=== PATIENT | female | born 1975 | race Caucasian/White ===

== ENCOUNTER 2018-10-16 12:53 | Outpatient (REF) | payer OTHER, SELFPAY ==
--- NOTE | 2018-10-16 10:30 | PAPFT_PTH ---
PATIENT: Vanesa Zavala LOC: [facility] U#:[id number] AGE/SX: 42/F ROOM: RE10/16/[address]: Nesha Hawkins MD : [id number] BED: DIS: 10/16/2018 SPEC #: [id number] RECD: 10/16/18 13:14 STATUS: DEEP REAudelia #: [id number] TALYA: 10/16/18 10:[address]: Nesha Hawkins DEPT: [facility] Cytology RECD BY: Dilia Alston ENTERED: 10/16/18 13:14 SP TYPE: PAPFT OTHR DR: Tien Garcia Tissues: 1 - CX/ENDOCX FOR PAP SMEARS Procedures: PAP THIN PREP/[facility] Screening HPV DNA PROBE Comments: [id number]
== END 2018-10-16 13:13 ==
LOC: LBN 12:53
PROVIDERS: PCP Family Medicine; Visit Provider Obstetrics & Gynecology
DX: Z12.4 Encounter for screening for malignant neoplasm of cervix (principal); Z11.59 Encounter for screening for other viral diseases
CPT/HCPCS: 88142; 87624

== ENCOUNTER 2018-11-11 01:47 | Outpatient (CLI) | payer OTHER, SELFPAY ==
--- NOTE | 2018-11-11 07:02 | DI.US_ITS ---
SYMPTOMS/DIAGNOSIS: ENLARGED UTERUS, N85.2 PELVIC ULTRASOUND: A transabdominal and transvaginal examination was carried out. The uterus measures 9.4 cm in length, 5.2 cm in height and 5.8 cm in width with an endometrial stripe thickness of 13.5 mm. A small nabothian cyst is demonstrated. The right ovary measures 3.2 x 1.7 x 2.0 cm and contains a 1.3 x 1.2 cm cyst. The left ovary measures 2.2 x 1.6 x 1.7 cm. There is no evidence of pelvic free fluid. The kidneys are unremarkable. The right kidney measures 11.5 cm, the left kidney 10.4 cm. SUMMARY: Aside from a tiny nabothian cyst and a 1.3 x 1.2 cm right ovarian cyst, the examination is unremarkable.
--- NOTE | 2018-11-11 11:00 | DI.MAMMO_ITS ---
SYMPTOMS/DIAGNOSIS: SCREENING, Z12.31 MAMMOGRAMS: Mammograms were interpreted according to the usual protocol including computer analysis with CAD system, tomosynthesis and C view imaging. The breast tissue is heterogeneously radiodense, which lowers the sensitivity of the study. When compared with the previous examinations, there is a question of interval development of a small area of nodularity in the central portion of the right breast. This finding suggested only on the craniocaudad projection. There are no suspicious calcifications in either breast. SUMMARY: Question interval development of a small right breast nodule. Further assessment with craniocaudad compression spot image and ultrasound is recommended. Category 0. Breast density category C. MQSA ASSESSMENT OF FINDINGS: Incomplete: Needs additional imaging evaluation. Category 0. Patient will receive a letter notifying them of these results. Bi-RADS category C. The breasts are heterogeneously dense, which may obscure small masses.
== END 2018-11-11 02:07 ==
PROVIDERS: PCP Family Medicine; Visit Provider Obstetrics & Gynecology
DX: Z12.31 Encounter for screening mammogram for malignant neoplasm of breast (principal); R92.8 Other abnormal and inconclusive findings on diagnostic imaging of breast; N85.2 Hypertrophy of uterus; N83.291 Other ovarian cyst, right side
CPT/HCPCS: 77063; 77067; 76830; 76856

== ENCOUNTER 2018-11-18 00:42 | Outpatient (CLI) | payer OTHER, SELFPAY ==
--- NOTE | 2018-11-18 02:20 | DI.COMBO_ITS ---
SYMPTOM/DIAGNOSIS: F/U MAMMO, ? INTERVAL DEVELOPMENT OF NODULARITY RT BREAST RIGHT BREAST ADDITIONAL VIEWS AND RIGHT BREAST ULTRASOUND: Additional images are interpreted according to the usual protocol including tomosynthesis and 2D imaging. Comparison is made with prior examinations. Breast density, Category C. Additional views of the right breast fail to show a persistent discrete mass. Ultrasound was performed. Several small simple cysts are seen in the right breast. No solid mass is identified. IMPRESSION: No evidence for malignancy. Yearly mammography is recommended. Category 2. The findings were discussed with the patient on the date of the examination. MQSA ASSESSMENT OF FINDINGS: Negative with benign findings. Category 2. Patient will receive a letter notifying them of these results. Bi-RADS category C. The breasts are heterogeneously dense, which may obscure small masses.
== END 2018-11-18 01:02 ==
PROVIDERS: PCP Family Medicine; Visit Provider Obstetrics & Gynecology
DX: Z12.31 Encounter for screening mammogram for malignant neoplasm of breast (principal); R92.8 Other abnormal and inconclusive findings on diagnostic imaging of breast; N60.11 Diffuse cystic mastopathy of right breast
CPT/HCPCS: 76642; 77063; 77067

== ENCOUNTER 2020-02-08 01:45 | Outpatient (CLI) | payer OTHER, SELFPAY ==
--- NOTE | 2020-02-08 11:15 | DI.MAMMO_ITS ---
EXAM: MG MAMMO SCREENING CLINICAL HISTORY: screening, Z12.39 TECHNIQUE: Bilateral full field digital CC and MLO mammographic images were obtained with 3D tomosyn thesis and utilizing computer aided detection (CAD). COMPARISON: Available for comparison. FINDINGS: Masses/Architectural Distortion: None seen. Microcalcifications: No suspicious pleomorphic-type are seen. Skin Thickening/Nipple Retraction: None. IMPRESSION: 1. No significant interval change with no specific features of malignancy noted. 2. Unless there is more urgent need, screening mammography is recommended, as per [employer] guidelines. BI-RADS Category 1 - Negative Breast Density - Category C - Heterogeneously dense The mammogram demonstrates the patient's breast tissue is dense. Dense breast tissue is very common a nd is not abnormal but dense breast tissue can make it harder to find cancer on a mammogram. Also, de nse breast tissue may increase their breast cancer risk. This information about the result of the [facility] mogram report was provided to the patient to raise their awareness. Use this report when you speak wi th the patient about their risks for breast cancer, which includes their family history. At that time , you may recommend for more screening tests (Ultrasound or MRI) as they might be useful based on the ir risk. A negative radiographic report should not delay biopsy if a dominant or clinically suspicious mass is present. Up to ten percent of cancers are not identified on mammography. A negative report may reinforce clinical impression. Adenosis and dense breasts may obscure an underlying neoplasm. False positive reports average 6 to 10%. Patient will receive a letter notifying them of these results.
== END 2020-02-08 02:05 ==
PROVIDERS: PCP Family Medicine; Visit Provider Nurse Practitioner Family
DX: Z12.31 Encounter for screening mammogram for malignant neoplasm of breast (principal)
CPT/HCPCS: 77063; 77067

== ENCOUNTER 2020-07-05 01:38 | Outpatient (CLI) | payer OTHER, SELFPAY ==
--- NOTE | 2020-07-05 | DI.CT_ITS ---
EXAM: CT ABDOMEN PELVIS W CLINICAL HISTORY: RUQ AND MID ABD PAIN,? HERNIA. TECHNIQUE: Imaging Protocol: Axial computed tomography images with coronal and sagittal reformatted images were created and reviewed CONTRAST MATERIAL: Intravenous: Omnipaque 350 Contrast volume:100 ml Oral: yes COMPARISON: No exams were available for comparison FINDINGS: ABDOMEN: Lung Bases: Normal where visualized. Liver: Normal density. No measurable mass. Gallbladder and biliary tract: No radiodense calculus or dilation. Pancreas: Normal density, no abnormal calcifications or inflammatory process. Spleen: Normal. Kidneys: Normal size, contour and axis. No radiodense stones or obstructive uropathy. No masses seen. Adrenal glands: No masses seen. Abdominal Aorta: Abdominal portion non-dilated. Mild calcification. Soft tissues: A BB marker was placed over the area of the patient's pain over the right upper quadran t abdominal wall. There is no evidence of an abdominal wall hernia in this location. There is no vi sible lipoma or other mass. A small amount of fat is seen at the umbilicus. PELVIS: Bladder: Symmetric distention, no gross wall thickening. Bowel: No obstruction or bowel wall thickening. Normal appendix. Moderate quantity of stool. Peritoneal cavity: No ascites, collection or mesenteric inflammatory response. Bones: Within normal limits. Reproductive organs: Within normal limits. Lymph nodes: Unremarkable. Impression: Small fatty containing umbilical hernia. No evidence of hernia in the right upper quadrant in the ar ea of the patient's pain. RADIATION DOSE DELIVERED: 740.77mGy.cm Total DLP DATA REPOSITORY: All CT scans at this facility are submitted to the National Radiology Data Registry (NRDR) Dose Index Registry (DIR) with the [employer] (ACR). RADIATION OPTIMIZATION: All CT scans at this facility use at least one of these dose optimization te chniques: automated exposure control; mA and/or kV adjustment per patient size (includes targeted exa ms where dose is matched to clinical indication); or iterative reconstruction.
[2020-07-05 09:53] LABS: Anion Gap 5.2 mmol/L (3-11); BUN 20 mg/dL (7-18); CO2 28.8 mmol/L (21.0-32.0); CREATININE 0.85 mg/dL (0.55-1.02); Calcium 8.8 mg/dL (8.5-10.1); Chloride 103 mmol/L (98-107); Glucose 95 mg/dL (74-106); Potassium 3.6 mmol/L (3.5-5.1); Sodium 137 mmol/L (136-145)
[2020-07-05] MEDS: Omnipaque 350 MG/ML 100 ML BTL IJ (11:01)
[2020-07-05] MEDS: Normal Saline - Diluent 50 ML VIAL IV (11:02)
== END 2020-07-05 01:58 ==
PROVIDERS: PCP Family Medicine; Visit Provider Family Medicine
DX: K42.9 Umbilical hernia without obstruction or gangrene (principal); R10.11 Right upper quadrant pain; M54.6 Pain in thoracic spine; G89.29 Other chronic pain
CPT/HCPCS: 80048; 74177; J3490

== ENCOUNTER 2021-08-18 00:48 | Outpatient (CLI) | payer OTHER, SELFPAY ==
--- NOTE | 2021-08-18 13:32 | DI.MRI_ITS ---
Exam(s) MR THORACIC SPINE WO EXAM: MR THORACIC SPINE WO CLINICAL HISTORY: THORACIC RADICULOPATHY, M54.14. TECHNIQUE: Multiplanar multisequence MRI of the Thoracic spine was performed. COMPARISON: CT CT ABDOMEN PELVIS W from 07/05/2020 FINDINGS: Bones: The vertebral body heights are well maintained. Alignment is satisfactory. The signal characte ristics are unremarkable. Cord: The thoracic cord is normal size and signal intensity. No intrinsic cord lesion is present. Discs: No disc herniation or bulge is present. Soft tissues: Normal. T1-2: No disc herniation or bulge is identified. No central spinal canal or neural foraminal stenosi s. T2-3: No disc herniation or bulge is identified. No central spinal canal or neural foraminal stenosi s. T4-5: No disc herniation or bulge is identified. No central spinal canal or neural foraminal stenosi s. T5-6: No disc herniation or bulge is identified. No central spinal canal or neural foraminal stenosis . T6-7: No disc herniation or bulge is identified. No central spinal canal or neural foraminal stenosis . T7-8: No disc herniation or bulge is identified. No central spinal canal or neural foraminal stenosis . T8-9: No disc herniation or bulge is identified. No central spinal canal or neural foraminal stenosis . T9-10: No disc herniation or bulge is identified. No central spinal canal or neural foraminal stenosi s. T10-11:No disc herniation or bulge is identified. No central spinal canal or neural foraminal stenosi s. T11-12: No disc herniation or bulge is identified. No central spinal canal or neural foraminal stenos is. T12-L1: No disc herniations or bulges are present. No central spinal canal or neural foraminal steno sis. IMPRESSION: Normal MRI examination of the thoracic spine. DATA REPOSITORY:
== END 2021-08-18 01:08 ==
PROVIDERS: PCP Family Medicine; Visit Provider Family Medicine
DX: M54.14 Radiculopathy, thoracic region (principal)
CPT/HCPCS: 72146

== ENCOUNTER → 2022-06-27 02:18 | Outpatient (CLI) | payer OTHER, SELFPAY ==
--- NOTE | 2022-06-27 | DI.MRI_ITS ---
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 TECHNIQUE: Multiplanar multisequence MRI of the Lumbar spine was performed. COMPARISON: No exams were available for comparison FINDINGS: Bones: The last intervertebral disc space is designated the L5/S1 level for the numbering purpose of this examination. The vertebral body heights are well maintained. Alignment is satisfactory. The ma rrow signal characteristics are unremarkable. Cord: The conus tip ends at the T12 level. It is of normal size and signal intensity. T12-L1: No disc herniations or bulges are present. No central spinal canal or neural foraminal stenos is. L1-2: No disc herniations or bulges are present. No central spinal canal or neural foraminal stenosis . L2-3: No disc herniations or bulges are present. No central spinal canal or neural foraminal stenosis . L3-4: No disc herniations or bulges are present. No central spinal canal or neural foraminal stenosis . L4-5: No disc herniations or bulges are present. No central spinal canal or neural foraminal stenosis . L5-S1: No disc herniations or bulges are present. No central spinal canal or neural foraminal stenosi s. The visualized SI joints and sacrum are well maintained. Soft tissues: The paraspinal soft tissues are unremarkable. IMPRESSION: No evidence of disc herniation, significant spinal stenosis or neuroforaminal narrowing. DATA REPOSITORY:
== END ==
PROVIDERS: PCP Family Medicine; Visit Provider Family Medicine
DX: M54.31 Sciatica, right side (principal)
CPT/HCPCS: 72148

== ENCOUNTER 2022-07-09 11:54 | Outpatient (REF) | payer OTHER, SELFPAY ==
--- NOTE | 2022-07-09 11:30 | PAPFT_PTH ---
PATIENT: Vanesa Zavala LOC: [facility] U#:[id number] AGE/SX: 46/F ROOM: RE07/09/[address]: Socorro Landa NP : 1975 BED: DIS: 07/09/2022 SPEC #: [id number] RECD: 07/09/22 12:49 STATUS: DEEP REQ #: [id number] TALYA: 07/09/22 11:[address]: Socorro Landa NP DEPT: [facility] Cytology RECD BY: Dilia Alston ENTERED: 07/09/22 12:49 SP TYPE: PAPFT OTHR DR: Tien Garcia Tissues: 1 - CX/ENDOCX FOR PAP SMEARS Procedures: PAP THIN PREP/[facility] Screening HPV DNA PROBE Comments: [id number] (CHLAMYDIA/GC)
[2022-07-10 13:59] LABS: Chlamydia Result Negative (Negative); GC Result Negative (Negative)
== END 2022-07-09 11:55 | disposition home or self-care (01) ==
LOC: LBN 11:54
PROVIDERS: PCP Family Medicine; Visit Provider Nurse Practitioner Women's Health
DX: Z12.4 Encounter for screening for malignant neoplasm of cervix (principal); Z11.3 Encounter for screening for infections with a predominantly sexual mode of transmission; Z11.51 Encounter for screening for human papillomavirus (HPV)
CPT/HCPCS: 87491; 87591; 88142; 87624

== ENCOUNTER → 2022-08-03 00:10 | Outpatient (CLI) | payer OTHER, SELFPAY ==
--- NOTE | 2022-08-03 07:00 | DI.MAMMO_ITS ---
Exam(s) MAMMO SCREENING EXAM: MAMMO SCREENING CLINICAL HISTORY: screening, Z12.39 TECHNIQUE: Bilateral full field digital CC and MLO mammographic images were obtained with 3D tomosyn thesis and utilizing computer aided detection (CAD). COMPARISON: Available for comparison. FINDINGS: Masses/Architectural Distortion: None seen. Microcalcifications: No suspicious pleomorphic-type are seen. Skin Thickening/Nipple Retraction: None. IMPRESSION: 1. No significant interval change with no specific features of malignancy noted. 2. Unless there is more urgent need, screening mammography is recommended, as per [employer] [employer] guidelines. BI-RADS Category 1 - Negative Breast Density - Category C - Heterogeneously dense Breast density category C or D implies that the patient has dense breast tissue. Dense breast tissue is very common and is not abnormal but dense breast tissue can make it harder to find cancer on a ma mmogram. Also, dense breast tissue may increase their breast cancer risk. This information about the result of the mammogram report was provided to the patient to raise their awareness. Use this report when you speak with the patient about their risks for breast cancer, which includes their family hist ory. At that time, you may recommend for more screening tests (Ultrasound or MRI) as they might be us eful based on their risk. A negative radiographic report should not delay biopsy if a dominant or clinically suspicious mass is present. Up to ten percent of cancers are not identified on mammography. A negative report may reinforce clinical impression. Adenosis and dense breasts may obscure an underlying neoplasm. False positive reports average 6 to 10%. Patient will receive a letter notifying them of these results.
== END ==
PROVIDERS: PCP Family Medicine; Visit Provider Nurse Practitioner Women's Health
DX: Z12.31 Encounter for screening mammogram for malignant neoplasm of breast (principal)
CPT/HCPCS: 77063; 77067

== ENCOUNTER 2023-08-19 10:47 | Outpatient (REF) | payer OTHER, SELFPAY ==
[2023-08-20 15:48] LABS: Chlamydia Result Negative (Negative); GC Result Negative (Negative)
== END 2023-08-19 10:48 | disposition home or self-care (01) ==
LOC: LBN 10:47
PROVIDERS: PCP Family Medicine; Visit Provider Obstetrics & Gynecology
DX: Z11.3 Encounter for screening for infections with a predominantly sexual mode of transmission (principal)
CPT/HCPCS: 87491; 87591

== ENCOUNTER → 2023-09-09 02:29 | Outpatient (CLI) | payer OTHER, SELFPAY ==
--- NOTE | 2023-09-09 12:45 | DI.MAMMO_ITS ---
Exam(s) MAMMO SCREENING EXAM: MAMMO SCREENING CLINICAL HISTORY: screening TECHNIQUE: Bilateral full field digital CC and MLO mammographic images were obtained with 3D tomosyn thesis and utilizing computer aided detection (CAD). COMPARISON: Available for comparison. FINDINGS: Masses/Architectural Distortion: None seen. Microcalcifications: No suspicious pleomorphic-type are seen. Skin Thickening/Nipple Retraction: None. IMPRESSION: 1. No significant interval change with no specific features of malignancy noted. 2. Unless there is more urgent need, screening mammography is recommended, as per [employer] [employer] guidelines. BI-RADS Category 1 - Negative Breast Density - Category C - Heterogeneously dense Breast density category C or D implies that the patient has dense breast tissue. Dense breast tissue is very common and is not abnormal but dense breast tissue can make it harder to find cancer on a ma mmogram. Also, dense breast tissue may increase their breast cancer risk. This information about the result of the mammogram report was provided to the patient to raise their awareness. Use this report when you speak with the patient about their risks for breast cancer, which includes their family hist ory. At that time, you may recommend for more screening tests (Ultrasound or MRI) as they might be us eful based on their risk. A negative radiographic report should not delay biopsy if a dominant or clinically suspicious mass is present. Up to ten percent of cancers are not identified on mammography. A negative report may reinforce clinical impression. Adenosis and dense breasts may obscure an underlying neoplasm. False positive reports average 6 to 10%. Patient will receive a letter notifying them of these results.
== END ==
PROVIDERS: PCP Family Medicine; Visit Provider Obstetrics & Gynecology
DX: Z12.31 Encounter for screening mammogram for malignant neoplasm of breast (principal)
CPT/HCPCS: 77063; 77067

== ENCOUNTER 2024-09-15 00:23 | Outpatient (CLI) | payer OTHER, SELFPAY ==
--- OUTSIDE RECORDS SUMMARY | 2024-09-15 00:25 | XMS_ITS | Clinical Summary ---
Author Organization [facility] Address [address] [place] [address] Care Team Providers Care Membership Coordinator Name Role Phone Andie Cool DNP AGPCNP Primary Care Provi zee Allergies Active Allergy Reactions Criticality Noted Date Comments Lisinopril Cough Low 07/27/2019 Losartan Cough Low 07/31/2019 Medications ibuprofen (MOTRIN) 200 mg tablet Take 1 Tablet by mouth if needed. 3 tabs at a time Active omeprazole (PRILOSEC) 20 mg capsuleIndication s:Epigastric pain Take 1 Capsule by mouth every morning. 90 Capsule 3 4 Active hydroCHLOROthiazi de (HYDRODIURIL) 25 mg tabletIndications :Essential hypertension Take 1 Tablet by mouth daily. 90 Tablet 3 4 Active amLODIPine (NORVASC) 5 mg tabletIndications :Essential hypertension Take 1 Tablet by mouth daily. 90 Tablet 3 4 Active Active Problems Patient Care Coordination No te Formatting of this note migh t be different from the original. Patient has given permission for [facility] to verbally discuss the following information with Nick Brower, Maria Brower, Michelle Waldron who has the following relationship to the patient: , Daughter, sister: Scheduling/Appt/Billing/Payment Information (does not include clinical information unless specifically indicated with separate option) Medical Information including symptoms, diagnosis, medications, test results and treatment plan (does not include Mental Health unless specifically indicated with separate option) Mental Health (Behavioral,Psychiatric,Chemical Dependency) health information, including my symptoms, diagnosis, medications and treatment plan Permission remains in effect until the patient elects to revoke it. Problem Noted Date Diagnosed Date Gastroesophageal reflux disease 10/09/2023 Myofascial pain syndrome 07/30/2022 Thoracic radiculopathy 06/07/2021 Mixed hyperlipidemia 05/24/2021 Anxiety disorder 07/10/2019 Essential hypertension 07/10/2019 Resolved Problems Problem Noted Date Diagnosed Date Resolved Date Pure hypercholesterolemia 08/28/2019 Encounters Date Type Department Care Team Description 09/08/2024 Telephone [place] [address] , [facility] [address] [place] [address] Nidia Santa RN Appointment Related from Last 3 Months Immunizations Name Administration Dates Next Due Covid-19 mRNA Vaccine (MODER NA COVID-19) PF 0.5 ml IM (12 yrs+) 08/21/2021,12/21/2020,11/24/2020 Td 09/20/1991 Tdap Vaccine =>7YO IM 10/30/2022,01/18/2011 Surgical History Surgery Date Site/Laterality Comments SKIN BIOPSY excision of moles WISDOM TOOTH EXTRACTION COLONOSCOPY 07/30/2023 N/A Medical History Medical History Date Comments Mole (skin) Family History Medical History Relation Comments Diabetes Father Heart Disease Mother Relation Status Comments Father Alive Mother Alive Social History Tobacco Use Types Packs/Day Years Used Date Smoking Tobacco: Former Cigarettes 0.5 22.3 1 987 - 2008 Smokeless Tobacco: Never Tobacco Cessation:Counseling Given: Not Answered Alcohol Use Standard Drinks/Week Comments Yes 0 (1 standard drink = 0.6 oz pur e alcohol) occasionally [facility] Utilities Answer Date Recorded In the past 12 months has e electric, gas, oil, or water company threatened to shut off services in your home? No 09/19/2023 AUDIT-C Answer Date Recorded Q1: How often do you have a drink containing alc ohol? Monthly or less 02/05/2023 Q2: How many drinks containi ng alcohol do you have on a typical day when you are drinking? 3 or 4 02/05/2023 Q3: How often do you have si x or more drinks on one occasion? Never 02/05/2023 Overall Financial Resource Strain (CARDIA) Answe r Date Recorded How hard is it for you to pa y for the very basics like food, housing, medical care, and heating? Not hard at all 09/19/2023 PHQ-2 Answer Date Recorded PHQ-2 SUBTOTAL 0 09/19/2023 Exercise Vital Sign Answer Date Recorde d On average, how many days pe r week do you engage in moderate to strenuous exercise (like a brisk walk)? 5 days 09/19/2023 On average, how many minutes do you engage in exercise at this level? 30 min 09/19/2023 Hunger Vital Sign Answer Date Recorded Within the past 12 months, y ou worried that your food would run out before you got the money to buy more. Never true 09/19/19 24 Within the past 12 months, t he food you bought just didn't last and you didn't have money to get more. Never true 09/19/2023 PRAPARE - Transportation Answer Date Re corded In the past 12 months, has l ack of transportation kept you from medical appointments or from getting medications? No 03/2024 In the past 12 months, has l ack of transportation kept you from meetings, work, or from getting things needed for daily living? No 09/19/2023 Housing Stability Vital Sign Answer Supa e Recorded In the last 12 months, was t here a time when you were not able to pay the mortgage or rent on time? No 09/19/2023 In the last 12 months, how many places have you lived? 1 09/19/2023 In the last 12 months, was t here a time when you did not have a steady place to sleep or slept in a group home (including now)? No 09/19/2023 Interpersonal Safety Answer Date Record ed How often does anyone, jason todd family, hit, punch or physically hurt you? 09/19/2023 How often does anyone, jason todd family, insult, scream, curse or threaten to hurt you? 09/19/2023 Comments Unknown Sex and Gender Information Value Date Recorded Sex Assigned at Female 08/28/2019 11:27 EST Legal Sex Female 18:27 EST Gender Identity Female 07/30/2019 7:59 EST Sexual Orientation Not on file Obstetrics History Last Filed Vital Signs Vital Sign Reading Time Taken Comments Blood Pressure 132/80 04/20/2024 1136 EDT Pulse 62 04/20/2024 1116 EDT Temperature 36.5 ??C (97.7 ??F) 07/30/2023 1113 EST Respiratory Rate 12 04/20/2024 1116 EDT Oxygen Saturation 99% 04/20/2024 1116 EDT Inhaled Oxygen Concentration - - Weight 68.1 kg (150 lb 1.6 oz) 04/20/2024 1116 E DT Height 152.4 cm (5') 04/20/2024 1116 EDT Body Mass Index 29.31 04/20/2024 1116 EDT Plan of Treatment Upcoming Encounters Date Type Department Care Team (Late st Contact Info) Description 11/18/2024 10:15 EDT Office Visit [facility] Family [facility] [address], [address] [place] [address] Andie Cool, VIRGIE AGPCNP [address] [facility] [address] [place] [address] Health Maintenance Due Date Last Done Comments Advance Directive 11/21/1991 Cologuard (Colon Cancer Screening) 2018 FIT Test (Colon Cancer Screening) 2018 Sigmoidoscopy (Colon Cancer Screening) 2018 Shingles Immunization (1 of 2) 11/21/2023 Social Determinants Of Healt h (SDOH) 09/19/2024 09/19/2023, 09/19/2023, 02/05/2023 Depression Screening 09/20/2024 09/20/2023, 09/19/2023, 02/05/2023 Pap Smear (Cervical Cancer Screening) 07/09/2025 07/09/2022, 10/16/2018, 10/02/2016, Additional history exists Breast Cancer Screening 09/09/2025 09/09/2023 Preventive Care Visit 09/20/2025 09/20/2023, 022 Cervical Cancer Screening 07/09/2027 HPV/Cotest (Cervical Cancer Screening) 07/09/2027 07/09/2022, 07/09/2022, 02/23/2009 Lipid Profile Screening (Cholesterol) 04/20/2029 04/20/2024, 06/25/2022, 05/24/2021, Additional history exists Tetanus (Adult) Immunization 10/30/2032, 01/18/2011, 09/20/1991 Colonoscopy (Colon Cancer Screening) 07/30/2033 07/30/2023 Colorectal Cancer Screening 07/30/2033 COVID-19 Vaccine Discontinued 08/21/2021, 07/2021, 11/24/2020 RETIRED Cervical Cancer Screening Discontinued 07/09/2022, 10/16/2018, 10/02/2016, Additional history exists Pertussis (Adult) Immunization Completed 10/30/2022 , 01/18/2011 HIV Screening Completed 04/20/2024 Hepatitis C Screen Completed 04/20/2024 Hepatitis B Vaccine Discontinued Influenza Immunization (Adult) Discontinued Procedures Procedure Name Priority Date/Time Associated Diagnosis Comments HEPATITIS C AB W REFLEX TO HCV RNA BY PCR Routine 04/20/2024 12:03 EDT Screening for viral disease HIV 1/2 ANTIGEN AND ANTIBODY, 4TH GENERATION Routine 04/20/2024 12:03 EDT Screening for viral disease LIPID PROFILE (INCLUDES CHOLESTEROL, TRIGLYCERIDES, HDL, LDL) Routine 04/20/2024 12:03 EDT Essential hypertension COLONOSCOPY Routine 07/30/2023 10:15 EST Screen for colon cancer PAP TEST Today 07/09/2022 11:30 EST Encounter for other general examination from Last 3 Months or Most Recently Relevant to Health Maintenance Results * HEPATITIS C AB W REFLEX TO HCV RNA BY PCR (04/20/2024 12:03 EDT) Hep C Antibody Negative Negative 04/20/2024 13:48 EDT [facility] Blood VENOUS BLOOD / Unknown Venipuncture / Unknown 04/20/2024 12:03 EDT 04/20/2024 12:33 EDT us Markus Younger MD CHEMISTRY & BLOOD GAS ORDERABLES Final Result Performing Organization Address [facility] Co de Phone Number [facility] [address] [place], [place] [phone] * HIV 1/2 ANTIGEN AND ANTIBODY, 4TH GENERATION (04/20/2024 12:03 EDT) Pathologist [facility] HIV 1 and 2 Antibody/p24 Antigen, 4th Generation Negative Negative 04/20/2024 13:40 EDT [facility] Comment:If acute HIV-1 infec tion is suspected in a high risk patient, submit plasma specimen for HIV-1 RNA quantitation test. Blood VENOUS BLOOD / Unknown Venipuncture / Unknown 04/20/2024 12:03 EDT 04/20/2024 12:33 EDT us Markus Younger MD IMMUNOLOGY AND SEROLOG Y ORDERABLES Final Result Performing Organization Address [facility] Co de Phone Number [facility] [address] [place] [address] * (ABNORMAL) LIPID PROFILE (INCLUDES CHOLESTEROL, TRIGLYCERIDES, HDL, LDL) (04/20/2024 12:03 EDT) Cholesterol 187 <200 mg/dL 04/20/2024 13:01 [facility] Comment:Note that therapeuti c goals will differ between patients based on cardiac risk factors and current medical therapy. HDL 34(L) >=50 mg/dl 04/20/2024 13:01 [facility] Comment:Note that therapeuti c goals will differ between patients based on cardiac risk factors and current medical therapy. LDL, Calculated 114 <160 mg/dL 13:01 [facility] Comment:Note that therapeuti c goals will differ between patients based on cardiac risk factors and current medical therapy. Triglyceride 195(H) <=150 mg/dL 04/20/2024 13:01 [facility] Comment:Note that therapeuti c goals will differ between patients based on cardiac risk factors and current medical therapy. Chol/HDL Ratio 5.5 See Note 04/20/2024 13:01 [facility] Comment: NOTE: Desirable Ratio = <4.1 Patient At Risk Ratio = >5.0(Males) ?>6.0(Females) Non HDL Cholesterol 153 <160 mg/dL 04/20/2024 13:01 [facility] Comment:Note that therapeuti c goals will differ between patients based on cardiac risk factors and current medical therapy. Blood VENOUS BLOOD / Unknown Venipuncture / Unknown 04/20/2024 12:03 EDT 04/20/2024 12:33 EDT us Markus Younger MD CHEMISTRY & BLOOD GAS ORDERABLES Final Result [facility] [address] [place] [address] * COLONOSCOPY (07/30/2023 10:15 EST) Anatomical Region Laterality Modality Endoscopy Narrative 07/30/2023 10:15 EST [facility] ?? [address] [address] ?? Patient Name ?VANESA BROWER Date of ?1975 Record Number ?[id number] Date/Time of Procedure ?07/30/2023, 10:15:00 AM Endoscopist ?Joey Julian ?? [employer]er ? Referring Physician(s) ?? SALTY TYSON , Anesthesiologist ? Procedure Performed: COLONOSCOPY Indications for Exam: Screening Colonoscopy. Instruments: ? [id number] ([id number]) Medications: ?Fentanyl 100 mcg, Versed 4 mg I was in continuous face to face attendance during the administration of moderate sedation services that were monitored by an independent trained observer who had no other duties during the procedure. ? Visualization: ? Good ?Tolerance: Good ?Complications: None ? Extent of Exam: ?terminal ileum ? Limitations: ?? Procedure Technique: A physical exam was performed. Informed consent was obtained from the patient after explaining all the risks (perforation, bleeding, infection and adverse effects to the medicine) , benefits and alternatives to the procedure which the patient appeared to understand and so stated. ??The patient was connected to the monitoring devices and placed in the left lateral position. Continuous oxygen was provided with a nasal cannula and IV medicine administered thru an indwelling cannula. After adequate conscious sedation was achieved, a digital exam was performed and the colonoscope introduced into the rectum and advanced under direct visualization to the terminal ileum which was identified by visual landmarks. The scope was subsequently removed slowly while carefully examining the color, texture, anatomy, and integrity of the mucosa on the way out. In the rectum the scope was retroflexed to evaluate for internal hemorrhoids and anorectal pathology. The patient was subsequently transferred to the recovery area in satisfactory condition. The following findings were noted: Findings: Normal COLONOSCOPY to the terminal ileum. Endoscopic Diagnosis: Normal colonoscopy Recommendations: Repeat colonoscopy in 10 years Sedation Start: 10:57:29 AM ?? Sedation End: 11:09:44 AM Signature: Joey Julian M.D. This note was electronically signed on 07/30/2023 11:11:22 AM By Joey Julian M.D. us Tien Garcia MD GI PROCEDURE ORDERABLES Final Re sult * PAP TEST (07/09/2022 11:30 EST) Specimens A. Cervix and/or Endocervix , ThinPrep Imaging System with Manual Evaluation 07/18/2022 15:23 [facility] Specimen Adequacy Satisfactory for Evaluation - transformation zone component absent 07/18/2022 15:23 [facility] General Categorization Negative for intraepithelial lesion or malignancy 07/18/2022 15:23 [facility] Attestation . 07/18/2022 15:23 [facility] at 1522 Clinical History SEE BELOW 07/18/20 15:23 [facility] HPV The result for the Human Papillomavirus (HPV) Detection-High Risk Types is Negative. No E6 or E7 mRNA is detected from HPV types 16,18,31,33,35,39 ,45,51,52,56,58,5 9,66, and 68 by cyber intel planner mediated amplification.Usha ting was performed on specimen [id number] and was resulted on 07/18/2022 1522 EST by PAULA, LAB INSTRUMENT RESULTS IN 07/18/2022 15:23 [facility] Performing Lab [facility] 07/18/2022 15:23 [facility] Scanned Images 07/18/2022 15:23 [facility] Papanicolaou smear specimen (specimen) CERVIX UTERI STRUCTURE / Unknown 07/09/2022 11:30 EST 07/10/2022 13:59 EST us Socorro Landa APRN PATHOLOGY ORDERABLES Allison l Result [facility] [address] [place] [address] from Last 3 Months or Most Recently Relevant to Health Maintenance Insurance Care Teams Membership Coordinator Relationship Specialty Start Date End Date Andie Cool, VIRGIE AGPCNP [address] [place] [phone] PCP - General Family Medicine - Primary Care 09/08/24
--- OUTSIDE RECORDS SUMMARY | 2024-09-15 00:25 | XMS_ITS | Encounter Summary ---
Author Organization [facility] Address [address] [place] [address] Care Team Providers Care Community Associate Name Role Phone Tien Garcia MD Primary Care Provider [phone] Reason for Visit * Reason Comments Injections Trigger point Encounter Details Date Type Department Care Team (Late st Contact Info) Description 04/03/2023 16:00 EDT Office Visit [facility] Family Medicine [address], [address] [place] [address] Tien Garcia MD [address] [place] [address] [address] [place] [address] Myofascial pain syndrome (Primary Dx) Social History Tobacco Use Types Packs/Day Years Used Date Smoking Tobacco: Former Cigarettes Q uit: 2008 Smokeless Tobacco: Never Alcohol Use Standard Drinks/Week Comments Yes 0 (1 standard drink = 0.6 oz pur e alcohol) occasionally AUDIT-C Answer Date Recorded Q1: How often [...] care, and heating? Not hard at all 02/05/2023 PHQ-2 Answer Date Recorded PHQ-2 SUBTOTAL 0 02/05/2023 Hunger Vital Sign Answer Date Recorded Within the past 12 months, y ou worried that your food would run out before you got the money to buy more. Never true 02/06/20 23 Within the past 12 months, t he food you bought just didn't last and you didn't have money to get more. Never true 02/05/2023 PRAPARE - Transportation Answer Date Re corded In the past 12 months, has l ack of transportation kept you from medical appointments or from getting medications? No 01/11 In the past 12 months, has l ack of transportation kept you from meetings, work, or from getting things needed for daily living? No 02/05/2023 Housing Stability Vital Sign Answer Supa e Recorded In the last 12 months, was t here a time when you were not able to pay the mortgage or rent on time? No 02/05/2023 In the last 12 months, how many places have you lived? 1 02/05/2023 In the last 12 months, was t here a time when you did not have a steady place to sleep or slept in a [facility] (including now)? No 02/05/2023 Interpersonal Safety Answer Date Record ed How often does anyone, enedeliajagjit peyton family, hit, punch or physically hurt you? Never 02/05/2023 How often does anyone, enedeliajagjit peyton family, insult, scream, curse or threaten to hurt you? Never 02/05/2023 Comments Unknown Sex and Gender Information Value Date Recorded Sex Assigned at Female 08/28/2019 11:27 EST Legal Sex Female 18:27 EST Gender Identity Female 07/30/2019 7:59 EST Sexual Orientation Not on file documented as of this encounter Last Filed Vital Signs Vital Sign Reading Time Taken Comments Blood Pressure 142/88 04/03/2023 1600 EDT Pulse 76 04/03/2023 1600 EDT Temperature - - Respiratory Rate 16 04/03/2023 1600 EDT Oxygen Saturation 98% 04/03/2023 1600 EDT Inhaled Oxygen Concentration - - Weight 66.2 kg (146 lb) 04/03/2023 1600 EDT Height - - Body Mass Index 22.2 01/02/2023 1344 EDT documented in this encounter Functional Status * Because of a physical, mental, or emotional condition, does this person have difficulty doing errands alone such as visiting a doctor's office or shopping? Answer Date of Assessment Author No 04/24/2022 10:30 EDT documented as of this encounter Mental Status * Because of a physical, mental, or emotional condition, does this person have serious difficulty concentrating, remembering, or making decisions? Answer Entry Date Author No 04/24/2022 10:30 EDT documented in this encounter Progress Notes * Tien Garcia MD - 04/03/2023 1600 EDT Assessment/Plan: 1. Myofascial pain syndrome She notes a gradual trend towards improvement. Appreciated referral to pain clinic. Repeat trigger point injections in the right paralumbar muscle mass x3, for total of 3 cc of 1% Xylocaine without epinephrine was accomplished. Vanesa did note significant response following this injection. Subjective: Injections (Trigger point) HPI: Vanesa presents today for follow-up of chronic, myofascial right mid back pain. Please see prior notes. Since our last visit, she was seen by the pain clinic at [facility]. She was offered a trial of cyclobenzaprine, 5 mg, 1 tablet to be taken at at bedtime. She has not yet started this treatment as ivanaalso recently started on Provera to help manage her dysfunctional uterine bleeding and she did not w ant to start 2 new medicines at the same time. Overall, she has noted a gradual trend towards clinical improvement. 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 Current Outpatient Medications Medication ??? amLODIPine (NORVASC) 5 mg tablet ??? hydroCHLOROthiazide (HYDRODIURIL) 25 mg tablet ??? ibuprofen (MOTRIN) 200 mg tablet ??? magnesium oxide (MAG-OX) 400 mg (241.3 mg magnesium) tablet ??? omeprazole (PRILOSEC) 20 mg capsule ??? progesterone (PROMETRIUM) 100 mg capsule No current facility-administered medications for this visit. Review of Systems Denies fever or rash. ROS Past Medical History: Diagnosis Date ??? Mole (skin) Past Surgical History: Procedure Laterality Date ??? OTHER SURGICAL HISTORY excision of moles ??? WISDOM TOOTH EXTRACTION Allergies Allergen Reactions ??? Lisinopril Cough ??? Losartan Cough Objective: VS: BP (!) 142/88 (BP Cuff Location: Right arm, BP Patient Position: Sitting, BP Cuff Sizes: Adult,regular) Pulse 76 Resp 16 Wt 66.2 kg (146 lb) SpO2 98% BMI 22.20 kg/m?? Body mass index is 22.2 kg/m??. Physical Exam: Physical Exam General appearance: alert, cooperative Neck: supple Lungs: non labored breathing Heart: regular rate and rhythm Neurologic: grossly normal Mental Status: seems euthymic Skin: no lesions noted on visible skin Back: Spine is midline. Once again, spasm in the right paraspinal muscle bulk is noted from the lower thoracic, through the lower lumbar spine. Data (reviewed with patient): Lab Results Component Value Date HGB 14.1 03/14/2020 PLT 260 03/14/2020 CHOL 208 (H) 06/25/2022 HDL 36 (L) 06/25/2022 LDL 140 (H) 05/24/2021 NA 140 06/25/2022 K 3.8 06/25/2022 CL 103 06/25/2022 CREATININE 0.66 06/25/2022 BUN 19 06/25/2022 CO2 28 06/25/2022 documented in this encounter Plan of Treatment Upcoming Encounters Date Type Department Care Team (Late st Contact Info) Description 11/18/2024 10:15 EDT Office Visit [facility] Family Medicine - [address] [place] [address] Andie Cool DNP AGNP [address] [facility] [address] [place] [address] documented as of this encounter Visit Diagnoses Diagnosis Myofascial pain syndrome- Primary Mylagia and myositis, unspecified documented in this encounter Discontinued Medications Medication Sig Discontinue Reason Start Date End Da te fluticasone propion-salmeteroL (ADVAIR) 250-50 mcg/dose diskus inhaler INHALE 1 PUFF BY MOUTH TWICE DAILY DIRECTED Patient Stopped Taking 11/27/2022 04/03/2023 cyclobenzaprine (FLEXERIL) 5 mg tablet Take 1 Tablet by mouth 3 times daily for 30 days. Please start as one pill night. 03/11/2023 04/03/2023 documented as of this encounter Historical Medications * This list may reflect changes made after this encounter. progesterone (PROMETRIUM) 100 mg capsule Take 2 Capsules by mouth at bedtime. 2 03/13/2023 09/20/2023 added in this encounter Care Teams Community Associate Relationship Specialty Start Date End Date Tien Garcia MD [address] [place] [phone] PCP - General 05/27/14 04/24/23 documented as of this encounter
--- OUTSIDE RECORDS SUMMARY | 2024-09-15 00:25 | XMS_ITS | Encounter Summary ---
Author Organization [facility] Address [address] [place] [address] Care Team Providers Care Senior Backup Administrator Name Role Phone Shannon Calzada Primary Care Provider + Reason for Visit * Reason Comments Medications Refill Encounter Details Date Type Department Care Team (Late st Contact Info) Description 01/01/2024 Refill [facility] [address], [address] [place] [address] Coral Remy, INTERNATIONAL ACCOUNT REPRESENTATIVE [address] [facility] [place] [address] [place] [phone] Medications Refill Social History Tobacco Use Types Packs/Day Years Used Date Smoking Tobacco: Former Cigarettes 0.5 22.3 1 987 - 2008 Smokeless Tobacco: Never Alcohol Use Standard Drinks/Week Comments Yes 0 (1 standard drink = 0.6 oz pur e alcohol) occasionally [facility] Utilities Answer Date Recorded In the past 12 months has [employer], gas, oil, or water company threatened [...] on file documented as of this encounter Functional Status * Because of [...] 04/24/2022 10:30 EDT documented in this encounter Ordered Prescriptions Prescription Sig Dispense Quantity Refills Last Filled Start Date End Date hydroCHLOROthiazid e (HYDRODIURIL) 25 mg tabletIndications: Essential hypertension TAKE 1 TABLET BY MOUTH DAILY 90 Tablet 01/03/2024 4 omeprazole (PRILOSEC) 20 mg capsuleIndications :Epigastric pain TAKE 1 CAPSULE BY MOUTH EVERY MORNING 90 Capsule 01/03/2024 4 documented in this encounter Miscellaneous Notes * Telephone Encounter - Dalila Davalos RN - 01/03/2024 1125 EDT Medication Refill Request Med & dose: omeprazole 20 mg, 1 cap QD HCTZ 25 mg, 1 tab QD Sig Verified: yes Pharm verified: Faith Rudolph Last visit: 09/20/23 Next visit: none - 10/12/24 appt w/ AW canceled by clinic last BMP - 10/09/23 Rx(s) escribed to pharmacy. documented in this encounter Plan of Treatment Upcoming Encounters Date Type Department Care Team (Late st Contact Info) Description 11/18/2024 10:15 EDT [facility] [address], [facility] 2 [place] [address] Andie Cool, VIRGIE AGPCNP [address] [phone] documented as of this encounter Visit Diagnoses Diagnosis Epigastric pain Abdominal pain, epigastric Essential hypertension Unspecified essential hypertension documented in this encounter Discontinued Medications Medication Sig Discontinue Reason Start Date End Da te omeprazole (PRILOSEC) 20 mg capsuleIndications:Epigas tric pain Take 1 Capsule by mouth every morning. 12/31/2022 01/03/2024 hydroCHLOROthiazide (HYDRODIURIL) 25 mg tabletIndications:Essenti al hypertension Take 1 Tablet by mouth daily. 03/18/2023 01/03/2024 documented as of this encounter Care Teams Senior Backup Administrator Relationship Specialty Start Date End Date Shannon Calzada DO [address] [place] [phone] PCP - General Family Medicine - Primary Care 04/25/23 09/07/24 documented as of this encounter
--- OUTSIDE RECORDS SUMMARY | 2024-09-15 00:25 | XMS_ITS | Clinical Summary ---
Author Organization [facility] [place] [address] Care Team Providers Care Car Top Bolter Name Role Phone Tien Garcia MD Primary Care Provider [phone] Social History Tobacco Use Types Packs/Day Years Used Date Smoking Tobacco: Never Assessed Sex and Gender Information Value Date Recorded Sex Assigned at Not on file Gender Identity Not on file Sexual Orientation Not on file Plan of Treatment Health Maintenance Due Date Last Done Comments CT Colonography 1973 Colonoscopy 1973 Colorectal Cancer Screening 1973 FIT DNA 1973 FIT 1973 Sigmoidoscopy (10 year) with FIT yearly 1973 Sigmoidoscopy 1973 HIV screen 11/21/1991 Hepatitis C Screening 11/21/1991 Hepatitis B vaccine (0-59 yrs) (1) 1992 Tetanus/Diphtheria/Pertussis Vaccines (1 - Tdap) 11/20 HPV test 11/21/2003 PAP Smear 11/21/2003 Breast Cancer Share Decision Needed 2013 Breast Cancer screening 2013 Pneumoccocal Vaccine: 50+ (1 of 1 - PCV) 11/21/2023 Zoster vaccine (1 of 2) 11/21/2023 Covid-19 Vaccine (1 - 2023-25 season) 2024 Influenza (Flu) vaccine (1 o f 1 - Influenza standard series) 04/12/2024 Care Teams Car Top Bolter Relationship Specialty Start Date End Date Tien Garcia MD [address] [place] [phone] [facility] - General 07/04/10
--- OUTSIDE RECORDS SUMMARY | 2024-09-15 00:25 | XMS_ITS | Encounter Summary ---
Author Organization [facility] Address [address] [place] [address] Care Team Providers Care National Accounts Sales Name Role Phone Shannon Calzada Primary Care Provider + Reason for Visit * Reason Comments Medications Refill Encounter Details Date Type Department Care Team (Late st Contact Info) Description 03/30/2024 Refill [facility] Family Medicine [address], [facility] 2 [place] [address] Mery Walton, [facility] [address] [facility] [address] [place] [phone] Medications Refill Social History Tobacco Use Types Packs/Day Years Used Date Smoking Tobacco: Former Cigarettes 0.5 22.3 1 987 - 2008 Smokeless Tobacco: Never Alcohol Use Standard Drinks/Week Comments Yes 0 (1 standard drink = 0.6 oz pur e alcohol) occasionally [facility] Utilities Answer Date Recorded In the past 12 months has [employer] electric, gas, oil, or water company [...] place to sleep or slept in a [place] (including now)? No 09/19/2023 Interpersonal Safety Answer [...] 04/24/2022 10:30 EDT documented in this encounter Miscellaneous Notes * Telephone Encounter - Leonora Westfall, RN - 03/31/2024 1112 EDT Medication Refill Request Medication and dose: hydroCHLOROthiazide (HYDRODIURIL) 25 mg tablet Verified: Yes Pharmacy verified: Yes Last visit: 09/20/2023 Next visit: 03/31/2024 RX denied, filled 01/2024 with 2 refills, not due to be filled until 10/2024 documented in this encounter Plan of Treatment Upcoming Encounters Date Type Department Care Team (Late st Contact Info) Description 11/18/2024 10:15 EDT Office Visit [facility] Family Medicine [address], [facility] 2 [place] [address] Andie Cool, VIRGIE AGPCNP [address] [place] [phone] documented as of this encounter Visit Diagnoses Diagnosis Essential hypertension- Primary Unspecified essential hypertension documented in this encounter Care Teams National Accounts Sales Relationship Specialty Start Date End Date Shannon Calzada DO [address] [place] [phone] PCP - General Family Medicine - Primary Care 04/25/23 09/07/24 documented as of this encounter
--- OUTSIDE RECORDS SUMMARY | 2024-09-15 00:25 | XMS_ITS | Encounter Summary ---
Author Organization [facility] Address [address] [place] [address] Care Team Providers Care Retail Clerk Name Role Phone Shannon Calzada Anh Primary Care Provider + Reason for Referral * PT/OT/ST (Routine/Next Available) - Specialty Report Received Specialty Diagnoses / Procedures Referred By Bryanna rogers Referred To Contact Diagnoses Right sided sciatica Myofascial pain syndrome Thoracic radiculopathy Coral Remy NP [address] [facility] [address] [place] [address] Phone: tel: fax: Referral ID Status Reason Start Date Expiration Date Visits Requested Visits Authorized [id number] Specialty Report Received Specialty Services Required 11/11/2023 1 1 Question Answer Reason for Request: Chronic back and R leg pain SITE [facility] Physical Therapy Reason for Visit * Reason Onset Date Comments Referral Request 11/11/2023 Encounter Details Date Type Department Care Team (Late st Contact Info) Description 11/11/2023 Telephone [facility] Family Medicine [address], [facility] 2 [place] [address] Shannon Calzada, DO [address] [place] [phone] Referral Request Social History Tobacco Use Types Packs/Day Years Used Date Smoking Tobacco: Former Cigarettes 0.5 22.3 1 987 - 2008 Smokeless Tobacco: Never Alcohol Use Standard Drinks/Week Comments Yes 0 (1 standard drink = 0.6 oz pur e alcohol) occasionally [facility] Utilities Answer Date Recorded In the past 12 months has th e [employer], gas, oil, or water [facility] threatened to shut off services in your [...] place to sleep or slept in a fdc (including now)? No 09/19/2023 Interpersonal Safety Answer Date Record ed How often does anyone, enedeliajagjit peyton family, hit, punch or physically hurt you? 09/19/2023 How often does anyone, enedeliajagjit peyton family, [...] encounter Miscellaneous Notes * Telephone Encounter - Cris Hernadez - 11/12/2023 1559 EDT Per Kathi Winter, ok to white out dates and write 02/11/23. Done and re-faxed * Telephone Encounter - Cris Hernadez - 11/12/2023 1443 EDT Kathi Winter called reporting that the referral needs to have a date on it for February 11 2023. Upon looking, front staff is unable to change any of the pertinent dates that shows when a referral is printed (date was changed in one location but not a correct spot). They advised it can be a handwrittenreferral * Telephone Encounter - Celsa Faulkner - 11/11/2023 1635 EDT Pt notified and referral faxed. * Telephone Encounter - Mery Louis RN - 11/11/2023 1600 EDT Please process referral and notify pt. * Telephone Encounter - Coral Remy NP - 11/11/2023 1513 EDT Singed. Thanks for pending.... * Telephone Encounter - Mery Louis RN - 11/11/2023 1417 EDT Pended * Telephone Encounter - Tara Green - 11/11/2023 1100 EDT During patients 09/14/23 visit a referral for physical therapy for chronic back pain and pain in R leg. Patient has already received treatment but is getting bills for a few thousand dollars as referral was never placed. Kathi Winter physical therapy in [place] documented in this encounter Plan of Treatment Upcoming Encounters Date Type Department Care Team (Late st Contact Info) Description 11/18/2024 10:15 EDT Office Visit [facility] Family Medicine [place] [address] [address] Velazquez, [facility] 2 [place] [address] Andie Cool, VIRGIE AGPCNP [address] [phone] Scheduled Referrals Name Type Priority Associated Diagnoses Orde r Schedule AMB CONS/FOLLOW UP PHYSICAL THERAPY - OUTSIDE OF NETWORK Outpatient Referral Routine/Next Available Right sided sciatica Myofascial pain syndrome Thoracic radiculopathy Expected: 11/18/2023 (Approximate), Expires: 11/10/2024 documented as of this encounter Visit Diagnoses Diagnosis Right sided sciatica- Primary Sciatica Myofascial pain syndrome Mylagia and myositis, unspecified Thoracic radiculopathy Thoracic or lumbosacral neuritis or radiculitis, unspecified documented in this encounter Care Teams Retail Clerk Relationship Specialty Start Date End Date Shannon Calzada DO [address] [place] [phone] PCP - General Family Medicine - Primary Care 04/25/23 09/07/24 documented as of this encounter
--- OUTSIDE RECORDS SUMMARY | 2024-09-15 00:25 | XMS_ITS | Encounter Summary ---
Author Organization [facility] Address [address] [place] [address] Care Team Providers Care Safety Engineer Pressure Vessels Name Role Phone Shannon Calzada Primary Care Provider + Reason for Visit * Reason Comments Hypertension Encounter Details Date Type Department Care Team (Late st Contact Info) Description 04/20/2024 11:15 EDT Office Visit [facility] [place] Family Medicine [address], [address] [place] [address] Markus Younger MD [address] [place] [address] [address] [place] [address] Essential hypertension (Primary Dx); Mixed hyperlipidemia; Malaise and fatigue; Epigastric pain; Screening for viral disease Social History Tobacco Use Types Packs/Day Years Used Date Smoking Tobacco: Former Cigarettes 0.5 22.3 1 987 - 2008 Smokeless Tobacco: Never Tobacco Cessation:Counseling Given: Not Answered Alcohol Use Standard Drinks/Week Comments Yes 0 (1 standard drink = 0.6 oz pur e alcohol) occasionally [place] Utilities Answer Date Recorded In the past 12 months has [employer], gas, oil, or water [employer] threatened to shut off services in your [...] place to sleep or slept in a snf (including now)? No 09/19/2023 Interpersonal Safety Answer Date Record ed How often does anyone, inclu ding family, hit, punch or physically hurt you? 09/19/2023 How often does anyone, inclu ding family, insult, scream, curse or threaten to [...] EDT Pulse 62 04/20/2024 1116 EDT Temperature - - Respiratory Rate 12 04/20/2024 1116 EDT Oxygen Saturation 99% 04/20/2024 1116 EDT Inhaled Oxygen Concentration - - Weight 68.1 kg (150 lb 1.6 oz) 04/20/2024 1116 E DT Height 152.4 cm (5') 04/20/2024 1116 EDT Body Mass Index 29.31 04/20/2024 1116 EDT documented in this encounter Functional Status [...] Refills Last Filled Start Date End Date amLODIPine (NORVASC) 5 mg tabletIndications: Essential hypertension Take 1 Tablet by mouth daily. 90 Tablet 3 04/20/2024 hydroCHLOROthiazid e (HYDRODIURIL) 25 mg tabletIndications: Essential hypertension Take 1 Tablet by mouth daily. 90 Tablet 3 04/20/2024 omeprazole (PRILOSEC) 20 mg capsuleIndications :Epigastric pain Take 1 Capsule by mouth every morning. 90 Capsule 3 04/20/2024 documented in this encounter Progress Notes * Markus Younger MD - 04/20/2024 1115 EDT Primary Care Visit Assessment & Plan Problem #1: Gastroesophageal Reflux Disease (GERD)-overall generally doing well and compliant afterrecent treatment with acupuncture. Benign exam today. Chronic symptoms with recent exacerbation. Omeprazole provided no relief with recent episode but usually effective. She would still like to have this available. Acupuncture provided temporary relief. No clear dietary triggers. Plan: -Continue Omeprazole as needed. -Consider lifestyle modifications such as not lying down soon after meals and stress management. Problem #2: Hypertension-overall I think she is doing well with current regimen Patient reports elevated home readings. Today's office reading was within normal limits. Plan: -Continue current medications (Hydrochlorothiazide and Amlodipine). -Advise patient to monitor blood pressure at home and report if consistently over 140/90. Problem #3: General Health Maintenance Plan: -Order complete blood work including cholesterol, metabolic panel, liver function, blood counts, and thyroid level. -Advise patient to consider Shingles vaccination. -Continue annual mammograms. Last mammogram was on September 09. -Advise patient to consider flu and COVID vaccinations in the fall. -Schedule annual check-up.-Will follow-up in 1 year Patient education was direct. Barriers were assessed and addressed as needed. Stephani Alexis is a 48 y.o. 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 The patient reported experiencing this condition for a couple of years, but recently the symptoms have become more severe. Despite a trial of omeprazole (Prilosec), the patient reported no relief. The patient also reported that dietary changes have not influencedthe symptoms. In the past, the patient noted that medication has been effective in managing the symptoms, but this has not been the case recently. The patient sought relief from an friction paint machine tender, who suggested that a tight diaphragm might be contributing to the symptoms. The patient reported almost instant relief following the acupuncture treatment, but the symptoms have since returned. In addition to the acid reflux, the patient reported elevated blood pressure readings at home, despite being on hydrochlorothiazide and amlodipine. The patient has been monitoring their blood pressure at home and noted that the lower number has remained high. The patient also reported a recent increase in physical activity, including hiking, in an effort toimprove overall health. The patient expressed a need for a routine blood work check, as it has daria while since the last one. The patient also reported a history of smoking cessation 15 years ago and occasional alcohol consumption. The patient also mentioned a lump in the abdominal area that has been a source of discomfort. Despite a CT scan, the cause of the lump remains undetermined. The patient reported that the lump feels like a sword going through the body. No sign of any significant etiology regarding this and there is appears to be benign process. No interval change. The patient's medication prescriptions are due for renewal, and the patient expressed a need to find a new pharmacy due to the closure of their local [facility]. The patient also mentioned the need for a new dentist and regular visits to an eye doctor. The patient is up-to-date with mammograms, withthe most recent one conducted in August of the current year. Overall generally good health but recent malaise. Will plan on routine panel of labs which she is due for. Otherwise continue current management and follow-up as needed. Reviewed immunizations Data reviewed this visit: problem list/past medical history, current medications, and allergies Objective BP 132/80 Pulse 62 Resp 12 Ht 152.4 cm (60) Wt 68.1 kg (150 lb 1.6 oz) SpO2 99% BMI 29.31 kg/m?? Physical Exam General-alert, lucid, no distress Neck-no lymphadenopathy or thyromegaly Chest-clear to auscultation, no crackles, no wheeze Cardiovascular-regular rate and rhythm, no murmur Abdomen-positive bowel sounds, soft, nontender palpation, no organomegaly next extremities-normal range of motion, normal pulses, no edema I discussed with Vanesa Zavala the use of this audio recording tool to create a clinical note. I explained the benefits of the technology, such as time savings and a better patient experience. I explained that the recording will be confidential and converted into a written note which I will review and edit as needed before it is saved in the medical record. The patient expressed an understanding of the use of this technology for clinical documentation and agreed to allow its use for this encounter. documented in this encounter Plan of Treatment Upcoming Encounters Date Type Department Care Team (Late st Contact Info) Description 11/18/2024 10:15 EDT Office Visit [facility] - [place] [address] [place] [address] Izabellaanne-mariecarl Andie A, VIRGIE AGPCNP [address] [place] [address] documented as of this encounter Results * HIV 1/2 ANTIGEN AND ANTIBODY, 4TH GENERATION (04/20/2024 12:03 EDT) Pathologist [facility] [place] HIV 1 and 2 Antibody/p24 Antigen, 4th Generation Negative Negative 04/20/2024 13:[address] [facility] Comment:If acute HIV-1 infec tion is suspected in a high risk patient, submit plasma specimen for HIV-1 RNA quantitation test. Blood VENOUS BLOOD / Unknown Venipuncture / Unknown 04/20/2024 12:03 EDT 04/20/2024 12:33 EDT us Markus Younger MD IMMUNOLOGY AND SEROLOG Y ORDERABLES Final Result [facility] [address] [place] [address] * HEPATITIS C AB W REFLEX TO HCV RNA BY PCR (04/20/2024 12:03 EDT) [facility] Hep C Antibody Negative Negative 04/20/2024 13:[address] [facility] Blood VENOUS BLOOD / Unknown Venipuncture / Unknown 04/20/2024 12:03 EDT 04/20/2024 12:33 EDT us Markus Younger MD CHEMISTRY & BLOOD GAS ORDERABLES Final Result [facility] [address] [place] [address] * THYROID CASCADE (04/20/2024 12:03 EDT) Pathologist [facility] [place] TSH 1.15 0.47 - 4.68 mIU/L 04/20/2024 13:[address] [facility] Blood VENOUS BLOOD / Unknown Venipuncture / Unknown 04/20/2024 12:03 EDT 04/20/2024 12:[address] [facility] - 04/20/2024 13:38 EDT NOTE: The results of this assay can be falsely lowered due to the consumption of Biotin. us Markus Younger MD CHEMISTRY & BLOOD GAS ORDERABLES Final Result [facility] [address] [place] [address] * (ABNORMAL) LIPID PROFILE (INCLUDES CHOLESTEROL, TRIGLYCERIDES, HDL, LDL) (04/20/2024 12:03 EDT) Cholesterol 187 <200 mg/dL 04/20/2024 13:01 [facility] Comment:Note that therapeuti c goals will differ between patients based on cardiac risk factors and current medical therapy. HDL 34(L) >=50 mg/dl 04/20/2024 13:01 [facility] Comment:Note that therapeuti c goals will differ between patients based on cardiac risk factors and current medical therapy. LDL, Calculated 114 <160 mg/dL 13:01 [facility] Comment:Note that therapeuti c goals will differ between patients based on cardiac risk factors and current medical therapy. Triglyceride 195(H) <=150 mg/dL 04/20/2024 13:01 [facility] Comment:Note that therapeuti c goals will differ between patients based on cardiac risk factors and current medical therapy. Chol/HDL Ratio 5.5 See Note 04/20/2024 13:01 [facility] Comment: NOTE: Desirable Ratio = <4.1 Patient At Risk Ratio = >5.0(Males) ?>6.0(Females) Non HDL Cholesterol 153 <160 mg/dL 04/20/2024 13:01 [facility] Comment:Note that therapeuti c goals will differ between patients based on cardiac risk factors and current medical therapy. Blood VENOUS BLOOD / Unknown Venipuncture / Unknown 04/20/2024 12:03 EDT 04/20/2024 12:33 EDT us Markus Younger MD CHEMISTRY & BLOOD GAS ORDERABLES Final Result [facility] [address] [place] [address] * COMPREHENSIVE METABOLIC PANEL (CMP) (04/20/2024 12:03 EDT) Sodium 139 136 - 145 mmol/L 04/20/2024 13:01 [facility] Potassium 3.5 3.5 - 5.0 mmol/L 04/20/2024 13:01 [facility] Chloride 100 96 - 110 mmol/L 04/20/2024 13:01 [facility] CO2 Total 28 22 - 32 mmol/L 04/20/2024 13:01 [facility] Glucose 83 70 - 99 mg/dl 04/20/2024 13:01 [facility] BUN 16 10 - 26 mg/dL 04/20/2024 13:01 [facility] Creatinine 0.59 0.52 - 1.04 mg/dL 04/20/2024 13:01 [facility] eGFR 110 >60 mL/min/1.7 3m2 04/20/2024 13:01 [facility] Total Protein 7.0 6.3 - 8.2 g/dL 04/20/2024 13:01 [facility] Albumin 4.5 3.4 - 4.9 g/dL 04/20/2024 13:01 [facility] Alkaline Phosphatase 66 38 - 126 U/L 04/20/2024 13:01 [facility] AST 24 15 - 46 U/L 04/20/2024 13:01 [facility] ALT 23 <35 U/L 04/20/2024 13:01 [facility] Bilirubin, Total 0.7 <1.4 mg/dL 04/20/20 13:01 [facility] Calcium 9.6 8.5 - 10.5 mg/dL 04/20/2024 13:01 [facility] Albumin/Globulin Ratio 1.8 1.0 - 2.5 04/20/2024 13:01 [facility] Anion Gap 11 5 - 14 mmol/L 04/20/2024 13:01 [facility] Blood VENOUS BLOOD / Unknown Venipuncture / Unknown 04/20/2024 12:03 EDT 04/20/2024 12:33 EDT Markus Younger MD CHEMISTRY & BLOOD GAS ORDERABLES Final Result [facility] [address] [place] [address] * COMPLETE BLOOD COUNT (04/20/2024 12:03 EDT) WBC 6.84 4.00 - 12.40 K/cmm 04/20/2024 12:33 [facility] RBC 4.92 3.86 - 5.04 M/cmm 04/20/2024 12:33 [facility] Hemoglobin 15.0 11.6 - 15.2 g/dL 04/20/2024 12:33 [facility] HCT 42.9 34.9 - 44.4 % 04/20/2024 12:33 [facility] MCV 87 81 - 98 fL 04/20/2024 12:33 [facility] MCH 30.5 26.7 - 33.3 pg 04/20/2024 12:33 [facility] MCHC 35.0 32.1 - 35.9 g/dL 04/20/2024 12:[address] [facility] RDW-CV 12.2 <14.7 % 04/20/2024 12:[address] [facility] RDW-SD 39.0 <50.4 fl 04/20/2024 12:33 [facility] PLT 275 141 - 377 K/cmm 04/20/2024 12:[address] [facility] MPV 11.4 9.5 - 12.7 fL 04/20/2024 12:33 [facility] Blood VENOUS BLOOD / Unknown Venipuncture / Unknown 04/20/2024 12:03 EDT 04/20/2024 12:31 EDT us Markus Younger MD HEMATOLOGY & PF4 ORDER GARY Final Result [facility] [address] [place] [address] documented in this encounter Visit Diagnoses Diagnosis Essential hypertension- Primary Unspecified essential hypertension Mixed hyperlipidemia Malaise and fatigue Other malaise and fatigue Epigastric pain Abdominal pain, epigastric Screening for viral disease Special screening examination for unspecified viral disease documented in this encounter Discontinued Medications Medication Sig Discontinue Reason Start Date End Da te magnesium oxide (MAG-OX) 400 mg (241.3 mg magnesium) tablet Take 1 Tablet by mouth daily. Therapy completed 07/30/2022 04/20/2024 omeprazole (PRILOSEC) 20 mg capsuleIndications:Epigas tric pain Take 1 Capsule by mouth every morning. Reorder 01/14/2024 04/20/2024 amLODIPine (NORVASC) 5 mg tabletIndications:Essenti al hypertension Take 1 Tablet by mouth daily. Reorder 04/14/2024 04/20/2024 hydroCHLOROthiazide (HYDRODIURIL) 25 mg tabletIndications:Essenti al hypertension Take 1 Tablet by mouth daily. Reorder 04/14/2024 04/20/2024 documented as of this encounter Care Teams Safety Engineer Pressure Vessels Relationship Specialty Start Date End Date Shannon Calzada DO [address] [place] [address] [place] [phone] PCP - General Family Medicine - Primary Care 04/25/23 09/07/24 documented as of this encounter
--- OUTSIDE RECORDS SUMMARY | 2024-09-15 00:25 | XMS_ITS | Encounter Summary ---
Author Organization [facility] Address [address] [place] [address] Care Team Providers Care Log Turner Name Role Phone Tien Garcia MD Primary Care Provider [phone] Reason for Visit * Reason Comments Medications Refill Amlodipine Encounter Details Date Type Department Care Team (Late st Contact Info) Description 03/15/2023 Refill [facility] [place] [place] Family Medicine [address], [facility] [address] [place] [address] Tien Garcia MD [address] [place] [address] [place] [phone] Medications Refill (Amlodipine) Social History Tobacco Use Types Packs/Day Years [...] place to sleep or slept in a skilled nursing (including now)? No 02/05/2023 Interpersonal Safety Answer Date Record ed How often does anyone, jason todd family, hit, punch or physically hurt you? Never 02/05/2023 How often does anyone, jason todd family, [...] Tablet by mouth daily. 90 Tablet 3 03/18/2023 01/14/2024 documented in this encounter Miscellaneous Notes * Telephone Encounter - Matthew Hawley MA - 03/18/2023 1530 EDT Medication Refill Request Medication and dose: Amlodipine 5 mg tab Verified: Yes Pharmacy verified: Yes Last visit: 02/05/2023 Next visit: 04/03/2023 Labs: Lab Results Component Value Date/Time NA 140 06/25/2022 08:50 K 3.8 06/25/2022 08:50 CL 103 06/25/2022 08:50 CO2 28 06/25/2022 08:50 BUN 19 06/25/2022 08:50 CREATININE 0.66 06/25/2022 08:50 CALCGFR 108 06/25/2022 08:50 GLU 98 05/24/2021 09:15 CALCIUM 9.4 06/25/2022 08:50 MG 1.80 03/14/2020 17:44 HDL 36 (L) 06/25/2022 08:50 LDL 140 (H) 05/24/2021 09:15 TRIG 265 (H) 06/25/2022 08:50 Pended year supply per protocol. documented in this encounter Plan of Treatment Upcoming Encounters Date Type Department Care Team (Late st Contact Info) Description 11/18/2024 10:15 EDT Office Visit [facility] Family Medicine [address] [place] [address] Andie Cool DNP AGPCNP [address] [facility] [address] [place] [address] documented as of this encounter Visit Diagnoses Diagnosis Essential hypertension- Primary Unspecified essential hypertension documented in this encounter Discontinued Medications Medication Sig Discontinue Reason Start Date End Da te amLODIPine (NORVASC) 5 mg tablet TAKE 1 TABLET BY MOUTH DAILY 04/22/2022 03/18/2023 documented as of this encounter Care Teams Log Turner Relationship Specialty Start Date End Date Tien Garcia MD [address] [place] [phone] PCP - General 05/27/14 04/24/23 documented as of this encounter
--- OUTSIDE RECORDS SUMMARY | 2024-09-15 00:25 | XMS_ITS | Encounter Summary ---
Author Organization [facility] Address [address] [place] [address] Care Team Providers Care Patient Care Nursing Assistant Name Role Phone Shannon Calzada DO Primary Care Provider + Andie Cool [facility] Primary Care Provi zee Reason for Visit * Reason Onset Date Comments Urinary Frequency 04/25/2023 Encounter Details Date Type Department Care Team (Late st Contact Info) Description 04/25/2023 Telephone [facility] [place] [address], [address] [address] Shannon Calzada, [address] [place] [phone] Urinary Frequency Social History Tobacco Use Types Packs/Day Years [...] encounter Miscellaneous Notes * Telephone Encounter - Tracee Campbell RN - 04/26/2023 0957 EDT Left detailed message that we need a urine to test. Will not test over the phone. EC is open * Telephone Encounter - Shannon Calzada DO - 04/25/2023 1911 EDT This is the first time I am hearing about an issue She should most likely go to [facility] for evaluation * Telephone Encounter - Cris Hernadez - 04/25/2023 1505 EDT Pt calling back. Advising she can't go another night like last night * Telephone Encounter - Tracee Campbell RN - 04/25/2023 0958 EDT Symptoms started Saturday, freq urination feeling like she is not emptying. Urgency. Constant pressure. No abd pain or back pain. No fever. Pt reluctant to go for labs. No ov today Urine in december neg. * Telephone Encounter - Samara Bennett - 04/25/2023 0826 EDT Patient has urinary frequency & urgency. documented in this encounter Plan of Treatment Upcoming Encounters Date Type Department Care Team (Late st Contact Info) Description 11/18/2024 10:15 EDT Office Visit [facility] [address], [facility] [address] [place] [address] Andie Cool DNP AGPCNP [address] [place] [address] [address] [place] [phone] documented as of this encounter Visit Diagnoses Not on filedocumented in this encounter Care Teams Patient Care Nursing Assistant Relationship Specialty Start Date End Date Shannon Calzada DO [address] [place] [address] [address] [place] [phone] PCP - General Family Medicine - Primary Care 04/25/23 09/07/24 Andie Cool DNP AGPCNP [address] [place] [address] [address] [place] [phone] PCP - General Family Medicine - Primary Care 09/08/24 documented as of this encounter
--- OUTSIDE RECORDS SUMMARY | 2024-09-15 00:25 | XMS_ITS | Encounter Summary ---
Author Organization [facility] Address [address] [place] [address] Care Team Providers Care Supervisor Component Assembler Name Role Phone Shannon Calzada DO Primary Care Provider + Reason for Visit * Reason Onset Date Comments Medications Refill 04/14/2024 Encounter Details Date Type Department Care Team (Late st Contact Info) Description 04/14/2024 Refill [facility] Family Medicine [address], [address] [address] Shannon Calzada DO [address] [place] [phone] Medications Refill Social History Tobacco Use Types Packs/Day Years Used Date Smoking Tobacco: Former Cigarettes 0.5 22.3 1 987 - 2008 Smokeless Tobacco: Never Alcohol Use Standard Drinks/Week Comments Yes 0 (1 standard drink = 0.6 oz pur e alcohol) occasionally [place] Utilities Answer Date Recorded In the past 12 months has [employer], gas, oil, or water company threatened [...] place to sleep or slept in a retirement (including now)? No 09/19/2023 Interpersonal Safety Answer [...] Tablet by mouth daily. 90 Tablet 3 04/14/2024 04/20/2024 amLODIPine (NORVASC) 5 mg tabletIndications: Essential hypertension Take 1 Tablet by mouth daily. 90 Tablet 3 04/14/2024 04/20/2024 documented in this encounter Miscellaneous Notes * Telephone Encounter - Abril Miranda LPN - 04/14/2024 1605 EDT Medication Refill Request Medication and dose: HTCZ, amlodipine Verified: Yes Pharmacy verified: Yes Last visit: 09/20/2023 Next visit: 04/20/2024 Last BMP drawn 06/25/2022, results: Lab Results Component Value Date NA 140 06/25/2022 K 3.8 06/25/2022 CL 103 06/25/2022 CO2 28 06/25/2022 ANIONGAP 9 06/25/2022 SERGLU 96 06/25/2022 CALCIUM 9.4 06/25/2022 BUN 19 06/25/2022 CREATININE 0.66 06/25/2022 CALCGFR 108 06/25/2022 CMP ordered 10/09/2023, has not been drawn to present. * Telephone Encounter - Tommy Lyons - 04/14/2024 0957 EDT Patient called and needs a refill on Hydrochlorothiazide, and amlodipine. Please send to [facility] [place]. documented in this encounter Plan of Treatment Upcoming Encounters Date Type Department Care Team (Late st Contact Info) Description 11/18/2024 10:15 EDT Office Visit [facility] Family Medicine [facility] [address], [facility] 2 [place] [address] Andie Cool, VIRGIE AGPCNP [address] [place] [address] [address] [place] [phone] documented as of this encounter Visit Diagnoses Diagnosis Essential hypertension- Primary Unspecified essential hypertension documented in this encounter Discontinued Medications Medication Sig Discontinue Reason Start Date End Da te hydroCHLOROthiazide (HYDRODIURIL) 25 mg tabletIndications:Essenti al hypertension Take 1 Tablet by mouth daily. Reorder 01/14/2024 04/14/2024 amLODIPine (NORVASC) 5 mg tabletIndications:Essenti al hypertension Take 1 Tablet by mouth daily. Reorder 01/14/2024 04/14/2024 documented as of this encounter Care Teams Supervisor Component Assembler Relationship Specialty Start Date End Date Shannon Calzada DO [address] [place] [address] [address] [place] [phone] PCP - General Family Medicine - Primary Care 04/25/23 09/07/24 documented as of this encounter
--- OUTSIDE RECORDS SUMMARY | 2024-09-15 00:25 | XMS_ITS | Encounter Summary ---
Author Organization [facility] Address [address] [place] [address] Care Team Providers Care Needle Molder Name Role Phone Shannon Calzada Primary Care Provider + Andie Cool [facility] Primary Care Provi zee Reason for Visit * Reason Comments Medications Refill Encounter Details Date Type Department Care Team (Late st Contact Info) Description 03/30/2024 Refill [facility] Family Medicine [address], [facility] [address] [place] [address] Coral Remy, PIPING DESIGNER [address] [facility] [address] [place] [phone] Medications Refill Social History Tobacco Use Types Packs/Day Years Used Date Smoking Tobacco: Former Cigarettes 0.5 22.3 1 987 - 2008 Smokeless Tobacco: Never Alcohol Use Standard Drinks/Week Comments Yes 0 (1 standard drink = 0.6 oz pur e alcohol) occasionally [facility] Utilities Answer Date Recorded In the past 12 months has [employer] gas, oil, or water company threatened to [...] place to sleep or slept in a fci (including now)? No 09/19/2023 Interpersonal Safety Answer [...] Miscellaneous Notes * Telephone Encounter - Leonora Westfall RN - 03/31/2024 1034 EDT Medication Refill Request Medication and dose: amLODIPine (NORVASC) 5 mg tablet Verified: Yes Pharmacy verified: Yes Last visit: 09/20/2023 Next visit: 03/30/2024 RX denied, patient not due for refill until 10/2024, filled on 01/2024 with 2 refills documented in this encounter Plan of Treatment Upcoming Encounters Date Type Department Care Team (Late st Contact Info) Description 11/18/2024 10:15 EDT Office Visit [facility] Family Medicine [facility] [address], [address] [place], [place] [id number] Andie Cool, VIRGIE AGPCNP [address] [phone] documented as of this encounter Visit Diagnoses Diagnosis Essential hypertension Unspecified essential hypertension documented in this encounter Care Teams Needle Molder Relationship Specialty Start Date End Date Shannon Calzada DO [address] [place] [phone] PCP - General Family Medicine - Primary Care 04/25/23 09/07/24 Andie Cool DNP AGPCNP [address] [phone] PCP - General Family Medicine - Primary Care 09/08/24 documented as of this encounter
--- OUTSIDE RECORDS SUMMARY | 2024-09-15 00:25 | XMS_ITS | Encounter Summary ---
Author Organization [facility] Address [address] [place] [address] Care Team Providers Care Patrol Officer Name Role Phone Shannon Calzada Primary Care Provider + Reason for Visit * Reason Onset Date Comments Dysuria 04/25/2023 Encounter Details Date Type Department Care Team (Late st Contact Info) Description 04/25/2023 Telephone [facility] [place] Family Medicine [address], [address] [place] [address] Earl Huang MD [address] [place] [address] [address] [place] [phone] Dysuria Social History Tobacco Use Types Packs/Day Years [...] Record ed How often does anyone, jason peyton family, hit, punch or physically hurt [...] Encounter - Tracee Campbell RN - 04/26/2023 0958 EDT See other TE * Telephone Encounter - Earl Huang MD - 04/25/2023 1730 EDT Waiting for callback from PCP, talked with Tracee Having freq urination Urgency. Constant pressure. No abd pain or back pain No fever Ordered urinalysis and culture to be done tomorrow morning Patient may try Azo in the meantime documented in this encounter Plan of Treatment Upcoming Encounters Date Type Department Care Team (Late st Contact Info) Description 11/18/2024 10:15 EDT Office Visit [facility] Family Medicine [facility] [address] [facility], [facility] 2 [place] [address] Andie Cool, VIRGIE AGPCNP [address] [phone] documented as of this encounter Visit Diagnoses Diagnosis Dysuria- Primary documented in this encounter Care Teams Patrol Officer Relationship Specialty Start Date End Date Shannon Calzada DO [address] [place] [address] 2 [place] [phone] PCP - General Family Medicine - Primary Care 04/25/23 09/07/24 documented as of this encounter
--- OUTSIDE RECORDS SUMMARY | 2024-09-15 00:25 | XMS_ITS | Encounter Summary ---
Author Organization [facility] Address [address] [place] [address] Care Team Providers Care General Labor Forklift Operator Name Role Phone Shannon Calzada DO Primary Care Provider + Reason for Visit * Reason Comments Annual Exam Encounter Details Date Type Department Care Team (Latest Contact Info) Description 09/20/2023 11:15 EST Office Visit [facility] [address], [address] [place] [address] Shannon Calzada DO [address] [facility] [address] [place] [address] Encounter for preventative adult health care exam with abnormal findings (Primary Dx); Essential hypertension; Mixed hyperlipidemia; Gastroesophageal reflux disease, unspecified whether esophagitis present; Family history of diabetes mellitus; Encounter for hepatitis C screening test for low risk patient; Encounter for screening for human immunodeficiency virus (HIV); Encounter for screening for viral disease Social History Tobacco Use Types Packs/Day Years Used Date Smoking Tobacco: Former Cigarettes 0.5 22.3 1 987 - 2008 Smokeless Tobacco: Never Tobacco Cessation:Counseling Given: Not Answered Alcohol Use Standard Drinks/Week Comments Yes 0 (1 standard drink = 0.6 oz pur e alcohol) occasionally [facility] Utilities Answer Date Recorded In the past 12 months has th e electric, gas, oil, or water company [...] place to sleep or slept in a correction (including now)? No 09/19/2023 Interpersonal Safety Answer Date Record ed How often does anyone, incljagjit todd family, hit, punch or physically hurt you? 09/19/2023 How often does anyone, incljagjit todd family, insult, scream, curse or threaten to hurt you? 09/19/2023 Comments Unknown Sex and Gender Information Value Date Recorded Sex Assigned at Female 08/28/2019 11:27 EST Legal Sex Female 18:27 EST Gender Identity Female 07/30/2019 7:59 EST Sexual Orientation Not on file documented as of this encounter Last Filed Vital Signs Vital Sign Reading Time Taken Comments Blood Pressure 141/88 09/20/2023 1115 EST Pulse 71 09/20/2023 1115 EST Temperature - - Respiratory Rate 14 09/20/2023 1115 EST Oxygen Saturation 96% 09/20/2023 1115 EST Inhaled Oxygen Concentration - - Weight 66 kg (145 lb 8 oz) 09/20/2023 1115 EST Height 151.1 cm (4' 11.5) 09/20/2023 1115 EST Body Mass Index 28.9 09/20/2023 1115 EST documented in this encounter Functional Status * [...] documented in this encounter Progress Notes * Shannon Calzada DO - 09/20/2023 1115 EST Images from the original note were not included. Encounter date: 09/20/2023 Chief complaint Chief Complaint Patient presents with Annual Exam Assessment and Plan Vanesa is a/an 47 y.o. female here for their annual physical exam. We addressed the following concerns today: ICD-10-CM ICD-9-CM 1. Encounter for preventative adult health care exam with abnormal findings Z00.01 V70.0 COMPREHENSIVE METABOLIC PANEL (CMP) COMPLETE BLOOD COUNT AND DIFFERENTIAL LIPID PROFILE (INCLUDES CHOLESTEROL, TRIGLYCERIDES, HDL, LDL) T4 FREE TSH VITAMIN D (25,OH) HEMOGLOBIN A1C HEPATITIS C AB W REFLEX TO HCV RNA BY PCR HEPATITIS B SURFACE ANTIBODY HEPATITIS A TOTAL ANTIBODY W REFLEX HIV 1/2 ANTIGEN AND ANTIBODY, 4TH GENERATION 2. Essential hypertension I10 401.9 3. Mixed hyperlipidemia E78.2 272.2 4. Gastroesophageal reflux disease, unspecified whether esophagitis present K21.9 530.81 5. Family history of diabetes mellitus Z83.3 V18.0 6. Encounter for hepatitis C screening test for low risk patient Z11.59 V73.89 HEPATITIS C AB W REFLEX TO HCV RNA BY PCR 7. Encounter for screening for human immunodeficiency virus (HIV) Z11.4 V73.89 HIV 1/2 ANTIGEN AND ANTIBODY, 4TH GENERATION 8. Encounter for screening for viral disease Z11.59 V73.99 HEPATITIS B SURFACE ANTIBODY HEPATITIS A TOTAL ANTIBODY W REFLEX Follow-up 1 year A total of 45 minutes was spent in reviewing medical history, performing examination and evaluation, counseling, ordering and interpreting tests, care coordination, and documenting clinical information on the day of the encounter. Orders Other Orders Placed This Visit Procedures Comprehensive Metabolic Panel (CMP) Complete Blood Count and Differential Lipid Profile (Includes Cholesterol, Triglycerides, HDL, LDL) T4, Free TSH Vitamin D (25,OH) Hemoglobin A1c Hepatitis C Ab w Reflex to HCV RNA by PCR Hepatitis B Surface Antibody Hepatitis A Total Antibody with Reflex HIV 1/2 Antigen and Antibody, 4th Generation Discontinued Medications Medications Discontinued During This Visit Medication Reason progesterone (PROMETRIUM) 100 mg capsule Alternate therapy progesterone (PROMETRIUM) 200 mg capsule Therapy completed spironolactone (ALDACTONE) 100 mg tablet Subjective HPI Vanesa is a/an 47 y.o. female here for their annual physical exam. They have the following concernstoday: States she was tried on Prometrium and estrogen for perimenopausal symptoms but these did not really improve quality of life - in terms of heavy menstrual bleeding at irregular intervals - so she recently had a IUD placed - Mirena on 09/09/2023 This was handled at [facility] office at [facility] She has been having her mammograms done through [facility] and is up to date on cervical cancer screening Blood pressure is elevated in the office today - should be checking blood pressure at home to make josiane eit is under 130/80. If not then she will need medication changes She was prescribed spironolactone but never started it Had colonoscopy 07/30/23 which was normal so she will need another screening in 10 years unless there are changes in her family history that would indicate a need for earlier screening She will need a lab order placed for blood work There is a family history of Type 2 Diabetes and hyperlipidemia She should be on a statin medication to reduce risk of atherosclerosis related complications Past immunizations, medical history, surgical history, allergies, and medications all reviewed. This information was modified in the electronic health record as indicated. Problem List Patient Active Problem List Diagnosis Date Noted Gastroesophageal reflux disease 10/09/2023 Myofascial pain syndrome 07/30/2022 Thoracic radiculopathy 06/07/2021 Mixed hyperlipidemia 05/24/2021 Anxiety disorder 07/10/2019 Essential hypertension 07/10/2019 Medications Current Outpatient Medications: amLODIPine (NORVASC) 5 mg tablet, Take 1 Tablet by mouth daily., Disp: 90 Tablet, Rfl: 3 hydroCHLOROthiazide (HYDRODIURIL) 25 mg tablet, Take 1 Tablet by mouth daily., Disp: 90 Tablet, Rfl: 3 ibuprofen (MOTRIN) 200 mg tablet, Take 1 Tablet by mouth if needed. 3 tabs at a time, Disp: , Rfl: magnesium oxide (MAG-OX) 400 mg (241.3 mg magnesium) tablet, Take 1 Tablet by mouth daily., Disp: 90 Tablet, Rfl: 3 omeprazole (PRILOSEC) 20 mg capsule, Take 1 Capsule by mouth every morning., Disp: 90 Capsule, Rfl:1 Allergies Allergies Allergen Reactions Lisinopril Cough Losartan Cough Past Medical History Past Medical History: Diagnosis Date Mole (skin) Past Surgical History: Procedure Laterality Date COLONOSCOPY N/A 07/30/2023 SKIN BIOPSY excision of moles WISDOM TOOTH EXTRACTION Family History Family History Problem Relation Age of Onset Heart Disease Mother Diabetes Father Social History Social History Tobacco Use Smoking status: Former Current packs/day: 0.00 Average packs/day: 0.5 packs/day for 22.3 years (11.1 ttl pk-yrs) Types: Cigarettes Start date: 1986 Quit date: 2008 Years since quittin.8 Smokeless tobacco: Never Vaping Use Vaping Use: Never used Substance Use Topics Alcohol use: Yes Comment: occasionally Drug use: Never Social History Substance and Sexual Activity Drug Use Never Social History Substance and Sexual Activity Sexual Activity Not on file Social History Social History Narrative Not on file Review of Systems Review of Systems As per HPI Objective Blood pressure 141/88, pulse 71, resp. rate 14, height 151.1 cm (59.5), weight 66 kg (145 lb 8 oz), SpO2 96 %. Physical Exam Vitals reviewed. Constitutional: General: She is not in acute distress. Appearance: Normal appearance. She is not ill-appearing. HENT: Head: Normocephalic and atraumatic. Eyes: Extraocular Movements: Extraocular movements intact. Conjunctiva/sclera: Conjunctivae normal. Pupils: Pupils are equal, round, and reactive to light. Cardiovascular: Rate and Rhythm: Normal rate and regular rhythm. Pulses: Normal pulses. Heart sounds: Normal heart sounds. Pulmonary: Effort: Pulmonary effort is normal. Breath sounds: Normal breath sounds. Skin: General: Skin is warm and dry. Neurological: Mental Status: She is alert. Gait: Gait normal. Psychiatric: Mood and Affect: Mood normal. Behavior: Behavior normal. Thought Content: Thought content normal. Judgment: Judgment normal. Electronically signed by Shannon Calzada DO 10/09/23 8:08 [place], [place] documented in this encounter Plan of Treatment Upcoming Encounters Date Type Department Care Team (Late st Contact Info) Description 11/18/2024 10:15 EDT Office Visit [address], [facility] [address] [place] [address] Andie Cool DNP AGPCNP [address] [place] [address] [address] [place] [phone] Scheduled Orders Name Type Priority Associated Diagnoses Orde r Schedule COMPREHENSIVE METABOLIC PANEL (CMP) Lab Routine Encounter for preventative adult health care exam with abnormal findings Expected: 10/09/2023 (Approximate), Expires: 10/09/2024 COMPLETE BLOOD COUNT AND DIFFERENTIAL Lab Routine Encounter for preventative adult health care exam with abnormal findings Expected: 10/09/2023, Expires: 10/09/2024 LIPID PROFILE (INCLUDES CHOLESTEROL, TRIGLYCERIDES, HDL, LDL) Lab Routine Encounter for preventative adult health care exam with abnormal findings Expected: 10/09/2023, Expires: 10/09/2024 T4 FREE Lab Routine Encounter for preventative adult health care exam with abnormal findings Expected: 10/09/2023, Expires: 10/09/2024 TSH Lab Routine Encounter for preventative adult health care exam with abnormal findings Expected: 10/09/2023, Expires: 10/09/2024 VITAMIN D (25,OH) Lab Routine Encounter for preventative adult health care exam with abnormal findings Expected: 10/09/2023, Expires: 10/09/2024 HEMOGLOBIN A1C Lab Routine Encounter for preventative adult health care exam with abnormal findings Expected: 10/09/2023, Expires: 10/09/2024 HEPATITIS C AB W REFLEX TO HCV RNA BY PCR Lab Routine Encounter for preventative adult health care exam with abnormal findings Encounter for hepatitis C screening test for low risk patient Expected: 10/09/2023, Expires: 10/09/2024 HEPATITIS B SURFACE ANTIBODY Lab Routine Encounter for preventative adult health care exam with abnormal findings Encounter for screening for viral disease Expected: 10/09/2023, Expires: 10/09/2024 HEPATITIS A TOTAL ANTIBODY W REFLEX Lab Routine Encounter for preventative adult health care exam with abnormal findings Encounter for screening for viral disease Expected: 10/09/2023 (Approximate), Expires: 10/09/2024 HIV 1/2 ANTIGEN AND ANTIBODY, 4TH GENERATION Lab Routine Encounter for preventative adult health care exam with abnormal findings Encounter for screening for human immunodeficiency virus (HIV) Expected: 10/09/2023, Expires: 10/08/2024 documented as of this encounter Visit Diagnoses Diagnosis Encounter for preventative adult health care exam with abnormal findings- Primary Essential hypertension Unspecified essential hypertension Mixed hyperlipidemia Gastroesophageal reflux disease, unspecified whether esophagitis present Family history of diabetes mellitus Encounter for hepatitis C screening test for low risk patient Encounter for screening for human immunodeficiency virus (HIV) Special screening examination for other specified viral diseases Encounter for screening for viral disease documented in this encounter Discontinued Medications Medication Sig Discontinue Reason Start Date End Da te progesterone (PROMETRIUM) 100 mg capsule Take 2 Capsules by mouth at bedtime. Alternate therapy 03/13/2023 09/20/2023 progesterone (PROMETRIUM) 200 mg capsule Take 1 Capsule by mouth daily. Therapy completed 08/03/2023 10/09/2023 spironolactone (ALDACTONE) 100 mg tablet Take 1 Tablet by mouth daily. 05/28/2023 10/09/2023 documented as of this encounter Historical Medications * This list may reflect changes made after this encounter. progesterone (PROMETRIUM) 200 mg capsule Take 1 Capsule by mouth daily. 08/03/2023 10/09/2023 spironolactone (ALDACTONE) 100 mg tablet Take 1 Tablet by mouth daily. 05/28/2023 10/09/2023 added in this encounter Care Teams General Labor Forklift Operator Relationship Specialty Start Date End Date Shannon Calzada DO [address] [place] [phone] PCP - General Family Medicine - Primary Care 04/25/23 09/07/24 documented as of this encounter
--- OUTSIDE RECORDS SUMMARY | 2024-09-15 00:25 | XMS_ITS | Referral Summary ---
Author Organization [facility] Address [address] [place] [address] Care Team Providers Care Software Engineering Specialist Name Role Phone IzabellaDebra mazariegoskaylie Perla DNP AGPCNP Primary Care Provi zee Encounters Date Type Department Care Team Description 09/08/2024 Telephone [facility] Family Medicine [facility] [address], [facility] 2 [place] [address] Nidia Santa RN Appointment Related from Last 3 Months Allergies Active Allergy Reactions Criticality Noted Date [...] the original. Patient has given permission for [facility] to verbally discuss the following information with [...] Diagnosed Date Resolved Date Pure hypercholesterolemia 08/28/2019 Immunizations Name Administration Dates Next Due Covid-19 mRNA Vaccine (MODER NA COVID-19) PF 0.5 ml IM (12 yrs+) 08/21/2021,12/21/2020,11/24/2020 Td 09/20/1991 Tdap Vaccine =>7YO IM 10/30/2022,01/18/2011 Social History Tobacco Use Types Packs/Day Years Used Date Smoking Tobacco: Former Cigarettes 0.5 22.3 1 987 - 2008 Smokeless Tobacco: Never Tobacco Cessation:Counseling Given: Not Answered Alcohol Use Standard Drinks/Week Comments Yes 0 (1 standard drink = 0.6 oz pur e alcohol) occasionally [facility] Utilities Answer Date Recorded In the past 12 months has [employer], gas, oil, or water [employer] threatened to shut off services in your [...] place to sleep or slept in a longterm (including now)? No 09/19/2023 Interpersonal Safety Answer [...] 7:59 EST Sexual Orientation Not on file Last Filed Vital Signs Vital Sign Reading [...] Body Mass Index 29.31 04/20/2024 1116 EDT Functional Status * Because of a physical, mental, or emotional condition, does this person have difficulty doing errands alone such as visiting a doctor's office or shopping? Answer Date of Assessment Author No 04/24/2022 10:30 EDT Mental Status * Because of a physical, mental, or emotional condition, does this person have serious difficulty concentrating, remembering, or making decisions? Answer Entry Date Author No 04/24/2022 10:30 EDT Plan of Treatment Upcoming Encounters Date Type Department Care Team (Late st Contact Info) Description 11/18/2024 10:15 EDT Office Visit [facility] Family Medicine [address], [facility] 2 [place] [address] Andie Cool, DNP AGPCNP [address] [facility] [address] [place] [address] Procedures Procedure Name Priority Date/Time Associated Diagnosis [...] C Antibody Negative Negative 04/20/2024 13:48 EDT [facility] Blood VENOUS BLOOD / Unknown Venipuncture / Unknown 04/20/2024 12:03 EDT 04/20/2024 12:33 EDT Markus Younger MD CHEMISTRY & BLOOD GAS ORDERABLES Final Result Performing Organization Address [facility] Co de Phone Number [facility] [address] [place] [address] * HIV 1/2 ANTIGEN AND ANTIBODY, 4TH GENERATION (04/20/2024 12:03 EDT) HIV 1 and 2 Antibody/p24 Antigen, 4th Generation Negative Negative 04/20/2024 13:40 EDT [facility] Comment:If acute HIV-1 infec tion is suspected in a high risk patient, submit plasma specimen for HIV-1 RNA quantitation test. Blood VENOUS BLOOD / Unknown Venipuncture / Unknown 04/20/2024 12:03 EDT 04/20/2024 12:33 EDT Markus Younger MD IMMUNOLOGY AND SEROLOG Y ORDERABLES Final Result Performing Organization Address [facility]/ZIP Co de Phone Number [facility] [address] [place] [address] * (ABNORMAL) LIPID PROFILE (INCLUDES CHOLESTEROL, TRIGLYCERIDES, HDL, LDL) (04/20/2024 12:03 EDT) Cholesterol 187 <200 mg/dL 04/20/2024 13:01 EDT [facility] Comment:Note that therapeuti c goals will differ between patients based on cardiac risk factors and current medical therapy. HDL 34(L) >=50 mg/dl 04/20/2024 13:01 [facility] Comment:Note that therapeuti c goals will differ between patients based on cardiac risk factors and current medical therapy. LDL, Calculated 114 <160 mg/dL 13:01 [facility] Comment:Note that therapeuti c goals will differ between patients based on cardiac risk factors and current medical therapy. Triglyceride 195(H) <=150 mg/dL 04/20/2024 13:01 [facility] Comment:Note that therapeuti c goals will differ between patients based on cardiac risk factors and current medical therapy. Chol/HDL Ratio 5.5 See Note 04/20/2024 13:01 [facility] Comment: NOTE: Desirable Ratio = <4.1 Patient At Risk Ratio = >5.0(Males) ?>6.0(Females) Non HDL Cholesterol 153 <160 mg/dL 04/20/2024 13:01 [facility] Comment:Note that therapeuti c goals will differ between patients based on cardiac risk factors and current medical therapy. Blood VENOUS BLOOD / Unknown Venipuncture / Unknown 04/20/2024 12:03 EDT 04/20/2024 12:33 EDT Markus Younger MD CHEMISTRY & BLOOD GAS ORDERABLES Final Result [facility] [address] [place] [phone] * COLONOSCOPY (07/30/2023 10:15 EST) Anatomical Region Laterality Modality Endoscopy Narrative 07/30/2023 10:15 EST [facility] ?? [address] [facility], [place], [place] [address] ?? Patient Name ?VANESA BROWER Date of ?1975 Record Number ?[id number] Date/Time of Procedure ?07/30/2023, 10:15:00 AM Endoscopist ?Joey Julian ?? Fitness Sales Consultant ? Referring Physician(s) ?? SALTY TYSON , Anesthesiologist ? Procedure Performed: COLONOSCOPY Indications for Exam: Screening Colonoscopy. Instruments: ? [id number] ([id number]) Medications: ?Fentanyl 100 mcg, Versed 4 mg [...] Imaging System with Manual Evaluation 07/18/2022 15:23 [facility] Specimen Adequacy Satisfactory for Evaluation - transformation zone component absent 07/18/2022 15:23 [facility] General Categorization Negative for intraepithelial lesion or malignancy 07/18/2022 15:23 [facility] Attestation . 07/18/2022 15:23 [facility] at 1522 Clinical History SEE BELOW 07/18/20 22 15:23 [facility] HPV The result for the Human Papillomavirus (HPV) Detection-High Risk Types is Negative. No E6 or E7 mRNA is detected from HPV types 16,18,31,33,35,39 ,45,51,52,56,58,5 9,66, and 68 by medical donation professional mediated amplification.Usha ting was performed on specimen [id number] and was resulted on 07/18/2022 1522 EST by PAULA, LAB INSTRUMENT RESULTS IN 07/18/2022 15:23 [facility] Performing Lab [facility] 07/18/2022 15:23 [facility] Scanned Images 07/18/2022 15:23 [facility] Papanicolaou smear specimen (specimen) CERVIX UTERI STRUCTURE / Unknown 07/09/2022 11:30 EST 07/10/2022 13:59 EST us Socorro Landa APRN PATHOLOGY ORDERABLES Allison l Result [facility] [address] [place] [phone] from Last 3 Months or Most Recently Relevant to Health Maintenance Insurance Care Teams Software Engineering Specialist Relationship Specialty Start Date End Date Andie Cool, VIRGIE AGPCNP [address] [place] [phone] PCP - General Family Medicine - Primary Care 09/08/24
--- OUTSIDE RECORDS SUMMARY | 2024-09-15 00:25 | XMS_ITS | Encounter Summary ---
Author Organization [facility] Address [address] [place] [address] Care Team Providers Care Electronic Integrated Systems Mechanic Name Role Phone Shannon Calzada DO Primary Care Provider + Reason for Visit * Reason Onset Date Comments Medications Refill 01/13/2024 Encounter Details Date Type Department Care Team (Late st Contact Info) Description 01/13/2024 Telephone [facility] Family Medicine [address], [address] [address] Shannon Calzada DO [address] [place] [address] [place] [phone] Medications Refill Social History Tobacco Use Types Packs/Day Years Used Date Smoking Tobacco: Former Cigarettes 0.5 22.3 1 987 - 2008 Smokeless Tobacco: Never Alcohol Use Standard Drinks/Week Comments Yes 0 (1 standard drink = 0.6 oz pur e alcohol) occasionally C Utilities Answer Date Recorded In the past 12 months has [employer] electric, gas, oil, or water company threatened [...] place to sleep or slept in a alf (including now)? No 09/19/2023 Interpersonal Safety Answer [...] 1 Tablet by mouth daily. 90 Tablet 2 01/14/2024 4 omeprazole (PRILOSEC) 20 mg capsuleIndications :Epigastric pain Take 1 Capsule by mouth every morning. 90 Capsule 2 01/14/2024 4 hydroCHLOROthiazid e (HYDRODIURIL) 25 mg tabletIndications: Essential hypertension Take 1 Tablet by mouth daily. 90 Tablet 2 01/14/2024 4 documented in this encounter Miscellaneous Notes * Telephone Encounter - Mery Louis RN - 01/14/2024 1001 EDT Sent refills through to Sep per policy * Telephone Encounter - Tommy Lyons - 01/13/2024 1125 EDT Patient called and states that she would like all of her scripts filled through September. Please advise documented in this encounter Plan of Treatment Upcoming Encounters Date Type Department Care Team (Late st Contact Info) Description 11/18/2024 10:15 EDT Office Visit [place] [address], [facility] 2 [place] [address] Andie Cool, VIRGIE AGPCNP [address] [place] [phone] documented as of this encounter Visit Diagnoses Diagnosis Essential hypertension Unspecified essential hypertension Epigastric pain Abdominal pain, epigastric documented in this encounter Discontinued Medications Medication Sig Discontinue Reason Start Date End Da te amLODIPine (NORVASC) 5 mg tabletIndications:Essenti al hypertension Take 1 Tablet by mouth daily. Reorder 03/18/2023 01/14/2024 omeprazole (PRILOSEC) 20 mg capsuleIndications:Epigas tric pain TAKE 1 CAPSULE BY MOUTH EVERY MORNING Reorder 01/03/2024 01/14/2024 hydroCHLOROthiazide (HYDRODIURIL) 25 mg tabletIndications:Essenti al hypertension TAKE 1 TABLET BY MOUTH DAILY Reorder 01/03/2024 01/14/2024 documented as of this encounter Care Teams Electronic Integrated Systems Mechanic Relationship Specialty Start Date End Date Shannon Calzada DO [address] [place] [address] 2 [place] [phone] PCP - General Family Medicine - Primary Care 04/25/23 09/07/24 documented as of this encounter
--- OUTSIDE RECORDS SUMMARY | 2024-09-15 00:25 | XMS_ITS | Encounter Summary ---
Author Organization [facility] Address [address] [place] [address] Care Team Providers Care Registrar College [employer] Name Role Phone Izabellaanne-mariecarlSanjuanitaAndiekanika Perla DNP AGPCNP Primary Care Provi zee Reason for Visit * Reason Onset Date Comments Appointment Related 09/08/2024 Encounter Details Date Type Department Care Team (Late st Contact Info) Description 09/08/[address] [facility] Medicine [facility] [address], [address] [place] [address] Nidia Santa RN Appointment Related Social History Tobacco Use Types Packs/Day Years Used Date Smoking Tobacco: Former Cigarettes 0.5 22.3 1 987 - 2008 Smokeless Tobacco: Never Alcohol Use Standard Drinks/Week Comments Yes 0 (1 standard drink = 0.6 oz pur e alcohol) occasionally C Utilities Answer Date Recorded In the past 12 months has [employer], gas, oil, or water company threatened to [...] in a skilled nursing (including now)? No 09/19/2023 Interpersonal Safety Answer [...] encounter Miscellaneous Notes * Telephone Encounter - Tara Green - 09/08/2024 1546 EST Spoke to pt, appt scheduled with [facility] & ALFREDA appt cancelled * Telephone Encounter - Nidia Santa RN - 09/08/2024 1054 EST Reassigned to [facility]TH[facility]. Please cancel 04/23 appt with ALFREDA. Schedule re est care visit with SANTHOSH in November. documented in this encounter Plan of Treatment Upcoming Encounters Date Type Department Care Team (Late st Contact Info) Description 11/18/2024 10:[address] [facility] Family Medicine [address], [facility] [address] [place] [address] Andie Cool DNP AGPCNP [address] [place] [phone] documented as of this encounter Visit Diagnoses Not on filedocumented in this encounter Care Teams Registrar College Or [employer] Relationship Specialty Start Date End Date Andie Cool DNP AGPCNP [address] [place] [phone] PCP - General Family Medicine - Primary Care 09/08/24 documented as of this encounter
--- OUTSIDE RECORDS SUMMARY | 2024-09-15 00:25 | XMS_ITS | Encounter Summary ---
Author Organization [facility] [place] [address] Care Team Providers Care Risk And Insurance Manager Name Role Phone Tien Garcia MD Primary Care Provider [phone] Encounter Details Date Type Department Care Team (Late st Contact Info) Description 07/18/2010 2:00 PM EST Office Visit Dermatology [address] [facility] [address] [place] [address] Luis Felipe Vera MD [address], [place] [address] Social History Tobacco Use Types Packs/Day Years Used Date Smoking Tobacco: Never Assessed Sex and Gender Information Value Date Recorded Sex Assigned at Not on file Gender Identity Not on file Sexual Orientation Not on file documented as of this encounter Plan of Treatment Not on file documented as of this encounter Visit Diagnoses Not on filedocumented in this encounter Care Teams Risk And Insurance Manager Relationship Specialty Start Date End Date Tien Garcia MD [address] [place] [phone] PCP - General 07/04/10 documented as of this encounter
--- OUTSIDE RECORDS SUMMARY | 2024-09-15 00:25 | XMS_ITS | Encounter Summary ---
Author Organization [facility] Address [address] [place] [address] Care Team Providers Care Installer Inspector Final Name Role Phone Elsi Shannon Anh Primary Care Provider + Reason for Referral * Referral (Routine/Next Available) - Authorization Not Required Specialty Diagnoses / Procedures Referred By Contact Referred To Contact Gastroenterology and Hepatology Diagnoses Screen for colon cancer Procedures COLONOSCOPY Tien Garcia MD Phone: tel: fax: [facility] [address] [place] [address] Phone: tel:[phone] fax:[phone] Referral ID Status Reason Start Date Expiration Date Visits Requested Visits Authorized [id number] Authorization Not Required 2 1 1 Reason for Visit * Auth/Cert (Routine) Specialty Diagnoses / Procedures Referred By Contbraydon t Referred To Contact Referral ID Status Reason Start Date Expiration Date Visits Re quested Visits Authorized [id number] 1 1 Encounter Details Date Type Department Care Team (Latest Contact Info) Description 07/30/2023 9:00 EST - 07/30/2023 23:59 EST Hospital Encounter [facility] Endoscopy [address] [place] [address] Joey Julian MD [facility] [address] [place] [phone] Screen for colon cancer Discharge Disposition: Home or Self Care Social History Tobacco Use Types Packs/Day Years [...] slept in a fdc (including now)? No 02/05/2023 Interpersonal Safety Answer Date Record ed How often does anyone, jason todd family, hit, punch or physically hurt you? Never 02/05/2023 How often does anyone, incljagjit todd family, [...] Sign Reading Time Taken Comments Blood Pressure 133/91 07/30/2023 1143 EST Pulse - - Temperature 36.5 ??C (97.7 ??F) 07/30/2023 1113 EST Respiratory Rate 13 07/30/2023 1143 EST Oxygen Saturation 98% 07/30/2023 1143 EST Inhaled Oxygen Concentration - - Weight 65 kg (143 lb 6.4 oz) 07/30/2023 0924 EST Height 152.4 cm (5') 07/30/2023 0924 EST Body Mass Index 28.01 07/30/2023 0924 EST documented in this encounter Functional Status [...] 04/24/2022 10:30 EDT documented in this encounter Medications at Time of Discharge ibuprofen (MOTRIN) 200 mg tablet Take 1 Tablet by mouth if needed. 3 tabs at a time amLODIPine (NORVASC) 5 mg tabletIndications: Essential hypertension Take 1 Tablet by mouth daily. 90 Tablet 3 03/18/2023 4 hydroCHLOROthiazid e (HYDRODIURIL) 25 mg tabletIndications: Essential hypertension Take 1 Tablet by mouth daily. 90 Tablet 3 03/18/2023 4 magnesium oxide (MAG-OX) 400 mg (241.3 mg magnesium) tablet Take 1 Tablet by mouth daily. 90 Tablet 3 07/30/2022 4 omeprazole (PRILOSEC) 20 mg capsuleIndications :Epigastric pain Take 1 Capsule by mouth every morning. 90 Capsule 1 12/31/2022 4 progesterone (PROMETRIUM) 100 mg capsule Take 2 Capsules by mouth at bedtime. 2 03/13/2023 4 spironolactone (ALDACTONE) 100 mg tablet Take 1 Tablet by mouth daily. 05/28/2023 4 documented as of this encounter Discharge Disposition Disposition Code Departure Means Destination Home or Self Care documented in this encounter H&P Notes * Joey Julian MD - 07/30/2023 1015 EST Endoscopy Sedation for Procedure History & Physical Date: 07/30/2023 Time: 10:54 Location: [facility] Endoscopy Planned Procedure: Colonoscopy Chief Complaint/Indications for Procedure: Screen for colon cancer History Previous Complication with Sedation and/or Anesthesia? No Allergies: Allergies Allergen Reactions Lisinopril Cough Losartan Cough Current Medications: Current Outpatient Medications Medication amLODIPine (NORVASC) 5 mg tablet hydroCHLOROthiazide (HYDRODIURIL) 25 mg tablet ibuprofen (MOTRIN) 200 mg tablet magnesium oxide (MAG-OX) 400 mg (241.3 mg magnesium) tablet omeprazole (PRILOSEC) 20 mg capsule progesterone (PROMETRIUM) 100 mg capsule Current Facility-Administered Medications Medication Route Frequency sodium chloride 0.9 % (NS) infusion intravenous PRN Or lactated ringers (LR) infusion intravenous PRN lidocaine (PF) 10 mg/mL (1 %) injection 2 mg intradermal PRN lidocaine (PF) 10 mg/mL (1 %) injection 2 mg intradermal PRN ondansetron (PF) (ZOFRAN) injection 4 mg intravenous Once PRN sodium chloride 0.9 % (flush) flush 5 mL intravenous PRN Past Medical History: Past Medical History: Diagnosis Date Mole (skin) Social History: Past Surgical History: Procedure Laterality Date OTHER SURGICAL HISTORY excision of moles WISDOM TOOTH EXTRACTION Social History Tobacco Use Smoking status: Former Current packs/day: 0.00 Types: Cigarettes Quit date: 2008 Years since quittin.6 Smokeless tobacco: Never Substance Use Topics Alcohol use: Yes Comment: occasionally Family History: Family History Problem Relation Age of Onset Heart Disease Mother Diabetes Father Review of Systems as pertinent: Physical Exam Vital Signs: BP (!) 155/94 (BP Cuff Location: Left arm) Temp 36.6 ??C (97.8 ??F) (Oral) Resp 15 Ht 152.4 cm (60) Wt 65 kg (143 lb 6.4 oz) SpO2 95% BMI 28.01 kg/m?? Heart Examination: Cardiac Regularity: Regular Respiratory Examination: Respiratory Pattern: Regular Breath Sounds Right: Clear Breath Sounds Left: Clear Abdominal Examination: Additional physical exam related to the proposed procedure, patient activity, disease state and treatment as pertinent: Assessment Previous complications with sedation or anesthesia?: No Airway Concerns: None/NA Anesthesia Classification: ASA 1 Plan: Proceed with sedation for procedure Fasting Time: Date of Last Liquid: 07/30/23 Time of Last Liquid: 0645 Date of Last Solid: 07/29/23 Time of Last Solid: 0730 Patient Appropriate Candidate for Planned Sedation?: Yes Joey Julian MD 07/30/2023 10:54 documented in this encounter Plan of Treatment Upcoming Encounters Date Type Department Care Team (Late st Contact Info) Description 11/18/2024 10:15 EDT Office Visit [facility] Family Medicine [address] [place], [place] [address] Andie Cool DNP AGPCNP [address] [facility] [address] [place] [phone] documented as of this encounter Procedures Procedure Name Priority Date/Time Associated Diagnosis Comments ECG REPORT - SCANNED 07/31/2023 14:39 EST COLONOSCOPY Routine 07/30/2023 10:15 EST Screen for colon cancer documented in this encounter Results * ECG REPORT - SCANNED (07/31/2023 14:39 EST) 07/31/2023 14:3 9 EST us Scan 2 Child Care Teacher PROCEDURE/MINOR SURGICAL OR DERABLES Final Result * COLONOSCOPY (07/30/2023 10:15 EST) Anatomical Region Laterality Modality Endoscopy Narrative 07/30/2023 10:15 EST [facility] ?? [address], [place], [place] [address] ?? Patient Name ?VANESAMinda BROWER Date of ?1975 Record Number ?[id number] Date/Time of Procedure ?07/30/2023, 10:15:00 AM Endoscopist ?Joey Julian ?? Top Coater ? Referring Physician(s) ?? SHANNON TYSON , Anesthesiologist ? Procedure Performed: COLONOSCOPY Indications for Exam: Screening Colonoscopy. Instruments: ? [facility]-[id number] ([id number]) Medications: ?Fentanyl 100 mcg, Versed 4 mg [...] MD GI PROCEDURE ORDERABLES Final Re sult documented in this encounter Visit Diagnoses Diagnosis Screen for colon cancer Special screening for malignant neoplasms, colon documented in this encounter Administered Medications Inactive Administered Medications - up to 3 most recent administrations Medication Order MAR Action Action Date Dose Rate Site fentaNYL citrate (PF) injection intravenous, As needed, Starting on Sat07/30/23 at 1056, Until Sat07/30/23 at 1058, Routine, Intraprocedure Given 07/30/2023 10:58 EST 50 mcg Given 07/30/2023 10:56 EST 50 mcg lactated ringers (LR) infusion 30 mL/hr, intravenous, PRN, Starting on Sat07/30/23 at 0919, Until Michelle 08/01/23 at 0205, Routine, Preprocedure New Bag 07/30/2023 9:42 EST 30 mL/hr 30 mL/hr midazolam (VERSED) injection intravenous, As needed, Starting on Sat07/30/23 at 1055, Until Sat07/30/23 at 1058, Routine, Intraprocedure Given 07/30/2023 10:58 EST 2 mg Given 07/30/2023 10:55 EST 2 mg documented in this encounter Orders Medications Ordered That Adam ht Not Have Been Administered Count Last Ordered Date First Ordered Date lidocaine (PF) 10 mg/mL (1 % ) injection 2 mg 2 07/30/2023 ondansetron (PF) (ZOFRAN) injection 4 mg 1 07/30/2023 sodium chloride 0.9 % (flush) flush 5 mL 1 07/30/2023 sodium chloride 0.9 % (NS) infusion 1 07/30 documented in this encounter Care Teams Installer Inspector Final Relationship Specialty Start Date End Date Shannon Tyson DO [address] [place] [phone] PCP - General Family Medicine - Primary Care 04/25/23 09/07/24 documented as of this encounter
--- OUTSIDE RECORDS SUMMARY | 2024-09-15 00:25 | XMS_ITS | Encounter Summary ---
Author Organization [facility] Address [address] [place] [address] Care Team Providers Care Director Of Product Marketing Name Role Phone Tien Garcia MD Primary Care Provider [phone] Reason for Visit * Reason Comments Medications Refill HCTZ Encounter Details Date Type Department Care Team (Late st Contact Info) Description 03/16/[address] [facility] [place] [address], [facility] 2 [place] [address] Tien Garcia MD [address] [place] [address] [place] [phone] Medications Refill (HCTZ) Social History Tobacco Use Types Packs/Day Years [...] place to sleep or slept in a long term (including now)? No 02/05/2023 Interpersonal Safety Answer [...] by mouth daily. 90 Tablet 3 03/18/2023 01/03/2024 documented in this encounter Miscellaneous Notes * Telephone Encounter - Matthew Hawley MA - 03/18/2023 1533 EDT Medication Refill Request Medication and dose: hydrochlorothiazide 25 mg tab Verified: Yes Pharmacy verified: Yes [...] Info) Description 11/18/2024 10:15 EDT Office Visit [facility] Family Medicine [address], [address] [place] [address] Andie Cool DNP AGPCNP [address] [facility] [place] [address] [place] [phone] documented as of this encounter Visit Diagnoses Diagnosis Essential hypertension- Primary Unspecified essential hypertension documented in this encounter Discontinued Medications Medication Sig Discontinue Reason Start Date End Da te hydroCHLOROthiazide (HYDRODIURIL) 25 mg tablet TAKE 1 TABLET BY MOUTH ONCE DAILY. 07/22/2022 03/18/2023 documented as of this encounter Care Teams Director Of Product Marketing Relationship Specialty Start Date End Date Tien Garcia MD [address] [place] [phone] PCP - General 05/27/14 04/24/23 documented as of this encounter
--- OUTSIDE RECORDS SUMMARY | 2024-09-15 00:25 | XMS_ITS | Encounter Summary ---
Author Organization [facility] Address [address] [place] [address] Care Team Providers Care Reed Cleaner Name Role Phone Shannon Calzada Anh Primary Care Provider + Andie Cool DNP AGPCNP Primary Care Provi zee Encounter Details Date Type Department Care Team (Late st Contact Info) Description 08/19/2023 Lab Requisition [facility] Pathology & Laboratory Medicine - [facility] [address] [place], [place] [id number] Outr Resulting Lab, Provider Social History Tobacco Use Types Packs/Day Years [...] place to sleep or slept in a intermediate (including now)? No 02/05/2023 Interpersonal Safety Answer [...] 04/24/2022 10:30 EDT documented in this encounter Plan of Treatment Upcoming Encounters Date Type Department Care Team (Late st Contact Info) Description 11/18/2024 10:15 EDT Office Visit [facility] Family [facility] [address] [facility], [address] [place] [address] Andie Cool DNP AGPCNP [address] [place] [phone] documented as of this encounter Procedures Procedure Name Priority Date/Time Associated Diagnosis Comments CHLAMYDIA/N. GONORRHOEAE AMPLIFIED NUCLEIC ACID Routine 08/19/2023 10:30 EST documented in this encounter Results * CHLAMYDIA/N. GONORRHOEAE AMPLIFIED RNA (08/19/2023 10:30 EST) Neisseria gonorrhoeae Result Negative Negative 08/20/2023 15:43 EST [facility] Chlamydia trachomatis Result Negative Negative 08/20/2023 15:43 EST [facility] Swab ENDOCERVICAL STRUCTURE / Unknown 08/19/2023 10:30 EST 08/19/2023 18:23 EST us Provider Outr Resulting Lab MICROBIOLOGY - GENER AL ORDERABLES Final Result [facility] [address] [place] [address] documented in this encounter Visit Diagnoses Not on filedocumented in this encounter Care Teams Reed Cleaner Relationship Specialty Start Date End Date Shannon Calzada DO [address] [place] [address] [address] [place] [phone] PCP - General Family Medicine - Primary Care 04/25/23 09/07/24 Andie Cool DNP AGPCNP [address] [place] [phone] PCP - General Family Medicine - Primary Care 09/08/24 documented as of this encounter
--- OUTSIDE RECORDS SUMMARY | 2024-09-15 00:25 | XMS_ITS | Encounter Summary ---
Author Organization [facility] Address [address] [place] [address] Care Team Providers Care Front End Ui Developer Name Role Phone Shannon Calzada Primary Care Provider + Encounter Details Date Type Department Care Team (Late st Contact Info) Description 04/20/2024 12:00 EDT Phlebotomy Only [facility] - Outpatient Phlebotomy Drawing [address] [place] [address] Lab, [facility] Op Phlebotomy Essential hypertension; Malaise and fatigue; Screening for viral disease Social History Tobacco Use Types Packs/Day Years Used Date Smoking Tobacco: Former Cigarettes 0.5 22.3 1 987 - 2008 Smokeless Tobacco: Never Alcohol Use Standard Drinks/Week Comments Yes 0 (1 standard drink = 0.6 oz pur e alcohol) occasionally [facility] Utilities Answer Date Recorded In the past 12 months has [employer], gas, oil, or water company threatened to [...] documented in this encounter Miscellaneous Notes * Result Encounter Note - Markus Younger MD - 04/20/2024 1200 EDT The recent lab results looked good. This included the cholesterol panel with a normal total cholesterol level, normal thyroid level, normal glucose and complete metabolic panel, and a normal blood count and screening tests for hepatitis C and HIV documented in this encounter Plan of Treatment Upcoming Encounters Date Type Department Care Team (Late st Contact Info) Description 11/18/2024 10:15 EDT Office Visit [facility] Family Medicine [address], [facility] 2 [place] [address] Andie Cool, VIRGIE AGPCNP [address] [facility] [address] [place] [phone] documented as of this encounter Procedures Procedure Name Priority Date/Time Associated Diagnosis Comments THYROID CASCADE Routine 04/20/2024 12:03 EDT Malaise and fatigue HEPATITIS C AB W REFLEX TO HCV RNA BY PCR Routine 04/20/2024 12:03 EDT Screening for viral disease COMPLETE BLOOD COUNT Routine 04/20/2024 12:03 EDT Essential hypertension Malaise and fatigue HIV 1/2 ANTIGEN AND ANTIBODY, 4TH GENERATION Routine 04/20/2024 12:03 EDT Screening for viral disease LIPID PROFILE (INCLUDES CHOLESTEROL, TRIGLYCERIDES, HDL, LDL) Routine 04/20/2024 12:03 EDT Essential hypertension COMPREHENSIVE METABOLIC PANEL (CMP) Routine 04/20/2024 12:03 EDT Essential hypertension Malaise and fatigue documented in this encounter Results * HIV 1/2 ANTIGEN AND ANTIBODY, 4TH GENERATION (04/20/2024 12:03 EDT) Pathologist [facility] HIV 1 and 2 Antibody/p24 Antigen, 4th Generation Negative Negative 04/20/2024 13:40 EDT [facility] Comment:If acute HIV-1 infec tion is suspected in a high risk patient, submit plasma specimen for HIV-1 RNA quantitation test. Blood VENOUS BLOOD / Unknown Venipuncture / Unknown 04/20/2024 12:03 EDT 04/20/2024 12:33 EDT us Markus Younger MD IMMUNOLOGY AND SEROLOG Y ORDERABLES Final Result [facility] [address] [place] [address] * HEPATITIS C AB W REFLEX TO HCV RNA BY PCR (04/20/2024 12:03 EDT) Pathologist [facility] Hep C Antibody Negative Negative 04/20/2024 13:48 EDT [facility] Blood VENOUS BLOOD / Unknown Venipuncture / Unknown 04/20/2024 12:03 EDT 04/20/2024 12:33 EDT us Markus Younger MD CHEMISTRY & BLOOD GAS ORDERABLES Final Result [facility] [address] [place] [address] * THYROID CASCADE (04/20/2024 12:03 EDT) Pathologist [facility] TSH 1.15 0.47 - 4.68 mIU/L 04/20[facility]2024 [facility] Blood VENOUS BLOOD / Unknown Venipuncture / Unknown 04/20/2024 12:03 EDT 04/20/2024 12:33 EDT Narrative [facility] - 04/20/2024 13:38 EDT NOTE: The results of this assay can be falsely lowered due to the consumption of Biotin. us Markus Younger MD CHEMISTRY & BLOOD GAS ORDERABLES Final Result [facility] [address] [place] [address] * (ABNORMAL) LIPID PROFILE (INCLUDES CHOLESTEROL, TRIGLYCERIDES, HDL, LDL) (04/20/2024 12:03 EDT) Cholesterol 187 <200 mg/dL 04/20/2024 13:01 [facility] Comment:Note that therapeuti c goals will differ between patients based on cardiac risk factors and current medical therapy. HDL 34(L) >=50 mg/dl 04/20/2024 13:01 [facility] Comment:Note that therapeuti c goals will differ between patients based on cardiac risk factors and current medical therapy. LDL, Calculated 114 <160 mg/dL 13:01 [facility] Comment:Note that therapeuti c goals will differ between patients based on cardiac risk factors and current medical therapy. Triglyceride 195(H) <=150 mg/dL 04/20/2024 13:01 [facility] Comment:Note that therapeuti c goals will differ between patients based on cardiac risk factors and current medical therapy. Chol/HDL Ratio 5.5 See Note 04/20/2024 13:01 [facility] Comment: NOTE: Desirable Ratio = <4.1 Patient At Risk Ratio = >5.0(Males) ?>6.0(Females) Non HDL Cholesterol 153 <160 mg/dL 04/20/2024 13:01 [facility] Comment:Note that therapeuti c goals will differ between patients based on cardiac risk factors and current medical therapy. Blood VENOUS BLOOD / Unknown Venipuncture / Unknown 04/20/2024 12:03 EDT 04/20/2024 12:33 EDT us Markus Younger MD CHEMISTRY & BLOOD GAS ORDERABLES Final Result [facility] [address] [place] [address] * COMPREHENSIVE METABOLIC PANEL (CMP) (04/20/2024 12:03 EDT) Sodium 139 136 - 145 mmol/L 04/20/2024 13:01 [facility] Potassium 3.5 3.5 - 5.0 mmol/L 04/20/2024 13:01 [facility] Chloride 100 96 - 110 mmol/L 04/20/2024 13:01 [facility] CO2 Total 28 22 - 32 mmol/L 04/20/2024 13:01 [facility] Glucose 83 70 - 99 mg/dl 04/20/2024 13:01 [facility] BUN 16 10 - 26 mg/dL 04/20/2024 13:01 [facility] Creatinine 0.59 0.52 - 1.04 mg/dL 04/20/2024 13:01 [facility] eGFR 110 >60 mL/min/1.7 3m2 04/20/2024 13:01 [facility] Total Protein 7.0 6.3 - 8.2 g/dL 04/20/2024 13:01 [facility] Albumin 4.5 3.4 - 4.9 g/dL 04/20/2024 13:01 [facility] Alkaline Phosphatase 66 38 - 126 U/L 04/20/2024 13:01 [facility] AST 24 15 - 46 U/L 04/20/2024 13:01 [facility] ALT 23 <35 U/L 04/20/2024 13:01 [facility] Bilirubin, Total 0.7 <1.4 mg/dL 04/20/20 13:01 [facility] Calcium 9.6 8.5 - 10.5 mg/dL 04/20/2024 13:01 [facility] Albumin/Globulin Ratio 1.8 1.0 - 2.5 04/20/2024 13:01 [facility] Anion Gap 11 5 - 14 mmol/L 04/20/2024 13:01 [facility] Blood VENOUS BLOOD / Unknown Venipuncture / Unknown 04/20/2024 12:03 EDT 04/20/2024 12:33 EDT Markus Younger MD CHEMISTRY & BLOOD GAS ORDERABLES Final Result [facility] [address] [place] [address] * COMPLETE BLOOD COUNT (04/20/2024 12:03 EDT) WBC 6.84 4.00 - 12.40 K/cmm 04/20/2024 12:33 [facility] RBC 4.92 3.86 - 5.04 M/cmm 04/20/2024 12:33 [facility] Hemoglobin 15.0 11.6 - 15.2 g/dL 04/20/2024 12:33 [facility] HCT 42.9 34.9 - 44.4 % 04/20/2024 12:33 [facility] MCV 87 81 - 98 fL 04/20/2024 12:33 [facility] MCH 30.5 26.7 - 33.3 pg 04/20/2024 12:33 [facility] MCHC 35.0 32.1 - 35.9 g/dL 04/20/2024 12:33 T [facility] RDW-CV 12.2 <14.7 % 04/20/2024 12:33 [facility] RDW-SD 39.0 <50.4 fl 04/20/2024 12:33 [facility] PLT 275 141 - 377 K/cmm 04/20/2024 12:33 [facility] MPV 11.4 9.5 - 12.7 fL 04/20/2024 12:33 [facility] Blood VENOUS BLOOD / Unknown Venipuncture / Unknown 04/20/2024 12:03 EDT 04/20/2024 12:31 EDT us Markus Younger MD HEMATOLOGY & PF4 ORDER GARY Final Result [facility] [address] [place] [address] documented in this encounter Visit Diagnoses Diagnosis Essential hypertension Unspecified essential hypertension Malaise and fatigue Other malaise and fatigue Screening for viral disease Special screening examination for unspecified viral disease documented in this encounter Care Teams Front End Ui Developer Relationship Specialty Start Date End Date Shannon Calzada DO [address] [place] [phone] PCP - General Family Medicine - Primary Care 04/25/23 09/07/24 documented as of this encounter
--- OUTSIDE RECORDS SUMMARY | 2024-09-15 00:25 | XMS_ITS | Encounter Summary ---
Author Organization [facility] Address [address] [place] [address] Care Team Providers Care Supervisor Train Operations Name Role Phone Shannon Calzada Primary Care Provider + Reason for Visit * Reason Comments Medications Refill Encounter Details Date Type Department Care Team (Late st Contact Info) Description 03/31/2024 Refill [facility] Family Medicine [address], [facility] [address] [place] [address] Mery Walton, [facility] [address] [facility] [address] [place] [phone] Medications Refill Social History Tobacco Use Types Packs/Day Years Used Date Smoking Tobacco: Former Cigarettes 0.5 22.3 1 987 - 2008 Smokeless Tobacco: Never Alcohol Use Standard Drinks/Week Comments Yes 0 (1 standard drink = 0.6 oz pur e alcohol) occasionally [facility] Utilities Answer Date Recorded In the past 12 months has [employer], gas, oil, or water company [...] Encounter - Leonora Westfall, RN - 03/31/2024 3690 EDT Medication Refill Request Medication and dose: omeprazole (PRILOSEC) 20 mg capsule Verified: Yes Pharmacy verified: Yes Last visit: 09/20/2023 Next visit: Visit date not found RX denied per protocol, filled on 01/2024 with 2 refills, not due until 10/2024 documented in this encounter Plan of Treatment Upcoming Encounters Date Type Department Care Team (Late st Contact Info) Description 11/18/2024 10:15 EDT Office Visit [facility] Family [address], [facility] [address] [place] [address] Andie Cool, DNP AGPCNP [address] [place] [phone] documented as of this encounter Visit Diagnoses Diagnosis Epigastric pain- Primary Abdominal pain, epigastric documented in this encounter Care Teams Supervisor Train Operations Relationship Specialty Start Date End Date Shannon Calzada DO [address] [place] [phone] PCP - General Family Medicine - Primary Care 04/25/23 09/07/24 documented as of this encounter
--- OUTSIDE RECORDS SUMMARY | 2024-09-15 00:26 | XMS_ITS | Encounter Summary ---
Author Organization [facility] Address [address] [place] [address] Care Team Providers Care Fruit Raiser Name Role Phone Tien Garcia MD Primary Care Provider [phone] Shannon Calzada DO Primary Care Provider + Andie Cool DNP [facility] Primary Care Provi zee Encounter Details Date Type Department Care Team (Late st Contact Info) Description 07/10/2022 Lab Requisition [facility] Pathology & Laboratory Medicine - [place] [address] [place] [address] Socorro Landa, CULINARY WORKER [address] [place] [phone] Encounter for other general examination Social History Tobacco Use Types Packs/Day Years Used Date Smoking Tobacco: Former Cigarettes Q uit: 2008 Smokeless Tobacco: Never Alcohol Use Standard Drinks/Week Comments Yes 0 (1 standard drink = 0.6 oz pur e alcohol) occasionally Interpersonal Safety Answer Date Record ed Physically Hurt Never 03/13/2020 Verbally Threaten Not on file 03/13/2020 Comments Unknown Sex and Gender Information Value Date Recorded Sex Assigned at Female 08/28/2019 11:27 EST Legal Sex Female 18:27 EST Gender Identity Female 07/30/2019 7:59 EST Sexual Orientation Not on file COVID-19 Exposure Response Date Recorded In the last 10 days, have yo u been in contact with someone who was confirmed or suspected to have Coronavirus/COVID-19? No / Unsure 07/03/2022 13:36 EST documented as of this encounter Functional Status [...] Office Visit [facility] Family Medicine [facility] [address] [facility], [address] [place] [address] Andie Cool, VIRGIE AGPCNP [address] [facility] [address] [place] [phone] documented as of this encounter Procedures Procedure Name Priority Date/Time Associated Diagnosis Comments PAP TEST Today 07/09/2022 11:30 EST Encounter for other general examination HPV DNA DETECTION WITH GENOTYPING, PCR Today 07/09/2022 11:30 EST Encounter for other general examination documented in this encounter Results * HUMAN PAPILLOMAVIRUS (HPV) DETECTION-HIGH RISK TYPES (07/09/2022 11:30 EST) HPV other High Risk types, PCR Negative Negative 07/18/2022 15:23 EST [facility] Comment:No E6 or E7 mRNA is detected from HPV types 16,18,31,33,35,39,45,51,52,56,58,59,66, and 68 by manager competitive intelligence mediated amplification. Papanicolaou smear specimen (specimen) CERVIX UTERI STRUCTURE / Unknown 07/09/2022 11:30 EST 07/17/2022 9:54 EST us Socorro Alvareshey CULINARY WORKER MICROBIOLOGY - GENERAL OR DERABLES Final Result [facility] [address] [place] [address] * PAP TEST (07/09/2022 11:30 EST) Specimens A. Cervix and/or Endocervix , ThinPrep Imaging System with Manual Evaluation 07/18/2022 15:23 [facility] Specimen Adequacy Satisfactory for Evaluation - transformation zone component absent 07/18/2022 15:23 [facility] General Categorization Negative for intraepithelial lesion or malignancy 07/18/2022 15:23 [facility] Attestation . 07/18/2022 15:23 [facility] at 1522 Clinical History SEE BELOW 07/18/20 22 15:23 [facility] HPV The result for the Human Papillomavirus (HPV) Detection-High Risk Types is Negative. No E6 or E7 mRNA is detected from HPV types 16,18,31,33,35,39 ,45,51,52,56,58,5 9,66, and 68 by manager competitive intelligence mediated amplification.Usha ting was performed on specimen [id number] and was resulted on 07/18/2022 1522 EST by PAULA, LAB INSTRUMENT RESULTS IN 07/18/2022 15:23 [facility] Performing Lab [facility] 07/18/2022 15:23 [facility] Scanned Images 07/18/2022 15:23 [facility] Papanicolaou smear specimen (specimen) CERVIX UTERI STRUCTURE / Unknown 07/09/2022 11:30 EST 07/10/2022 13:59 EST us Socorro Landa CULINARY WORKER PATHOLOGY ORDERABLES Allison l Result [facility] [address] [place] [address] documented in this encounter Visit Diagnoses Diagnosis Encounter for other general examination documented in this encounter Care Teams Fruit Raiser Relationship Specialty Start Date End Date Tien Garcia MD [address] [place] [phone] PCP - General 05/27/14 04/24/23 Shannon Calzada DO [address] [place] [phone] PCP - General Family Medicine - Primary Care 04/25/23 09/07/24 Andie Cool DNP AGPCNP [address] [place] [phone] PCP - General Family Medicine - Primary Care 09/08/24 documented as of this encounter
--- OUTSIDE RECORDS SUMMARY | 2024-09-15 00:26 | XMS_ITS | Encounter Summary ---
Author Organization [facility] Address [address] [place] [address] Care Team Providers Care Brickmason Name Role Phone Tien Garcia MD Primary Care Provider [phone] Reason for Referral * Radiology Services (Routine/Next Available) - Authorization Not Required Specialty Diagnoses / Procedures Referred By Bryanna t Referred To Contact Diagnoses Right upper quadrant abdominal pain Procedures US ABDOMEN LIMITED Tien Garcia MD Phone: tel: fax: [facility] [place] Referral ID Status Reason Start Date Expiration Date Visits Requested Visits Authorized [id number] Authorization Not Required 2 1 1 Reason for Visit * Radiology Services (Routine/Next Available) - Authorization Not Required Specialty Diagnoses / Procedures Referred By Bryanna rogers Referred To Contact Diagnoses Right upper quadrant abdominal pain Procedures US ABDOMEN LIMITED Tien Garcia MD Phone: tel: fax: [facility] [place] Referral ID Status Reason Start Date Expiration Date Visits Requested Visits Authorized [id number] Authorization Not Required 2 1 1 Encounter Details Date Type Department Care Team (Latest Contact Info) Description 07/26/2022 12:47 EST - 07/26/2022 23:59 EST Hospital Encounter [facility] Ultrasound [address] [place] [address] Right upper quadrant abdominal pain Discharge Disposition: Home or Self Care Social [...] at a time amLODIPine (NORVASC) 5 mg tablet TAKE 1 TABLET BY MOUTH DAILY 90 Tablet 3 04/22/2022 03/18/2023 hydroCHLOROthiazi de (HYDRODIURIL) 25 mg tablet TAKE 1 TABLET BY MOUTH ONCE DAILY. 90 Tablet 3 07/22/2022 03/18/2023 omeprazole (PRILOSEC) 20 mg capsuleIndication s:Epigastric pain Take 1 capsule by mouth every morning. 90 capsule 1 03/01/2022 12/31/2022 documented as of this encounter Discharge Disposition Disposition Code Departure Means Destination Home or Self Care documented in this encounter Plan of Treatment Upcoming Encounters Date Type Department Care Team (Late st Contact Info) Description 11/18/2024 10:15 EDT Office Visit [facility] Family Medicine - [place] [address], [address] [place] [address] Andie Cool, VIRGIE AGPCNP [address] [place] [phone] documented as of this encounter Procedures Procedure Name Priority Date/Time Associated Diagnosis Comments US ABDOMEN LIMITED Routine 07/26/2022 13 :29 EST Right upper quadrant abdominal pain documented in this encounter Results * US ABDOMEN LIMITED (07/26/2022 13:29 EST) Anatomical Region Laterality Modality Abdomen, Body Ultrasound 07/26/2022 13:3 7 EST Impressions 07/26/2022 13:37 EST 1. No sonographic abnormality along the abdominal wall the site of clinical concern. No hernia detected. 2. Normal right upper quadrant ultrasound. Narrative 07/26/2022 13:37 EST US ABDOMEN LIMITED ?? Signs and Symptoms/Comments: ??Persistent RUQ abd pain; prior abdominal wall hernia repair. Comparison: None. Technique: Right upper quadrant abdominal ultrasound was performed with color Doppler imaging. FINDINGS: Pancreas: The visible portion of the pancreas is grossly unremarkable. Liver: The liver is normal in size (measuring 13.1 cm). The liver is normal in echotexture. No focal hepatic mass is identified. Bile Ducts: No biliary dilatation is identified. The common bile duct measures 2.8 mm. Gallbladder: The gallbladder contains no stones. The gallbladder wall is normal in thickness (1.3 mm). No pericholecystic fluid is visible. No sonographic Meza's sign was elicited. Right Kidney: The right kidney is normal in size, measuring 11.2 cm. No renal mass is identified. No shadowing calculi are visible. No hydronephrosis is present. IVC: The visible portion of the proximal IVC is unremarkable. The abdominal wall scanned at the site of clinical concern. No hernia or abnormal mass lesion was detected. Procedure Note Junito Vazquez MD - 07/26/2022 US ABDOMEN LIMITED Signs and Symptoms/Comments: Persistent RUQ abd pain; prior abdominalwall hernia repair. Comparison: None. Technique: Right upper quadrant abdominal ultrasound was performed withcolor Doppler imaging. FINDINGS: Pancreas: The visible portion of the pancreas is grossly unremarkable. Liver: The liver is normal in size (measuring 13.1 cm). The liver isnormal in echotexture. No focal hepatic mass is identified. Bile Ducts: No biliary dilatation is identified. The common bile ductmeasures 2.8 mm. Gallbladder: The gallbladder contains no stones. The gallbladder wall isnormal in thickness (1.3 mm). No pericholecystic fluid is visible. Nosonographic Meza's sign was elicited. Right Kidney: The right kidney is normal in size, measuring 11.2 cm. Norenal mass is identified. No shadowing calculi are visible. Nohydronephrosis is present. IVC: The visible portion of the proximal IVC is unremarkable. The abdominal wall scanned at the site of clinical concern. No hernia orabnormal mass lesion was detected. IMPRESSION 1. No sonographic abnormality along the abdominal wall the site ofclinical concern. No hernia detected. 2. Normal right upper quadrant ultrasound. us Tien Garcia MD IMG US ORDERABLES Final Result documented in this encounter Visit Diagnoses Diagnosis Right upper quadrant abdominal pain Abdominal pain, right upper quadrant documented in this encounter Care Teams Brickmason Relationship Specialty Start Date End Date Tien Garcia MD [address] [place] [phone] PCP - General 05/27/14 04/24/23 documented as of this encounter
--- OUTSIDE RECORDS SUMMARY | 2024-09-15 00:26 | XMS_ITS | Encounter Summary ---
Author Organization [facility] Address [address] [place] [address] Care Team Providers Care Caustic Pump Operator Name Role Phone Tien Garcia MD Primary Care Provider [phone] Reason for Visit * Reason Onset Date Comments Pre-visit Planning 06/18/2022 Encounter Details Date Type Department Care Team (Late st Contact Info) Description 06/18/2022 Telephone [facility] Family Medicine [address], [facility] [[email or web address] [address] [place] [address] Tien Garcia MD [address] [place] [address] [place] [phone] Pre-visit Planning (//) Social History Tobacco Use Types Packs/Day Years [...] encounter Miscellaneous Notes * Telephone Encounter - Tien Garcia MD - 06/18/2022 0711 EST Previsit planning documented in this encounter Plan of Treatment Upcoming Encounters Date Type Department Care Team (Late st Contact Info) Description 11/18/2024 10:15 EDT Office Visit [facility] Family Medicine [facility] [address] [facility], [facility] [[email or web address] [address] [place], [place] [id number] Andie Cool, VIRGIE AGPCNP [address] [place] [address] 2 [place] [phone] documented as of this encounter Visit Diagnoses Not on filedocumented in this encounter Care Teams Caustic Pump Operator Relationship Specialty Start Date End Date Tien Garcia MD [address] [place] [address] 2 [place] [phone] PCP - General 05/27/14 04/24/23 documented as of this encounter
--- OUTSIDE RECORDS SUMMARY | 2024-09-15 00:26 | XMS_ITS | Encounter Summary ---
Author Organization [facility] Address [address] [place] [address] Care Team Providers Care Audit Manager Name Role Phone Tien Garcia MD Primary Care Provider [phone] Reason for Visit * Reason Onset Date Comments Referral Request 08/01/2022 Referral still needed? Encounter Details Date Type Department Care Team (Late st Contact Info) Description 08/01/[address] [facility] Family Medicine [address], [facility] 2 [place] [address] Tien Garcia MD [address] [place] [address] [place] [phone] Referral Request (Referral still needed?) Social History Tobacco Use Types Packs/Day Years [...] encounter Miscellaneous Notes * Telephone Encounter - Samara Bennett - 08/08/2022 1437 EST Notified General Surgery. * Telephone Encounter - Tien Garcia MD - 08/01/2022 1420 EST I believe the patient would appreciate being evaluated. Both the patient and the digital community manager were able to appreciate a palpable mass at the time of the study. * Telephone Encounter - Siena Whitfield RN - 08/01/2022 1417 EST To PCP * Telephone Encounter - Tara Green - 08/01/2022 1307 EST Received a call from Amos with [facility] general surgery checking to see if the referral to them was still needed since the imaging was normal? documented in this encounter Plan of Treatment Upcoming Encounters Date Type Department Care Team (Late st Contact Info) Description 11/18/2024 10:15 EDT Office Visit [facility] Family Medicine [facility] [address], [address] [place] [address] Andie Cool, DNP AGPCNP [address] [place] [address] [address] [place] [phone] documented as of this encounter Visit Diagnoses Not on filedocumented in this encounter Care Teams Audit Manager Relationship Specialty Start Date End Date Tien Garcia MD [address] [place] [phone] PCP - General 05/27/14 04/24/23 documented as of this encounter
--- OUTSIDE RECORDS SUMMARY | 2024-09-15 00:26 | XMS_ITS | Encounter Summary ---
Author Organization [facility] Address [address] [place] [address] Care Team Providers Care Belt Dresser Name Role Phone Tien Garcia MD Primary Care Provider [phone] Reason for Visit * Reason Comments Medications Refill Encounter Details Date Type Department Care Team (Late st Contact Info) Description 11/26/2022 Refill [facility] Family Medicine [address], [facility] 2 [place] [address] Tien Garcia MD [address] [place] [address] [address] [place] [phone] Medications Refill Social History Tobacco [...] Refills Last Filled Start Date End Date fluticasone propion-salmeteroL (ADVAIR) 250-50 mcg/dose diskus inhaler INHALE 1 PUFF BY MOUTH TWICE DAILY DIRECTED 180 Each 3 11/27/2022 documented in this encounter Plan of Treatment Upcoming Encounters Date Type Department Care Team (Late st Contact Info) Description 11/18/2024 10:15 EDT Office Visit [facility] Family Medicine [facility] [address], [facility] 2 [place], [place] [phone] Andie Cool, DNP AGPCNP [address] [phone] documented as of this encounter Visit Diagnoses Not on filedocumented in this encounter Discontinued Medications Medication Sig Discontinue Reason Start Date End Da te fluticasone propion-salmeteroL (ADVAIR) 250-50 mcg/dose diskus inhaler Inhale 1 Puff as directed 2 times daily. 10/30/2022 11/27/2022 documented as of this encounter Care Teams Belt Dresser Relationship Specialty Start Date End Date Tien Garcia MD [address] [place] [address] [address] [place] [phone] PCP - General 05/27/14 04/24/23 documented as of this encounter
--- OUTSIDE RECORDS SUMMARY | 2024-09-15 00:26 | XMS_ITS | Encounter Summary ---
Author Organization [facility] Address [address] [place] [address] Care Team Providers Care Ios Architect Name Role Phone Tien Garcia MD Primary Care Provider [phone] Reason for Visit * Reason Comments Follow-up Encounter Details Date Type Department Care Team (Late st Contact Info) Description 04/13/2022 11:30 EDT Office Visit [facility] Orthopedics & Sport Medicine [address] [place] [address] Carol Webb, FRYER LINE HELPER [address] [facility] [address] [place] [address] Trochanteric bursitis of right hip (Primary Dx); Chronic right-sided low back pain with right-sided sciatica Social History Tobacco Use Types Packs/Day Years Used Date Smoking Tobacco: Former Cigarettes Q uit: 2008 Smokeless Tobacco: Never Alcohol Use Standard Drinks/Week Comments Not Asked 0 (1 standard drink = 0.6 oz [...] suspected to have Coronavirus/COVID-19? No / Unsure 04/13/2022 11:36 EDT documented as of this encounter Progress Notes * Carol Webb, ANA - 04/13/2022 1130 EDT PROBLEM: Right greater trochanteric bursitis; lumbar radiculopathy SUBJECTIVE: Vanesa Zavala is a 46 y.o. female who is here today for follow up of her right sided hip pain, likely related to a bursitis in addition to her chronic low back pain. Our initial visit wason 03/09, plan was to start some PT, continue chiropractics, and a referral was placed to spine for further evaluation. Today, Vanesa is doing better. She thinks therapy is helping. She has had 4 visits, focusing mostlyon core strengthening and they're taking it slow. Pain continues to be lateral and then sort of deep within the hip but not in the groin area. She has a constant dull ache. The past medical, family and social history have been reviewed in the patient chart. OBJECTIVE: There were no vitals taken for this visit. General appearance: Well-developed, well nourished, no acute distress. pleasant and cooperative. HEENT: normocephalic, atraumatic Lungs: no increased work of breathing Skin: clean, dry and intact Msk: Focused exam of the right hip reveals point tenderness over greater trochanter. Nonantalgic gait. See previous note for full exam. DIAGNOSTICS: Radiographs of the right hip were reviewed and demonstrate mild degenerative changes of the right hip and SI joint. Old thoracic spine MRI without evidence of disc herniation. ASSESSMENT/PLAN: 46yoF here for follow up of her right hip pain, likely a combination of her chronic low back pain and lumbar radiculopathy as well as a right greater trochanteric bursitis. Symptoms are slowly improving with therapy. Her first spine appt is on 04/24. We discussed a steroid injectionfor her bursitis today but she would like to hold off, prefers to keep treatment as conservative aspossible. Will call if she changes her mind. Continue with PT, follow up with spine as scheduled, and call with questions or concerns. This note was prepared using voice recognition software and the EMR. There may be inadvertent errors and omissions. Carol Webb APRN 04/13/2022 documented in this encounter Plan of Treatment Upcoming Encounters Date Type Department Care Team (Late st Contact Info) Description 11/18/2024 10:15 EDT Office Visit [facility] Family Medicine [facility] [address] [facility], [facility] 2 [place] [address] Andie Cool DNP AGPCNP [address] [place] [phone] documented as of this encounter Visit Diagnoses Diagnosis Trochanteric bursitis of right hip- Primary Enthesopathy of hip region Chronic right-sided low back pain with right-sided sciatica documented in this encounter Care Teams Ios Architect Relationship Specialty Start Date End Date Tien Garcia MD [address] [place] [phone] PCP - General 05/27/14 04/24/23 documented as of this encounter
--- OUTSIDE RECORDS SUMMARY | 2024-09-15 00:26 | XMS_ITS | Encounter Summary ---
Author Organization [facility] Address [address] [place] [address] Care Team Providers Care Basket Hand Braider Name Role Phone Tien Garcia MD Primary Care Provider [phone] Encounter Details Date Type Department Care Team (Latest Contact Info) Description 07/03/2022 Travel Social History Tobacco Use Types Packs/Day Years [...] Info) Description 11/18/2024 10:15 EDT Office Visit [facility] Family Medicine [facility] [address] [facility], [facility] 2 [place], [place] [phone] Andie Cool DNP AGPCNP [address] [place] [address] 2 [place] [phone] documented as of this encounter Visit Diagnoses Not on filedocumented in this encounter Care Teams Basket Hand Braider Relationship Specialty Start Date End Date Tien Garcia MD [address] [place] [address] [address] [place] [phone] PCP - General 05/27/14 04/24/23 documented as of this encounter
--- OUTSIDE RECORDS SUMMARY | 2024-09-15 00:26 | XMS_ITS | Encounter Summary ---
Author Organization [facility] Address [address] [place] [address] Care Team Providers Care Nylon Operator Name Role Phone Tien Garcia MD Primary Care Provider [phone] Reason for Visit * Reason Comments Back Pain Patient is here for mid to lower back pain and right hip/leg. * Consult (Routine/Next Available) - Authorization Not Required Specialty Diagnoses / Procedures [facility] Referred To Contact Pain Medicine Diagnoses Myofascial pain syndrome Tien Garcia MD Phone: tel: fax: [facility] [address] [place] [address] Phone: tel: fax: Referral ID Status Reason Start Date Expiration Date Visits Requested Visits Authorized [id number] Authorization Not Required Specialty Services Required 3 1 1 Encounter Details Date Type Department Care Team (Latest Contact Info) Description 03/11/2023 13:00 EDT Initial consult [facility] [address] [place] [address] Girish Price MD [address] [place] [address] Myofascial pain syndrome (Primary Dx) Social History [...] Sign Reading Time Taken Comments Blood Pressure 157/90 03/11/2023 1242 EDT Pulse 61 03/11/2023 1242 EDT Temperature 36.7 ??C (98 ??F) 03/11/2023 1242 EDT Respiratory Rate 16 03/11/2023 1242 EDT Oxygen Saturation 98% 03/11/2023 1242 EDT Inhaled Oxygen Concentration - - Weight - - Height - - Body Mass Index - - documented in this encounter Functional Status * [...] Refills Last Filled Start Date End Date cyclobenzaprine (FLEXERIL) 5 mg tablet Take 1 Tablet by mouth 3 times daily for 30 days. Please start as one pill night. 90 Tablet 03/11/2023 04/03/2023 documented in this encounter Progress Notes * Girish Price MD - 03/11/2023 1300 EDT Images from the original note were not included. PAIN NEW CONSULT NOTE Referring Physician Tien Garcia MD Primary Care Physician Tien Garcia Chief Complaint: Back Pain (Patient is here for mid to lower back pain and right hip/leg.) History of Present Illness: This is a 47 y.o. female with PMH of over 20 years of back pain referred by PCP for consideration of TPIs. The patient reports that she has been having >20 years of back pain since the of her child. She reports that it always feels like her back is twisting and despite considerable exercises and stretching, she has not felt good relief. She has been to various physical therapists with only temporary benefit. She has received TPIs from her PCP, one which lasted about a week and the others which lasted just a few days. She reports that anything really makes the pain worse but mostly activity. Her goal is that she would like to have a night of uninterrupted sleep. Prior interventional pain procedures and response include: Has done TPIs with FM physician (patient reports sometimes helps but otherwise temporary relief) Medications: Ibuprofen Physical Therapy: Currently active in PT Has tried chiropractor (insurance does not cover this) Would like to try acupuncture but insurance does not cover this Past Medical History: Diagnosis Date ??? Mole (skin) Past Surgical History: Procedure Laterality Date ??? OTHER SURGICAL HISTORY excision of moles ??? WISDOM TOOTH EXTRACTION Current Outpatient Medications Medication Sig Dispense Refill ??? amLODIPine (NORVASC) 5 mg tablet TAKE 1 TABLET BY MOUTH DAILY 90 Tablet 3 ??? fluticasone propion-salmeteroL (ADVAIR) 250-50 mcg/dose diskus inhaler INHALE 1 PUFF BY MOUTH TWICE DAILY DIRECTED (Patient not taking: Reported on 02/05/2023) 180 Each 3 ??? hydroCHLOROthiazide (HYDRODIURIL) 25 mg tablet TAKE 1 TABLET BY MOUTH ONCE DAILY. 90 Tablet 3 ??? ibuprofen (MOTRIN) 200 mg tablet Take 1 Tablet by mouth if needed. 3 tabs at a time ??? magnesium oxide (MAG-OX) 400 mg (241.3 mg magnesium) tablet Take 1 Tablet by mouth daily. 90 Tablet 3 ??? omeprazole (PRILOSEC) 20 mg capsule Take 1 Capsule by mouth every morning. 90 Capsule 1 No current facility-administered medications for this visit. Allergies Allergen Reactions ??? Lisinopril Cough ??? Losartan Cough Social History Socioeconomic History ??? Marital status: Spouse name: Not on file ??? Number of children: Not on file ??? Years of education: Not on file ??? Highest education level: Not on file Occupational History ??? Not on file Tobacco Use ??? Smoking status: Former Packs/day: 0.50 Types: Cigarettes Quit date: 2008 Years since quittin.3 ??? Smokeless tobacco: Never Vaping Use ??? Vaping Use: Never used Substance and Sexual Activity ??? Alcohol use: Yes Comment: occasionally ??? Drug use: Never ??? Sexual activity: Not on file Other Topics Concern ??? Not on file Social History Narrative ??? Not on file Social Determinants of Health Financial Resource Strain: Low Risk (02/05/2023) Overall Financial Resource Strain (CARDIA) ??? Difficulty of Paying Living Expenses: Not hard at all Food Insecurity: No Food Insecurity (02/05/2023) Hunger Vital Sign ??? Worried About Running Out of Food in the Last Year: Never true ??? Ran Out of Food in the Last Year: Never true Transportation Needs: No Transportation Needs (02/05/2023) PRAPARE - Transportation ??? Lack of Transportation (Medical): No ??? Lack of Transportation (Non-Medical): No Physical Activity: Not on file Stress: Not on file Social Connections: Not on file Housing Stability: Low Risk (02/05/2023) Housing Stability Vital Sign ??? Unable to Pay for Housing in the Last Year: No ??? Number of Places Lived in the Last Year: 1 ??? Unstable Housing in the Last Year: No Family History Problem Relation Age of Onset ??? Heart Disease Mother ??? Diabetes Father Review of Systems: A 12 point review of system was performed and reviewed. Pertinent positives have been included in HPI and past medical history. All others negative. Please see scan documents for details. Physical Exam: Vitals: BP (!) 157/90 Pulse 61 Temp 36.7 ??C (98 ??F) (Tympanic) Resp 16 SpO2 98% Constitutional: Vital signs listed above. Well-developed, well-nourished, and No pallor Psych: alert, oriented. Speech is normal, relaxed. Affect is appropriate to thought. Eyes: Sclera white, conjunctiva clear, lids are without lag. Pupils equal, not pinpoint. CV: Skin warm and dry. No lower extremity edema. Respiratory: Breathing easily without tachypnea or bradypnea. Not using accessory muscles. Musculoskeletal: L-Spine No significant pain to palpation to lumbar paraspinals Patient reports stiffness with ROM Imaging: I have independently reviewed the images listed below Assessment and Plan: Encounter Diagnoses Name Primary? Myofascial pain syndrome This is a 47 y.o. female with PMH of over 20 years of back pain referred by PCP for consideration of TPIs. I do agree that based on her history, physical and imaging, that her pain is most likely myofascial in nature. We had a long discussion today regarding the role of life style changes in myofascial pain. Patient is doing a significant amount of work herself in relieving her pain but has nevertried muscle relaxer. She is willing to trial this, especially to help her sleep. I let her know that I do think injection therapy tends to be temporary for myofascial pain. I let her know that I think it is helpful in acute phases where she cannot do any activity but will not provide prison relief. I let her know to call our clinic if she feels like she is in an acute flare and needs a TPI. Plan: - Flexeril prescription provided to the patient today, patient understands that further prescriptions will be obtained from PCP - Patient may call to obtain TPIs of thoracic/lumbar spine at any time I spent a total of 47 minutes on the date of this encounter meeting with the patient and reviewing documentation/coordinating care as described in the above note. Roslyn Price MD 03/11/2023 14:34 documented in this encounter Plan of Treatment Upcoming Encounters Date Type Department Care Team (Late st Contact Info) Description 11/18/2024 10:15 EDT Office Visit [facility] Family Medicine - [place] [address] [facility], [address] [place], [place] [id number] Andie Cool DNP AGKEVAN [address] [facility] [address] [place] [address] documented as of this encounter Visit Diagnoses Diagnosis Myofascial pain syndrome- Primary Mylagia and myositis, unspecified documented in this encounter Orders Outpatient Referral Count Last Ordered Date Fir st Ordered Date AMB CONS/FOLLOW UP PAIN INTERVENTIONAL 1 documented in this encounter Care Teams Nylon Operator Relationship Specialty Start Date End Date Tien Garcia MD [address] [place] [phone] PCP - General 05/27/14 04/24/23 documented as of this encounter
--- OUTSIDE RECORDS SUMMARY | 2024-09-15 00:26 | XMS_ITS | Encounter Summary ---
Author Organization [facility] Address [address] [place] [address] Care Team Providers Care Mailing Specialist Name Role Phone Tien Garcia MD Primary Care Provider [phone] Reason for Visit * Reason Onset Date Comments Medications Refill 12/31/2022 Omeprazole Encounter Details Date Type Department Care Team (Late st Contact Info) Description 12/31/2022 Refill [facility] Family Medicine [address], [facility] [address] [place] [address] Tien Garcia MD [address] [place] [address] [place] [phone] Medications Refill (Omeprazole) Social History Tobacco Use Types Packs/Day Years [...] Refills Last Filled Start Date End Date omeprazole (PRILOSEC) 20 mg capsuleIndications :Epigastric pain Take 1 Capsule by mouth every morning. 90 Capsule 1 12/31/2022 4 documented in this encounter Miscellaneous Notes * Telephone Encounter - Matthew Hawley MA - 12/31/2022 1159 EDT [facility] MEDICATION REFILL Medication: Omeprazole 20 mg cap Medication, dose, directions verified: 1 cap PO qAM Pharmacy verified: [facility] Last office visit: 10/30/22 Next office visit: 02/05/23 Pt may be taking this PRN as last recorded in Jun. Pended as last Rx'd. documented in this encounter Plan of Treatment Upcoming Encounters Date Type Department Care Team (Late st Contact Info) Description 11/18/2024 10:15 EDT Office Visit [facility] Family Medicine [address] [place] [address] Andie Cool DNP AGPCNP [address] [facility] [address] [place] [address] documented as of this encounter Visit Diagnoses Diagnosis Epigastric pain- Primary Abdominal pain, epigastric documented in this encounter Discontinued Medications Medication Sig Discontinue Reason Start Date End Da te omeprazole (PRILOSEC) 20 mg capsuleIndications:Epiga stric pain Take 1 capsule by mouth every morning. Reorder 03/01/2022 12/31/2022 documented as of this encounter Care Teams Mailing Specialist Relationship Specialty Start Date End Date Tien Garcia MD [address] [place] [phone] PCP - General 05/27/14 04/24/23 documented as of this encounter
--- OUTSIDE RECORDS SUMMARY | 2024-09-15 00:26 | XMS_ITS | Encounter Summary ---
Author Organization [facility] Address [address] [place] [address] Care Team Providers Care Workplace Relations Adviser Name Role Phone Tien Garcia MD Primary Care Provider [phone] Reason for Visit * Reason Onset Date Comments Otalgia 03/22/2022 Encounter Details Date Type Department Care Team (Late st Contact Info) Description 03/22/2022 Telephone [facility] Family Medicine [address], [facility] [address] [place] [address] Tien Garcia MD [address] [place] [address] [address] [place] [phone] Otalgia Social History Tobacco Use Types Packs/Day Years [...] suspected to have Coronavirus/COVID-19? No / Unsure 03/09/2022 9:27 EDT documented as of this encounter Miscellaneous Notes * Telephone Encounter - Ambika Kaufman RN - 03/22/2022 0907 EDT Patient has been experiencing ear pain for approx 2 months now. She suspected it was from a blockage and while here for ov on 03/01 she had an ear flush that she thought would help. It has been 3 weeks and the pain remains. The pain starts in right ear and runs down her neck. She has tried OTC ear drops and oral pain medications with little relief. OV booked with [facility] for follow up. This manual writer suggested [facility] if unable to make it to scheduled appt. She was open to this idea and may call back to cancel if she ends up at [facility] this weekend. * Telephone Encounter - Samara Bennett - 03/22/2022 0854 EDT Patients having ear pain. documented in this encounter Plan of Treatment Upcoming Encounters Date Type Department Care Team (Late st Contact Info) Description 11/18/2024 10:15 EDT Office Visit [facility] Family Medicine [address], [facility] [address] [place] [address] Andie Cool, VIRGIE AGPCNP [address] [place] [phone] documented as of this encounter Visit Diagnoses Not on filedocumented in this encounter Care Teams Workplace Relations Adviser Relationship Specialty Start Date End Date Tien Garcia MD [address] [place] [address] [address] [place] [phone] PCP - General 05/27/14 04/24/23 documented as of this encounter
--- OUTSIDE RECORDS SUMMARY | 2024-09-15 00:26 | XMS_ITS | Encounter Summary ---
Author Organization [facility] Address [address] [place] [address] Care Team Providers Care Back Roller Name Role Phone Tien Garcia MD Primary Care Provider [phone] Encounter Details Date Type Department Care Team (Late st Contact Info) Description 12/26/2022 13:[address] [facility] - Outpatient Phlebotomy [address] [place] [address] Lab, [facility] Op Phlebotomy Dysuria Social History Tobacco Use Types Packs/Day [...] Info) Description 11/18/2024 10:15 EDT Office Visit [facility] [address], [address] [place], [place] [address] Andie Cool, DNP AGPCNP [address] [place] [phone] documented as of this encounter Procedures Procedure Name Priority Date/Time Associated Diagnosis Comments UA WITH REFLEX SEDIMENT (CULTURE IF POS) Routine 12/26/2022 14:05 EDT Dysuria documented in this encounter Results * UA WITH REFLEX SEDIMENT (CULTURE IF POS) (12/26/2022 14:05 EDT) Color UA Yellow Colorless to Dark Yellow 12/26/2022 14:48 [facility] Clarity UA Clear Clear 12/26/2022 14:48 [facility] Glucose UA Negative Negative mg/dL 12/26/2022 14:48 [facility] Bilirubin UA Negative Negative 12/26/2022 14:48 [facility] Ketones UA Negative Negative 12/26/2022 14:48 [facility] Specific Red Level, Urine 1.020 1.001 - 1.035 12/26/2022 14:48 [facility] Blood UA Negative Negative 12/26/2022 14:48 [facility] pH, UA 7.5 4.6 - 8.0 12/26/2022 14:48 [facility] Protein UA Negative Negative 12/26/2022 14:48 [facility] Urobilinogen UA 0.2 0.2 , 1.0, Normal mg/dL 12/26/2022 14:48 EDT [facility] Nitrite UA Negative Negative 12/26/2022 14:48 EDT [facility] Leukocyte Esterase UA Negative Negative 12/26/2022 14:48 EDT [facility] Urine URINE SPECIMEN COLLECTION, CLEAN CATCH / Unknown Urine Collect / Unknown 12/26/2022 14:05 EDT 12/26/2022 14:33 EDT us Tien Garcia MD URINALYSIS ORDERABLES Final Resu lt [facility] [address] [place] [address] documented in this encounter Visit Diagnoses Diagnosis Dysuria documented in this encounter Care Teams Back Roller Relationship Specialty Start Date End Date Tien Garcia MD [address] [place] [address] [address] [place] [phone] PCP - General 05/27/14 04/24/23 documented as of this encounter
--- OUTSIDE RECORDS SUMMARY | 2024-09-15 00:26 | XMS_ITS | Encounter Summary ---
Author Organization [facility] Address [address] [place] [address] Care Team Providers Care Epic Application Coordinator Name Role Phone Tien Garcia MD Primary Care Provider [phone] Reason for Visit * Reason Comments Injections Trigger point inject ion, back Encounter Details Date Type Department Care Team (Latest Contact Info) Description 07/03/2022 13:45 EST Office Visit [facility] Family Medicine [address], [address] [place] [address] Tien Garcia MD [address] [place] [address] [address] [place] [phone] Thoracic radiculopathy (Primary Dx) Social History Tobacco Use Types [...] 13:36 EST documented as of this encounter Last Filed Vital Signs Vital Sign Reading Time Taken Comments Blood Pressure 120/78 07/03/2022 1340 EST Pulse 74 07/03/2022 1340 EST Temperature - - Respiratory Rate 16 07/03/2022 1340 EST Oxygen Saturation 98% 07/03/2022 1340 EST Inhaled Oxygen Concentration - - Weight 67.1 kg (148 lb) 07/03/2022 1340 EST Height 154.9 cm (5' 1) 07/03/2022 1340 EST Body Mass Index 27.96 07/03/2022 1340 EST documented in this encounter Functional Status [...] documented in this encounter Progress Notes * Clara Sampson RN - 07/03/2022 1345 EST Pt declines flu and covid shot today. * Tien Garcia MD - 07/03/2022 1345 EST Assessment/Plan: 1. Thoracic radiculopathy 3 cc of 1% lidocaine without epinephrine was injected along the right paraspinal musculature following a sterile alcohol prep, generally around the lower mid thoracic, and upper lumbar region. The patient noted immediate relief of her discomfort thereafter. She will return on an as-needed basis for repeat trigger point injections. Subjective: Injections (Trigger point injection, back) HPI: Vanesa presents today for evaluation of chronic right lower back pain radiating anteriorly towards the abdomen. She has had extensive diagnostic work-ups which have not identified a specific source for her pain. She did receive a trigger point injection several months ago with excellent response, and has noteda recent exacerbation of her discomfort and returns for repeat trigger point injection. On further review, she tells me that she carries a very heavy bag over her shoulder along with her purse. 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 She also reports a prior history of an abdominal wall hernia repair approximately 17 to 18 years prior. This was in the right upper quadrant of the abdomen, which has also been quite troubling to herover the last several years. She has been referred to surgery with an ultrasound prior to exclude recurrent hernia in this area although I have been unable to palpate 1. Current Outpatient Medications Medication ??? amLODIPine (NORVASC) 5 mg tablet ??? hydroCHLOROthiazide (HYDRODIURIL) 25 mg tablet ??? ibuprofen (MOTRIN) 200 mg tablet ??? omeprazole (PRILOSEC) 20 mg capsule No current facility-administered medications for this visit. Review of Systems Denies fever or rash. ROS Past Medical History: Diagnosis Date ??? Mole (skin) Past Surgical History: Procedure Laterality Date ??? OTHER SURGICAL HISTORY excision of moles ??? WISDOM TOOTH EXTRACTION Allergies Allergen Reactions ??? Lisinopril Cough ??? Losartan Cough Objective: VS: BP 120/78 (BP Cuff Location: Right arm, BP Patient Position: Sitting, BP Cuff Sizes: Adult, regular) Pulse 74 Resp 16 Ht 154.9 cm (61) Wt 67.1 kg (148 lb) SpO2 98% BMI 27.96 kg/m?? Body mass index is 27.96 kg/m??. Physical Exam: Physical Exam General appearance: alert, cooperative Neck: supple Lungs: non labored breathing Heart: regular rate and rhythm Neurologic: grossly normal Mental Status: seems euthymic Skin: no lesions noted on visible skin Back: Spine midline. There is palpable right paralumbar's muscle spasm from the lower thoracic, to the mid lumbar region. This reproduces the area of her discomfort. Data (reviewed with patient): Lab Results Component [...] Info) Description 11/18/2024 10:15 EDT Office Visit [address], [facility] [address] [place] [address] Andie Cool, DNP AGPCNP [address] [place] [phone] documented as of this encounter Visit Diagnoses Diagnosis Thoracic radiculopathy- Primary Thoracic or lumbosacral neuritis or radiculitis, unspecified documented in this encounter Care Teams Epic Application Coordinator Relationship Specialty Start Date End Date Tien Garcia MD [address] [place] [phone] PCP - General 05/27/14 04/24/23 documented as of this encounter
--- OUTSIDE RECORDS SUMMARY | 2024-09-15 00:26 | XMS_ITS | Encounter Summary ---
Author Organization [facility] Address [address] [place] [address] Care Team Providers Care Fire Extinguisher Technician Name Role Phone Tien Garcia MD Primary Care Provider [phone] Reason for Referral * Consult (Routine/Next Available) - Authorization Not Required Specialty Diagnoses / Procedures Referred By Bryanna rogers Referred To Contact Pain Medicine Diagnoses Myofascial pain syndrome Tien Garcia MD Phone: tel: fax: [facility] Interventional Pain [address] [place] [address] Phone: tel: fax: Referral ID Status Reason Start Date Expiration Date Visits Requested Visits Authorized [id number] Authorization Not Required Specialty Services Required 3 1 1 Question Answer Has the patient had diagnostic studies? Yes Diagnotic Studies: MRI/CT Have other specialty consultations been completed for this pain compliant? No We provide consultative services. We do not assume the role of prescribing physician for this therapy. Please help us understand your area of interest by selecting from the common topics below: Yes Should opioids be initiated on this patient? No Should opioids be continued on this patient? No Reason for Request: Chronic myofascial mid back pain; desires continuation of trigger point injections. Reason for Visit * Reason Comments Injections Back Fluid Collection Encounter Details Date Type Department Care Team (Dipti st Contact Info) Description 02/05/2023 10:30 EDT Office Visit [address], [facility] 2 [place] [address] Tien Garcia MD [address] [facility] [address] [place] [address] Myofascial pain syndrome (Primary Dx) [...] slept in a correction (including now)? No 02/05/2023 Interpersonal Safety Answer [...] Sign Reading Time Taken Comments Blood Pressure 148/88 02/05/2023 1041 EDT Pulse 63 02/05/2023 1041 EDT Temperature 36.8 ??C (98.3 ??F) 02/05/2023 1041 EDT Respiratory Rate 15 02/05/2023 1041 EDT Oxygen Saturation 97% 02/05/2023 1041 EDT Inhaled Oxygen Concentration - - Weight 66.2 kg (146 lb) 02/05/2023 1041 EDT Height - - Body Mass Index [...] Progress Notes * Tien Garcia MD - 02/05/2023 1030 EDT Assessment/Plan: 1. Myofascial pain syndrome 3 separate sites, 1 on the left, and the paralumbar location, and 2 on the right also on a paralumbar location, were injected with 1 cc of lidocaine 1% without epinephrine. The patient did note substantial relief shortly upon completing the injection series. In anticipation of my upcoming group home, she requested a referral to the pain clinic to continue trigger point injections and to also explore other potential options for therapy. - AMB CONS/FOLLOW UP PAIN INTERVENTIONAL; Future Subjective: Injections (Back) and Fluid Collection HPI: Vanesa comes in today for follow-up of ongoing myofascial low back pain. She has undergone extensive diagnostic studies in the past to include MRI imaging of the lumbar spine without any identifiablepain generator. She continues to meet regularly with her physical therapist, which provides her with transient relief. Previous trigger point injections have also provided relief generally spanning several weeks to months. She tells me that there has not been any substantial change in terms of her pain pattern. She continues to note pain and stiffness primarily in the paralumbar location left more than right. Current Outpatient Medications Medication ??? amLODIPine (NORVASC) 5 mg tablet ??? fluticasone propion-salmeteroL (ADVAIR) 250-50 mcg/dose diskus inhaler ??? hydroCHLOROthiazide (HYDRODIURIL) 25 mg tablet ??? [...] ??? Losartan Cough Objective: VS: BP (!) 148/88 (BP Cuff Location: Left arm, BP Patient Position: Sitting, BP Cuff Sizes: Adult, regular) Pulse 63 Temp 36.8 ??C (98.3 ??F) (Oral) Resp 15 Wt 66.2 kg (146 lb) SpO2 97% BMI 22.20 kg/m?? Body mass index is 22.2 kg/m??. Physical Exam: Physical Exam General appearance: alert, cooperative Neck: supple Lungs: non labored breathing Heart: regular rate and rhythm Neurologic: grossly normal Mental Status: seems euthymic Skin: no lesions noted on visible skin Back: There is palpable paraspinal muscle spasm right greater than left, although her pain appears to be more in the left side. Data (reviewed with patient): Lab Results Component [...] [facility] Family Medicine [address], [facility] 2 [place] [address] Andie Cool DNP AGPCNP [address] [place] [phone] Scheduled Referrals Name Type Priority Associated Diagnoses Order Schedule AMB CONS/FOLLOW UP PAIN INTERVENTIONAL Outpatient Referral Routine/Next Available Myofascial pain syndrome Expected: 03/07/2023 (Approximate), Expires: 02/06/2024 documented as of this encounter Visit Diagnoses Diagnosis Myofascial pain syndrome- Primary Mylagia and myositis, unspecified documented in this encounter Care Teams Fire Extinguisher Technician Relationship Specialty Start Date End Date Tien Garcia MD [address] [place] [phone] PCP - General 05/27/14 04/24/23 documented as of this encounter
--- OUTSIDE RECORDS SUMMARY | 2024-09-15 00:26 | XMS_ITS | Encounter Summary ---
Author Organization [facility] Address [address] [place] [address] Care Team Providers Care Forestry Adviser Name Role Phone Tien Garcia MD Primary Care Provider [phone] Reason for Visit * Reason Comments Procedure Trigger Point Encounter Details Date Type Department Care Team (Latest Contact Info) Description 05/14/2022 15:00 EDT Procedure visit [facility] Family Medicine [address], [address] [place] [address] Tien Garcia MD [address] [place] [address] [address] [place] [phone] Thoracic radiculopathy (Primary Dx); Right sided sciatica; Right upper quadrant abdominal pain Social History Tobacco Use Types Packs/Day Years [...] suspected to have Coronavirus/COVID-19? No / Unsure 04/24/2022 10:25 EDT documented as of this encounter Last Filed Vital Signs Vital Sign Reading Time Taken Comments Blood Pressure 132/80 05/14/2022 1501 EDT Pulse 76 05/14/2022 1501 EDT Temperature - - Respiratory Rate 15 05/14/2022 1501 EDT Oxygen Saturation 98% 05/14/2022 1501 EDT Inhaled Oxygen Concentration - - Weight 67.1 kg (147 lb 14.4 oz) 05/14/2022 1501 EDT Height 154.9 cm (5' 1) 05/14/2022 1501 EDT Body Mass Index 27.95 05/14/2022 1501 EDT documented in this encounter Functional Status [...] Progress Notes * Tien Garcia MD - 05/14/2022 1500 EDT Assessment/Plan: 1. Thoracic radiculopathy She had 3 separate sites injected along the bulk of the right paraspinal muscle which was under palpable spasm, and correlating to area of tenderness. A total of 5 cc of lidocaine 2% without epinephrine was used with excellent response. I have asked her to reach out to me via [employer] in the next week. 2. Right sided sciatica She describes pain around the right hip, both posteriorly and anteriorly, radiating down the lateral aspect of the right thigh and into the calf with occasional foot numbness. This clinical scenario is most consistent with sciatica. She has diligently attended multiple physical therapy appointments, as well as undergone chiropractic treatment. Plain x-rays of the right hip showed minimal DJD. We will check MRIs of the lumbar spine to exclude lumbar disc disease. - MR LUMBAR SPINE WO CONTRAST; Future 3. Right upper quadrant abdominal pain She continues to note a tender spot in the right upper quadrant of her abdomen. This is readily reproducible with palpation. No palpable mass identified on exam. She does relate a prior history of anabdominal wall hernia having been repaired following delivery of her child in 2003. Consider referral to surgery for evaluation but I suspect this may be a sequela I of prior abdominal surgery. CT scanning of her abdomen 1 year ago showed no recurring hernia, and no obvious cause for her discomfort. Subjective: Procedure (Trigger Point) HPI: Vanesa returns today for follow-up of multiple issues. 1. Follow-up persistent, right paraspinal muscles spasm mid to lower thoracic range. Thoracic MRI unremarkable. She is here today for a trial of a trigger point injection. 2. Continues to complain of pain in the right hip, radiating into the right lower extremity with occasional numbness. No weakness or impairment of bowel or bladder control. 3. Persistent, right upper quadrant to midepigastric abdominal pain present for the last several years. Prior history of abdominal wall hernia repair in the same region. CT scanning showed no evidence of recurring hernia. Current Outpatient Medications Medication ??? amLODIPine (NORVASC) 5 mg tablet ??? fexofenadine (KARINA ALLERGY) 180 mg tablet ??? hydroCHLOROthiazide (HYDRODIURIL) 25 mg [...] Cough ??? Losartan Cough Objective: VS: BP 132/80 (BP Cuff Location: Left arm, BP Patient Position: Sitting, BP Cuff Sizes: Adult, regular) Pulse 76 Resp 15 Ht 154.9 cm (61) Wt 67.1 kg (147 lb 14.4 oz) SpO2 98% BMI 27.95 kg/m?? Body mass index is 27.95 kg/m??. Physical Exam: Physical Exam General appearance: alert, cooperative Neck: supple Lungs: non labored breathing Heart: regular rate and rhythm Neurologic: grossly normal Mental Status: seems euthymic Skin: no lesions noted on visible skin Back: She has palpable, reproducible tenderness with spasm of the right paraspinal muscle bulk. Otherwise spine is midline. No SI joint tenderness. Negative straight leg raising. No muscle atrophy orweakness. Data (reviewed with patient): Lab Results Component Value Date HGB 14.1 03/14/2020 PLT 260 03/14/2020 CHOL 217 (H) 05/24/2021 HDL 41 05/24/2021 LDL 140 (H) 05/24/2021 NA 139 05/24/2021 K 4.3 05/24/2021 CL 101 05/24/2021 CREATININE 0.67 05/24/2021 BUN 15 05/24/2021 CO2 29 05/24/2021 documented in this encounter Plan of Treatment Upcoming Encounters Date Type Department Care Team (Late st Contact Info) Description 11/18/2024 10:15 EDT Office Visit [facility] Family Medicine [address], [email or web address] [address] [place] [address] Andie Cool, VIRGIE AGPCNP [address] [place] [phone] documented as of this encounter Visit Diagnoses Diagnosis Thoracic radiculopathy- Primary Thoracic or lumbosacral neuritis or radiculitis, unspecified Right sided sciatica Sciatica Right upper quadrant abdominal pain Abdominal pain, right upper quadrant documented in this encounter Care Teams Forestry Adviser Relationship Specialty Start Date End Date Tien Garcia MD [address] [place] [address] [address] [place] [phone] PCP - General 05/27/14 04/24/23 documented as of this encounter
--- OUTSIDE RECORDS SUMMARY | 2024-09-15 00:26 | XMS_ITS | Encounter Summary ---
Author Organization [facility] Address [address] [place] [address] Care Team Providers Care Gas Usage Meter Clerk Name Role Phone Tien Garcia MD Primary Care Provider [phone] Reason for Visit * Reason Comments Other right side-ear neck pain, fluid behind ears per EC Encounter Details Date Type Department Care Team (Late st Contact Info) Description 03/27/2022 13:30 EDT Office Visit [facility] Family Medicine [address], [facility] [[email or web address] [address] [place] [address] Coral Remy, BIOCHEMISTRY TECHNICIAN [address] [facility] [address] [place] [address] Right ear pain Social History Tobacco Use Types Packs/Day [...] 9:27 EDT documented as of this encounter Last Filed Vital Signs Vital Sign Reading Time Taken Comments Blood Pressure 118/76 03/27/2022 1329 EDT Pulse 72 03/27/2022 1329 EDT Temperature - - Respiratory Rate 18 03/27/2022 1329 EDT Oxygen Saturation 99% 03/27/2022 1329 EDT Inhaled Oxygen Concentration - - Weight - - Height 152.4 cm (5') 03/27/2022 1329 EDT Body Mass Index - - documented in this encounter Ordered Prescriptions Prescription Sig Dispense Quantity Refills Last Filled Start Date End Date fexofenadine (ROSINA ALLERGY) 180 mg tabletIndications: Right ear pain Take 1 Tablet by mouth daily for 7 days. 30 Tablet 1 03/27/2022 03/28/2022 documented in this encounter Progress Notes * Coral Remy, BIOCHEMISTRY TECHNICIAN - 03/27/2022 1330 EDT Assessment/Plan: Vanesa was seen today for other. Diagnoses and all orders for this visit: Right ear pain Comments: Acute fair control Cont rosina, flonase- no more aftrin Can try Aleve for pain if needed F/u if persists Orders: - fexofenadine (ROSINA ALLERGY) 180 mg tablet; Take 1 Tablet by mouth daily for 7 days. Coral Remy ANDROID SOFTWARE ENGINEER-C 03/27/22 Subjective: Chief Complaint Patient presents with ??? Other right side-ear neck pain, fluid behind ears per EC HPI: Here for continued right ear pain after lavage 4 weeks ago then EC last week and EC 03/22/22- advised to start flonase, rosina and afrin for possible eustachian tube dysfunction. She completed the afrin and has a few pills of rosina left. Thinks they have helped a little. Tries to avoid Ibuprofen d/t needing more for her pain and causing GERD symptoms. Prior to Admission medications Medication Sig Start Date End Date Taking? Authorizing Provider amLODIPine (NORVASC) 5 mg tablet TAKE 1 TABLET BY MOUTH DAILY 07/07/21 Tien Garcia MD fexofenadine (ROSINA ALLERGY) 180 mg tablet Take 1 Tablet by mouth daily for 7 days. 03/22/22 03/29/22 Davis Pitt PA-C hydroCHLOROthiazide (HYDRODIURIL) 25 mg tablet TAKE 1 TABLET BY MOUTH ONCE DAILY. 07/20/21 Tien Garcia MD ibuprofen (MOTRIN) 200 mg tablet 1 tab(s) orally every 6 hours Provider, MD Xiao omeprazole (PRILOSEC) 20 mg capsule Take 1 capsule by mouth every morning. Patient taking differently: Take 20 mg by mouth as needed. 03/01/22 Mery Walton, DNP Review of Systems Review of Systems Constitutional: Negative. HENT: Positive for ear pain and sore throat (1 spot on R side). Negative for congestion, hearing loss (muffled in R ear) and tinnitus. Neurological: Positive for headaches (tightness on R side). Negative for dizziness. Past Medical History: Diagnosis Date ??? Mole (skin) Past Surgical History: Procedure Laterality Date ??? OTHER SURGICAL HISTORY excision of moles ??? WISDOM TOOTH EXTRACTION Allergies Allergen Reactions ??? Lisinopril Cough ??? Losartan Cough Objective: VS: Vitals: 03/27/22 1329 BP: 118/76 BP Cuff Location: Left arm BP Patient Position: Sitting BP Cuff Sizes: Adult, regular Pulse: 72 Resp: 18 SpO2: 99% Height: 152.4 cm (60) Body mass index is 29.22 kg/m??. Physical Exam: Physical Exam Constitutional: Appearance: Normal appearance. HENT: Head: Normocephalic. Right Ear: A middle ear effusion (scant) is present. Left Ear: Tympanic membrane is erythematous (mild). Cardiovascular: Rate and Rhythm: Normal rate and regular rhythm. Pulses: Normal pulses. Heart sounds: Normal heart sounds. Pulmonary: Effort: Pulmonary effort is normal. Breath sounds: Normal breath sounds. Skin: General: Skin is warm and dry. Capillary Refill: Capillary refill takes less than 2 seconds. Neurological: General: No focal deficit present. Mental Status: She is alert and oriented to person, place, and time. Psychiatric: Mood and Affect: Mood normal. Behavior: Behavior normal. Thought Content: Thought content normal. Judgment: Judgment normal. documented in this encounter Plan of Treatment Upcoming Encounters Date Type Department Care Team (Late st Contact Info) Description 11/18/2024 10:15 EDT Office Visit [facility] Family Medicine [address], [facility] [[email or web address] [address] [place] [address] Andie Cool, VIRGIE AGPCNP [address] [place] [phone] documented as of this encounter Visit Diagnoses Diagnosis Right ear pain Otalgia, unspecified documented in this encounter Discontinued Medications Medication Sig Discontinue Reason Start Date End Da te fexofenadine (ROSINA ALLERGY) 180 mg tabletIndications:Right ear pain Take 1 Tablet by mouth daily for 7 days. Reorder 03/22/2022 03/27/2022 documented as of this encounter Care Teams Gas Usage Meter Clerk Relationship Specialty Start Date End Date Tien Garcia MD [address] [place] [phone] PCP - General 05/27/14 04/24/23 documented as of this encounter
--- OUTSIDE RECORDS SUMMARY | 2024-09-15 00:26 | XMS_ITS | Encounter Summary ---
Author Organization [facility] Address [address] [place] [address] Care Team Providers Care Contract Lead Name Role Phone Tien Garcia MD Primary Care Provider [phone] Encounter Details Date Type Department Care Team (Latest Contact Info) Description 04/24/2022 Travel Social History Tobacco Use Types Packs/Day [...] In the last 10 days, have yo jagjit been in contact with someone who was confirmed or suspected to have Coronavirus/COVID-19? No / Unsure 04/24/2022 10:25 EDT documented as of this encounter Functional Status [...] Description 11/18/2024 10:15 EDT Office Visit [facility] Family Medicine [facility] [address] [facility], [facility] 2 [place] [address] Andie Cool DNP AGPCNP [address] [place] [phone] documented as of this encounter Visit Diagnoses Not on filedocumented in this encounter Care Teams Contract Lead Relationship Specialty Start Date End Date Tien Garcia MD [address] [place] [phone] PCP - General 05/27/14 04/24/23 documented as of this encounter
--- OUTSIDE RECORDS SUMMARY | 2024-09-15 00:26 | XMS_ITS | Encounter Summary ---
Author Organization [facility] Address [address] [place] [address] Care Team Providers Care Pageant Director Name Role Phone Tien Garcia MD Primary Care Provider [phone] Reason for Visit * Reason Onset Date Comments Urinary Retention 12/26/2022 Encounter Details Date Type Department Care Team (Late st Contact Info) Description 12/26/2022 Telephone [facility] Family Medicine [address], [address] [place] [address] Tien Garcia MD [address] [place] [address] [address] [place] [phone] Urinary Retention Social History Tobacco Use Types Packs/Day Years [...] Refills Last Filled Start Date End Date nitrofurantoin, macrocrystal-monoh ydrate, (MACROBID) 100 mg capsule Take 1 Capsule by mouth 2 times daily. 10 Capsule 12/26/2022 3 documented in this encounter Miscellaneous Notes * Telephone Encounter - Mery Louis RN - 12/28/2022 1349 EDT Did not go to ED. Increased fluid intake greatly and her symptoms have eased. Still had some cramping but fullness and frequency has decreased. Scheduled w/ AW next Saturday * Telephone Encounter - Celsa Faulkner - 12/28/2022 1338 EDT Pt called back, unable to reach nurse. * Telephone Encounter - Mery Louis RN - 12/27/2022 1558 EDT Called patient to f/u as no ED note seen in epic or care everywhere, no answer, left voice mail to call office back. * Telephone Encounter - Mery Louis RN - 12/26/2022 1659 EDT Pt notified, agreed, will go to ED tonight. * Telephone Encounter - Tien Garcia MD - 12/26/2022 1642 EDT The best way to know if she's obstructed is to come to the ER and have them do an ultrasound of herbladder; Urinary obstruction may cause these symptoms as well, not just a UTI. * Telephone Encounter - Mery Louis RN - 12/26/2022 1606 EDT Spoke w/ patient. Pt agrees to stop taking antibiotic. Expressing frustation with seeing how things go. Reports she was up all night feeling like she needed to urinate. Did not sleep. Reporting a lot of bladder pressure and small amounts of urine voided at a time. BS- please advise, any further recommendations? * Telephone Encounter - Samara Bennett - 12/26/2022 1604 EDT Patient returned call. * Telephone Encounter - Siena Whitfield RN - 12/26/2022 1600 EDT LM to call back. * Telephone Encounter - Tien Garcia MD - 12/26/2022 1545 EDT No; I would hold the macrobid. Let's see how things go with her urinary complaints. ?has she been taking any antihistamines? Antihistamines may delay or reduce bladder emptying. * Telephone Encounter - Siena Whitfield RN - 12/26/2022 1455 EDT See UA results, they are WNL. Do you no longer want her taking the macrobid? * Telephone Encounter - Siena Whitfield RN - 12/26/2022 1004 EDT Patient notified. Will keep TE open to track for urine results. * Telephone Encounter - Tien Garcia MD - 12/26/2022 1000 EDT Rx sent in for macrobid; she can start it as soon as she drops off a urine sample * Telephone Encounter - Siena Whitfield RN - 12/26/2022 0923 EDT Onset of sxs Saturday. C/o urgency, frequency, passing small amounts of urine, urinary pressure. Denies pain, fever, chills, back/abdominal pain. are you willing to order UA and culture if +? If so, pended. Or I can send to if you prefer. She states she has only ever had 1 previous UTI with the exact same symptoms. * Telephone Encounter - Siena Whitfield RN - 12/26/2022 0916 EDT LM to call back. * Telephone Encounter - Samara Bennett - 12/26/2022 0840 EDT Patient has urinary frequency & retention. She's requesting antibiotics be sent to [facility] in [place]. documented in this encounter Plan of Treatment Upcoming Encounters Date Type Department Care Team (Dipti st Contact Info) Description 11/18/2024 10:15 EDT Office Visit [facility] [address], [address] [place] [address] Andie Cool, DNP AGPCNP [address] [facility], [place] [address] [place] [phone] documented as of this encounter Results * UA WITH REFLEX SEDIMENT (CULTURE IF POS) (12/26/2022 14:05 EDT) Color UA Yellow Colorless to Dark Yellow 12/26/2022 14:48 [facility] Clarity UA Clear Clear 12/26/2022 14:48 [facility] Glucose UA Negative Negative mg/dL 12/26/2022 14:48 [facility] Bilirubin UA Negative Negative 12/26/2022 14:48 [facility] Ketones UA Negative Negative 12/26/2022 14:48 [facility] Specific [place], Urine 1.020 1.001 - 1.035 12/26/2022 14:48 [facility] Blood UA Negative Negative 12/26/2022 14:48 [facility] pH, UA 7.5 4.6 - 8.0 12/26/2022 14:48 [facility] Protein UA Negative Negative 12/26/2022 14:48 [facility] Urobilinogen UA 0.2 0.2 , 1.0, Normal mg/dL 12/26/2022 14:48 [facility] Nitrite UA Negative Negative 12/26/2022 14:48 [facility] Leukocyte Esterase UA Negative Negative 12/26/2022 14:48 [facility] Urine URINE SPECIMEN COLLECTION, CLEAN CATCH / Unknown Urine Collect / Unknown 12/26/2022 14:05 EDT 12/26/2022 14:33 EDT us Tien Garcia MD URINALYSIS ORDERABLES Final Resu lt [facility] [address] [place] [address] documented in this encounter Visit Diagnoses Diagnosis Dysuria- Primary documented in this encounter Care Teams Pageant Director Relationship Specialty Start Date End Date Tien Garcia MD [address] [place] [phone] PCP - General 05/27/14 04/24/23 documented as of this encounter
--- OUTSIDE RECORDS SUMMARY | 2024-09-15 00:26 | XMS_ITS | Encounter Summary ---
Author Organization [facility] Address [address] [place] [address] Care Team Providers Care Mottle Lay Up Operator Name Role Phone Tien Garcia MD Primary Care Provider [phone] Reason for Visit * Reason Comments Possible Hernia * Consult (Routine/Next Available) - Order Cancelled Specialty Diagnoses / Procedures Referred By Bryanna rogers Referred To Contact General Surgery Diagnoses Right upper quadrant abdominal pain Tien Garcia MD Phone: tel: fax: [facility] General Surgery [address] [place] [id number] Phone: tel: fax: Referral ID Status Reason Start Date Expiration Date Visits Requested Visits Authorized [id number] Order Cancelled Specialty Services Required 2 1 1 Encounter Details Date Type Department Care Team (Late st Contact Info) Description 09/20/2022 10:30 EST Office Visit [facility] General Surgery [address] [place] [address] [phone] Margo Anglin MD [address] [place] [address] [address] [place] [phone] Abdominal wall pain in right upper quadrant (Primary Dx) Social History Tobacco Use Types [...] suspected to have Coronavirus/COVID-19? No / Unsure 09/20/2022 10:12 EST documented as of this encounter Last Filed Vital Signs Vital Sign Reading Time Taken Comments Blood Pressure 150/84 09/20/2022 1022 EST Pulse 72 09/20/2022 1022 EST Temperature - - Respiratory Rate - - Oxygen Saturation - - Inhaled Oxygen Concentration - - Weight 64.4 kg (142 lb) 09/20/2022 1022 EST Height 172.7 cm (5' 8) 09/20/2022 1022 EST Body Mass Index 21.59 09/20/2022 1022 EST documented in this encounter Functional Status [...] documented in this encounter Progress Notes * Margo Anglin MD - 09/20/2022 1030 EST [facility] HISTORY AND PHYSICAL EXAMINATION Date of Service: 09/20/2022 PROBLEM: Chief Complaint Patient presents with ??? Possible Hernia SUBJECTIVE: Ms. Vanesa Zavala is a 46 y.o. White female, presenting with a history of right upperquadrant abdominal pain. She states she feels a small nodule only when she stands. She finds that this is irritating and uncomfortable. However she has several other myofascial muscular issues. She do es see a physical therapist and finds that some of the therapy administered helps. Interestingly she recently started magnesium and this also seems to help. She was referred by Dr. Garcia for the possibility of a hernia. She underwent an epigastric hernia repair by Dr. Daugherty in 2001 or 2002. This OR report unfortunately is not available. PROBLEM LIST: does not have any pertinent problems on file. Past Medical History: Diagnosis Date ??? Mole (skin) Past Surgical History: Procedure Laterality Date ??? OTHER SURGICAL HISTORY excision of moles ??? WISDOM TOOTH EXTRACTION Family History Problem Relation Age of Onset ??? Heart Disease Mother ??? Diabetes Father Current Outpatient Medications Medication ??? amLODIPine (NORVASC) 5 mg tablet ??? hydroCHLOROthiazide (HYDRODIURIL) 25 mg tablet ??? ibuprofen (MOTRIN) 200 mg tablet ??? magnesium oxide (MAG-OX) 400 mg (241.3 mg magnesium) tablet ??? omeprazole (PRILOSEC) 20 mg capsule ??? polyethylene glycol (MIRALAX) 17 gram/dose powder No current facility-administered medications for this visit. ALLERGIES: Allergies Allergen Reactions ??? Lisinopril Cough ??? Losartan Cough Outpatient Encounter Medications as of 09/20/2022: ??? amLODIPine (NORVASC) 5 mg tablet, TAKE 1 TABLET BY MOUTH DAILY ??? hydroCHLOROthiazide (HYDRODIURIL) 25 mg tablet, TAKE 1 TABLET BY MOUTH ONCE DAILY. ??? ibuprofen (MOTRIN) 200 mg tablet, 200 mg, oral, PRN ??? magnesium oxide (MAG-OX) 400 mg (241.3 mg magnesium) tablet, 400 mg, oral, DAILY ??? omeprazole (PRILOSEC) 20 mg capsule, 20 mg, oral, QAM (Patient taking differently: 20 mg, oral,PRN) ??? polyethylene glycol (MIRALAX) 17 gram/dose powder, Instructions mailed once procedure scheduled. REVIEW OF SYSTEMS: See intake sheet PHYSICAL EXAM: BP (!) 150/84 Pulse 72 Ht 172.7 cm (68) Wt 64.4 kg (142 lb) BMI 21.59 kg/m?? She is well-appearing in no acute distress. Her abdomen is soft nontender nondistended. She does have an epigastric incision with no evidence of recurrent hernia. She points to a spot in the right upper quadrant along the midclavicular line. Lying down I do not feel any abnormality. When she standsperhaps there is a soft tissue nodule measuring 1 x 0.5 cm. But this is not identifiable when she lies down once again. No evidence of abdominal wall hernia ASSESSMENT: 1. Abdominal wall pain in right upper quadrant PLAN: I reviewed with the patient and reassured her I see no evidence of a hernia. We also reviewed the recent ultrasound that did not identify hernia. It is possible that she may have a small lipoma or small area of tissue fatty necrosis. This sometimes can be irritating but generally does not need to be removed. Although this is not identifiable when she is lying down therefore would not recommend exploratory excision of the area. The patient is reassured she does not have a hernia. She may follow-up on an as- needed basis Margo Anglin MD 09/20/2022 documented in this encounter Plan of Treatment Upcoming Encounters Date Type Department Care Team (Late st Contact Info) Description 11/18/2024 10:15 EDT Office Visit [facility] Family Medicine [address], [address] [address] Andie Cool DNP AGPCNP [address] [place] [phone] documented as of this encounter Visit Diagnoses Diagnosis Abdominal wall pain in right upper quadrant- Primary Abdominal pain, right upper quadrant documented in this encounter Care Teams Mottle Lay Up Operator Relationship Specialty Start Date End Date Tien Garcia MD [address] [place] [phone] PCP - General 05/27/14 04/24/23 documented as of this encounter
--- OUTSIDE RECORDS SUMMARY | 2024-09-15 00:26 | XMS_ITS | Encounter Summary ---
Author Organization [facility] Address [address] [place] [address] Care Team Providers Care Coding Advisor Name Role Phone Tien Garcia MD Primary Care Provider [phone] Reason for Visit * Reason Comments Other Encounter Details Date Type Department Care Team (Late st Contact Info) Description 04/21/2022 [facility] Family Medicine [address], [facility] [address] [place] [address] Tien Garcia MD [address] [place] [address] [address] [place] [phone] Other Social History Tobacco Use Types Packs/Day Years [...] 11:36 EDT documented as of this encounter Ordered Prescriptions Prescription Sig Dispense Quantity Refills Last Filled Start Date End Date amLODIPine (NORVASC) 5 mg tablet TAKE 1 TABLET BY MOUTH DAILY 90 Tablet 3 04/22/2022 03/18/2023 documented in this encounter Plan of Treatment Upcoming Encounters Date Type Department Care Team (Late st Contact Info) Description 11/18/2024 10:15 EDT Office Visit [facility] Medicine [facility] [address] [facility], [facility] [address] [place] [address] Andie Cool, [facility] AGPCNP [address] [place] [phone] documented as of this encounter Visit Diagnoses Not on filedocumented in this encounter Discontinued Medications Medication Sig Discontinue Reason Start Date End Da te amLODIPine (NORVASC) 5 mg tablet TAKE 1 TABLET BY MOUTH DAILY 07/07/2021 04/22/2022 documented as of this encounter Care Teams Coding Advisor Relationship Specialty Start Date End Date Tien Garcia MD [address] [place] [phone] PCP - General 05/27/14 04/24/23 documented as of this encounter
--- OUTSIDE RECORDS SUMMARY | 2024-09-15 00:26 | XMS_ITS | Encounter Summary ---
Author Organization [facility] Address [address] [place] [address] Care Team Providers Care Hoop Riveting Machine Operator Helper Name Role Phone Tien Garcia MD Primary Care Provider Reason for Visit * Reason Onset Date Comments Pre-visit Planning 04/18/2022 Encounter Details Date Type Department Care Team (Late st Contact Info) Description 04/18/2022 Telephone [facility] Family Medicine [address], [facility] [address] [place] [address] Tien Garcia MD [address] [place] [address] [place] [phone] Pre-visit Planning Social History Tobacco Use Types Packs/Day Years [...] 11:36 EDT documented as of this encounter Miscellaneous Notes * Telephone Encounter - Tien Garcia MD - 04/18/2022 0813 EDT Previsit planning documented in this encounter Plan of Treatment Upcoming Encounters Date Type Department Care Team (Late st Contact Info) Description 11/18/2024 10:15 EDT Office Visit [facility] Family Medicine [address], [facility] [address] [place] [address] Andie Cool, VIRGIE AGPCNP [address] [facility] [address] [place] [phone] documented as of this encounter Results * (ABNORMAL) LIPID PROFILE (INCLUDES CHOLESTEROL, TRIGLYCERIDES, HDL, LDL) (06/25/2022 8:50 EST) Cholesterol 208(H) <200 mg/dL 06/25/2022 10:27 [facility] Comment:Note that therapeuti c goals will differ between patients based on cardiac risk factors and current medical therapy. HDL 36(L) >=50 mg/dL 06/25/2022 10:27 [facility] Comment:Note that therapeuti c goals will differ between patients based on cardiac risk factors and current medical therapy. LDL, Calculated 119 <160 mg/dL 10:27 [facility] Comment:Note that therapeuti c goals will differ between patients based on cardiac risk factors and current medical therapy. Triglyceride 265(H) <=150 mg/dL 06/25/2022 10:27 [facility] Comment:Note that therapeuti c goals will differ between patients based on cardiac risk factors and current medical therapy. Chol/HDL Ratio 5.8 See Note 06/25/2022 10:27 [facility] Comment: NOTE: Desirable Ratio = <4.1 Patient At Risk Ratio = >5.0(Males) ?>6.0(Females) Non HDL Cholesterol 172(H) <160 mg/dL 06/25/2022 10:27 [facility] Comment:Note that therapeuti c goals will differ between patients based on cardiac risk factors and current medical therapy. Blood VENOUS BLOOD / Unknown Venipuncture / Unknown 06/25/2022 8:50 EST 06/25/2022 9:57 EST us Tien Garcia MD CHEMISTRY & BLOOD GAS ORDERABLES Final Result Performing Organization Address City/State/[facility] Co de Phone Number [facility] [address] [place] [address] * BASIC METABOLIC PANEL (BMP) (06/25/2022 8:50 EST) Sodium 140 136 - 145 mmol/L 06/25/2022 10:27 [facility] Potassium 3.8 3.5 - 5.0 mmol/L 06/25/2022 10:27 [facility] Chloride 103 96 - 110 mmol/L 06/25/2022 10:27 [facility] CO2 Total 28 22 - 32 mmol/L 06/25/2022 10:27 [facility] Anion Gap 9 5 - 14 06/25/2022 10:27 [facility] Glucose 96 70 - 100 mg/dL 06/25/2022 10:27 [facility] Calcium 9.4 8.5 - 10.5 mg/dL 06/25/2022 10:27 [facility] BUN 19 10 - 26 mg/dL 06/25/2022 10:27 [facility] Creatinine 0.66 0.52 - 1.04 mg/dL 06/25/2022 10:27 [facility] eGFR 108 >60 mL/min/1.73 m2 06/25/2022 10:27 EST [facility] Blood VENOUS BLOOD / Unknown Venipuncture / Unknown 06/25/2022 8:50 EST 06/25/2022 9:57 EST us Tien Garcia MD CHEMISTRY & BLOOD GAS ORDERABLES Final Result [facility] [address] [place] [address] documented in this encounter Visit Diagnoses Diagnosis Essential hypertension- Primary Unspecified essential hypertension Mixed hyperlipidemia documented in this encounter Care Teams Hoop Riveting Machine Operator Helper Relationship Specialty Start Date End Date Tien Garcia MD [address] [place] [phone] PCP - General 05/27/14 04/24/23 documented as of this encounter
--- OUTSIDE RECORDS SUMMARY | 2024-09-15 00:26 | XMS_ITS | Encounter Summary ---
Author Organization [facility] Address [address] [place] [address] Care Team Providers Care Foreign Food Specialty Cook Name Role Phone Tien Garcia MD Primary Care Provider [phone] Reason for Visit * Reason Comments Otalgia right Encounter Details Date Type Department Care Team (Late st Contact Info) Description 03/22/2022 14:30 EDT Walk-In [address] [address] Davis Pitt PA-C [address] [place] [phone] Right ear pain (Primary Dx) Social History Tobacco Use Types [...] Sign Reading Time Taken Comments Blood Pressure 172/98 03/22/2022 1427 EDT histor y of whitecoat hypertension Pulse 72 03/22/2022 1427 EDT Temperature - - Respiratory Rate 20 03/22/2022 1427 EDT Oxygen Saturation 98% 03/22/2022 1427 EDT Inhaled Oxygen Concentration - - Weight - - Height - - Body Mass Index - - documented in this encounter Patient Instructions * Patient Instructions* Davis Pitt PA-C - 03/22/2022 14:30 EDT You have a lot of fluid behind your right eardrum (this is called a serous otitis media). This is likely the source of your ear discomfort and sensation of pressure. It is unclear why this is happening and only affecting the right side. Oftentimes this can occur because of blockage in the eustachian tube that drains your middle ear. Sometimes allergies are the underlying culprit. As an initial approach I have prescribed a topical decongestant called Afrin (oxymetazoline), a intranasal steroid called fluticasone (Flonase), and a long-acting nondrowsy antihistamine (rosina/fexofenadine). Take the antihistamine once daily. Use the Afrin 2 puffs in right nostril twice daily for no more than 3 days. Thereafter switch to the Flonase, 1 puff in right nostril twice a day until follow-up with your PCP. I have included some information and precautions regarding the Afrin below. Please follow-up with your PCP next week to discuss efficacy of treatment and next steps if things are not improving. Oxymetazoline (Afrin) is a powerful nasal decongestant. Use 2 puffs in each nostril twice daily (+/-12 hours apart). Do not use for more than 3 days in a row. Prolonged use can cause dependence and severe rebound congestion. To use this product spray in nostril with your opposite hand as if you aretrying to spray the opposite eye. Do not aim towards bridge of nose. Do not breathe in aggressivelywhile spraying or shortly thereafter to avoid swallowing the medication. Some amount of this medication may drip down the back of your mouth which is ok. Rinse mouth after use. This product will typically cause some degree of nasal dryness and may cause a mild burning sensation after use. If experience any adverse effects discontinue use and contact provider. documented in this encounter Ordered Prescriptions Prescription Sig Dispense Quantity Refills Last Filled Start Date End Date fexofenadine (ROSINA ALLERGY) 180 mg tabletIndications: Right ear pain Take 1 Tablet by mouth daily for 7 days. 7 Tablet 03/22/2022 2 fluticasone propionate (FLONASE) 50 mcg/actuation nasal sprayIndications:R ight ear pain Instill 1 Rincon into right nostril 2 times daily for 3 days. 16 g 03/22/2022 2 oxymetazoline (AFRIN) 0.05 % nasal sprayIndications:R ight ear pain Instill 2 Sprays into right nostril 2 times daily for 3 days. 15 mL 03/22/2022 2 documented in this encounter Progress Notes * Balbina Heller, RN - 03/22/2022 1430 EDT CC/HPI: Here today with ear ache x 2 months; her ear was blocked when she was seen in February by Dr. Garcia and her ear was flushed and impaction removed but pain has never really resolved. Denies drainage, denies temp. Covid Screening: In the last 72 hours, has the patient had: New or unusual cough, shortness of breath, new nasal congestion, sore throat, fever, chills, body aches, or new loss of taste or smell without a reasonable alternative diagnosis*? (If yes, assign to ARC)- NO In the past 10 days, has the patient had a positive Covid test OR a confirmed close Covid exposure (<6ft for > 15mins in 24hr period)? (if yes, assign to AR[facility], regardless of vaccination status)-NO *may be determined by RN or in discussion with available provider (SALES APPOINTMENT COORDINATOR's and CCA's can defer to Charge Nurse to complete triage when appropriate) PCP: Tien Meadows Garcia * Davis Pitt PA-C - 03/22/2022 1430 EDT [facility] Chief Complaint(s): Chief Complaint Patient presents with ??? Otalgia right Assessment & Plan: 1. Right ear pain oxymetazoline (AFRIN) 0.05 % nasal spray fluticasone propionate (FLONASE) 50 mcg/actuation nasal spray fexofenadine (ROSINA ALLERGY) 180 mg tablet Chronic sensation of pressure and mild pain in right ear as well as head/face/neck, not improved with cerumen disimpaction. No clear red flags on history or exam suggestive of infection, Lemierre syndrome, neurological involvement, mass lesion etc . Exam was significant for prominent serous effusion in right TM. Will treat presumed eustachian tube dysfunction with 3-day course of topical decongestant transitioning to intranasal corticosteroid as well as long acting nondrowsy antihistamine. Instructions were given for use. Also recommended gentle auto insufflation periodically throughout the day and gum chewing. She has previously scheduled follow-up with her PCP next week. Advised her to keep this appointment. If symptoms persist she may require imaging and/or ENT referral. New Prescriptions FEXOFENADINE (ROSINA ALLERGY) 180 MG TABLET Take 1 Tablet by mouth daily for 7 days. FLUTICASONE PROPIONATE (FLONASE) 50 MCG/ACTUATION NASAL SPRAY Instill 1 Rincon into right nostril 2 times daily for 3 days. OXYMETAZOLINE (AFRIN) 0.05 % NASAL SPRAY Instill 2 Sprays into right nostril 2 times daily for 3 days. HPI: Patient describes sensation of mild pain, pressure and fullness in her right ear. She expresses a sensation of tightness in her scalp and right-sided neck concurrent with aural symptoms. There is a very clear partition down her central line of scalp with symptoms noted on the right but not left side. 3 weeks ago she went to her PCPs office with above complaints. She underwent cerumen disimpaction; apparently a large volume of cerumen was removed. There has been no appreciable change to her symptoms s/p. She has had some chronic back and neck pain however there have been no recent changes to symptoms. PMH also significant for GERD. She has an appointment scheduled with her PCP in approximately 5 days. Other than as described above there are no associated symptoms. She denies sensation of nasal congestion, rhinorrhea, itchy watery eyes, sneezing, appreciation of postnasal drip, sore throat, significant hearing changes, sensation of disequilibrium, paresthesia or numbness in effected area, fevers, chills, pronounced malaise, unintentional weight loss, skin changes in affected area, pain with neck movement, history of Seasonal/enviromental allergies, cardiovascular disease, shingles, or recent URI. ROS: Review of Systems Constitutional: Negative for chills, diaphoresis, fever, malaise/fatigue and weight loss. HENT: Negative for congestion, hearing loss, sinus pain and sore throat. Eyes: Negative for discharge and redness. Respiratory: Negative for cough and shortness of breath. Cardiovascular: Negative for palpitations. Skin: Negative for itching and rash. Neurological: Negative for dizziness, tingling, sensory change, focal weakness and headaches. Objective: Vitals and nursing notes reviewed Examination: BP (!) 172/98 Comment: history of whitecoat hypertension Pulse 72 Resp 20 SpO2 98% Physical Exam Constitutional: General: She is not in acute distress. Appearance: Normal appearance. HENT: Head: Normocephalic and atraumatic. Comments: No pain with palpation over right tragus. There was a scant amount of cerumen at meatus of external auditory canal, no impaction. Ear canal was not erythematous and no lesions were grossly visible. TMs were significantly bulging but without erythema or injection. Able clear speech at normal volumes when standing at right-sided patient. Left Ear: Tympanic membrane, ear canal and external ear normal. Nose: No congestion or rhinorrhea. Mouth/Throat: Mouth: Mucous membranes are moist. Pharynx: Oropharynx is clear. No oropharyngeal exudate or posterior oropharyngeal erythema. Eyes: Extraocular Movements: Extraocular movements intact. Conjunctiva/sclera: Conjunctivae normal. Pupils: Pupils are equal, round, and reactive to light. Neck: Comments: No apparent discomfort with neck movement, no pain with palpation over course of great vessels in neck Cardiovascular: Rate and Rhythm: Normal rate and regular rhythm. Pulmonary: Effort: Pulmonary effort is normal. Breath sounds: Normal breath sounds. Musculoskeletal: General: Normal range of motion. Cervical back: Normal range of motion and neck supple. No rigidity or tenderness. Lymphadenopathy: Cervical: No cervical adenopathy. Skin: General: Skin is warm and dry. Comments: No lesions were noted on skin or in hairline affected right side Neurological: Mental Status: She is alert. Comments: Patient's right eyebrow appeared very slightly lower than left. This may have been expression or habitus. Cranial nerves grossly intact. Gait was normal, no unsteadiness or apparent difficulty getting up or down from exam table. Data reviewed with patient (current and past results): Problem, medication, allergy list, most recent labs, visit note and imaging reviewed This note may be in part documented using voice dictation software. Please forgive any errors or omissions that may result from use of dictation. documented in this encounter Plan of Treatment Upcoming Encounters Date Type Department Care Team (Late st Contact Info) Description 11/18/2024 10:15 EDT Office Visit [facility] Family Medicine [address], [facility] [address] [place] [address] Andie Cool DNP AGKEVAN [address] [place] [address] [phone] documented as of this encounter Visit Diagnoses Diagnosis Right ear pain- Primary Otalgia, unspecified documented in this encounter Discontinued Medications Medication Sig Discontinue Reason Start Date End Da te nitrofurantoin, macrocrystal-monohydrate , (MACROBID) 100 mg capsuleIndications:Dysur ia Take 1 capsule by mouth 2 times daily. Therapy completed 09/29/2021 03/22/2022 documented as of this encounter Care Teams Foreign Food Specialty Cook Relationship Specialty Start Date End Date Tien Garcia MD [address] [place] [phone] PCP - General 05/27/14 04/24/23 documented as of this encounter
--- OUTSIDE RECORDS SUMMARY | 2024-09-15 00:26 | XMS_ITS | Encounter Summary ---
Author Organization [facility] Address [address] [place] [address] Care Team Providers Care Sap Data Analyst Name Role Phone Tien Garcia MD Primary Care Provider [phone] Reason for Referral * Radiology Services (Routine/Next Available) - Authorization Not Required Specialty Diagnoses / Procedures Referred By Bryanna rogers Referred To Contact Diagnoses Right upper quadrant abdominal pain Procedures US ABDOMEN LIMITED Tien Garcia MD Phone: tel: fax: [facility] Referral ID Status Reason Start Date Expiration Date Visits Requested Visits Authorized [id number] Authorization Not Required 2 1 1 Reason for Visit * Reason Onset Date Comments Discuss Test Results 07/02/2022 [facility] MRI re sults Encounter Details Date Type Department Care Team (Late Contact Info) Description 07/02/2022 Telephone [facility] - [facility] Family Medicine - [address], [address] [place] [address] Tien Garcia MD [address] [facility] [address] [place] [address] Discuss Test Results ([facility] MRI results) Social History Tobacco Use Types Packs/Day Years [...] * Telephone Encounter - Tara Green - 07/03/2022 1230 EST Referrals have been assigned for scheduling. They will reach out to patient with dates * Telephone Encounter - Siena Whitfield RN - 07/03/2022 1016 EST Scheduled. Front staff please process referral and imaging order. I added note to the referral withhernia repair history info and that US is ordered. * Telephone Encounter - Tien Garcia MD - 07/03/2022 1011 EST Yes; if she thought trigger point injections would be helpful I would be happy to try again. I could see her at 13:45 today if she wanted to comein. * Telephone Encounter - Siena Whitfield RN - 07/03/2022 0952 EST Patient notified. She said she thinks the hernia was repaired by about 17 years ago at [facility]. She is aware the US is ordered as well. Has not tried acupuncture so I advised she try it. She said that you did lidocaine injections that were helpful. Would you be wiling to do again? * Telephone Encounter - Tien Garcia MD - 07/03/2022 0944 EST Can you call Vanesa and find out that info? Will order RUQ us; please let Vanesa know we've orderedit in advance to surgical eval. * Telephone Encounter - Siena Whitfield RN - 07/03/2022 0818 EST Spoke with Morris from office [phone]. She is asking if knows when her hernia was repaired? Is also asking if you would be willing to order US to be done prior to seeing gen surg. This would be helpful information to go along with the referral. * Telephone Encounter - Samara Bennett - 07/03/2022 0814 EST Morris from General Surgery requesting to speak to Nurse about hernia. * Telephone Encounter - Tien Garcia MD - 07/02/2022 1510 EST OK to refer to surgery for recheck; but that will address only her abd complaints. So far her work up for her back troubles have drawn nothing untoward. Has she tried acupuncture? Referred for gen surgery evaluation. * Telephone Encounter - Siena Whitfield RN - 07/02/2022 1421 EST please see MRI results. I did not see anything significant. What would her next steps be for her back pain? PT? And for the ongoing abdominal pain- are you considering referral still to surgery for eval? See your ov note from 05/14/22. * Telephone Encounter - Diana Vyas - 07/02/2022 1411 EST Patient had MRI done at [facility]. Calling about the results. Reports received and put back to provider for review. Patient reports still having constant pain on R side, back/abdomen & hip area. documented in this encounter Plan of Treatment Upcoming Encounters Date Type Department Care Team (Late st Contact Info) Description 11/18/2024 10:15 EDT Office Visit [facility] Family Medicine [address], [address] [place] [address] Andie Cool DNP [address] [place] [address] documented as of this encounter Results * US ABDOMEN LIMITED [...] Visit Diagnoses Diagnosis Right upper quadrant abdominal pain- Primary Abdominal pain, right upper quadrant Right upper quadrant abdominal pain Abdominal pain, right upper quadrant documented in this encounter Care Teams Sap Data Analyst Relationship Specialty Start Date End Date Tien Garcia MD [address] [place] [phone] PCP - General 05/27/14 04/24/23 documented as of this encounter
--- OUTSIDE RECORDS SUMMARY | 2024-09-15 00:26 | XMS_ITS | Encounter Summary ---
Author Organization [facility] Address [address] [place] [address] Care Team Providers Care Shaker Flatwork Name Role Phone Tien Garcia MD Primary Care Provider [phone] Reason for Visit * Reason Onset Date Comments Medication Questions 05/16/2022 Anxiety 05/16/2022 Encounter Details Date Type Department Care Team (Late st Contact Info) Description 05/16/[address] [facility] Family Medicine [address], [facility] 2 [place] [address] Tien Garcia MD [address] [place] [address] [address] [place] [address] Medication Questions ; Anxiety Social History Tobacco Use Types Packs/Day Years [...] Refills Last Filled Start Date End Date diazePAM (VALIUM) 2 mg tablet Take 1 Tablet by mouth 1 (one) time injection for up to 1 dose for Anxiety. Daily Max: 2 mg 1 Tablet 05/16/2022 documented in this encounter Miscellaneous Notes * Telephone Encounter - Samara Bennett - 05/21/2022 0804 EDT Scanned & faxed. * Telephone Encounter - Samara Bennett - 05/18/2022 0900 EDT Lynnette from [facility] called about MRI. They need referral signed by provider. Printed & put in providers box. Please fax to [phone] * Telephone Encounter - Siena Whitfield RN - 05/17/2022 0826 EDT Patient notified. * Telephone Encounter - Coral Remy NP - 05/16/2022 1414 EDT I sent the diazepam. Thanks * Telephone Encounter - Matthew Hawley MA - 05/16/2022 1315 EDT Pt previously Rx'd Valium 2 mg tab #1 for PRN (MRI) procedure previously. Pended same. To [facility] as covering provider. * Telephone Encounter - Diana Vyas - 05/16/2022 1240 EDT Patient going to have MRI done at [facility] soon. She has slight anxiety, will need medication to complete scan. Send to [facility] in [place]. documented in this encounter Plan of Treatment Upcoming Encounters Date Type Department Care Team (Late st Contact Info) Description 11/18/2024 10:[address] [facility] Family Medicine [address], [facility] 2 [place] [address] Andie Cool DNP AGPCNP [address] [place] [phone] documented as of this encounter Visit Diagnoses Not on filedocumented in this encounter Discontinued Medications Medication Sig Discontinue Reason Start Date End Da te diazePAM (VALIUM) 2 mg tablet Take 1 Tablet by mouth 1 (one) time injection for up to 1 dose for Anxiety. Daily Max: 2 mg Reorder 08/17/2021 05/16/2022 documented as of this encounter Care Teams Shaker Flatwork Relationship Specialty Start Date End Date Tien Garcia MD [address] [place] [phone] PCP - General 05/27/14 04/24/23 documented as of this encounter
--- OUTSIDE RECORDS SUMMARY | 2024-09-15 00:26 | XMS_ITS | Encounter Summary ---
Author Organization [facility] Address [address] [place] [address] Care Team Providers Care Labelling Machine Operator Name Role Phone Tien Garcia MD Primary Care Provider [phone] Encounter Details Date Type Department Care Team (Latest Contact Info) Description 04/13/2022 Travel Social History Tobacco Use Types Packs/Day [...] 11:36 EDT documented as of this encounter Plan of Treatment Upcoming Encounters Date Type Department Care Team (Late st Contact Info) Description 11/18/2024 10:15 EDT Office Visit [facility] Family Medicine [facility] [address], [address] [place] [address] Andie Cool DNP AGPCNP [address] [place] [address] 2 [place] [phone] documented as of this encounter Visit Diagnoses Not on filedocumented in this encounter Care Teams Labelling Machine Operator Relationship Specialty Start Date End Date Tien Garcia MD [address] [place] [address] 2 [place] [phone] PCP - General 05/27/14 04/24/23 documented as of this encounter
--- OUTSIDE RECORDS SUMMARY | 2024-09-15 00:26 | XMS_ITS | Encounter Summary ---
Author Organization [facility] Address [address] [place] [address] Care Team Providers Care Draw Fire Operator Name Role Phone Tien Garcia MD Primary Care Provider [phone] Reason for Referral * Referral (Routine/Next Available) - Authorization Not Required Specialty Diagnoses / Procedures Referred By Contact Referred To Contact Gastroenterology and Hepatology Diagnoses Screen for colon cancer Procedures COLONOSCOPY Tien Garcia MD Phone: tel: fax: [facility] Gastroenterology [address] [place] [id number] Phone: tel:[phone] fax:[phone] Referral ID Status Reason Start Date Expiration Date Visits Requested Visits Authorized [id number] Authorization Not Required 2 1 1 Reason for Visit * Reason Comments Annual Exam Encounter Details Date Type Department Care Team (Latest Contact Info) Description 07/30/2022 10:30 EST Office Visit [place] [address] [address], [facility] [address] [place] [address] Tien Garcia MD [address] [place] [phone] Thoracic radiculopathy (Primary Dx); Essential hypertension; Screen for colon cancer; Myofascial pain; Myofascial pain syndrome; Immunization counseling Social History Tobacco Use Types Packs/Day Years [...] Sign Reading Time Taken Comments Blood Pressure 128/78 07/30/2022 1025 EST Pulse 72 07/30/2022 1025 EST Temperature - - Respiratory Rate - - Oxygen Saturation - - Inhaled Oxygen Concentration - - Weight 66.2 kg (146 lb) 07/30/2022 1025 EST Height - - Body Mass Index 27.59 07/03/2022 1340 EST documented in this encounter [...] Refills Last Filled Start Date End Date magnesium oxide (MAG-OX) 400 mg (241.3 mg magnesium) tablet Take 1 Tablet by mouth daily. 90 Tablet 3 07/30/2022 4 polyethylene glycol (MIRALAX) 17 gram/dose powder Instructions mailed once procedure scheduled. 238 g 07/30/2022 3 documented in this encounter Progress Notes * Tien Garcia MD - 07/30/2022 1030 EST Assessment/Plan: 1. Thoracic radiculopathy Ultrasound right upper quadrant negative for recurring hernia. The patient does indicate that the gantry rigger was able to feel a mass in the area of concern but this was not visualized on ultrasonography. Waiting to hear from general surgery but generally not inclined to pursue any further surgical solutions. 2. Essential hypertension Her blood pressure is under excellent control on dual agent therapy to include amlodipine 5 mg daily combined with hydrochlorothiazide 25 mg daily. Basic metabolic profile 07/2022 within normal limits. Continue current therapy. 3. Screen for colon cancer Referred for screening colonoscopy. - COLONOSCOPY; Future 4. Myofascial pain She has myofascial pain, manifesting itself by pain, and muscular tightness in her back, as well asthigh, and both lower legs. Currently being followed by physical therapy with myofascial release techniques with excellent though transient benefit. The patient did request trigger point injections. For specific areas were injected, to each on either side of the thoracolumbar spine with significant improvement. Each injection contained 1 cc of Xylocaine 2% without epinephrine. She will follow-up in 3 months for repeat trigger point injection. 6. Immunization counseling Immunizations reviewed. She will return after the first the new ER for her COVID bivalent booster, and her TDA P vaccine. Subjective: Annual Exam HPI: Vanesa comes in today for routine, periodic f/u and physical exam. 1. F/u right thoracic radiculopathy, myofascial pain syndrome. Continues with PT weekly with distinct benefit now addressing not only her back discomfort, but also tightness both her thighs and lowercalfs. She has found that weekly trips to the physical therapist have been of great benefit but shealso requests repeat trigger point injection. US RUQ to evaluate ongoing complaints of a thoracic radiculopathy negative for recurrent hernia. Little response to last trigger point injection. Her physical therapist had suggested she consider magnesium supplementation. 2. Tolerating bp meds well; not checking her bp at home. 3. Sees psychosocial rehabilitation counselor provider in [facility] for routine mmg and pap smears. Current Outpatient Medications Medication ??? amLODIPine (NORVASC) [...] Cough ??? Losartan Cough Objective: VS: BP 128/78 Pulse 72 Wt 66.2 kg (146 lb) BMI 27.59 kg/m?? Body mass index is 27.59 kg/m??. Physical Exam: Physical Exam General appearance: alert, cooperative Neck: supple Lungs: non labored breathing Heart: regular rate and rhythm Neurologic: grossly normal Mental Status: seems euthymic Skin: no lesions noted on visible skin Back: The paralumbar musculature on both left and right sides are in significant spasm, palpation of which reproduces her pain. Data (reviewed with patient): Lab Results Component [...] Info) Description 11/18/2024 10:15 EDT Office Visit [facility] Medicine [address], [address] [place] [address] Andie Cool DNP AGNP [address] [facility] [address] [place] [phone] documented as of this encounter Results * COLONOSCOPY (07/30/2023 10:15 EST) Anatomical Region Laterality Modality Endoscopy Narrative 07/30/2023 10:15 EST [facility] ?? [address], [place], [place] [address] ?? Patient Name ?VANESA BROWER Date of ?1975 Record Number ?[id number] Date/Time of Procedure ?07/30/2023, 10:15:00 AM Endoscopist ?Joey Julian ?? Crimper Operator ? Referring Physician(s) ?? SALTY TYSON , Anesthesiologist ? Procedure Performed: COLONOSCOPY Indications for Exam: Screening Colonoscopy. Instruments: ? [id number] ([id number]) Medications: ?Fentanyl 100 mcg, Versed 4 mg [...] documented in this encounter Visit Diagnoses Diagnosis Thoracic radiculopathy- Primary Thoracic or lumbosacral neuritis or radiculitis, unspecified Essential hypertension Unspecified essential hypertension Screen for colon cancer Special screening for malignant neoplasms, colon Myofascial pain Mylagia and myositis, unspecified Myofascial pain syndrome Mylagia and myositis, unspecified Immunization counseling Other specified counseling Screen for colon cancer Special screening for malignant neoplasms, colon documented in this encounter Care Teams Draw Fire Operator Relationship Specialty Start Date End Date Tien Garcia MD [address] [place] [phone] PCP - General 05/27/14 04/24/23 documented as of this encounter
--- OUTSIDE RECORDS SUMMARY | 2024-09-15 00:26 | XMS_ITS | Encounter Summary ---
Author Organization [facility] Address [address] [place] [address] Care Team Providers Care Cotton Gin Yard Supervisor Name Role Phone Tien Garcia MD Primary Care Provider [phone] Encounter Details Date Type Department Care Team (Latest Contact Info) Description 09/20/2022 Travel Social History Tobacco Use Types Packs/Day [...] 10:12 EST documented as of this encounter Functional [...] Info) Description 11/18/2024 10:15 EDT Office Visit [facility] Family Medicine [facility] [address] [facility], [facility] 2 [place], [place] [phone] Andie Cool DNP AGPCNP [address] [place] [address] [address] [place] [phone] documented as of this encounter Visit Diagnoses Not on filedocumented in this encounter Care Teams Cotton Gin Yard Supervisor Relationship Specialty Start Date End Date Tien Garcia MD [address] [place] [address] [address] [place] [phone] PCP - General 05/27/14 04/24/23 documented as of this encounter
--- OUTSIDE RECORDS SUMMARY | 2024-09-15 00:26 | XMS_ITS | Encounter Summary ---
Author Organization [facility] Address [address] [place] [address] Care Team Providers Care Flight Attendant/Inflight Manager Name Role Phone Tien Garcia MD Primary Care Provider [phone] Reason for Visit * Reason Comments Medications Refill Encounter Details Date Type Department Care Team (Late st Contact Info) Description 07/22/2022 Refill [facility] Family Medicine [address], [facility] 2 [place] [address] Tien Garcia MD [address] [place] [address] [address] [place] [phone] Medications Refill Social History Tobacco [...] End Date hydroCHLOROthiazid e (HYDRODIURIL) 25 mg tablet TAKE 1 TABLET BY MOUTH ONCE DAILY. 90 Tablet 3 07/22/2022 03/18/2023 documented in this encounter Plan of Treatment Upcoming Encounters Date Type Department Care Team (Late st Contact Info) Description 11/18/2024 10:15 EDT Office Visit [facility] Family Medicine [address], [facility] 2 [place] [address] Andie Cool DNP AGPCNP [address] [place] [phone] documented as of this encounter Visit Diagnoses Not on filedocumented in this encounter Discontinued Medications Medication Sig Discontinue Reason Start Date End Da te hydroCHLOROthiazide (HYDRODIURIL) 25 mg tablet TAKE 1 TABLET BY MOUTH ONCE DAILY. 07/20/2021 07/22/2022 documented as of this encounter Care Teams Flight Attendant/Inflight Manager Relationship Specialty Start Date End Date Tien Garcia MD [address] [place] [phone] PCP - General 05/27/14 04/24/23 documented as of this encounter
--- OUTSIDE RECORDS SUMMARY | 2024-09-15 00:26 | XMS_ITS | Encounter Summary ---
Author Organization [facility] Address [address] [place] [address] Care Team Providers Care Lockstitch Back Maker Name Role Phone Tien Garcia MD Primary Care Provider [phone] Reason for Visit * Reason Comments Cough Persistent - since F eb Injections Trigger Point Exertional Dyspnea Since cough Encounter Details Date Type Department Care Team (Latest Contact Info) Description 10/30/2022 11:30 EDT Office Visit [facility] Medicine [address], [address] [address] Tien Garcia MD [address] [place] [address] [place] [phone] Bronchitis (Primary Dx); Immunization counseling; Thoracic radiculopathy Social History Tobacco Use Types Packs/Day Years [...] Sign Reading Time Taken Comments Blood Pressure 138/84 10/30/2022 1128 EDT Pulse 64 10/30/2022 1128 EDT Temperature - - Respiratory Rate 18 10/30/2022 1128 EDT Oxygen Saturation 98% 10/30/2022 1128 EDT Inhaled Oxygen Concentration - - Weight 64.4 kg (142 lb) 10/30/2022 1128 EDT Pt r eported Height - - Body Mass Index 21.59 09/20/2022 1022 EST [...] 1 Puff as directed 2 times daily. 1 blister 2 10/30/2022 3 documented in this encounter Progress Notes * Tien Garcia MD - 10/30/2022 1130 EDT Assessment/Plan: 1. Bronchitis Likely postinfectious. No prior history of reactive airways disease, non-smoker. Begin Advair 250/50, 1 inhalation twice daily. Continue for 2 weeks following resolution of symptoms. I encouraged Vanesa to make sure that she rinses her mouth out after each use to reduce the risk of thrush. 2. Immunization counseling TDA P administered. She chooses to defer her bivalent COVID booster due to her recent upper respiratory infection. - TDAP VACCINE =>7YO IM 3. Thoracic radiculopathy Trigger point injection was carried out once again, 3 separate sites were injected each using approximately 2 cc of 2% lidocaine solution without epinephrine injected into the right paralumbar musclebulk. Patient noted prompt improvement in her symptoms, and she will continue with physical therapy. Subjective: Cough (Persistent - since Feb), Injections (Trigger Point), and Exertional Dyspnea (Since cough) HPI: Vanesa comes in today for f/u several issues: 1. Shortness of breath and cough since mild URI 6 weeks prior. Non smoker; no h/o asthma. She's also noted audible wheezing and cough worse at night. 2. She requests a TD AP booster. 3. Follow-up right thoracic radiculopathy. She notes that she is making very significant strides with physical therapy and she is enthusiastic with her response thus far. However, symptoms persist responsive to trigger point injection and she requests a repeat injection today. Current Outpatient Medications Medication ??? amLODIPine (NORVASC) 5 mg tablet ??? benzonatate (TESSALON) 100 mg capsule ??? fluticasone propion-salmeteroL (ADVAIR) 250-50 mcg/dose diskus [...] Cough ??? Losartan Cough Objective: VS: BP 138/84 (BP Cuff Location: Left arm, BP Patient Position: Sitting, BP Cuff Sizes: Adult, regular) Pulse 64 Resp 18 Wt 64.4 kg (142 lb) Comment: Pt reported SpO2 98% BMI 21.59 kg/m?? Body mass index is 21.59 kg/m??. Physical Exam: Physical Exam General appearance: alert, cooperative Neck: supple Lungs: non labored breathing. Rare, end expiratory wheezing with excellent air entry and exit. Heart: regular rate and rhythm Neurologic: grossly normal Mental Status: seems euthymic Skin: no lesions noted on visible skin Back: Palpable right paraspinal muscle spasm is noted corresponding to the area of pain generation. Data (reviewed with patient): Lab Results Component Value Date HGB 14.1 03/14/2020 PLT 260 03/14/2020 CHOL 208 (H) 06/25/2022 HDL 36 (L) 06/25/2022 LDL 140 (H) 05/24/2021 NA 140 06/25/2022 K 3.8 06/25/2022 CL 103 06/25/2022 CREATININE 0.66 06/25/2022 BUN 19 06/25/2022 CO2 28 06/25/2022 * Rekha Robles MA - 10/30/2022 1130 EDT TDaP administered. After obtaining informed consent, the immunization is given by REKHA ROBLES MA. Verified immunization with Alvaro Oliveros RN. documented in this encounter Plan of Treatment Upcoming Encounters Date Type Department Care Team (Late st Contact Info) Description 11/18/2024 10:15 EDT Office Visit [facility] Family Medicine [address], [facility] 2 [place] [address] Andie Cool, VIRGIE AGPCNP [address] [place] [phone] documented as of this encounter Visit Diagnoses Diagnosis Bronchitis- Primary Bronchitis, not specified as acute or chronic Immunization counseling Other specified counseling Thoracic radiculopathy Thoracic or lumbosacral neuritis or radiculitis, unspecified documented in this encounter Orders Immunization/Injection Count Last Ordered Date First Ordered Date TDAP VACCINE =>7YO IM 1 10/30/2022 documented in this encounter Care Teams Lockstitch Back Maker Relationship Specialty Start Date End Date Tien Garcia MD [address] [place] [phone] PCP - General 05/27/14 04/24/23 documented as of this encounter
--- OUTSIDE RECORDS SUMMARY | 2024-09-15 00:26 | XMS_ITS | Encounter Summary ---
Author Organization [facility] Address [address] [place] [address] Care Team Providers Care Arbor Press Operator Name Role Phone Tien Garcia MD Primary Care Provider [phone] Reason for Visit * Reason Comments Follow-up Encounter Details Date Type Department Care Team (Late st Contact Info) Description 01/02/2023 13:45 EDT Office Visit [facility] Family Medicine [address], [address] [place] [address] Shannon Calzada, DO [address] [facility] [address] [place] [address] Dysuria (Primary Dx) Social History Tobacco Use Types [...] place to sleep or slept in a long-term (including now)? No 02/05/2023 Interpersonal Safety Answer [...] Sign Reading Time Taken Comments Blood Pressure 122/68 01/02/2023 1344 EDT Pulse 82 01/02/2023 1344 EDT Temperature - - Respiratory Rate 18 01/02/2023 1344 EDT Oxygen Saturation 98% 01/02/2023 1344 EDT Inhaled Oxygen Concentration - - Weight 66.1 kg (145 lb 11.2 oz) 01/02/2023 1344 EDT Height 172.7 cm (5' 8) 01/02/2023 1344 EDT Body Mass Index 22.15 01/02/2023 1344 EDT documented in this encounter [...] in this encounter Progress Notes * Shannon Calzada, - 01/02/2023 1345 EDT Images from the original note were not included. Encounter date: 01/02/2023 Chief complaint Chief Complaint Patient presents with ??? Follow-up Assessment and Plan Vanesa is a/an 47 y.o. female with the following identified concerns discussed during this medical encounter: ICD-10-CM ICD-9-CM 1. Dysuria R30.0 788.1 UA was normal - pt took Macrobid and increased hydration and symptoms resolved Follow-up scheduled with Dr Gracia A total of 35 minutes was spent in reviewing medical history, performing examination and evaluation, counseling, ordering and interpreting tests, care coordination, and documenting clinical information on the day of the encounter. Orders No orders of the defined types were placed in this encounter. Discontinued Medications Medications Discontinued During This Visit Medication Reason ??? benzonatate (TESSALON) 100 mg capsule Therapy completed ??? nitrofurantoin, macrocrystal-monohydrate, (MACROBID) 100 mg capsule Therapy completed Subjective HPI Vanesa is a/an 47 y.o. female who presents for evaluation of dysuria. Contacted the office 12/26/22 regarding urinary frequency an feeling like she was retaining urine and asking for antibiotic for possible bladder infection. PCP - Dr Garcia's nursing staff contacted patient for more details She has no hx of recurrent UTI's Advised to drop off urine sample and then start Macrobid. UA with culture showed no UTI and pt was contacted to stop the antibiotic she was started on empirically She was upset about being asked to stop antibiotics and this appt was scheduled Because of her continued symptoms she had been advised to go to [facility] or ER for additional evaluation but instead focused on improving her hydration status and reports she is feeling much better at this point Past immunizations, medical history, surgical history, allergies, and medications all reviewed. This information was modified in the electronic health record as indicated. Problem List Patient Active Problem List Diagnosis Date Noted ??? Myofascial pain syndrome 07/30/2022 ??? Thoracic radiculopathy 06/07/2021 ??? Mixed hyperlipidemia 05/24/2021 ??? Anxiety disorder 07/10/2019 ??? Essential hypertension 07/10/2019 Medications Current Outpatient Medications: ??? amLODIPine (NORVASC) 5 mg tablet, TAKE 1 TABLET BY MOUTH DAILY, Disp: 90 Tablet, Rfl: 3 ??? cyclobenzaprine (FLEXERIL) 5 mg tablet, Take 1 Tablet by mouth 3 times daily for 30 days. Please start as one pill night., Disp: 90 Tablet, Rfl: 0 ??? fluticasone propion-salmeteroL (ADVAIR) 250-50 mcg/dose diskus inhaler, INHALE 1 PUFF BY MOUTH TWICE DAILY DIRECTED (Patient not taking: Reported on 02/05/2023), Disp: 180 Each, Rfl: 3 ??? hydroCHLOROthiazide (HYDRODIURIL) 25 mg tablet, TAKE 1 TABLET BY MOUTH ONCE DAILY., Disp: 90 Tablet, Rfl: 3 ??? ibuprofen (MOTRIN) 200 mg tablet, Take 1 Tablet by mouth if needed. 3 tabs at a time, Disp: , Rfl: ??? magnesium oxide (MAG-OX) 400 mg (241.3 mg magnesium) tablet, Take 1 Tablet by mouth daily., Disp: 90 Tablet, Rfl: 3 ??? omeprazole (PRILOSEC) 20 mg capsule, Take 1 Capsule by mouth every morning., Disp: 90 Capsule, Rfl: 1 Allergies Allergies Allergen Reactions ??? Lisinopril Cough ??? Losartan Cough Review of Systems Review of Systems As per HPI Objective Blood pressure 122/68, pulse 82, resp. rate 18, height 172.7 cm (68), weight 66.1 kg (145 lb 11.2 oz), SpO2 98 %. Physical Exam Vitals and nursing note reviewed. Constitutional: General: She is not in acute distress. Appearance: Normal appearance. She is not ill-appearing or toxic-appearing. HENT: Head: Normocephalic and atraumatic. Eyes: Extraocular Movements: Extraocular movements intact. Conjunctiva/sclera: Conjunctivae normal. Pupils: Pupils are equal, round, and reactive to light. Skin: General: Skin is warm and dry. Neurological: Mental Status: She is alert. Psychiatric: Mood and Affect: Mood normal. Behavior: Behavior normal. Thought Content: Thought content normal. Judgment: Judgment normal. Electronically signed by Shannon Calzada DO 03/18/23 13:17 [place], [place] documented in this encounter Plan of Treatment Upcoming Encounters Date Type Department Care Team (Late st Contact Info) Description 11/18/2024 10:15 EDT Office Visit [address], [facility] [address] [place] [address] Andie Cool DNP AGPCNP [address] [place] [phone] documented as of this encounter Visit Diagnoses Diagnosis Dysuria- Primary documented in this encounter Discontinued Medications Medication Sig Discontinue Reason Start Date End Da te benzonatate (TESSALON) 100 mg capsule Take 1 Capsule by mouth 3 times daily as needed for Cough. Therapy completed 10/25/2022 01/02/2023 nitrofurantoin, macrocrystal-monohydrate , (MACROBID) 100 mg capsule Take 1 Capsule by mouth 2 times daily. Therapy completed 12/26/2022 01/02/2023 documented as of this encounter Care Teams Arbor Press Operator Relationship Specialty Start Date End Date Tien Garcia MD [address] [place] [id number] PCP - General 05/27/14 04/24/23 documented as of this encounter
--- OUTSIDE RECORDS SUMMARY | 2024-09-15 00:26 | XMS_ITS | Encounter Summary ---
Author Organization [facility] Address [address] [place] [address] Care Team Providers Care Food Sampler Name Role Phone Tien Garcia MD Primary Care Provider [phone] Reason for Visit * Reason Comments Pain Pain * Consult (See Order Priority) - Order Cancelled Specialty Diagnoses / Procedures Referred By Bryanna rogers Referred To Contact Orthopedic Surgery Diagnoses Chronic right-sided low back pain without sciatica Mery Walton, VIRGIE Phone: tel: fax: [facility] [address] [place] [address] Phone: tel: fax: Referral ID Status Reason Start Date Expiration Date Visits Requested Visits Authorized [id number] Order Cancelled Specialty Services Required 01/31/2022 1 1 Encounter Details Date Type Department Care Team (Late st Contact Info) Description 04/24/2022 10:30 EDT Office Visit [facility] [address] [place], [place] [id number] Cotton, Karolina J, PA-[address] [id number] Chronic bilateral low back pain with right-sided sciatica (Primary Dx) Social History Tobacco Use Types [...] Recorded In the last 10 days, have blanca u been in contact with someone who was confirmed or suspected to have Coronavirus/COVID-19? No / Unsure 04/24/2022 10:25 EDT documented as of this encounter Last Filed Vital Signs Vital Sign Reading Time Taken Comments Blood Pressure - - Pulse - - Temperature - - Respiratory Rate - - Oxygen Saturation - - Inhaled Oxygen Concentration - - Weight 67.4 kg (148 lb 11.2 oz) 04/24/2022 1026 EDT Height 154.9 cm (5' 1) 04/24/2022 1026 EDT Body Mass Index 28.1 04/24/2022 1026 EDT documented in this encounter Functional Status [...] documented in this encounter Progress Notes * Karolina Cotton PA-C - 04/24/2022 1030 EDT History of Present Illness: Vanesa is a 46-year-old female presenting upon referral from Mery Ford DNP for complaint of back pain. At a visit with Mery on 01/31/2022, patient complained of chronic back pain for the last 21 years for which she had seen chiropractics, and had several rounds of physical therapy with some improvement, but never with full resolution. She had also reported a fall in October that seemed to exacerbate her low back pain and the pain in her right hip. Due to the chronicity of the pain, patient was referred here for further evaluation and treatment. She was also referred to try physical therapy again. Today, Vanesa presents complaining of right greater than left back pain in the upper lumbar spine that has been present for 21 years, starting during her delivery, when she reports she had acomplication with the epidural where it did not work the first time, so they had to reposition her and try again. She is not sure if this is what caused the back pain, but this is when she started having this back pain. Since that time, she has tried chiropractics just over the course of this past year, and does report that it did provide her with some mild relief. She has been working with physical therapy, and continues in [place] and feels like this gives her temporary improvement. Patient is unable to give me specific aggravating or alleviating factors. She has tried different bags, has tried changing her mattresses. She tries lumbar supports. Really has not found anything that has provided her with any significant relief. She does take Tylenol and ibuprofen, and feels that this provides her with some mild relief though now she is developing some epigastric pain. She has not wanted to try any muscle relaxers or pain medications. No reported pain numbness or tingling around to the abdomen. She does have tightness of the musculature in her right upper quadrant of the abdomen, which she states she has had work-up already for abdominal pathology. She does get pain down the posterior aspect of her right leg, which is not quite as bothersome as the paraspinal upper lumbar pain. Despite her ongoing chronic pain, patient remains physically active, walking regularly, and doing activities such as kayaking. Conservative Treatment: Meds: Tylenol, ibuprofen PT: February 2022 through current HEP: Continues Chiropractics spring through 2021 with good improvement, but expensive Injection History: None Review of Systems: As per HPI. I reviewed medications, allergies, medical, surgical and social history with the patient. Physical Examination: Pain Score (from Vitals) 04/24/2022 Initial score - Final score 6 Location BACK Comment 03/21 at times Well developed, well nourished 46-year-old female, in no acute distress, appearing fairly comfortable HEENT without gross abnormalities Breathing non-labored Skin is warm and dry Patient stands with a normal upright posture Palpation reveals some tenderness to deep palpation over her right greater than left paraspinal musculature just below the thoracolumbar junction with associated tightness. Ambulates with a normal gait Heel and toe walking without difficulty Range of motion of lumbar spine is fairly reasonable, though patient reports increased pain with forward flexion Strength: 5 out of 5 in hip knee flexion and extension, ankle dorsiflexion, plantarflexion and EHL Sensation: Intact to light touch bilateral lower extremities DTRs: Bilateral patellar 2+, Achilles 1+ and equal Image Review: Thoracic spine MRI shows actual mild flattening of her normal kyphotic curve in the midthoracic region. No significant spinal or foraminal stenosis throughout the study, or advanced facet arthrosis of the visualized anatomy. Imaging read by me Assessment: 1. Chronic low back pain 2. Right lumbar radiculopathy Vanesa Zavala is a pleasant 46-year-old female presenting for evaluation of her chronic low back pain that is really just below the thoracolumbar junction more on the right than the left, reproducible to deep palpation over the lateral aspect of her paraspinal musculature, which is quite tight. Jerry not sure that the MRI of the thoracic spine and goes low enough quite to visualize the region, though it does not seem radicular in nature, and it also does not seem facet agenic in nature. It seems to be more muscular, and that being said I discussed that it may be reasonable to consider trigger point injections to see if this provides her with any relief. It sounds like she is already havingmyofascial release with her current physical therapist in addition to exercises and heat application and massage. This does provide her with temporary relief. I will place an order for the patient tohave a trigger point injection of the right paraspinal musculature to see if this provides her withany more long-term relief. Patient is happy with this plan and we will plan on following up a few weeks after this is complete. In the meantime she is going to plan on continuing physical therapy, and the last couple visits with chiropractics that she has. We did also spend a little bit of time discussing the pathophysiology/neurophysiology regarding chronic pain, and the benefit of considering possible acceptance and commitment therapy. She feels thather chiropractor actually does some of this work. Something to consider in the future. Patient encouraged to call with any questions, concerns, or worsening of condition. I spent a total of 45 minutes on the date of this encounter meeting with the patient and reviewing documentation/coordinating care as described in the above note. Plan: 1. Right paraspinal muscle trigger point injection 2. Continue physical therapy 3. Follow-up 3 to 6 weeks after injection This document was produced using [employer]. Please excuse any grammatical or verbal errors. documented in this encounter Plan of Treatment Upcoming Encounters Date Type Department Care Team (Late st Contact Info) Description 11/18/2024 10:15 EDT Office Visit [facility] Family [facility] [address] [facility], [facility] [address] [place] [address] Andie Cool DNP AGPCNP [address] [place] [phone] documented as of this encounter Visit Diagnoses Diagnosis Chronic bilateral low back pain with right-sided sciatica- Primary documented in this encounter Care Teams Food Sampler Relationship Specialty Start Date End Date Tien Garcia MD [address] [place] [phone] PCP - General 05/27/14 04/24/23 documented as of this encounter
--- OUTSIDE RECORDS SUMMARY | 2024-09-15 00:26 | XMS_ITS | Encounter Summary ---
Author Organization [facility] Address [address] [place] [address] Care Team Providers Care Dope Pourer Name Role Phone Tien Garcia MD Primary Care Provider [phone] Reason for Visit * Reason Onset Date Comments Chronic Cough 10/25/2022 Encounter Details Date Type Department Care Team (Late st Contact Info) Description 10/25/2022 Telephone [facility] Family Medicine [address], [address] [place] [address] Tien Garcia MD [address] [place] [address] [address] [place] [phone] Chronic Cough Social History Tobacco Use Types Packs/Day Years [...] Refills Last Filled Start Date End Date benzonatate (TESSALON) 100 mg capsule Take 1 Capsule by mouth 3 times daily as needed for Cough. 30 Capsule 10/25/2022 3 documented in this encounter Miscellaneous Notes * Addendum Note - Ivory Remy NP - 10/25/2022 1606 EDTAddended by: IVORY REMY on: 10/25/2022 16:06 Modules accepted: Orders * Addendum Note - Mery Landeros RN - 10/25/2022 1545 EDTAddended by: MERY LANDEROS on: 10/25/2022 15:45 Modules accepted: Orders * Telephone Encounter - Mery Landeros RN - 10/25/2022 1541 EDT Spoke w/ patient- reports she has appt w/ BS on Saturday. Looking for something to help with cough until seen, difficulty sleeping. Spoke w/ JFW- verbal ok to pend guanfacine and codeine, tessalon pearls. Pt agrees to tessalon pearls. Reports she doesn't react well to codeine, feels too groggy next day.Wondering if there is something else she could try for night time. * Telephone Encounter - Mery Landeros RN - 10/25/2022 1438 EDT Called patient, no answer, left voice mail to call office back. * Telephone Encounter - Ivory Remy NP - 10/25/2022 1213 EDT A visit. Thanks * Telephone Encounter - Diana Vyas - 10/25/2022 1023 EDT Pt reports linger chronic cough since September when she was sick. Cough is dry, non productive (usually), she tried many OTC cold medicines with no relief. What would covering provider recommend? documented in this encounter Plan of Treatment Upcoming Encounters Date Type Department Care Team (Late st Contact Info) Description 11/18/2024 10:15 EDT Office Visit [facility] Family Medicine [address], [facility] [address] [place] [address] Andie Cool DNP AGPCNP [address] [place] [phone] documented as of this encounter Visit Diagnoses Not on filedocumented in this encounter Care Teams Dope Pourer Relationship Specialty Start Date End Date Tien Garcia MD [address] [place] [phone] PCP - General 05/27/14 04/24/23 documented as of this encounter
--- OUTSIDE RECORDS SUMMARY | 2024-09-15 00:26 | XMS_ITS | Encounter Summary ---
Author Organization [facility] Address [address] [place] [address] Care Team Providers Care Importer Exporter Name Role Phone Tien Garcia MD Primary Care Provider [phone] Reason for Visit * Reason Onset Date Comments Medication Management 03/27/2022 Issue w/ A llergy Relief Encounter Details Date Type Department Care Team (Late st Contact Info) Description 03/27/2022 Telephone [facility] Family Medicine [address], [address] [place] [address] Tien Garcia MD [address] [place] [address] [place] [phone] Medication Management (Issue w/ Allergy Relief) Social History Tobacco Use Types Packs/Day Years [...] 9:27 EDT documented as of this encounter Ordered Prescriptions Prescription Sig Dispense Quantity Refills Last Filled Start Date End Date fexofenadine (KARINA ALLERGY) 180 mg tabletIndications: Right ear pain Take 1 Tablet by mouth daily for 90 days. 90 Tablet 03/28/2022 06/26/2022 documented in this encounter Miscellaneous Notes * Telephone Encounter - Bria Roa RN - 03/28/2022 1624 EDT ROBERT - 03/27/22 NOV - 06/05/[address] Garcia, pended 90 days supply if ok with you * Telephone Encounter - Matthew Hawley MA - 03/27/2022 1627 EDT Received fax. [facility] needs new Rx sent (fexofenadine (KARINA ALLERGY) 180 mg tablet). They have2 requests: 1) Sig states 7 days but qty is #30. 2) Insurance may have issue with it being 30 days. They are requesting 90-day supply. documented in this encounter Plan of Treatment Upcoming Encounters Date Type Department Care Team (Late st Contact Info) Description 11/18/2024 10:15 EDT Office Visit [facility] [place] [address], [address] [place] [address] Andie Cool, VIRGIE AGPCNP [address] [facility] [address] [place] [phone] documented as of this encounter Visit Diagnoses Diagnosis Right ear pain- Primary Otalgia, unspecified documented in this encounter Discontinued Medications Medication Sig Discontinue Reason Start Date End Da te fexofenadine (KARINA ALLERGY) 180 mg tabletIndications:Right ear pain Take 1 Tablet by mouth daily for 7 days. Reorder 03/27/2022 03/28/2022 documented as of this encounter Care Teams Importer Exporter Relationship Specialty Start Date End Date Tien Garcia MD [address] [place] [phone] PCP - General 05/27/14 04/24/23 documented as of this encounter
--- OUTSIDE RECORDS SUMMARY | 2024-09-15 00:26 | XMS_ITS | Encounter Summary ---
Author Organization [facility] Address [address] [place] [address] Care Team Providers Care Astrochemist Name Role Phone Tien Garcia MD Primary Care Provider [phone] Encounter Details Date Type Department Care Team (Late st Contact Info) Description 06/25/2022 8:20 EST Phlebotomy Only [facility] - Outpatient Phlebotomy Drawing [address] [place] [address] Lab, [place] [facility] [place] [facility] Phlebotomy Essential hypertension; Mixed hyperlipidemia Social History Tobacco Use Types Packs/Day Years [...] Info) Description 11/18/2024 10:15 EDT Office Visit [facility] Family Medicine [facility] [address], [address] [place], [place] [id number] Andie Cool, VIRGIE AGPCNP [address] [place] [phone] documented as of this encounter Procedures Procedure Name Priority Date/Time Associated Diagnosis Comments LIPID PROFILE (INCLUDES CHOLESTEROL, TRIGLYCERIDES, HDL, LDL) Routine 06/25/2022 8:50 EST Mixed hyperlipidemia BASIC METABOLIC PANEL (BMP) Routine 06/25/2022 8:50 EST Essential hypertension documented in this encounter Results * (ABNORMAL) LIPID PROFILE (INCLUDES CHOLESTEROL, TRIGLYCERIDES, HDL, LDL) (06/25/2022 8:50 EST) Cholesterol 208(H) <200 mg/dL 06/25/2022 10:27 [facility] Comment:Note that therapeuti c goals will differ between patients based on cardiac risk factors and current medical therapy. HDL 36(L) >=50 mg/dL 06/25/2022 10:27 [facility] Comment:Note that therapeuti c goals will differ between patients based on cardiac risk factors and current medical therapy. LDL, Calculated 119 <160 mg/dL 10:27 [facility] Comment:Note that therapeuti c goals will differ between patients based on cardiac risk factors and current medical therapy. Triglyceride 265(H) <=150 mg/dL 06/25/2022 10:27 [facility] Comment:Note that therapeuti c goals will differ between patients based on cardiac risk factors and current medical therapy. Chol/HDL Ratio 5.8 See Note 06/25/2022 10:27 [facility] Comment: NOTE: Desirable Ratio = <4.1 Patient At Risk Ratio = >5.0(Males) ?>6.0(Females) Non HDL Cholesterol 172(H) <160 mg/dL 06/25/2022 10:27 [facility] Comment:Note that therapeuti c goals will differ between patients based on cardiac risk factors and current medical therapy. Blood VENOUS BLOOD / Unknown Venipuncture / Unknown 06/25/2022 8:50 EST 06/25/2022 9:57 EST us Tien Garcia MD CHEMISTRY & BLOOD GAS ORDERABLES Final Result Performing Organization Address City/State/[facility] Co de Phone Number [facility] [address] [place] [address] * BASIC METABOLIC PANEL (BMP) (06/25/2022 8:50 EST) Sodium 140 136 - 145 mmol/L 06/25/2022 10:27 [facility] Potassium 3.8 3.5 - 5.0 mmol/L 06/25/2022 10:27 [facility] Chloride 103 96 - 110 mmol/L 06/25/2022 10:27 [facility] CO2 Total 28 22 - 32 mmol/L 06/25/2022 10:27 [facility] Anion Gap 9 5 - 14 06/25/2022 10:27 [facility] Glucose 96 70 - 100 mg/dL 06/25/2022 10:27 [facility] Calcium 9.4 8.5 - 10.5 mg/dL 06/25/2022 10:27 [facility] BUN 19 10 - 26 mg/dL 06/25/2022 10:27 [facility] Creatinine 0.66 0.52 - 1.04 mg/dL 06/25/2022 10:27 [facility] eGFR 108 >60 mL/min/1.73 m2 06/25/2022 10:27 EST [facility] Blood VENOUS BLOOD / Unknown Venipuncture / Unknown 06/25/2022 8:50 EST 06/25/2022 9:57 EST us Tien Garcia MD CHEMISTRY & BLOOD GAS ORDERABLES Final Result Performing Organization Address City/State/[facility] Co de Phone Number [facility] [address] [place] [address] documented in this encounter Visit Diagnoses Diagnosis Essential hypertension Unspecified essential hypertension Mixed hyperlipidemia documented in this encounter Care Teams Astrochemist Relationship Specialty Start Date End Date Tien Garcia MD [address] [place] [phone] PCP - General 05/27/14 04/24/23 documented as of this encounter
--- OUTSIDE RECORDS SUMMARY | 2024-09-15 00:26 | XMS_ITS | Encounter Summary ---
Author Organization [facility] Address [address] [place] [address] Care Team Providers Care Stave Mill Hand Name Role Phone Tien Garcia MD Primary Care Provider [phone] Reason for Visit * Reason Onset Date Comments Appointment Related 05/10/2022 Encounter Details Date Type Department Care Team (Late st Contact Info) Description 05/10/2022 Telephone [facility] [facility] [place] [address], [address] [place] [address] Tien Garcia MD [address] [place] [address] [address] [place] [phone] Appointment Related Social History Tobacco Use Types [...] encounter Miscellaneous Notes * Telephone Encounter - Celsa Faulkner - 05/11/2022 1000 EDT Spoke with pt, scheduled appt. * Telephone Encounter - Abril Miranda LPN - 05/11/2022 0941 EDT TE to front office for scheduling. * Telephone Encounter - Tien Garcia MD - 05/11/2022 0935 EDT Nope; can do in 30 minutes. * Telephone Encounter - Abril Miranda LPN - 05/11/2022 0907 EDT Need 45 minute visit for procedure? * Telephone Encounter - Tien Garcia MD - 05/10/2022 1642 EDT Yes; it's rather straight forward; just need to use lidocaine. * Telephone Encounter - Siena Whitfield RN - 05/10/2022 1314 EDT Forwarding to BS * Telephone Encounter - Leyda Brunson - 05/10/2022 1226 EDT Pt wondering if BS can do her trigger point therapy. Please reach out to pt at [phone] documented in this encounter Plan of Treatment Upcoming Encounters Date Type Department Care Team (Late st Contact Info) Description 11/18/2024 10:15 EDT Office Visit [facility] Family Medicine [address], [facility] [address] [place] [address] Andie Cool, VIRGIE AGPCNP [address] [place] [phone] documented as of this encounter Visit Diagnoses Not on filedocumented in this encounter Care Teams Stave Mill Hand Relationship Specialty Start Date End Date Tien Garcia MD [address] [place] [phone] PCP - General 05/27/14 04/24/23 documented as of this encounter
--- OUTSIDE RECORDS SUMMARY | 2024-09-15 00:26 | XMS_ITS | Encounter Summary ---
Author Organization [facility] Address [address] [place] [address] Care Team Providers Care Technology Teacher Name Role Phone Tien Garcia MD Primary Care Provider [phone] Shannon Calzada DO Primary Care Provider + Andie Cool DNP [facility] Primary Care Provi zee Encounter Details Date Type Department Care Team (Late st Contact Info) Description 07/09/2022 Lab Requisition [facility] Pathology & Laboratory Medicine - Main [place] [address] [place], [place] [id number] Outr Resulting Lab, Provider Social History Tobacco Use Types Packs/Day Years Used Date Smoking Tobacco: Never Assessed Interpersonal Safety Answer Date Record ed Physically [...] Info) Description 11/18/2024 10:15 EDT Office Visit [facility] Family Medicine [facility] [address] [facility], [address] [place], [place] [id number] Andie Cool, VIRGIE AGPCNP [address] [place] [address] [place] [phone] documented as of this encounter Procedures Procedure Name Priority Date/Time Associated Diagnosis Comments CHLAMYDIA/N. GONORRHOEAE AMPLIFIED NUCLEIC ACID, THINPREP Routine 07/09/2022 11:30 EST documented in this encounter Results * CHLAMYDIA/N. GONORRHOEAE AMPLIFIED RNA, THINPREP (07/09/2022 11:30 EST) Neisseria gonorrhoeae Result Negative Negative 07/10/2022 13:54 EST [facility] Chlamydia trachomatis Result Negative Negative 07/10/2022 13:54 EST [facility] Papanicolaou smear specimen (specimen) CERVIX UTERI STRUCTURE / Unknown 07/09/2022 11:30 EST 07/10/2022 7:34 EST us Provider Outr Resulting Lab MICROBIOLOGY - GENER AL ORDERABLES Final Result [facility] [address] [place] [address] documented in this encounter Visit Diagnoses Not on filedocumented in this encounter Care Teams Technology Teacher Relationship Specialty Start Date End Date Tien Garcia MD [address] [place] [phone] PCP - General 05/27/14 04/24/23 Shannon Calzada DO [address] [place] [phone] PCP - General Family Medicine - Primary Care 04/25/23 09/07/24 Andie Cool DNP AGPCNP [address] [place] [phone] PCP - General Family Medicine - Primary Care 09/08/24 documented as of this encounter
--- OUTSIDE RECORDS SUMMARY | 2024-09-15 00:27 | XMS_ITS | Encounter Summary ---
Author Organization [facility] Address [address] [place] [address] Care Team Providers Care Test Department Helper Name Role Phone Tien Garcia MD Primary Care Provider [phone] Reason for Visit * Reason Comments Follow-up Encounter Details Date Type Department Care Team (Late st Contact Info) Description 12/16/2019 11:00 EDT Telemedicine [facility] Family Medicine [address], [address] [place] [address] Tien Garcia MD [address] [place] [address] [address] [place] [phone] Pain in lower jaw (Primary Dx) Social History Tobacco Use Types Packs/Day Years Used Date Smoking Tobacco: Never Smokeless Tobacco: Never Comments Unknown Sex and Gender Information Value Date Recorded Sex Assigned at Female 08/28/2019 11:27 EST Legal Sex Female 18:27 EST Gender Identity Female 07/30/2019 7:59 EST Sexual Orientation Not on file documented as of this encounter Progress Notes * Tien Garcia MD - 12/16/2019 1100 EDT [facility] Video Visit Today's visit was provided through telemedicine video conferencing: The location of the patient: Workplace The location of the provider: Office Verbal consent: The concept of ???Telemedicine?? has been described to the patient.Patient has been informed of the anticipated benefits and possible risks. Patient understands the information provided regarding telemedicine, has had the opportunity to ask questions about this information, and all questions have been answered to patient???s satisfaction. Patient consents for the use of telemedicine in his/her medical care and authorizes the transmission of any relevant medical information to providers and their staff involved in patient???s medical or mental health care. Verbal consent obtained: yes. Subjective: Chief Complaint(s): No chief complaint on file. HPI: Follow up recent ER visit. She's had two similar events in the last few weeks noted bilateral jaw pain radiating to the upper neck and upper back. The pain was under the jaw and felt very tight to the point where I could barely open my mouth. Doesn't grind teeth at night. She also noted her heartwas racing. Tried some stretches because I just felt super tense. Lasted for approximately 15 to 20 minutes; felt almost like lock jaw. She was able to fall back to sleep but was referred to the ER the following am. In the ER, her EKG and troponins were negative. CXR was negative and US of the LE to exclude clot was negative. She was discharged home and has been well since. 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 I have reviewed patient's tobacco history: reports that she has never smoked. She has never used smokeless tobacco. I have reviewed current problem list and current medications. ROS: ROS Denies fever or rash. Objective: Examination: Home Vitals: There were no vitals taken for this visit. Pertinent exam findings: appears well, non-labored breathing and mood and affect appropriate Data reviewed with patient: Reviewed and/or ordered medication list, notes from last encounter tests Assessment & Plan: 1. Pain in lower jaw Likely muscular contraction/ spasm due to underlying stressors. No h/o bruxism ?REM event. She has had only two such episodes in the previous month. May consider a trial of muscle relaxants at bedtime should symptoms persist. I spent a total of 30 minutes with patient and >50% of that time was spent in counseling and coordination of care as described in the progress note. The following staff and their role did participate in today's encounter visit: Tien Garcia MD documented in this encounter Plan of Treatment Upcoming Encounters Date Type Department Care Team (Late st Contact Info) Description 11/18/2024 10:15 EDT Office Visit [facility] Family Medicine [address], [facility] [address] [place] [address] Andie Cool, DNP AGPCNP [address] [place] [phone] documented as of this encounter Visit Diagnoses Diagnosis Pain in lower jaw- Primary Jaw pain documented in this encounter Care Teams Test Department Helper Relationship Specialty Start Date End Date Tien Garcia MD [address] [place] [phone] PCP - General 05/27/14 04/24/23 documented as of this encounter
--- OUTSIDE RECORDS SUMMARY | 2024-09-15 00:27 | XMS_ITS | Encounter Summary ---
Author Organization [facility] Address [address] [place] [address] Care Team Providers Care Golf Club Head Inspector Name Role Phone Tien Garcia MD Primary Care Provider Encounter Details Date Type Department Care Team (Late st Contact Info) Description 03/14/2020 Results Only [facility] [phone] Jose Meade MD [address] [place] [phone] Social History Tobacco Use Types Packs/Day Years Used Date Smoking Tobacco: Never Smokeless Tobacco: Never Interpersonal Safety Answer Date Record ed Physically [...] Info) Description 11/18/2024 10:15 EDT Office Visit [facility] Family Medicine [facility] [address], [address] [place] [address] Andie Cool, DNP AGPCNP [address] [facility] [address] [place] [phone] documented as of this encounter Procedures Procedure Name Priority Date/Time Associated Diagnosis Comments COMPLETE BLOOD COUNT WITH DIFFERENTIAL (AUTO) Routine 03/14/2020 17:44 EDT TROPONIN I Routine 03/14/2020 17:44 EDT MAGNESIUM Routine 03/14/2020 17:44 EDT COMPREHENSIVE METABOLIC PANEL (CMP) Routine 03/14/2020 17:44 EDT documented in this encounter Results * MAGNESIUM (03/14/2020 17:44 EDT) Pathologist [facility] Magnesium 1.80 1.7 - 2.8 mg/dL 03/14/2020 18:19 EDT [facility] 03/14/2020 17:4 4 EDT 03/14/2020 17:47 EDT Jose Meade MD CHEMISTRY & BLOOD GAS OR DERABLES Final Result [facility] [address] [place] [address] * (ABNORMAL) COMPREHENSIVE METABOLIC PANEL (CMP) (03/14/2020 17:44 EDT) Pathologist [facility] Albumin % 4.4 3.4 - 4.9 g/dL 03/14/2020 18:19 EDT [facility] ALKALINE PHOSPHATASE - [facility] 66 38 - 126 U/L 03/14/2020 18:19 EDT [facility] BILIRUBIN TOTAL 0.5 0.2 - 1.3 mg/dL 03/14/2020 18:19 EDT [facility] BUN - [facility] 15 10 - 26 mg/dL 03/14/2020 18:19 EDT [facility] CALCIUM - [facility] 9.6 8.5 - 10.5 mg/dL 03/14/2020 18:19 [facility] Chloride 101 96 - 110 mmol/L 03/14/2020 18:19 [facility] CO2 Total 24 22 - 32 mEq/L 03/14/2020 18:19 [facility] CREATININE 0.62 0.52 - 1.04 mg/dL 03/14/2020 18:19 [facility] eGFR >60 03/14/2020 18:19 [facility] Comment: Chronic renal impairment is defined as GFR <60 Multiply result by 1.210 for patients. eGFR calculated using the IDMS-traceable MDRD Study Equation. ??(effective 06/14/2014) Anion Gap 11 0 - 18 03/14/2020 18:19 [facility] GLUCOSE - [facility] 95 70 - 100 mg/dL 03/14/2020 18:19 [facility] Potassium 3.4(L) 3.5 - 5.0 mEq/L 03/14/2020 18:19 [facility] Sodium 136 136 - 145 mEq/L 03/14/2020 18:19 [facility] TOTAL PROTEIN - [facility] 7.1 6.2 - 8.2 gm/dL 03/14/2020 18:19 [facility] SGOT/AST - [facility] 22 14 - 36 U/L 03/14/2020 18:19 [facility] SGPT/ALT - [facility] 15 0 - 35 U/L 0 18:19 [facility] 03/14/2020 17:4 4 EDT 03/14/2020 17:47 EDT us Jose Meade MD CHEMISTRY & BLOOD GAS OR DERABLES Final Result [facility] [address] [place] [address] * TROPONIN I (03/14/2020 17:44 EDT) Troponin I (ng/mL) <0.034 0.000 - 0.034 ng/mL 03/14/2020 18:17 EDT [facility] Comment: Interpretation comments: ??Cutoff for a positive troponin result is set at the 99th percentile of the upper reference limit. ??Elevated troponin must always be interpreted in the context of the clinical presentation. ?Serial troponin testing 3-6 hr from baseline is favored over relying on a single troponin level. ?? The results of this assay can be falsely lowered due to the consumption of Biotin. 03/14/2020 17:4 4 EDT 03/14/2020 17:48 EDT us Jose Meade MD CHEMISTRY & BLOOD GAS OR DERABLES Final Result Performing Organization Address City/State/[facility] Co de Phone Number [facility] [address] [place] [address] * COMPLETE BLOOD COUNT WITH DIFFERENTIAL (AUTO) (03/14/2020 17:44 EDT) Gran # 5.5 2.2 - 8.85 10e3/uL 03/14/2020 17:56 EDT [facility] BASO # - [facility] 0.04 0.01 - 0.11 10e/uL [facility] 1 0 - 2 % 03/14/2020 17:56 [facility] EOS # - [facility] 0.07 0.03 - 0.61 10e3/ul 03/14/2020 17:56 EDT [facility] EOS % - [facility] 1 0 - 5 % 03/14/2020 17:56 EDT [facility] GRAN % - [facility] 71.2 40 - 80 % [facility]2020 [facility] HEMATO[facility]IT - [facility] 41.5 34.9 - 44.4 % 03/14/2020 17:56 [facility] HEMOGLOBIN - [facility] 14.1 11.6 - 15.2 g/dl 03/14/2020 17:56 [facility] IG# - [facility] 0.02 0 - 0.7 10e3/uL 03/14/2020 17:56 EDT [facility] IG% - [facility] 0.3 0 - 0.9 % 03/14/2020 17:56 [facility] LYMPH # - [facility] 1.6 1.09 - 3.3 10e3/ul 03/14/2020 [facility] LYMPH% - [facility] 20.9 20 - 40 % 03/14/2020 17:56 [facility] MEAN CORPUSCULAR HGB - [facility] 29.1 26.7 - 33.3 pg 03/14/2020 17:56 [facility] MEAN CORPUSCULAR HGB CONC - [facility] 34.0 32.1 - 35.9 g/dL 03/14/2020 17:56 [facility] MEAN CELL VOLUME - [facility] 85.7 81 - 98 fl 03/14/2020 17:56 [facility] MONO # - [facility] 0.5 0.1 - 0.8 10e3/uL 03/14/2020 17:56 EDT [facility] MONO% - [facility] 6.2 0 - 12 % 03/14/2020 17:56 [facility] PLATELET COUNT 260 141 - 377 10e3/ul 03/14/2020 17:56 [facility] RED BLOOD COUNT - [facility] 4.84 3.86 - 5.04 10e3/ul 03/14/2020 17:56 [facility] RED CELL DISTRI WIDTH - [facility] 12.5 <14.7 % 03/14/2020 17:56 [facility] WHITE BLOOD COUNT - [facility] 7.7 4.0 - 12.4 10e3/ul 03/14/2020 17:56 [facility] 03/14/2020 17:4 4 EDT 03/14/2020 17:48 EDT us Jose Meade MD HEMATOLOGY & PF4 ORDERAB LES Final Result [facility] [address] [place] [address] documented in this encounter Visit Diagnoses Not on filedocumented in this encounter Care Teams Golf Club Head Inspector Relationship Specialty Start Date End Date Tien Garcia MD [address] [place] [phone] PCP - General 05/27/14 04/24/23 documented as of this encounter
--- OUTSIDE RECORDS SUMMARY | 2024-09-15 00:27 | XMS_ITS | Encounter Summary ---
Author Organization [facility] Address [address] [place] [address] Care Team Providers Care Wax Specialist Name Role Phone Tien Garcia MD Primary Care Provider [phone] Reason for Visit * Reason Comments Follow-up Encounter Details Date Type Department Care Team (Late st Contact Info) Description 03/01/2022 15:00 EDT Office Visit [facility] [place] [address], [address] [place] [address] Mery Walton, [facility] [address] [facility] [address] [place] [address] Essential hypertension (Primary Dx); Gastroesophageal reflux disease, unspecified whether esophagitis present; Epigastric pain; Bilateral impacted cerumen Social History Tobacco Use Types Packs/Day Years [...] Sign Reading Time Taken Comments Blood Pressure 124/70 03/01/2022 1459 EDT Pulse 84 03/01/2022 1459 EDT Temperature - - Respiratory Rate 16 03/01/2022 1459 EDT Oxygen Saturation 97% 03/01/2022 1459 EDT Inhaled Oxygen Concentration - - Weight 67.9 kg (149 lb 9.6 oz) 03/01/2022 1459 E DT Height 152.4 cm (5') 03/01/2022 1459 EDT Body Mass Index 29.22 03/01/2022 1459 EDT documented in this encounter Ordered Prescriptions Prescription Sig Dispense Quantity Refills Last Filled Start Date End Date omeprazole (PRILOSEC) 20 mg capsuleIndications :Epigastric pain Take 1 capsule by mouth every morning. 90 capsule 1 03/01/2022 3 documented in this encounter Progress Notes * Mery Walton, DNP - 03/01/2022 1500 EDT [facility] A[facility] Assessment & Plan: 1. Essential hypertension Blood pressure is well-controlled on current medication. Continue Amlodipine 5 mg and hydrochlorothiazide 25 mg daily. F'up with PCP. 2. Gastroesophageal reflux disease, unspecified whether esophagitis present 3. Epigastric pain Vanesa reports complete resolution of symptoms with 20 mg Omeprazole every morning. Discussed tapering off of this medication versus long-term use. Vanesa would like to try to taper off and will follow-up if symptoms return. - omeprazole (PRILOSEC) 20 mg capsule; Take 1 capsule by mouth every morning. Dispense: 90 capsule;Refill: 1 4. Bilateral impacted cerumen Bilateral cerumen impaction, R>L. Significant improvement with in office ear lavage. Advised to use OTC Debrox and return for repeat flush if symptoms return. Return in about 3 months (around 06/01/2022) for PEX with PCP . Subjective: Chief Complaint(s): Follow-up HPI I have reviewed current problem list and current medications. Vanesa presented on 01/31 for evaluation of elevated BP at home after she had missed several doses of her blood pressure medication. She also reported several weeks of acid reflux. She was started on trial of PPI and today reports that her symptoms are 100% gone. Does not want to have to continue taking this medication forever but does not want symptoms to return if she stops it. She also complined of chronic low back pain with little improvement after physical therapy. [facility] and has an appointment scheduled for April 24. Main concern today is that her ears have been feeling really clogged. Not painful but it has been hard to hear. Right is worse than left. Objective: Examination: Vitals: BP 124/70 (BP Cuff Location: Left arm, BP Patient Position: Sitting, BP Cuff Sizes: Adult, regular) Pulse 84 Resp 16 Ht 152.4 cm (60) Wt 67.9 kg (149 lb 9.6 oz) SpO2 97% BMI 29.22 kg/m??Body mass index is 29.22 kg/m??. Physical Exam Vitals reviewed. Constitutional: Appearance: Normal appearance. HENT: Right Ear: There is impacted cerumen. Left Ear: There is impacted cerumen. Cardiovascular: Rate and Rhythm: Normal rate and regular rhythm. Pulmonary: Effort: Pulmonary effort is normal. Breath sounds: Normal breath sounds. Musculoskeletal: General: Normal range of motion. Cervical back: Normal range of motion and neck supple. Skin: General: Skin is warm. Neurological: General: No focal deficit present. Mental Status: She is alert and oriented to person, place, and time. Psychiatric: Mood and Affect: Mood normal. Behavior: Behavior normal. I spent a total of 30 minutes on the date of this encounter meeting with the patient and reviewing documentation/coordinating care as described in the above note. * Melody Pressley RN - 03/01/2022 1500 EDTAssociated Order(s): Ear Cerumen Removal Post-Procedure Diagnose(s): Bilateral impacted cerumen Ear Cerumen Removal Date/Time: 03/01/2022 15:57 Consent: Verbal consent obtained. Written consent not obtained. Consent given by: patient Local anesthetic: none Location details: right ear and left ear Procedure Type: irrigation Patient Sedated: patient not sedated Patient tolerance: patient tolerated the procedure well with no immediate complications Comments: Bilateral ear flush performed with warm water and hydrogen peroxide. Ear cerumen removed from right ear, tympanic membrane visualized. Left ear irrigated with only a few flakes of ear cerumen removed, tympanic membrane visualized. Mery Ford was consulted regarding the remaining ear cerumen in left ear and advised that the pt can leave it as is or if her ear feels full she can use Debrox ear drops to loosen the remaining ear cerumen. Pt notified per conversation with Mery Walton. * Barbara Castrejon MA - 03/01/2022 1500 EDT This service writer assisted with LT ear flush. documented in this encounter Plan of Treatment Upcoming Encounters Date Type Department Care Team (Late st Contact Info) Description 11/18/2024 10:15 EDT Office Visit [facility] Family Medicine - [address], [address] [place] [address] Andie Cool, [facility] AGPCNP [address] [facility] [address] [place] [address] documented as of this encounter Procedures Procedure Name Priority Date/Time Associated Diagnosis Comments EAR CERUMEN REMOVAL Routine 03/01/2022 1 5:57 EDT Bilateral impacted cerumen EAR CERUMEN REMOVAL Routine 03/01/2022 1 5:57 EDT Bilateral impacted cerumen documented in this encounter Results * CO REMOVAL IMPACTED CERUMEN IRRIGATION/LVG UNILAT, HC - REMOVAL IMPACTED CERUMEN IRRIGATION/LVG UNILAT (03/01/2022 15:57 EDT) Narrative [facility] POINT OF CARE - 03/01/2022 15:57 EDT Melody Pressley RN ? 03/01/2022 16:17 Ear Cerumen Removal Date/Time: 03/01/2022 15:57 Consent: Verbal consent obtained. Written consent not obtained. Consent given by: patient Local anesthetic: none Location details: right ear and left ear Procedure Type: irrigation Patient Sedated: patient not sedated Patient tolerance: patient tolerated the procedure well with no immediate complications Comments: Bilateral ear flush performed with warm water and hydrogen peroxide. ??Ear cerumen removed from right ear, tympanic membrane visualized. ??Left ear irrigated with only a few flakes of ear cerumen removed, tympanic membrane visualized. ??Mery Ford was consulted regarding the remaining ear cerumen in left ear and advised that the pt can leave it as is or if her ear feels full she can use Debrox ear drops to loosen the remaining ear cerumen. ??Pt notified per conversation with Mery Walton. Mery Walton DNP PROCEDURE/MINOR SURGICAL ORD ERABLES Final Result [facility] POINT OF CARE documented in this encounter Visit Diagnoses Diagnosis Essential hypertension- Primary Unspecified essential hypertension Gastroesophageal reflux disease, unspecified whether esophagitis present Epigastric pain Abdominal pain, epigastric Bilateral impacted cerumen Impacted cerumen documented in this encounter Discontinued Medications Medication Sig Discontinue Reason Start Date End Da te omeprazole (PRILOSEC) 20 mg capsuleIndications:Epiga stric pain TAKE 1 CAPSULE BY MOUTH EVERY MORNING Reorder 02/27/2022 03/01/2022 documented as of this encounter Care Teams Wax Specialist Relationship Specialty Start Date End Date Tien Garcia MD [address] [place] [phone] PCP - General 05/27/14 04/24/23 documented as of this encounter
--- OUTSIDE RECORDS SUMMARY | 2024-09-15 00:27 | XMS_ITS | Encounter Summary ---
Author Organization [facility] Address [address] [place] [address] Care Team Providers Care Auto Clutch Rebuilder Name Role Phone Tien Garcia MD Primary Care Provider [phone] Reason for Visit * Reason Comments Rib Pain Vanesa reports pain located under her ribcage, r side. She says it has been consistent for the past 6 months. Encounter Details Date Type Department Care Team (Late st Contact Info) Description 07/08/2020 11:30 EST Office Visit [facility] Family Medicine [address], [facility] [address] [place] [address] Tien Garcia MD [address] [place] [address] [address] [place] [address] Strain of rectus abdominis muscle, initial encounter (Primary Dx) Social History Tobacco Use Types [...] Sign Reading Time Taken Comments Blood Pressure 118/70 07/08/2020 1131 EST Pulse 63 07/08/2020 1131 EST Temperature 36.8 ??C (98.2 ??F) 07/08/2020 1131 EST Respiratory Rate 18 07/08/2020 1131 EST Oxygen Saturation 99% 07/08/2020 1131 EST Inhaled Oxygen Concentration - - Weight 60.6 kg (133 lb 8 oz) 07/08/2020 1131 EST Height 152.4 cm (5') 07/08/2020 1131 EST Body Mass Index 26.07 07/08/2020 1131 EST documented in this encounter Progress Notes * Tien Garcia MD - 07/08/2020 1130 EST Assessment/Plan: 1. Strain of rectus abdominis muscle, initial encounter Her physical exam is most consistent with a strain of the abdominis rectus muscle. Her's normal CT scan of the abdomen and pelvis is certainly reassuring. 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 She also has a very heavy bag, that contains her computer, and most of the paperwork that she needs for her work. I suspected carrying this heavy bag over her shoulder may also be a contributing factor. She continues to see a physical therapist for her back, and I have also encouraged physical therapist work on the abdominal muscles as well. Follow-up as needed. Subjective: Rib Pain (Vanesa reports pain located under her ribcage, r side. She says it has been consistent for the past 6 months.) HPI: Vanesa presents today for evaluation of right upper quadrant abdominal discomfort. This pain bothers her almost continuously. She is currently being seen by physical therapy for back pain as well, and together they thought they felt a lump in the right upper quadrant area. This prompted the ordering of a CT scan of the abdomen and pelvis, which was unremarkable without evidence of masses, or obvious hernia. Her symptoms are intermittent, but occurring throughout the course of the day, prompted by direct pressure or palpation. No associated with meals. They do not interfere with sleep at nighttime. Current Outpatient Medications Medication ??? amLODIPine (NORVASC) 5 mg tablet ??? hydroCHLOROthiazide (HYDRODIURIL) 25 mg tablet ??? ibuprofen (MOTRIN) 200 mg tablet No current facility-administered medications for this visit. Review of Systems Denies fever or rash. ROS Past Medical History: Diagnosis Date ??? Mole (skin) Past Surgical History: Procedure Laterality Date ??? OTHER SURGICAL HISTORY excision of moles ??? WISDOM TOOTH EXTRACTION Allergies Allergen Reactions ??? Lisinopril Cough ??? Losartan Cough Objective: VS: BP 118/70 (BP Cuff Location: Right arm, BP Patient Position: Sitting) Pulse 63 Temp 36.8 ??C (98.2 ??F) (Oral) Resp 18 Ht 152.4 cm (60) Wt 60.6 kg (133 lb 8 oz) SpO2 99% BMI 26.07 kg/m?? Body mass index is 26.07 kg/m??. Physical Exam: Physical Exam General appearance: alert, cooperative Neck: supple Lungs: non labored breathing Heart: regular rate and rhythm ABD: The area of palpable concern corresponds to a normal fatty deposit in the subcutaneous fat. The area under this, which is a rectus muscle, is tender to direct palpation and reproduces precisely her pain. This pain is also accentuated by a sit up. I am unable to appreciate any evidence of a abdominal wall hernia.2 Neurologic: grossly normal Mental Status: seems euthymic Skin: no lesions noted on visible skin Data (reviewed with patient): Lab Results Component Value Date HGB 14.1 03/14/2020 PLT 260 03/14/2020 CHOL 214 (H) 04/27/2019 HDL 39 (L) 04/27/2019 LDL 145 (H) 04/27/2019 NA 136 03/14/2020 K 3.4 (L) 03/14/2020 CL 101 03/14/2020 CREATININE 0.62 03/14/2020 BUN 15 03/14/2020 CO2 24 03/14/2020 documented in this encounter Plan of Treatment Upcoming Encounters Date Type Department Care Team (Late st Contact Info) Description 11/18/2024 10:15 EDT Office Visit [place] [address], [address] [place] [address] Andie Cool, [facility] AGPCNP [address] [phone] documented as of this encounter Visit Diagnoses Diagnosis Strain of rectus abdominis muscle, initial encounter- Primary documented in this encounter Care Teams Auto Clutch Rebuilder Relationship Specialty Start Date End Date Tien Garcia MD [address] [place] [phone] PCP - General 05/27/14 04/24/23 documented as of this encounter
--- OUTSIDE RECORDS SUMMARY | 2024-09-15 00:27 | XMS_ITS | Encounter Summary ---
Author Organization [facility] Address [address] [place] [address] Care Team Providers Care Classified Ad Clerk Name Role Phone Tien Garcia MD Primary Care Provider [phone] Reason for Visit * Reason Onset Date Comments Hypertension 05/18/2021 167/103 Encounter Details Date Type Department Care Team (Late st Contact Info) Description 05/18/2021 Telephone [facility] [place] Family Medicine [address], [facility] [address] [place] [address] Tien Garcia MD [address] [place] [address] [address] [place] [address] Hypertension (167/103) Social History Tobacco Use Types Packs/Day Years [...] on file documented as of this encounter Miscellaneous Notes * Telephone Encounter - Marquita Birmingham RN - 05/18/2021 1628 EDT Called and relayed this to pt. She verbalized understanding. * Telephone Encounter - Tien Garcia MD - 05/18/2021 1610 EDT Let's have her take two tablets of amlodipine in am (for a total of 10mg ) daily. Continue hydrochlorothiazide. See me on the as planned. * Telephone Encounter - Marquita Birmingham RN - 05/18/2021 1533 EDT Called pt. She reports that she has always been able to feel when her BP is high feels- jittery. Over past two weeks pt has felt jittery, headaches consistently daily. Pt started taking BP yesterday. See below. Pt reports lowest BP she got was yesterday evening- 140/94. Confirmed that pt has been taking BP at rest, arm positioned correctly and supported, feet on floor. Pt endorses increases stress in her life r/t apartment turnovers. Pt takes ibuprofen for headaches every day the past couple of weeks- doesn't help much. No vision changes. Occasional dizziness. No new/worsening pain. She reports that she is still taking her amlodipine and hydrochlorothiazide Pt has apt with BS 06/07/21. Labs pended. * Telephone Encounter - Marquita Birmingham RN - 05/18/2021 1509 EDT Called and LVM for pt to call back * Telephone Encounter - Lynn Beard - 05/18/2021 1503 EDT pts BP has been running high, 167/103 today, it was 162/103 yesterday, and she is concerned as she is not feeling well she wonders if she should make changes to BP meds, she would like a nurse to call her back documented in this encounter Plan of Treatment Upcoming Encounters Date Type Department Care Team (Late st Contact Info) Description 11/18/2024 10:15 EDT Office Visit [facility] Family Medicine [facility] [address], [facility] [address] [place] [address] Andie Cool, DNP AGPCNP [address] [place] [phone] documented as of this encounter Visit Diagnoses Not on filedocumented in this encounter Care Teams Classified Ad Clerk Relationship Specialty Start Date End Date Tien Garcia MD [address] [place] [address] [address] [place] [phone] PCP - General 05/27/14 04/24/23 documented as of this encounter
--- OUTSIDE RECORDS SUMMARY | 2024-09-15 00:27 | XMS_ITS | Encounter Summary ---
Author Organization [facility] Address [address] [place] [address] Care Team Providers Care Business Performance Advisor Name Role Phone Tien Garcia MD Primary Care Provider [phone] Reason for Visit * Reason Onset Date Comments Results 11/04/2021 Normal thoracic MRI scan Encounter Details Date Type Department Care Team (Late st Contact Info) Description 11/04/2021 Telephone [facility] [place] [address], [address] [address] Tien Garcia MD [address] [place] [address] [place] [phone] Results (Normal thoracic MRI scan) Social History Tobacco Use Types Packs/Day Years [...] Telephone Encounter - Ambika Kaufman RN - 12/01/2021 0948 EDT To BS for review. * Telephone Encounter - Ambika Kaufman RN - 12/01/2021 0941 EDT Vanesa calls in this morning in regard to letter she received regarding this message. Information was relayed to Vanesa. She states that she has ...taken matters into her own hands and spent thousands of dollars on chiropractic work because the medical world can't seem to figure out what's going on. She declined the offer of referral for a spinal block and medication and plans to continue with the chiropractic work because she states this is helping. She states she will call back if she feelsshe needs to be seen again. * Telephone Encounter - Matthew Hawley MA - 11/24/2021 1400 EDT LVMTCB #2 Letter mailed to address on file. * Telephone Encounter - Bria Roa RN - 11/08/2021 1127 EDT Attempted to call Vanesa at home, she is not home at the moment according to spouse. I asked that spouse please let her know to call me back and he states he will do so * Telephone Encounter - Tien Garcia MD - 11/04/2021 1607 EDT Please let Vanesa know that her thoracic MRI scan is normal, there is no evidence of any clear impingement of any nerves as they exit the spine, and the spine appears to be in good health without herniated disks. How is she doing? We talked about an anesthesia referral to try a nerve block if still symptomatic.Alternatively, we could consider a trial of gabapentin which is a medication specifically designed to help reduce discomfort from the irritated nerve endings. documented in this encounter Plan of Treatment Upcoming Encounters Date Type Department Care Team (Late st Contact Info) Description 11/18/2024 10:15 EDT Office Visit [facility] Family Medicine [facility] [address] [facility], [facility] [address] [place] [address] Andie Cool DNP AGPCNP [address] [place] [address] [address] [place] [phone] documented as of this encounter Visit Diagnoses Not on filedocumented in this encounter Care Teams Business Performance Advisor Relationship Specialty Start Date End Date Tein Garcia MD [address] [place] [address] [address] [place] [phone] PCP - General 05/27/14 04/24/23 documented as of this encounter
--- OUTSIDE RECORDS SUMMARY | 2024-09-15 00:27 | XMS_ITS | Encounter Summary ---
Author Organization [facility] Address [address] [place] [address] Care Team Providers Care Printed Circuit Board Assembler Name Role Phone Tien Garcia MD Primary Care Provider [phone] Encounter Details Date Type Department Care Team (Late st Contact Info) Description 07/27/2019 Abstract [facility] Adult Primary Care - [address] [phone] Ambulatory, Paring Machine Operator Social History Tobacco Use Types Packs/Day Years Used Date Smoking Tobacco: Never Assessed Comments Unknown Sex and Gender Information Value Date Recorded Sex Assigned at Female 08/28/2019 11:27 EST Legal Sex Female 18:27 EST Gender Identity Female 07/30/2019 7:59 EST Sexual Orientation Not on file documented as of this encounter Plan of Treatment Upcoming Encounters Date Type Department Care Team (Late st Contact Info) Description 11/18/2024 10:15 EDT Office Visit [facility] Family Medicine [facility] [address], [address] [place] [address] Andie Cool, DNP AGPCNP [address] [facility] [address] [place] [phone] documented as of this encounter Visit Diagnoses Not on filedocumented in this encounter Historical Medications * This list may reflect changes made after this encounter. nitrofurantoin, macrocrystal-mono hydrate, (MACROBID) 100 mg capsule Take 100 mg by mouth 2 times daily. 07/31/2019 losartan (COZAAR) 50 mg tablet Take 50 mg by mouth daily. 07/31/2019 added in this encounter Care Teams Printed Circuit Board Assembler Relationship Specialty Start Date End Date Tien Garcia MD [address] [place] [phone] PCP - General 05/27/14 04/24/23 documented as of this encounter
--- OUTSIDE RECORDS SUMMARY | 2024-09-15 00:27 | XMS_ITS | Encounter Summary ---
Author Organization [facility] Address [address] [place] [address] Care Team Providers Care Bottle Booth Attendant Name Role Phone Tien Garcia MD Primary Care Provider [phone] Shannon Calzada DO Primary Care Provider + Andie Cool DNP [facility] Primary Care Provi zee Encounter Details Date Type Department Care Team (Late st Contact Info) Description 03/14/2020 Results Only Imaging [facility] [address] [place] [address] Jose Meade MD [address] [place] [address] Social History Tobacco Use Types Packs/Day [...] Info) Description 11/18/2024 10:15 EDT Office Visit [facility] [address], [address] [place] [address] Izabelladelilah Andie Minda, DNP AGPCNP [address] [facility] [place] [address] [place] [address] documented as of this encounter Procedures Procedure Name Priority Date/Time Associated Diagnosis Comments XR CHEST 2 VIEWS 03/14/2020 19:0 4 EDT EKG 12-LEAD 03/14/2020 17:18 EDT documented in this encounter Results * XR CHEST 2 VIEWS (03/14/2020 19:04 EDT) Anatomical Region Laterality Modality Computed Radiogr aphy 03/14/2020 19:0 3 EDT Narrative 03/14/2020 19:04 EDT ? EXAM: RADIOLOGY/CHEST PA ?? LAT ?EX. D/ (1833) ? CLINICAL INFORMATION: ? CP ? PROCEDURE INFORMATION: ? Exam: XR Chest, 2 Views ? Exam date and time: 03/14/2020 5:12 PM ? Age: 44 years old ? Clinical indication: Pain; Other: Cp ? TECHNIQUE: ? Imaging protocol: XR of the chest ? Views: 2 views. ? COMPARISON: ? No relevant prior studies available. ? FINDINGS: ? Lungs: Unremarkable. No consolidation. ? Pleural space: Unremarkable. No pleural effusion. No ? pneumothorax. ? Heart/Mediastinum: Unremarkable. No cardiomegaly. ? Bones/joints: Unremarkable. ? IMPRESSION: ? No acute intrathoracic disease. ? REPORT SIGNED IN OTHER VENDOR SYSTEM 03/14/2020 ?Reported By: Eve Fisher MD ? CC: Jose Meade MD ? Transcribed Date/Time: 03/14/2020 (1903) ? Purchasing/Receiving: ? Printed Date/Time: 03/14/2020 (1903) ? PAGE 1 ? Signed Report ? Procedure Note Eve Fisher MD - 03/14/2020 EXAM: RADIOLOGY/CHEST PA LAT EX. D/ (183) CLINICAL INFORMATION: CP PROCEDURE INFORMATION: Exam: XR Chest, 2 Views Exam date and time: 03/14/2020 5:12 PM Age: 44 years old Clinical indication: Pain; Other: Cp TECHNIQUE: Imaging protocol: XR of the chest Views: 2 views. COMPARISON: No relevant prior studies available. FINDINGS: Lungs: Unremarkable. No consolidation. Pleural space: Unremarkable. No pleural effusion. No pneumothorax. Heart/Mediastinum: Unremarkable. No cardiomegaly. Bones/joints: Unremarkable. IMPRESSION: No acute intrathoracic disease. REPORT SIGNED IN OTHER VENDOR SYSTEM 03/14/2020 Reported By: Eve Fisher MD CC: Jose Meade MD Transcribed Date/Time: 03/14/2020 (1903) Purchasing/Receiving: Printed Date/Time: 03/14/2020 (1903) PAGE 1 Signed Report Jose Meade MD IMG DIAGNOSTIC IMAGING O RDERABLES Final Result * EKG 12-LEAD (03/14/2020 17:18 EDT) 03/14/2020 17:1 8 EDT Narrative [facility] - 03/14/2020 17:18 EDT ? [facility] ? Test Date: ?2020-03-14 17:18:59 Pat Name: ? VANESA BROWER ?Department: ?Room: ? Gender: ? F ?Commercial Lines Underwriter: ?? [facility]G : ?1975 ? Requested By: Order Number: ?Reading MD: ?? Rajat Wyatt MD ? Measurements Intervals ?[place] ? Rate: ? 66 ? P: ?50 MO: ? 140 ?QRS: ?27 QRSD: ? 84 ? T: ?29 QT: ? 420 ? QTc: ?440 ? Interpretive Statements Normal sinus rhythm Normal ECG No previous ECG available for comparison Electronically Signed On 03-14-2020 22:26:01 EDT by Rajat Wyatt MD [email or web address] Procedure Note Rajat Wyatt MD - 03/14/2020 [facility] Test Date: 2020-03-14 17:18:59 Pat Name: VANESA BROWER Department: Room: Gender: Commercial Lines Underwriter: [facility] : 1975 Requested By: Order Number: Reading MD: Rajat Wyatt MD Measurements Intervals [place] Rate: 66 P: 50 MO: 140 QRS: 27 QRSD: 84 T: 29 QT: 420 QTc: 440 Interpretive Statements Normal sinus rhythm Normal ECG No previous ECG available for comparison Electronically Signed On 03-14-2020 22:26:01 EDT by Rajat Wyatt MD [email or web address] Jose Meade MD CARDIAC ECG ORDERABLES F inal Result [facility] [address] [place] [address] documented in this encounter Visit Diagnoses Not on filedocumented in this encounter Care Teams Bottle Booth Attendant Relationship Specialty Start Date End Date Tien Garcia MD [address] [place] [phone] PCP - General 05/27/14 04/24/23 Shannon Calzada DO [address] [place] [phone] PCP - General Family Medicine - Primary Care 04/25/23 09/07/24 Andie Cool DNP AGPCNP [address] [place] [phone] PCP - General Family Medicine - Primary Care 09/08/24 documented as of this encounter
--- OUTSIDE RECORDS SUMMARY | 2024-09-15 00:27 | XMS_ITS | Encounter Summary ---
Author Organization [facility] Address [address] [place] [address] Care Team Providers Care Rock Breaker Name Role Phone Tien Garcia MD Primary Care Provider [phone] Reason for Visit * Reason Onset Date Comments Results 09/23/2019 Encounter Details Date Type Department Care Team (Late st Contact Info) Description 09/23/2019 Telephone [facility] [place] [address] , [address] [place], [place] [address] Bria Roa, RN Results Social History Tobacco Use Types Packs/Day Years Used Date Smoking Tobacco: Never Smokeless Tobacco: Never Comments Unknown Sex and Gender Information Value Date Recorded Sex Assigned at Female 08/28/2019 11:27 EST Legal Sex Female 18:27 EST Gender Identity Female 07/30/2019 7:59 EST Sexual Orientation Not on file documented as of this encounter Miscellaneous Notes * Telephone Encounter - Melody Christiansen LPN - 09/23/2019 165 EST Notified pt of the recommendations below. She verbalized understanding. * Telephone Encounter - Tien Garcia MD - 09/23/2019 1454 EST Massage, heat, and tylenol up to 1000mg three times daily.... * Telephone Encounter - Melody Christiansen LPN - 09/23/2019 1404 EST Tien - please advise on this as TC is out of the office. She was seen yesterday by TC for calf/leg pain and to r/o DVT. She is stating that pain continues and that she can not afford PT at this time.She would like further advise/recommendations on this. * Telephone Encounter - Yong Haile - 09/23/2019 1324 EST Patient called back stating that she was informed her US did not show a blood clot in her leg. However, she is still having pain despite heat therapy and Ibuprofen. She cannot afford the co-pay for PT at this time and would like a little more guidance as to what she can do to manage the pain. * Telephone Encounter - Bria Roa RN - 09/23/2019 0836 EST ----- Message from David Torres MD sent at 09/22/2019 18:25 EST ----- Call patient. No CLOT Would she like a PT referral? If so, does she have a preference where she should go? documented in this encounter Plan of Treatment Upcoming Encounters Date Type Department Care Team (Late st Contact Info) Description 11/18/2024 10:15 EDT Office Visit [facility] Family Medicine [address], [address] [place] [address] Andie Cool, VIRGIE AGPCNP [address] [facility] [address] [place] [phone] documented as of this encounter Visit Diagnoses Not on filedocumented in this encounter Care Teams Rock Breaker Relationship Specialty Start Date End Date Tien Garcia MD [address] [place] [phone] PCP - General 05/27/14 04/24/23 documented as of this encounter
--- OUTSIDE RECORDS SUMMARY | 2024-09-15 00:27 | XMS_ITS | Encounter Summary ---
Author Organization [facility] Address [address] [place] [address] Care Team Providers Care Weight Guesser Name Role Phone Tien Garcia MD Primary Care Provider [phone] Reason for Visit * Reason Comments Other Encounter Details Date Type Department Care Team (Late st Contact Info) Description 10/16/2020 Refill [facility] Family Medicine [address], [facility] [address] [place] [address] Tien Garcia MD [address] [place] [address] [address] [place] [address] Other Social History Tobacco Use [...] on file documented as of this encounter Ordered Prescriptions Prescription Sig Dispense Quantity Refills Last Filled Start Date End Date hydroCHLOROthiazid e (HYDRODIURIL) 25 mg tablet TAKE 1 TABLET BY MOUTH ONCE DAILY. 90 Tab 3 10/17/2020 07/20/2021 documented in this encounter Miscellaneous Notes * Telephone Encounter - Siena Whitfield RN - 10/17/2020 1057 EST Last ov 07/08/20, no follow up scheduled. Ok to send x 1 year? If so, tabbed. documented in this encounter Plan of Treatment Upcoming Encounters Date Type Department Care Team (Late st Contact Info) Description 11/18/2024 10:15 EDT Office Visit [facility] Family Medicine [address], [facility] [address] [place] [address] Andie Cool, VIRGIE AGPCNP [address] [place] [phone] documented as of this encounter Visit Diagnoses Not on filedocumented in this encounter Discontinued Medications Medication Sig Discontinue Reason Start Date End Da te hydroCHLOROthiazide (HYDRODIURIL) 25 mg tablet Take 25 mg by mouth daily. 10/17/2020 documented as of this encounter Care Teams Weight Guesser Relationship Specialty Start Date End Date Tien Garcia MD [address] [place] [phone] PCP - General 05/27/14 04/24/23 documented as of this encounter
--- OUTSIDE RECORDS SUMMARY | 2024-09-15 00:27 | XMS_ITS | Encounter Summary ---
Author Organization [facility] Address [address] [place] [address] Care Team Providers Care Coremaking Machine Setter Name Role Phone Tien Garcia MD Primary Care Provider [phone] Encounter Details Date Type Department Care Team (Latest Contact Info) Description 06/07/2021 Travel Social History Tobacco Use Types Packs/Day [...] Info) Description 11/18/2024 10:15 EDT Office Visit [facility] Family Medicine [facility] [address], [address] [place] [address] Andie Cool, DNP AGPCNP [address] [place] [phone] documented as of this encounter Visit Diagnoses Not on filedocumented in this encounter Care Teams Coremaking Machine Setter Relationship Specialty Start Date End Date Tien Garcia MD [address] [place] [phone] PCP - General 05/27/14 04/24/23 documented as of this encounter
--- OUTSIDE RECORDS SUMMARY | 2024-09-15 00:27 | XMS_ITS | Encounter Summary ---
Author Organization [facility] Address [address] [place] [address] Care Team Providers Care Causticiser Name Role Phone Tien Garcia MD Primary Care Provider [phone] Reason for Visit * Reason Comments Back Pain Encounter Details Date Type Department Care Team (Late st Contact Info) Description 05/27/2020 11:00 EDT Office Visit [facility] Family Medicine [address], [address] [place] [address] Tien Garcia MD [address] [place] [address] [address] [place] [phone] Chronic right-sided thoracic back pain (Primary Dx) Social History Tobacco Use [...] Sign Reading Time Taken Comments Blood Pressure 124/66 05/27/2020 1104 EDT Pulse 71 05/27/2020 1104 EDT Temperature - - Respiratory Rate - - Oxygen Saturation 98% 05/27/2020 1104 EDT Inhaled Oxygen Concentration - - Weight 61 kg (134 lb 8 oz) 05/27/2020 1104 EDT Height 152.4 cm (5') 05/27/2020 1104 EDT Body Mass Index 26.27 05/27/2020 1104 EDT documented in this encounter Progress Notes * Tien Garcia MD - 05/27/2020 1100 EDT Assessment/Plan: 1. Chronic right-sided thoracic back pain I suspect her pain is due to improper body mechanics, most likely related to her work station at home. She also tells me however she is an avid paddle or during the summer months, and this summer with several of her friends, she would frequently go out for over 2 hours at a time on the weekends. I cannot identify any specific abnormality on physical exam. I do think physical therapy evaluationis certainly worthwhile. Along with a postural evaluation, she may benefit from strengthening exercises. She declines referral for chiropractics. She tells me she does not have time in a very busy schedule for yoga. She also complains of pain over the right anterolateral aspect of the mid abdominal wall. She had aprevious hernia repair of the abdominal wall musculature that occurred as result of trauma, following a severe choking episode. I was unable to identify any specific abnormality in this area. - AMB CONS/FOLLOW UP PHYSICAL THERAPY; Future Subjective: Back Pain HPI: 1. Midthoracic back pain, chronic, and intermittent. Worse for the last couple of months. Cannot recall any specific mechanism of trauma, but in the past visits to the physical therapist for realignment have been helpful. She would like to consider another referral today. 2. She also complains of chronic, sharp, and well localized right mid abdominal discomfort. She believes she can feel an abnormality in this area. She had a previous midline abdominal wall hernia repaired years ago, which occurred as a result of a severe choking episode. Current Outpatient Medications Medication ??? amLODIPine (NORVASC) [...] Cough ??? Losartan Cough Objective: VS: BP 124/66 (BP Cuff Location: Left arm, BP Patient Position: Sitting) Pulse 71 Ht 152.4 cm (60) Wt 61 kg (134 lb 8 oz) SpO2 98% BMI 26.27 kg/m?? Body mass index is 26.27 kg/m??. Physical Exam: Physical Exam General appearance: alert, cooperative Neck: supple Lungs: non labored breathing Heart: regular rate and rhythm Neurologic: grossly normal Mental Status: seems euthymic Skin: no lesions noted on visible skin MS: Spine appears midline without any obvious deformity. The pain appears to be localized over bothlatissimus dorsi muscles. Careful palpation of the abdominal wall trying to identify the source of her abdominal pain revealed only some subcutaneous changes in the fatty layer likely from remote trauma but no palpable hernia. I was unable to reproduce her abdominal pain complaints during our exam. Data (reviewed with patient): Lab Results Component [...] Office Visit [facility] Family Medicine - [address], [address] [place] [address] Andie Cool DNP AGPCNP [address] [facility] [address] [place] [phone] documented as of this encounter Visit Diagnoses Diagnosis Chronic right-sided thoracic back pain- Primary documented in this encounter Care Teams Causticiser Relationship Specialty Start Date End Date Tien Garcia MD [address] [place] [phone] PCP - General 05/27/14 04/24/23 documented as of this encounter
--- OUTSIDE RECORDS SUMMARY | 2024-09-15 00:27 | XMS_ITS | Encounter Summary ---
Author Organization [facility] Address [address] [place] [address] Care Team Providers Care Mash Processing Operator Name Role Phone Tien Garcia MD Primary Care Provider [phone] Reason for Visit * Reason Onset Date Comments Medication Management 08/17/2021 Encounter Details Date Type Department Care Team (Late st Contact Info) Description 08/17/2021 Telephone [facility] Family Medicine [address], [address] [place] [address] Tien Garcia MD [address] [place] [address] [address] [place] [phone] Medication Management Social History Tobacco Use Types Packs/Day Years [...] Anxiety. Daily Max: 2 mg 1 Tablet 08/17/2021 2 documented in this encounter Miscellaneous Notes * Telephone Encounter - Marquita Birmingham RN - 09/05/2021 1323 EST Called and LDVM for pt to call back if she still has concerns. * Telephone Encounter - Marquita Birmingham RN - 08/25/2021 1004 EST Called and LVM for call back * Telephone Encounter - Tien Garcia MD - 08/24/2021 1916 EST I still suspect that her pain is due to nerve impingement from one of the nerves that runs under the ribs. This nerve can be p inched anywhere along its course including muscle or ligament tissue. Even a tight fitting seat belt can pinch the nerve. I would suggest a trial of gabapentin; this calms pain from a pulled or pinched nerve. Not habit forming and can be started and stopped as needed. I would offer her a telemed visit next routine slot available , 30 minutes, to discuss. * Telephone Encounter - Marquita Birmingham RN - 08/24/2021 1504 EST TE to BS- thoughts for next steps * Telephone Encounter - Lynn Beard - 08/24/2021 1457 EST Pt returning call, read her BSs note below, pt wonders about next steps this pain is not in my head, its coming from somewhere pt would like call back about next steps * Telephone Encounter - Leena Vazquez MA - 08/24/2021 1116 EST Called patient and left VM to call office back to discuss imaging results. * Telephone Encounter - Tien Garcia MD - 08/23/2021 1842 EST Thank you!. Please let Vanesa know her imaging is normal; no evidence of spine trouble causing her pain. * Telephone Encounter - Melody Pressley RN - 08/23/2021 1418 EST BS-results are in care everywhere, under documents, its the first one dated 08/21/21 * Telephone Encounter - Barbara Castrejon - 08/23/2021 1359 EST Results are in Care Everywhere top one for 08/21/21. * Telephone Encounter - Melody Pressley RN - 08/23/2021 0918 EST Pt was notified per BS note. Pt states she had the MRI done at [facility]. To Front-can you please contact [facility] to get the MRI results and then scan them into pt chart, thanks you * Telephone Encounter - Tien Garcia MD - 08/22/2021 1809 EST MRI report listed as non reportable Was it done at an outside facility? (ie [facility] or other)? If so can we get a scanned report? I'm fine with her trying CBD but I'm not too optimistic of its benefits. Will discuss further once we see results. * Telephone Encounter - Melody Pressley RN - 08/22/2021 0850 EST Pt notified per JFW note. Pt states she had her MRI yesterday and is looking for results and next steps * Telephone Encounter - Bria Roa RN - 08/17/2021 1704 EST LM for Vanesa * Telephone Encounter - Coral Remy APRN - 08/17/2021 1651 EST The CBD may be helpful. Don't think contraindicated. Thanks * Telephone Encounter - Rachel Matthews RN - 08/17/2021 1647 EST Advised diazepam sent in, ? Wait for BS to address the CBD oil question? * Telephone Encounter - Coral Remy APRN - 08/17/2021 1625 EST Diazepam sent. Thanks * Telephone Encounter - Bria Roa RN - 08/17/2021 1342 EST Ok for a dose of diazepam prior to MRI ? Advise on CBD oil ? * Telephone Encounter - Lynn Beard - 08/17/2021 0939 EST Pt called, has MRI tomorrow and she is starting to get very nervous about it, they had suggested she have BS RX something for her to relax, pt uses [facility] in [place] Pt also says her back has been very bad lately and she tried Sunsoil CBD oil which she says has taken the edge off (she uses 1 dropper and thinks its 1200mg of CBD in the entire 2oz bottle) she has read that it may interfere with her BP meds and wanted to check with BS on this - please advise documented in this encounter Plan of Treatment Upcoming Encounters Date Type Department Care Team (Late st Contact Info) Description 11/18/2024 10:15 EDT Office Visit [facility] Family Medicine [address], [address] [address] Andie Cool, DNP AGPCNP [address] [place] [phone] documented as of this encounter Visit Diagnoses Not on filedocumented in this encounter Care Teams Mash Processing Operator Relationship Specialty Start Date End Date Tien Garcia MD [address] [place] [phone] PCP - General 05/27/14 04/24/23 documented as of this encounter
--- OUTSIDE RECORDS SUMMARY | 2024-09-15 00:27 | XMS_ITS | Encounter Summary ---
Author Organization [facility] Address [address] [place] [address] Care Team Providers Care Water System Operator Name Role Phone Tien Garcia MD Primary Care Provider [phone] Reason for Visit * Reason Onset Date Comments Cystitis 09/29/2021 Encounter Details Date Type Department Care Team (Late st Contact Info) Description 09/29/2021 Telephone [facility] [place] [address], [address] [place] [address] Tien Garcia MD [address] [place] [address] [address] [place] [phone] Cystitis Social History Tobacco Use Types Packs/Day Years [...] Date nitrofurantoin, macrocrystal-monoh ydrate, (MACROBID) 100 mg capsuleIndications :Dysuria Take 1 capsule by mouth 2 times daily. 10 capsule 09/29/2021 2 documented in this encounter Miscellaneous Notes * Telephone Encounter - Marquita Birmingham RN - 09/29/2021 1156 EST Called and ldvm for Vanesa that rx was sent and give us a call if sx aren't fully resolved despite abx. * Telephone Encounter - Tien Garcia MD - 09/29/2021 1130 EST Fine to proceed with rx. rx sent in * Telephone Encounter - Marquita Birmingham RN - 09/29/2021 1123 EST Called and spoke with pt. Sx have been ongoing for three days and progressing Endorses- urinary frequency and urgency. Cloudy urine. Denies- pain/burning with urination, fever, low back pain, hematuria. Pt has had UTI's in past and this is how they normally present. Pt is 40 minutes away- so would be hard for her to come and leave a urine sample. She would like anrx for abx sent to [facility] TE to BS- thoughts on abx? Pended 5 day course of macrobid, if appropriate * Telephone Encounter - Barbara Castrejon - 09/29/2021 1025 EST Patient believes that she has a bladder infection. She is experiencing the urgency to urinate and having pressure in her lower abdomen. She has had these sxs for 3 days and has not been sleeping wellat night due to go to the bathroom so much. documented in this encounter Plan of Treatment Upcoming Encounters Date Type Department Care Team (Late st Contact Info) Description 11/18/2024 10:15 EDT Office Visit [facility] Family Medicine [address], [facility] [address] [place] [address] Andie Cool, VIRGIE AGPCNP [address] [place] [address] [address] [place] [phone] documented as of this encounter Visit Diagnoses Diagnosis Dysuria- Primary documented in this encounter Care Teams Water System Operator Relationship Specialty Start Date End Date Tien Garcia MD [address] [place] [address] [address] [place] [phone] PCP - General 05/27/14 04/24/23 documented as of this encounter
--- OUTSIDE RECORDS SUMMARY | 2024-09-15 00:27 | XMS_ITS | Encounter Summary ---
Author Organization [facility] Address [address] [place] [address] Care Team Providers Care Slot Shift Supervisor Name Role Phone Tien Garcia MD Primary Care Provider [phone] Reason for Referral * Laboratory Services (Routine/Next Available) - New Request Specialty Diagnoses / Procedures Referred By Bryanna rogers Referred To Contact Diagnoses Essential hypertension Procedures BASIC METABOLIC PANEL (BMP) Tien Garcia MD Phone: tel: fax: Referral ID Status Reason Start Date Expiration Date V isits Requested Visits Authorized [id number] New Request 08/17/2019 1 1 Reason for Visit * Reason Onset Date Comments Pre-visit Planning 08/03/2019 Encounter Details Date Type Department Care Team (Late st Contact Info) Description 08/03/2019 Telephone [facility] Family Medicine [address], [address] [place] [address] Tien Garcia MD [address] [facility] [address] [place] [phone] Pre-visit Planning Social History Tobacco Use Types Packs/Day Years Used Date Smoking Tobacco: Never Assessed Comments Unknown Sex and Gender Information Value Date Recorded Sex Assigned at Female 08/28/2019 11:27 EST Legal Sex Female 18:27 EST Gender Identity Female 07/30/2019 7:59 EST Sexual Orientation Not on file documented as of this encounter Miscellaneous Notes * Telephone Encounter - Blossom Workman - 08/17/2019 1141 EST Patient aware, left message with daughter on home phone number. Provided lab reminder over the phone. * Telephone Encounter - Madhavi Sandoval - 08/13/2019 0923 EST Labs pended. please call patient. * Telephone Encounter - Tien Garcia MD - 08/03/2019 0750 EST Please order basic metabolic profile, with diagnosis hypertension. Please call patient, and ask them to have fasting labs drawn within one week of upcoming visit documented in this encounter Plan of Treatment Upcoming Encounters Date Type Department Care Team (Late st Contact Info) Description 11/18/2024 10:15 EDT Office Visit [facility] Family Medicine [address], [address] [place] [address] Andie Cool DNP AGPCNP [address] [place], [place] [phone] Scheduled Orders Name Type Priority Associated Diagnoses Orde r Schedule BASIC METABOLIC PANEL (BMP) Lab Routine Essential Hypertension Ordered: 08/17/2019 documented as of this encounter Visit Diagnoses Diagnosis Essential hypertension- Primary Unspecified essential hypertension documented in this encounter Care Teams Slot Shift Supervisor Relationship Specialty Start Date End Date Tien Garcia MD [address] [place] [phone] PCP - General 05/27/14 04/24/23 documented as of this encounter
--- OUTSIDE RECORDS SUMMARY | 2024-09-15 00:27 | XMS_ITS | Encounter Summary ---
Author Organization [facility] Address [address] [place] [address] Care Team Providers Care Dip Brazier Name Role Phone Tien Garcia MD Primary Care Provider [phone] Reason for Visit * Reason Onset Date Comments Prior Auth, Other (i.e. radiology, etc.) 021 MRI order Encounter Details Date Type Department Care Team (Late st Contact Info) Description 07/28/2021 Telephone [facility] Medicine [address], [address] [address] Tien Garcia MD [address] [place] [address] [address] [place] [phone] Prior Auth, Other (i.e. radiology, etc.) (MRI order) Social History Tobacco Use Types Packs/Day Years [...] as of this encounter Miscellaneous Notes * Addendum Note - Lida Smith - 08/23/2021 1601 ESTAddended by: LIDA SMITH on: 08/23/2021 16:01 Modules accepted: Orders * Telephone Encounter - Tien Garcia MD - 07/28/2021 1024 EST Done. * Telephone Encounter - Bria Roa RN - 07/28/20[address] Garcia, Pended MRI order * Telephone Encounter - Tara Green - 07/28/2021 0926 EST Pt was seen in May- was suggested she get a MRI. Pt was leaving [place] and wanted to wait until she got back. Pt is ready to get this done as she is still having pain. MRI screening form startedwith Pt and placed in the green folder up front documented in this encounter Plan of Treatment Upcoming Encounters Date Type Department Care Team (Late st Contact Info) Description 11/18/2024 10:15 EDT Office Visit [facility] Family Medicine - [address], [address] [place], [place] [phone] Andie Cool, VIRGIE AGPCNP [address] [place] [address] 2 [place] [phone] documented as of this encounter Visit Diagnoses Diagnosis Thoracic radiculopathy- Primary Thoracic or lumbosacral neuritis or radiculitis, unspecified documented in this encounter Care Teams Dip Brazier Relationship Specialty Start Date End Date Tien Garcia MD [address] [place] [address] [phone] PCP - General 05/27/14 04/24/23 documented as of this encounter
--- OUTSIDE RECORDS SUMMARY | 2024-09-15 00:27 | XMS_ITS | Encounter Summary ---
Author Organization [facility] Address [address] [place] [address] Care Team Providers Care Radio Television Technical Director Name Role Phone Tien Garcia MD Primary Care Provider [phone] Reason for Visit * Reason Onset Date Comments Leg Pain 09/22/2019 Pulled muscel in back of calf Encounter Details Date Type Department Care Team (Late st Contact Info) Description 09/22/2019 Telephone [facility] [place] [address], [address] [address] Tien Garcia MD [address] [place] [address] [place] [phone] Leg Pain (Pulled muscel in back of calf) Social History Tobacco Use Types Packs/Day Years Used Date Smoking Tobacco: Never Smokeless Tobacco: Never Comments Unknown Sex and Gender Information Value Date Recorded Sex Assigned at Female 08/28/2019 11:27 EST Legal Sex Female 18:27 EST Gender Identity Female 07/30/2019 7:59 EST Sexual Orientation Not on file documented as of this encounter Miscellaneous Notes * Telephone Encounter - Melody Christiansen LPN - 09/22/2019 1343 EST Scheduled pt with TC today at 1420 to be evaluated - confirmed this with pt. * Telephone Encounter - Tien Garcia MD - 09/22/2019 1159 EST I think it's best she should be seen; ? Does Shona have space this pm? * Telephone Encounter - Melody Christiansen LPN - 09/22/2019 1134 EST Pt reports that for 2-3 weeks she has been having sharp pain 7/10 in her right calf/leg and now pain is constant. She denies injuries. She denies redness. She states that calf is warm to touch and itis slightly swollen and hard. Achy pain is radiating to her hip. She has been using Ibuprofen, heat, and ice that has not been effective. Tien please advise on this - she is in the area at this time,do you want to order a ultrasound to r/o DVT or would you like her to be evaluated? * Telephone Encounter - Melody Christiansen LPN - 09/22/2019 1117 EST LM for pt to call back - would like to further triage this when she calls back. * Telephone Encounter - Diana Vyas - 09/22/2019 1049 EST Patient reports she feels like she pulled a muscle in the back of her RT calf & leg. Duration about 2-3 wk's now, getting worse. Patient describes sharp pain, 7/10. Patient states she has tried resting, stretching, no known injury, makes her whole leg hurt. Patient thinks maybe a torn muscle, tried OTC Ibuprofen, heat, ice, not helping. Patient available for eval apt before noon today or after 2 pm today. Please advise. documented in this encounter Plan of Treatment Upcoming Encounters Date Type Department Care Team (Late st Contact Info) Description 11/18/2024 10:15 EDT Office Visit [address], [facility] 2 [place] [address] Andie Cool DNP AGNP [address] [place] [phone] documented as of this encounter Visit Diagnoses Not on filedocumented in this encounter Care Teams Radio Television Technical Director Relationship Specialty Start Date End Date Tien Garcia MD [address] [place] [phone] PCP - General 05/27/14 04/24/23 documented as of this encounter
--- OUTSIDE RECORDS SUMMARY | 2024-09-15 00:27 | XMS_ITS | Encounter Summary ---
Author Organization [facility] Address [address] [place] [address] Care Team Providers Care Apprentice Instrument Technician Name Role Phone Tien Garcia MD Primary Care Provider [phone] Reason for Visit * Reason Comments Other Encounter Details Date Type Department Care Team (Late st Contact Info) Description 01/12/2021 Refill [facility] Family Medicine [address], [facility] 2 [place] [address] Tien Garcia MD [address] [place] [address] [address] [place] [phone] Other Social History Tobacco Use [...] TAKE 1 TABLET BY MOUTH DAILY 90 Tab 1 01/12/2021 07/07/2021 documented in this encounter Miscellaneous Notes * Telephone Encounter - Lynn Beard - 01/19/2021 1031 EDT Left VM for pt to call back and schedule * Telephone Encounter - Tien Garcia MD - 01/12/2021 1503 EDT Please schedule Vanesa for 30 minute f/u hypertension visit 06/2021. * Telephone Encounter - Abril Miranda LPN - 01/12/2021 1441 EDT [facility] MEDICATION REFILL Medication: amlodipine Medication, dose, directions verified: yes Pharmacy verified: yes Last office visit: 07/08/2020 Next office visit: none documented in this encounter Plan of Treatment Upcoming Encounters Date Type Department Care Team (Late st Contact Info) Description 11/18/2024 10:15 EDT Office Visit [facility] Family Medicine [address], [facility] 2 [place], [place] [phone] Andie Cool DNP AGPCNP [address] [place] [phone] documented as of this encounter Visit Diagnoses Not on filedocumented in this encounter Discontinued Medications Medication Sig Discontinue Reason Start Date End Da te amLODIPine (NORVASC) 5 mg tablet TAKE 1 TABLET BY MOUTH DAILY 07/11/2020 01/12/2021 documented as of this encounter Care Teams Apprentice Instrument Technician Relationship Specialty Start Date End Date Tien Garcia MD [address] [place] [phone] PCP - General 05/27/14 04/24/23 documented as of this encounter
--- OUTSIDE RECORDS SUMMARY | 2024-09-15 00:27 | XMS_ITS | Encounter Summary ---
Author Organization [facility] Address [address] [place] [address] Care Team Providers Care Drafter Civil (Cad) Name Role Phone Tien Garcia MD Primary Care Provider Reason for Visit * Reason Onset Date Comments Medication Management 01/19/2020 Encounter Details Date Type Department Care Team (Late st Contact Info) Description 01/19/2020 Telephone [facility] [address], [address] [place] [address] Tien Garcia MD [address] [place] [address] [address] [place] [phone] Medication Management Social History Tobacco Use Types Packs/Day Years Used Date Smoking Tobacco: Never Smokeless Tobacco: Never Comments Unknown Sex and Gender Information Value Date Recorded Sex Assigned at Female 08/28/2019 11:27 EST Legal Sex Female 18:27 EST Gender Identity Female 07/30/2019 7:59 EST Sexual Orientation Not on file documented as of this encounter Miscellaneous Notes * Telephone Encounter - Melody Christainsen LPN - 01/19/2020 7001 EDT Spoke to pt and advised her to follow the directions on the dose pack - she took 6 tabs yesterday, she will take 5 tabs today, 4 tabs tomorrow, and so on. She verbalized understanding. JG aware of this conversation. * Telephone Encounter - Tara Green - 01/19/2020 1305 EDT Pt was prescribed a steroid yesterday, she has a question on the dose. Report she took all six pills yesterday and is wondering does she take 5 today? Reports her headache is worse today. documented in this encounter Plan of Treatment Upcoming Encounters Date Type Department Care Team (Late st Contact Info) Description 11/18/2024 10:15 EDT Office Visit [facility] Family Medicine [address], [facility] 2 [place] [address] Andie Cool DNP AGPCNP [address] [place] [phone] documented as of this encounter Visit Diagnoses Not on filedocumented in this encounter Care Teams Drafter Civil (Cad) Relationship Specialty Start Date End Date Tien Garcia MD [address] [place] [phone] PCP - General 05/27/14 04/24/23 documented as of this encounter
--- OUTSIDE RECORDS SUMMARY | 2024-09-15 00:27 | XMS_ITS | Encounter Summary ---
Author Organization [facility] Address [address] [place] [address] Care Team Providers Care Melter Helper Name Role Phone Tien Garcia MD Primary Care Provider [phone] Reason for Visit * Reason Comments Other Encounter Details Date Type Department Care Team (Late st Contact Info) Description 07/06/2021 Refill [facility] Family Medicine [address], [facility] 2 [place] [address] Tien Garcia MD [address] [place] [address] [address] [place] [phone] Other Social History Tobacco Use [...] 1 TABLET BY MOUTH DAILY 90 Tablet 1 07/07/2021 04/22/2022 documented in this encounter Miscellaneous Notes * Telephone Encounter - Bria Roa RN - 07/07/2021 1521 EST ROBERT - 06/07/21 NOV- None Labs utd documented in this encounter Plan of Treatment Upcoming Encounters Date Type Department Care Team (Late st Contact Info) Description 11/18/2024 10:15 EDT Office Visit [facility] Family Medicine [address], [facility] 2 [place] [address] Andie Cool, VIRGIE AGPCNP [address] [phone] documented as of this encounter Visit Diagnoses Not on filedocumented in this encounter Discontinued Medications Medication Sig Discontinue Reason Start Date End Da te amLODIPine (NORVASC) 5 mg tablet TAKE 1 TABLET BY MOUTH DAILY 01/12/2021 07/07/2021 documented as of this encounter Care Teams Melter Helper Relationship Specialty Start Date End Date Tien Garcia MD [address] [place] [address] 2 [place] [phone] PCP - General 05/27/14 04/24/23 documented as of this encounter
--- OUTSIDE RECORDS SUMMARY | 2024-09-15 00:27 | XMS_ITS | Encounter Summary ---
Author Organization [facility] Address [address] [place] [address] Care Team Providers Care Dry Cleaning Attendant Name Role Phone Tien Garcia MD Primary Care Provider [phone] Shannon Calzada DO Primary Care Provider + Andie Cool DNP [facility] Primary Care Provi zee Reason for Visit * Reason Comments Other Encounter Details Date Type Department Care Team (Late st Contact Info) Description 07/19/2021 Refill [facility] [place] [address], [address] [place] [address] Tien Garcia MD [address] [place] [address] [address] [place] [phone] Other Social History Tobacco Use [...] BY MOUTH ONCE DAILY. 90 Tablet 3 07/20/2021 07/22/2022 documented in this encounter Miscellaneous Notes * Telephone Encounter - Marquita Birmingham RN - 07/20/2021 1024 EST ROBERT 06/07/21 NOV- not scheduled Labs UTD TE to BS- when would you like f/u? documented in this encounter Plan of Treatment Upcoming Encounters Date Type Department Care Team (Late st Contact Info) Description 11/18/2024 10:15 EDT Office Visit [facility] Family Medicine [address], [address] [phone] Andie Cool DNP AGPCNP [address] [place] [phone] documented as of this encounter Visit Diagnoses Not on filedocumented in this encounter Discontinued Medications Medication Sig Discontinue Reason Start Date End Da te hydroCHLOROthiazide (HYDRODIURIL) 25 mg tablet TAKE 1 TABLET BY MOUTH ONCE DAILY. 10/17/2020 07/20/2021 documented as of this encounter Care Teams Dry Cleaning Attendant Relationship Specialty Start Date End Date Tien Garcia MD [address] [place] [phone] PCP - General 05/27/14 04/24/23 Shannon Calzada DO [address] [place] [phone] PCP - General Family Medicine - Primary Care 04/25/23 09/07/24 Andie Cool DNP AGKEVAN [address] [phone] PCP - General Family Medicine - Primary Care 09/08/24 documented as of this encounter
--- OUTSIDE RECORDS SUMMARY | 2024-09-15 00:27 | XMS_ITS | Encounter Summary ---
Author Organization [facility] Address [address] [place] [address] Care Team Providers Care Studio Receptionist Name Role Phone Tien Garcia MD Primary Care Provider [phone] Reason for Visit * Reason Onset Date Comments Chest Pain 12/10/2019 Nausea 12/10/2019 Anxiety 12/10/2019 Encounter Details Date Type Department Care Team (Late st Contact Info) Description 12/10/2019 Telephone [facility] Family Medicine [address], [address] [place] [address] [address] Tien Garcia MD [address] [place] [phone] Chest Pain; Nausea; Anxiety Social History Tobacco Use Types Packs/Day Years Used Date Smoking Tobacco: Never Smokeless Tobacco: Never Comments Unknown Sex and Gender Information Value Date Recorded Sex Assigned at Female 08/28/2019 11:27 EST Legal Sex Female 18:27 EST Gender Identity Female 07/30/2019 7:59 EST Sexual Orientation Not on file documented as of this encounter Miscellaneous Notes * Telephone Encounter - Tien Garcia MD - 12/10/2019 1140 EDT Agree; needs to r/o PE. * Telephone Encounter - Melody Christiansen LPN - 12/10/2019 0948 EDT Pt reports that in the middle of the night she woke up from a deep sleep with sharp, excruciating, tight pain across chest, across upper back, in shoulders, and along jaw line. She states that the pain lasted for about 15-20 minutes. She denies SOB but states that she was trying to take deep slow breaths to get her through pain. This pain occurred a couple of weeks ago and she just brushed it off. She is very anxious about this and trying to keep calm. She states that she woke up with nausea this morning. I advised her to go to the ER to be evaluated. She agreed with this plan and will go to [facility] ER. Forwarding TE to BS as an FYI. * Telephone Encounter - Barbara Castrejon - 12/10/2019 0934 EDT Patient woke last night with severe chest pain along with a pain across her jaw line on both sides.Pain across her back. Chest pain felt heavy. Pain went away after awhile. Today she is very anxiousalong with nausea. This is the second time it has happened. The first time was a few weeks ago and she just brushed it off. No SOB. documented in this encounter Plan of Treatment Upcoming Encounters Date Type Department Care Team (Late st Contact Info) Description 11/18/2024 10:15 EDT Office Visit [facility] Family Medicine [facility] [address], [address] [place] [address] Andie Cool, VIRGIE AGPCNP [address] [facility] [address] [place] [phone] documented as of this encounter Visit Diagnoses Not on filedocumented in this encounter Care Teams Studio Receptionist Relationship Specialty Start Date End Date Tien Garcia MD [address] [place] [phone] PCP - General 05/27/14 04/24/23 documented as of this encounter
--- OUTSIDE RECORDS SUMMARY | 2024-09-15 00:27 | XMS_ITS | Encounter Summary ---
Author Organization [facility] Address [address] [place] [address] Care Team Providers Care Taste Tester Name Role Phone Tien Garcia MD Primary Care Provider Encounter Details Date Type Department Care Team (Latest Contact Info) Description 03/09/2022 Travel Social History Tobacco Use Types Packs/Day [...] 9:27 EDT documented as of this encounter Plan of Treatment Upcoming Encounters Date Type Department Care Team (Late st Contact Info) Description 11/18/2024 10:15 EDT Office Visit [facility] Family Medicine [facility] [address], [address] [place] [address] Andie Cool DNP AGPCNP [address] [place] [address] 2 [place] [phone] documented as of this encounter Visit Diagnoses Not on filedocumented in this encounter Care Teams Taste Tester Relationship Specialty Start Date End Date Tien Garcia MD [address] [place] [address] 2 [place] [phone] PCP - General 05/27/14 04/24/23 documented as of this encounter
--- OUTSIDE RECORDS SUMMARY | 2024-09-15 00:27 | XMS_ITS | Encounter Summary ---
Author Organization [facility] Address [address] [place] [address] Care Team Providers Care Ore Mixer Name Role Phone Tien Garcia MD Primary Care Provider [phone] Reason for Visit * Reason Comments Other Encounter Details Date Type Department Care Team (Late st Contact Info) Description 01/27/2020 16:00 EDT Office Visit [facility] [address], [address] [place] [address] Tien Garcia MD [address] [place] [address] [address] [place] [address] Facial neuralgia (Primary Dx); Essential hypertension Social History Tobacco Use Types Packs/Day Years [...] Sign Reading Time Taken Comments Blood Pressure 120/76 01/27/2020 1602 EDT Pulse 76 01/27/2020 1602 EDT Temperature 36.8 ??C (98.3 ??F) 01/27/2020 1602 EDT Respiratory Rate - - Oxygen Saturation - - Inhaled Oxygen Concentration - - Weight 62 kg (136 lb 9.6 oz) 01/27/2020 1602 EDT Height - - Body Mass Index 26.68 09/22/2019 1416 EST documented in this encounter Progress Notes * Tien Garcia MD - 01/27/2020 1600 EDT Assessment/Plan: 1. Facial neuralgia I suspect her neuralgia was related to some form of bruxism, given the intense amount of pressure she has been under recently. Alternatively, she does tell me that she has been followed by an lead php developer periodically for the last 6 to 8 months due to a root canal that had become infected. If her symptoms persist, I suggested she might want to check in with her lead php developer for reevaluation. Alternatively, we could also try a muscle relaxant at nighttime as I do think there is an element of bruxism contributing to her complaints. 2. Essential hypertension Her blood pressure is well controlled now on dual agent therapy. Continue current therapy. She is due a basic metabolic profile in the next couple of weeks. Subjective: Other HPI: 1. Follow-up right-sided facial pain. Seen 2 weeks prior, with pain overlying the right cheek, ear,and posterior temporoparietal area. Also, associated with some ear discomfort, and a popping sensation. Symptoms are much better now. She volunteers that she has been under extraordinary amounts of stress. 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 2. Follow-up hypertension. She is doing very well on amlodipine, combined with hydrochlorothiazide.Tolerating this combination of medication well. Has not had much time to check blood pressures at home. Current Outpatient Medications: amLODIPine (NORVASC) 5 mg tablet hydroCHLOROthiazide (HYDRODIURIL) 25 mg tablet ibuprofen (MOTRIN) 200 mg tablet methylPREDNISolone (MEDROL, DEONDRE,) 4 mg tablet No current facility-administered medications for this visit. Review of Systems Denies fever or rash. ROS Past Medical History: Diagnosis Date ??? Mole (skin) Past Surgical History: Procedure Laterality Date ??? OTHER SURGICAL HISTORY excision of moles ??? WISDOM TOOTH EXTRACTION Allergies Allergen Reactions ??? Lisinopril Cough ??? Losartan Cough Objective: VS: BP 120/76 Pulse 76 Temp 36.8 ??C (98.3 ??F) Wt 62 kg (136 lb 9.6 oz) BMI 26.68 kg/m?? Body mass index is 26.68 kg/m??. Physical Exam: Physical Exam General appearance: alert, cooperative HEENT: There is no reproducible right-sided facial pain. There is no crepitus with palpation of thetemporomandibular joint on the right side. There is no pain over the masseter. There is no localizing adenopathy. Neck: supple Lungs: non labored breathing Heart: regular rate and rhythm Neurologic: grossly normal Mental Status: seems euthymic Skin: no lesions noted on visible skin Data (reviewed with patient): Lab Results Component Value Date CHOL 214 (H) 04/27/2019 HDL 39 (L) 04/27/2019 LDL 145 (H) 04/27/2019 NA 137 05/14/2019 K 4.0 05/14/2019 CL 100 05/14/2019 CREATININE 0.85 05/14/2019 BUN 13 05/14/2019 CO2 25 05/14/2019 documented in this encounter Plan of Treatment Upcoming Encounters Date Type Department Care Team (Late st Contact Info) Description 11/18/2024 10:15 EDT Office Visit [facility] Family Medicine [address], [facility] [place] [address] Andie Cool, [facility] [address] [facility] [address] [place] [address] documented as of this encounter Visit Diagnoses Diagnosis Facial neuralgia- Primary Other facial nerve disorders Essential hypertension Unspecified essential hypertension documented in this encounter Discontinued Medications Medication Sig Discontinue Reason Start Date End Da te methylPREDNISolone (MEDROL, DEONDRE,) 4 mg tablet follow package directions Therapy completed 01/18/2020 01/27/2020 documented as of this encounter Care Teams Ore Mixer Relationship Specialty Start Date End Date Tien Garcia MD [address] [phone] PCP - General 05/27/14 04/24/23 documented as of this encounter
--- OUTSIDE RECORDS SUMMARY | 2024-09-15 00:27 | XMS_ITS | Encounter Summary ---
Author Organization [facility] Address [address] [place] [address] Care Team Providers Care Tie Binder Name Role Phone Tien Garcia MD Primary Care Provider [phone] Reason for Visit * Reason Comments Leg Swelling Painful and achy; do esn't seem to respond to stretching, rest, exercise, heat/cold, increased hydration Encounter Details Date Type Department Care Team (Late st Contact Info) Description 09/22/2019 14:20 EST Office Visit [facility] Family Medicine [place] [address] , [address] [place], [place] [phone] David Torres MD Pain of right calf (Primary Dx) Social History Tobacco Use Types [...] Sign Reading Time Taken Comments Blood Pressure 140/90 09/22/2019 1416 EST Pulse 78 09/22/2019 1416 EST Temperature - - Respiratory Rate - - Oxygen Saturation - - Inhaled Oxygen Concentration - - Weight 63.6 kg (140 lb 3.2 oz) 09/22/[address] Height 152.4 cm (5') 09/22/2019 1416 EST Body Mass Index 27.38 09/22/2019 1416 EST documented in this encounter Progress Notes * David Torres MD - 09/22/2019 1420 EST [facility] Primary Care Subjective: Chief Complaint(s): Leg Swelling (Painful and achy; doesn't seem to respond to stretching, rest, exercise, heat/cold, increased hydration) HPI: Without traumatic onset, this patient has had weeks of pain in right calf, mid section. Feels deep inside, only slightly worse with pressing area. At times whole leg aches, but that is less intense and nonspecific. She is active, able to walk, no weakness. Not worse with effort. Did have long ago past trauma to area when a fold up baby crib fell on her leg, had PT for this ( perhaps 15+ years ago) No chest pain, sob. No hx coagulopathy. No recent travel I have reviewed patient's tobacco history: reports that she has never smoked. She has never used smokeless tobacco. Allergies Allergen Reactions ??? Lisinopril Cough ??? Losartan Cough Current Outpatient Medications: ??? amLODIPine (NORVASC) 5 mg tablet, , Disp: , Rfl: ??? hydroCHLOROthiazide (HYDRODIURIL) 25 mg tablet, Take 25 mg by mouth daily., Disp: , Rfl: ??? ibuprofen (MOTRIN) 200 mg tablet, 1 tab(s) orally every 6 hours, Disp: , Rfl: Past Medical History: Diagnosis Date ??? Mole (skin) No family history on file. Past Surgical History: Procedure Laterality Date ??? OTHER SURGICAL HISTORY excision of moles ??? WISDOM TOOTH EXTRACTION Social History Socioeconomic History ??? Marital status: Spouse name: Not on file ??? Number of children: Not on file ??? Years of education: Not on file ??? Highest education level: Not on file Occupational History ??? Not on file Social Needs ??? Financial resource strain: Not on file ??? Food insecurity: Worry: Not on file Inability: Not on file ??? Transportation needs: Medical: Not on file Non-medical: Not on file Tobacco Use ??? Smoking status: Never Smoker ??? Smokeless tobacco: Never Used Substance and Sexual Activity ??? Alcohol use: Not on file ??? Drug use: Not on file ??? Sexual activity: Not on file Lifestyle ??? Physical activity: Days per week: Not on file Minutes per session: Not on file ??? Stress: Not on file Relationships ??? Social connections: Talks on phone: Not on file Gets together: Not on file Attends alevism service: Not on file Active member of club or organization: Not on file Attends meetings of clubs or organizations: Not on file Relationship status: Not on file ??? Intimate partner violence: Fear of current or ex partner: Not on file Emotionally abused: Not on file Physically abused: Not on file Forced sexual activity: Not on file Other Topics Concern ??? Not on file Social History Narrative ??? Not on file I have reviewed current problem list and current medications. ROS: ROS See hpi section Objective: Examination: Vitals: BP 140/90 (BP Cuff Location: Left arm, BP Patient Position: Sitting, BP Cuff Sizes: Adult, regular) Pulse 78 Ht 152.4 cm (60) Wt 63.6 kg (140 lb 3.2 oz) BMI 27.38 kg/m?? Body mass index is 27.38 kg/m??. Physical Exam Right calf- normal appearance, normal size compared to left. Mid calf, very slight pain with pressure, no mass felt. NO pain with calf stretches. No cord in popliteal fossa Data reviewed with patient Assessment & Plan: No diagnosis found. David Torres MD documented in this encounter Plan of Treatment Upcoming Encounters Date Type Department Care Team (Late st Contact Info) Description 11/18/2024 10:15 EDT Office Visit [facility] Family Medicine [facility] [address] [facility], [address] [place] [address] Andie Cool DNP AGPCNP [address] [facility] [address] [place] [address] documented as of this encounter Procedures Procedure Name Priority Date/Time Associated Diagnosis Comments US EXTREMITY 09/22/2019 17:42 EST documented in this encounter Results * US EXTREMITY (09/22/2019 17:42 EST) Anatomical Region Laterality Modality Other 09/22/2019 17:4 2 EST Narrative 09/22/2019 17:42 EST ? EXAM: ULTRASOUND/DOPPLER VEIN LOWER EXT. ??EX. D/ (1714) ? CLINICAL INFORMATION: ? PAIN OF RIGHT CALF M79.661 ? PROCEDURE INFORMATION: ? Exam: US Duplex Right Lower Extremity Veins, Limited ? Exam date and time: 09/22/2019 3:00 PM ? Age: 43 years old ? Clinical indication: Pain; Leg, lower; Right; Additional info: ? Pain of right calf m79.661 ? TECHNIQUE: ? Imaging protocol: Real-time Duplex ultrasound of the Right Lower ? Extremity with 2-D bray scale, color Doppler flow and spectral ? waveform analysis with image documentation. Limited exam was ? focused on the right lower extremity veins. ? COMPARISON: ? No relevant prior studies available. ? FINDINGS: ? Right deep veins: The common femoral, femoral, proximal profunda ? femoral and popliteal veins are patent without thrombus. Normal ? Doppler waveforms. Normal compressibility and/or augmentation ? response. The visualized calf veins are patent. ? Right superficial veins: Saphenofemoral junction is patent ? without thrombus. ? Soft tissues: No Gee's cyst ? IMPRESSION: ? No evidence of a ??deep vein thrombosis. ? REPORT SIGNED IN OTHER VENDOR SYSTEM 09/22/2019 ?Reported By: Kennedy Diop MD ? CC: ? Transcribed Date/Time: 09/22/2019 (174) ? Talent Manager: ? Printed Date/Time: 09/22/2019 (1741) ? PAGE 1 ? Signed Report ? Procedure Note Kennedy Diop MD - 09/22/2019 EXAM: ULTRASOUND/DOPPLER VEIN LOWER EXT. EX. D/ (1714) CLINICAL INFORMATION: PAIN OF RIGHT CALF M79.661 PROCEDURE INFORMATION: Exam: US Duplex Right Lower Extremity Veins, Limited Exam date and time: 09/22/2019 3:00 PM Age: 43 years old Clinical indication: Pain; Leg, lower; Right; Additional info: Pain of right calf m79.661 TECHNIQUE: Imaging protocol: Real-time Duplex ultrasound of the Right Lower Extremity with 2-D bray scale, color Doppler flow and spectral waveform analysis with image documentation. Limited exam was focused on the right lower extremity veins. COMPARISON: No relevant prior studies available. FINDINGS: Right deep veins: The common femoral, femoral, proximal profunda femoral and popliteal veins are patent without thrombus. Normal Doppler waveforms. Normal compressibility and/or augmentation response. The visualized calf veins are patent. Right superficial veins: Saphenofemoral junction is patent without thrombus. Soft tissues: No Gee's cyst IMPRESSION: No evidence of a deep vein thrombosis. REPORT SIGNED IN OTHER VENDOR SYSTEM 09/22/2019 Reported By: Kennedy Diop MD CC: Transcribed Date/Time: 09/22/2019 (1741) Talent Manager: Printed Date/Time: 09/22/2019 (1741) PAGE 1 Signed Report David Torres MD [facility] ORDERABLES Final Resu lt documented in this encounter Visit Diagnoses Diagnosis Pain of right calf- Primary documented in this encounter Historical Medications * This list may reflect changes made after this encounter. hydroCHLOROthiazi de (HYDRODIURIL) 25 mg tablet Take 25 mg by mouth daily. 10/17/2020 added in this encounter Care Teams Tie Binder Relationship Specialty Start Date End Date Tien Garcia MD [address] [place] [phone] PCP - General 05/27/14 04/24/23 documented as of this encounter
--- OUTSIDE RECORDS SUMMARY | 2024-09-15 00:27 | XMS_ITS | Encounter Summary ---
Author Organization [facility] Address [address] [place] [address] Care Team Providers Care Thermoscrew Operator Name Role Phone Tien Garcia MD Primary Care Provider [phone] Reason for Referral * Laboratory Services (Routine/Next Available) - New Request Specialty Diagnoses / Procedures Referred By Bryanna rogers Referred To Contact Diagnoses Mixed hyperlipidemia Procedures LIPID PROFILE (INCLUDES CHOLESTEROL, TRIGLYCERIDES, HDL, LDL) Tien Garcia MD Phone: tel: fax: Referral ID Status Reason Start Date Expiration Date V isits Requested Visits Authorized [id number] New Request 05/13/2021 1 1 * Laboratory Services (Routine/Next Available) - New Request Specialty Diagnoses / Procedures Referred By Bryanna rogers Referred To Contact Diagnoses Essential hypertension Procedures BASIC METABOLIC PANEL (BMP) Tien Garcia MD Phone: tel: fax: Referral ID Status Reason Start Date Expiration Date V isits Requested Visits Authorized [id number] New Request 05/13/2021 1 1 Reason for Visit * Reason Onset Date Comments Pre-visit Planning 05/13/2021 Encounter Details Date Type Department Care Team (Late st Contact Info) Description 05/13/2021 Telephone [facility] [address], [address] [place], [place] [id number] Tien Garcia MD [address] [phone] Pre-visit Planning Social History Tobacco Use [...] Telephone Encounter - Tien Garcia MD - 05/13/2021 1516 EDT Previsit planning documented in this encounter Plan of Treatment Upcoming Encounters Date Type Department Care Team (Late st Contact Info) Description 11/18/2024 10:15 EDT Office Visit [facility] [address], [address] [place] [address] Andie Cool, DNP AGPCNP [address] [facility] [address] [place] [phone] documented as of this encounter Procedures Procedure Name Priority Date/Time Associated Diagnosis Comments LIPID PROFILE (INCLUDES CHOLESTEROL, TRIGLYCERIDES, HDL, LDL) Routine 05/24/2021 9:15 EDT Mixed hyperlipidemia BASIC METABOLIC PANEL (BMP) Routine 05/24/2021 9:15 EDT Essential hypertension documented in this encounter Results * (ABNORMAL) LIPID PROFILE (INCLUDES CHOLESTEROL, TRIGLYCERIDES, HDL, LDL) (05/24/2021 9:15 EDT) Triglyceride 180 <150 mg/dL 05/24/2021 10:25 [facility] Comment: Adult: Normal: ?<150 mg/dl ? Borderline High: 150-199 mg/dl ? High: ?200-499 mg/dl ? Very High: >lg=196 Cholesterol 217(H) <200 mg/dL 05/24/2021 10:25 [facility] Comment: Acceptable: ??<200 Borderline: ??200-239 High: ?> or = 240 Chol/HDL Ratio 5.2(H) 0 - 4.5 05/24/2021 10:25 [facility] Comment: DESIRABLE RATIO IS LESS THAN 4.1 PATIENTS ARE CONSIDERED AT RISK: WOMEN RATIO >5 MEN RATIO >6 FASTING? - [facility] Yes 9:15 [facility] HDL 41 40 - 60 mg/dL 05/24/2021 10:25 [facility] Comment: ?? Reference Range Low: ? < 40 ??mg/dL Normal: ??40-60 mg/dL High: ?>= 60 mg/dL LDL CHOLESTEROL - [facility] 140(H) 60 - 100 mg/dL 05/24/2021 10:25 [facility] Non HDL Cholesterol 176 mg/dl 05/24/2021 10:25 [facility] Comment: Desirable: ?Less than 130 Borderline High: ??130-159 High: ? 160-189 Very High: ?Greater than or equal to 190 Blood VENOUS BLOOD / Unknown 05/24/2021 9:15 EDT 05/24/2021 9:15 EDT [facility] - 05/24/2021 10:25 EDT Does PT Have a Latex Allergy? NO us Tien Garcia MD CHEMISTRY & BLOOD GAS ORDERABLES Final Result [facility] [address] [place] [address] * BASIC METABOLIC PANEL (BMP) (05/24/2021 9:15 EDT) BUN - [facility] 15 10 - 26 mg/dL [facility]21 [facility] CAL[facility]UM - [facility] 9.4 8.5 - 10.5 mg/dL 05/24/2021 10:25 [facility] Chloride 101 96 - 110 mmol/L 05/24/2021 10:25 [facility] CO2 Total 29 22 - 32 mEq/L 05/24/2021 10:25 [facility] CREATININE 0.67 0.52 - 1.04 mg/dL 05/24/2021 10:25 [facility] eGFR >60 05/24/2021 10:25 [facility] Comment: Chronic renal impairment is defined as GFR <60 Multiply result by 1.210 for patients. eGFR calculated using the IDMS-traceable MDRD Study Equation. ??(effective 06/14/2014) Anion Gap 9 0 - 18 05/24/2021 10:25 [facility] GLUCOSE - [facility] 98 70 - 100 mg/dL 05/24/2021 10:25 [facility] Potassium 4.3 3.5 - 5.0 mEq/L 05/24/2021 10:25 [facility] Sodium 139 136 - 145 mEq/L 05/24/2021 10:25 [facility] Blood VENOUS BLOOD / Unknown 05/24/2021 9:15 EDT 05/24/2021 9:15 EDT Narrative [facility] - 05/24/2021 10:25 EDT Does PT Have a Latex Allergy? NO us Tien Garcia MD CHEMISTRY & BLOOD GAS ORDERABLES Final Result [facility] [address] [place] [address] documented in this encounter Visit Diagnoses Diagnosis Essential hypertension- Primary Unspecified essential hypertension Mixed hyperlipidemia documented in this encounter Care Teams Thermoscrew Operator Relationship Specialty Start Date End Date Tien Garcia MD [address] [place] [phone] PCP - General 05/27/14 04/24/23 documented as of this encounter
--- OUTSIDE RECORDS SUMMARY | 2024-09-15 00:27 | XMS_ITS | Encounter Summary ---
Author Organization [facility] Address [address] [place] [address] Care Team Providers Care Patrol Man Name Role Phone Tien Garcia MD Primary Care Provider [phone] Reason for Visit * Reason Comments Otalgia Encounter Details Date Type Department Care Team (Late st Contact Info) Description 01/18/2020 11:00 EDT Telemedicine [facility] Family Medicine [address], [address] [place] [address] Shona Higgins PA-C [address] [facility] [address] [place] [phone] Ear pain, right (Primary Dx); Facial neuralgia Social History Tobacco Use Types Packs/Day Years [...] Refills Last Filled Start Date End Date methylPREDNISolone (MEDROL DEONDRE,) 4 mg tablet follow package directions 1 Pack 01/18/2020 0 documented in this encounter Progress Notes * Shona Higgins PA-C - 01/18/2020 1100 EDT [facility] Video Visit Today's visit was provided through telemedicine video conferencing: The location of the patient: Home The location of the provider: Office Verbal consent: The concept of ???Telemedicine?? has been described to the patient.? Patient has been informed of the anticipated benefits and possible risks.? Patient understands the information provided regardingtelemedicine, has had the opportunity to ask questions about this information, and all questions have been answered to patient???s satisfaction. Patient consents for the use of telemedicine in his/her medical care and authorizes the transmission of any relevant medical information to providers and their staff involved in patient???s medical or mental health care. Subjective: Chief Complaint(s): Otalgia HPI: Pt here for acute visit for c/o ear pain, x one week. Ear keeps popping, like fluid and pain down right side of neck, concentrated under the jaw on the right side. Patient also reports she is having numbness and tingling on the right side of her head with the pain from her ear going up into her voodoo area and higher on her head. She states her whole right side feels numb and tingly at times. She denies any other URI symptoms, no allergies. No TMJ or bruxism. No dental pain. No rashes noted. She has been taking ibuprofen with not great results or relief. She denies any fever or chills. She is able to to chew just fine. She has a remote history of headaches migraines when she was that have resolved. She denies any injury to the area. I have reviewed patient's tobacco history: reports that she has never smoked. She has never used smokeless tobacco. I have reviewed current problem list and current medications. Review of Systems Constitutional: Negative. HENT: Positive for ear pain. Negative for congestion, ear discharge, hearing loss, sinus pain, sorethroat and tinnitus. Eyes: Negative. Respiratory: Negative. Cardiovascular: Negative. Musculoskeletal: Negative. Neurological: Positive for tingling, sensory change and headaches. Objective: Examination: Well-developed well-nourished white female, no acute distress. Appears comfortable. Alert and oriented x3. Cranial nerves II through XII grossly intact. Makes good eye contact. No pain behavior. No obvious swelling of the face or neck area. No rashes noted. Respirations unlabored. Home Vitals: There were no vitals taken for this visit. Pertinent exam findings patient can observe: None Data reviewed with patient: Reviewed and/or ordered active problem list, medication list, allergiestests Assessment & Plan: 1. Ear pain, right Question if this is related to a possible neuralgia, trigeminal neuralgia. 2. Facial neuralgia Education and reassurance. Differential includes otitis serous vs trigeminal neuralgia, or headache. Recommend Medrol Dosepak to decrease inflammation and to recheck next week with PCP in office. Patient agrees with plan and will call if symptoms worsen before then. Precautions given with Medrol notto take any other NSAIDs and to take with food. I see the patient has a history of jaw pain which also could be a neuralgia. I spent a total of Time: 25 minutes minutes with Vanesa Zavala today and >50% of that time wasspent in counseling and coordination of care as described in the progress note. The following staff and their role did participate in today's encounter visit: Shona Higgins PAC, MS documented in this encounter Plan of Treatment Upcoming Encounters Date Type Department Care Team (Late st Contact Info) Description 11/18/2024 10:15 EDT Office Visit [facility] Family Medicine [address], [facility] [address] [place] [address] Andie Cool DNP AGPCANA [address] [place] [phone] documented as of this encounter Visit Diagnoses Diagnosis Ear pain, right- Primary Otalgia, unspecified Facial neuralgia Other facial nerve disorders documented in this encounter Care Teams Patrol Man Relationship Specialty Start Date End Date Tien Garcia MD [address] [place] [phone] PCP - General 05/27/14 04/24/23 documented as of this encounter
--- OUTSIDE RECORDS SUMMARY | 2024-09-15 00:27 | XMS_ITS | Encounter Summary ---
Author Organization [facility] Address [address] [place] [address] Care Team Providers Care Mesh Worker Name Role Phone Tien Garcia MD Primary Care Provider [phone] Shannon Calzada DO Primary Care Provider + Andie Cool DNP [facility] Primary Care Provi zee Reason for Visit * Reason Comments Other Encounter Details Date Type Department Care Team (Late st Contact Info) Description 07/07/2020 Refill [facility] [place] [address], [facility] 2 [place] [address] Tien Garcia MD [address] [place] [address] [address] [place] [phone] Other Social History Tobacco Use [...] tablet TAKE 1 TABLET BY MOUTH DAILY 30 Tab 5 07/11/2020 01/12/2021 documented in this encounter Miscellaneous Notes * Telephone Encounter - Ly York RN - 07/11/2020 0941 EST ROBERT 07/08/20 BP stable. Medication refilled. documented in this encounter Plan of Treatment Upcoming Encounters Date Type Department Care Team (Late st Contact Info) Description 11/18/2024 10:15 EDT Office Visit [facility] Family Medicine [facility] [address] [facility], [facility] 2 [place], [place] [phone] Andie Cool DNP AGPCNP [address] [place] [phone] documented as of this encounter Visit Diagnoses Not on filedocumented in this encounter Discontinued Medications Medication Sig Discontinue Reason Start Date End Da te amLODIPine (NORVASC) 5 mg tablet 08/16/2019 07/11/2020 documented as of this encounter Care Teams Mesh Worker Relationship Specialty Start Date End Date Tien Garcia MD [address] [place] [phone] PCP - General 05/27/14 04/24/23 Shannon Calzada DO [address] [place] [phone] PCP - General Family Medicine - Primary Care 04/25/23 09/07/24 Andie Cool DNP AGKEVAN [address] [place] [phone] PCP - General Family Medicine - Primary Care 09/08/24 documented as of this encounter
--- OUTSIDE RECORDS SUMMARY | 2024-09-15 00:27 | XMS_ITS | Encounter Summary ---
Author Organization [facility] Address [address] [place] [address] Care Team Providers Care Polisher Dial Name Role Phone Tien Garcia MD Primary Care Provider [phone] Reason for Visit * Reason Comments Hypertension Encounter Details Date Type Department Care Team (Late st Contact Info) Description 11/24/2019 10:30 EDT Telemedicine [facility] [place] [address], [facility] 2 [place] [address] Tien Garcia MD [address] [place] [address] [place] [phone] Essential hypertension (Primary Dx) Social History Tobacco Use Types Packs/Day Years Used Date Smoking Tobacco: Never Smokeless Tobacco: Never Comments Unknown Sex and Gender Information Value Date Recorded Sex Assigned at Female 08/28/2019 11:27 EST Legal Sex Female 18:27 EST Gender Identity Female 07/30/2019 7:59 EST Sexual Orientation Not on file documented as of this encounter Progress Notes * Tien Garcia MD - 11/24/2019 1030 EDT [facility] [place] Visit Today's visit was provided through [...] Complaint(s): No chief complaint on file. HPI: F/u htn. Tolerating diuretics with CCBs well. Checks bp occasionally; systolics 140s; diastolics low to mid 90s. Compliant with meds. At home with two kids during pandemic; home schooling. 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 I have reviewed patient's tobacco history: reports [...] last encounter tests Assessment & Plan: 1. Essential hypertension Diastolics remain elevated above treatment goals. Will not change rx now due to multiple stressors in the midst of covid pandemic. Will f/u 3 mos; if diastolics still elevated consider increasing amlodpine. If still elevated consider trial of spironolactone (could not tolerate KARYN or ARB). I spent a total of 25 minutes with patient and >50% of that time was spent in counseling and coordination of care as described in the progress note. The following staff and their role did participate in today's encounter visit: Tien Garcia MD documented in this encounter Plan of Treatment Upcoming Encounters Date Type Department Care Team (Late st Contact Info) Description 11/18/2024 10:15 EDT Office Visit [facility] Family Medicine [facility] [address], [facility] 2 [place] [address] Andie Cool DNP AGPCNP [address] [place] [address] 2 [place] [phone] documented as of this encounter Visit Diagnoses Diagnosis Essential hypertension- Primary Unspecified essential hypertension documented in this encounter Care Teams Polisher Dial Relationship Specialty Start Date End Date Tien Garcia MD [address] [place] [address] 2 [place] [phone] PCP - General 05/27/14 04/24/23 documented as of this encounter
--- OUTSIDE RECORDS SUMMARY | 2024-09-15 00:27 | XMS_ITS | Encounter Summary ---
Author Organization [facility] Address [address] [place] [address] Care Team Providers Care Product Manager E Commerce Name Role Phone Tien Garcia MD Primary Care Provider [phone] Reason for Visit * Reason Onset Date Comments Orders (Non Pre-visit) 07/04/2020 STAT crea elton order for CT scan Encounter Details Date Type Department Care Team (Late st Contact Info) Description 07/04/2020 Telephone [facility] Family Medicine [address], [facility] 2 [place] [address] Tien Garcia MD [address] [place] [address] [place] [phone] Orders (Non Pre-visit) (STAT creatine order for CT scan) Social History Tobacco Use Types Packs/Day [...] Telephone Encounter - Melody Christiansen LPN - 07/04/2020 1708 EST Faxed BMP to [facility] as requested. * Telephone Encounter - Tien Garcia MD - 07/04/2020 1703 EST Done. * Telephone Encounter - Melody Christiansen LPN - 07/04/2020 1659 EST BMP pended - Tien can you sign this and I will fax it right away? * Telephone Encounter - Celsa Faulkner - 07/04/2020 1634 EST Maranda from [facility] called. Pt is scheduled for a CT tomorrow AM (07/05). Pt needs a statcreatine order faxed to [phone]. documented in this encounter Plan of Treatment Upcoming Encounters Date Type Department Care Team (Late st Contact Info) Description 11/18/2024 10:15 EDT Office Visit [facility] Family Medicine [address], [facility] 2 [place] [address] Andie Cool, VIRGIE AGPCNP [address] [place] [address] 2 [place] [phone] documented as of this encounter Visit Diagnoses Diagnosis Chronic right-sided thoracic back pain- Primary documented in this encounter Care Teams Product Manager E Commerce Relationship Specialty Start Date End Date Tien Garcia MD [address] [place] [address] 2 [place] [phone] PCP - General 05/27/14 04/24/23 documented as of this encounter
--- OUTSIDE RECORDS SUMMARY | 2024-09-15 00:27 | XMS_ITS | Encounter Summary ---
Author Organization [facility] Address [address] [place] [address] Care Team Providers Care Corporate Quality Manager Name Role Phone Tien Garcia MD Primary Care Provider [phone] Reason for Visit * Reason Comments Follow-up BP medication Encounter Details Date Type Department Care Team (Late st Contact Info) Description 07/31/2019 11:20 EST Office Visit [facility] Family Medicine [address], [place] [address] [place] [address] Tien Garcia MD [address] [place] [address] [address] [place] [phone] Essential hypertension (Primary Dx); Anxiety disorder, unspecified type; Cough due to KARYN inhibitor Social History Tobacco Use Types Packs/Day Years Used Date Smoking Tobacco: Never Assessed Comments Unknown Sex and Gender Information Value Date Recorded Sex Assigned at Female 08/28/2019 11:27 EST Legal Sex Female 18:27 EST Gender Identity Female 07/30/2019 7:59 EST Sexual Orientation Not on file documented as of this encounter Last Filed Vital Signs Vital Sign Reading Time Taken Comments Blood Pressure 162/88 07/31/2019 1132 EST Pulse 72 07/31/2019 1132 EST Temperature - - Respiratory Rate - - Oxygen Saturation - - Inhaled Oxygen Concentration - - Weight 65 kg (143 lb 6.4 oz) 07/31/2019 1132 EST Height - - Body Mass Index - - documented in this encounter Ordered Prescriptions Prescription Sig Dispense Quantity Refills Last Filled Start Date End Date hydroCHLOROthiazide (HYDRODIURIL) 25 mg tablet Take 1 Tab by mouth daily for 30 days. 90 Tab 11 07/31/2019 08/30/2019 documented in this encounter Progress Notes * Tien Garcia MD - 07/31/2019 1120 EST Assessment/Plan: 1. Essential hypertension She has had problems tolerating both KARYN receptor blockers and KARYN inhibitors due to cough. In fact, cough lingers now 1 month following the withdrawal of her KARYN receptor bolivar. Continue amlodipine 5 mg daily. Increase hydrochlorothiazide from 12.5 to 25 mg daily. Follow-up in1 month. 2. Cough due to KARYN inhibitor She is still coughing despite discontinuing her KARYN receptor bolivar now 4 weeks prior. I do not find any specific abnormalities on physical examination to suggest an infectious etiology. The cough is severe enough to be waking her at nighttime. We talked about trying some cough suppressants to include [id number] cough medications. She is reluctant to try any narcotic-containing cough medications. I reassured her that I thought with more time the cough will resolve of its own, and I will see her back in 1 month. Subjective: Follow-up (BP medication) HPI: Follow-up hypertension. Started on lisinopril combined with hydrochlorothiazide 2 months prior. Combination therapy was discontinued when she developed a dry cough; switch to losartan and hydrochlorothiazide separately. Losartan discontinued about a month ago when cough persisted, subsequently switched to amlodipine. Advised to continue hydrochlorothiazide, but she stopped that several weeks ago when her cough persisted and she did not feel that it was helping to lower her blood pressure with systolics continuing between 160 and 170 at home. Today, she still has a tickle in the back of her throat. Has also been following her blood pressureat home and highly variable. Has tried to cut back on her salt intake. No other signs or symptoms of an upper respiratory illness. No fevers or chills. Current Outpatient Medications: amLODIPine (NORVASC) 5 mg tablet hydroCHLOROthiazide (MICROZIDE) 12.5 mg capsule ibuprofen (MOTRIN) 200 mg tablet losartan (COZAAR) 50 mg tablet nitrofurantoin, macrocrystal-monohydrate, (MACROBID) 100 mg capsule No current facility-administered medications for this visit. Review of Systems Denies fever or rash. ROS Past Medical History: Diagnosis Date ??? Mole (skin) Past Surgical History: Procedure Laterality Date ??? OTHER SURGICAL HISTORY excision of moles ??? WISDOM TOOTH EXTRACTION Allergies Allergen Reactions ??? Lisinopril Cough Objective: VS: BP (!) 162/88 Pulse 74 Wt 65 kg (143 lb 6.4 oz) There is no height or weight on file to calculate BMI. Physical Exam: Physical Exam General appearance: alert, [...] Info) Description 11/18/2024 10:15 EDT Office Visit [facility] Family Medicine - [address], [facility] 2 [place] [address] Andie Cool DNP AGPCNP [address] [facility] [address] [place] [phone] documented as of this encounter Visit Diagnoses Diagnosis Essential hypertension- Primary Unspecified essential hypertension Anxiety disorder, unspecified type Cough due to KARYN inhibitor Cough documented in this encounter Discontinued Medications Medication Sig Discontinue Reason Start Date End Da te losartan (COZAAR) 50 mg tablet Take 50 mg by mouth daily. Therapy completed 07/31/2019 nitrofurantoin, macrocrystal-monohydrate, (MACROBID) 100 mg capsule Take 100 mg by mouth 2 times daily. Therapy completed 07/31/2019 hydroCHLOROthiazide (MICROZIDE) 12.5 mg capsuleIndications:2 tabs = 25mg Take 25 mg by mouth once daily. Therapy completed 06/09/2019 07/31/2019 documented as of this encounter Historical Medications * This list may reflect changes made after this encounter. ibuprofen (MOTRIN) 200 mg tablet Take 1 Tablet by mouth if needed. 3 tabs at a time added in this encounter Care Teams Corporate Quality Manager Relationship Specialty Start Date End Date Tien Garcia MD [address] [place] [phone] PCP - General 05/27/14 04/24/23 documented as of this encounter
--- OUTSIDE RECORDS SUMMARY | 2024-09-15 00:27 | XMS_ITS | Encounter Summary ---
Author Organization [facility] Address [address] [place] [address] Care Team Providers Care Assistant Boiler Operator Name Role Phone Tien Garcia MD Primary Care Provider [phone] Reason for Visit * Reason Onset Date Comments Results 07/05/2020 Encounter Details Date Type Department Care Team (Late st Contact Info) Description 07/05/2020 Telephone [facility] [place] Family Medicine [address], [facility] 2 [place] [address] Tien Garcia MD [address] [facility] [address] [place] [phone] Results Social History Tobacco Use Types Packs/Day [...] Telephone Encounter - Melody Christiansen LPN - 07/06/2020 0908 EST Scheduled pt for an in office visit on 07/08 at 1130. * Telephone Encounter - Tien Garcia MD - 07/05/2020 1719 EST I would recommend an in person office exam so I can examine this lump and area. * Telephone Encounter - Bria Roa RN - 07/05/2020 1556 EST Called and notified Vanesa. She verbalized understanding. Has been going to PT. nothing really helps or makes it go away. Also states that she has this lump all the time. Plans on continuing PT. Has tried heat and gentle stretches with no improvement. To Dr. Garcia, she is wondering what next steps are? * Telephone Encounter - Tien Garcia MD - 07/05/2020 1237 EST Please let Vanesa know that her CT scan looks fine; no evidence of hernia or any abnormality noted on her CT scan. documented in this encounter Plan of Treatment Upcoming Encounters Date Type Department Care Team (Late st Contact Info) Description 11/18/2024 10:15 EDT Office Visit [facility] Family Medicine [facility] [address], [facility] 2 [place] [address] Andie Cool DNP AGPCNP [address] [phone] documented as of this encounter Visit Diagnoses Not on filedocumented in this encounter Care Teams Assistant Boiler Operator Relationship Specialty Start Date End Date Tien Garcia MD [address] [place] [phone] PCP - General 05/27/14 04/24/23 documented as of this encounter
--- OUTSIDE RECORDS SUMMARY | 2024-09-15 00:27 | XMS_ITS | Encounter Summary ---
Author Organization [facility] Address [address] [place] [address] Care Team Providers Care Barrel Scraper Name Role Phone Tien Garcia MD Primary Care Provider [phone] Reason for Visit * Reason Comments Hypertension Encounter Details Date Type Department Care Team (Late st Contact Info) Description 08/28/2019 10:40 EST Office Visit [facility] - [facility] Family Medicine [address], [facility] 2 [place] [address] Tien Garcia MD [address] [place] [address] [address] [place] [phone] Essential hypertension (Primary Dx); Pure hypercholesterolemia; Ulnar neuropathy at elbow, left Social History Tobacco Use Types Packs/Day Years [...] Sign Reading Time Taken Comments Blood Pressure 138/94 08/28/2019 1050 EST Pulse 76 08/28/2019 1050 EST Temperature - - Respiratory Rate - - Oxygen Saturation - - Inhaled Oxygen Concentration - - Weight 65.3 kg (144 lb) 08/28/2019 1050 EST Height - - Body Mass Index - - documented in this encounter Progress Notes * Tien Garcia MD - 08/28/2019 1040 EST Assessment/Plan: 1. Essential hypertension Her blood pressure is adequately controlled on 2 agent therapy, calcium channel blockers, and diuretics. She indicates that she still does not feel great, although she recognizes that this could be in part attributable to underlying stressors. We will continue current medications, and recheck in 3 months. - LIPID PROFILE (INCLUDES CHOLESTEROL, TRIGLYCERIDES, HDL, LDL); Future - BASIC METABOLIC PANEL (BMP); Future 2. Pure hypercholesterolemia She has made some significant dietary changes in an effort to reduce her intake of dietary fats. Will check fasting lipid panel prior to next office visit. 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 Discussed the use of armrests. She typically does use them especially in her car, as well as at work. Also, she tends to sleep with her elbow bent, on her left arm during nighttime. The importance of an appropriate sleeping position was stressed. We will follow- up PRN. Subjective: Hypertension HPI: F/u several items: 1. Persistent cough at night; worse with recumbency. 2. F/u htn. I just dont feel great. C/o pain left arm, dull, axillary region radiating into middle and ring finger. Worse with exertion, accompained by breathlessness. Symptoms present for the last4-5 months worse walking up a hill. Symptoms are always present but worse walking up hill. Current Outpatient Medications: amLODIPine (NORVASC) 5 mg tablet hydroCHLOROthiazide (HYDRODIURIL) 25 mg tablet ibuprofen (MOTRIN) 200 mg tablet No current facility-administered medications for this visit. Review of Systems Denies fever or rash. ROS Past Medical History: Diagnosis Date ??? Mole (skin) Past Surgical History: Procedure Laterality Date ??? OTHER SURGICAL HISTORY excision of moles ??? WISDOM TOOTH EXTRACTION Allergies Allergen Reactions ??? Lisinopril Cough ??? Losartan Cough Objective: VS: BP (!) 138/94 Pulse 76 Wt 65.3 kg (144 lb) There is no height or weight on file to calculate BMI. Physical Exam: Physical Exam General appearance: alert, cooperative Eyes: conjunctivae/corneas clear, PERRL, EOM's intact Neck: supple, symmetrical, trachea midline Lungs: clear to auscultation bilaterally Heart: regular rate and rhythm, S1, S2 normal, no murmur, click, rub or gallop Neurologic: There is a positive Tinel sign at the left elbow reproducing her left upper extremity symptoms. Mental Status: seems euthymic Extremities: extremities warm, atraumatic, no cyanosis or edema Skin: Skin color, temperature, turgor normal. No rashes or lesions Data (reviewed with patient): Lab Results Component Value Date CHOL 214 (H) 04/27/2019 HDL 39 (L) 04/27/2019 LDL 145 (H) 04/27/2019 NA 137 05/14/2019 K 4.0 05/14/2019 CL 100 05/14/2019 CREATININE 0.85 05/14/2019 BUN 13 05/14/2019 CO2 25 05/14/2019 documented in this encounter Plan of Treatment Upcoming Encounters Date Type Department Care Team (Late st Contact Info) Description 11/18/2024 10:15 EDT Office Visit [facility] Family Medicine [address], [facility] 2 [place], [place] [phone] Andie Colo, DNP AGPCNP [address] [place] [phone] documented as of this encounter Visit Diagnoses Diagnosis Essential hypertension- Primary Unspecified essential hypertension Pure hypercholesterolemia Ulnar neuropathy at elbow, left documented in this encounter Historical Medications * This list may reflect changes made after this encounter. Medication Sig Dispense Quantity Refills Last Filled Start D ate End Date amLODIPine (NORVASC) 5 mg tablet 08/16/2019 07/11/2020 added in this encounter Care Teams Barrel Scraper Relationship Specialty Start Date End Date Tien Garcia MD [address] [place] [phone] PCP - General 05/27/14 04/24/23 documented as of this encounter
--- OUTSIDE RECORDS SUMMARY | 2024-09-15 00:27 | XMS_ITS | Encounter Summary ---
Author Organization [facility] Address [address] [place] [address] Care Team Providers Care Housing Project Manager Name Role Phone Tien Garcia MD Primary Care Provider [phone] Reason for Referral * Radiology Services (Routine/Next Available) - Authorization Not Required Specialty Diagnoses / Procedures Referred By Bryanna rogers Referred To Contact Diagnoses Right hip pain Procedures XR HIP 1 VIEW WITH ORTHOPELVIS RIGHT Carol Webb NP Phone: tel: fax: [facility] Referral ID Status Reason Start Date Expiration Date Visits Requested Visits Authorized [id number] Authorization Not Required 03/09/2022 1 1 Reason for Visit * Reason Comments New Patient Visit Encounter Details Date Type Department Care Team (Late st Contact Info) Description 03/09/2022 9:30 EDT Office Visit [facility] Orth[facility]ics & Sport Medicine [address] [place] [address] Carol Webb NP [address] [facility] [address] [place] [address] Right hip pain (Primary Dx) Social History Tobacco Use [...] Taken Comments Blood Pressure - - Pulse 99 03/09/2022 0930 EDT Temperature - - Respiratory Rate - - Oxygen Saturation 99% 03/09/2022 0930 EDT Inhaled Oxygen Concentration - - Weight - - Height - - Body Mass Index - - documented in this encounter Progress Notes * Carol Webb NP - 03/09/2022929 EDT CHIEF COMPLAINT: Right hip pain SUBJECTIVE: Vanesa Zavala is a 46 y.o. female with a history of chronic low back pain normally managed with hearing care professional who is here today with c/o right hip pain. Reports this started back in October when she fell at a birthday green party. Was dancing and partner let go, was unable to catch herself and fell onto her lateral hip. Has had pain since that just isn't improving. Some low back pain and lateral hip pain, occasionally goes into her groin. Some radiating pain down the back of her leg. She has started PT for her back and would like to try some PT for her hip as well. No numbness or tingling. ROS: see HPI above The past medical, family and social history have been reviewed in the patient chart. I spent time preparing in advance of the visit today, which included obtaining and reviewing prior history and notes from the primary care provider and/or referring providers, as well as reviewing any relevant prior imaging and tests, which I also independently interpreted. She quit smoking in 2008. Past Medical History: Diagnosis Date ??? Mole (skin) Social History Tobacco Use ??? Smoking status: Former Smoker Packs/day: 0.50 Quit date: 2008 Years since quittin.3 ??? Smokeless tobacco: Never Used Substance Use Topics ??? Alcohol use: Not on file Comment: occasionally Past Surgical History: Procedure Laterality Date ??? OTHER SURGICAL HISTORY excision of moles ??? WISDOM TOOTH EXTRACTION Allergies Allergen Reactions ??? Lisinopril Cough ??? Losartan Cough Medications Prior to Today's Visit Medication Sig ??? amLODIPine (NORVASC) 5 mg tablet TAKE 1 TABLET BY MOUTH DAILY ??? hydroCHLOROthiazide (HYDRODIURIL) 25 mg tablet TAKE 1 TABLET BY MOUTH ONCE DAILY. ??? ibuprofen (MOTRIN) 200 mg tablet 1 tab(s) orally every 6 hours ??? nitrofurantoin, macrocrystal-monohydrate, (MACROBID) 100 mg capsule Take 1 capsule by mouth 2 times daily. ??? omeprazole (PRILOSEC) 20 mg capsule Take 1 capsule by mouth every morning. No facility-administered medications prior to visit. OBJECTIVE: Pulse 99 SpO2 99% On physical exam, the patient is found to be a pleasant and cooperative female who appears to be alert and oriented x 3. She is well-developed, well-nourished and in no significant distress. Breathing is unlabored. Skin is warm pink and dry to inspection and palpation. Exam of the right hip is without overlying changes, deformity or atrophy. 5/5 strength quads, hamstrings, abductors and adductors. Flexion flexion to ~100 degree with pain. ER to 60 degrees, IR to 30 degrees with discomfort. Tender over lumbar spine and right SI joint. Tender throughout gluteal musculature. Mildly tender over greater trochanter, nontender through ITB. Radiographs of the right hip were obtained today and independently reviewed by me. Mild degenerative changes of the right hip and SI joint. ASSESSMENT/PLAN: 46yoF with a history of chronic low back pain here today with c/o right hip pain. She does have some subjective groin pain but maintains great ROM in the at hip. She is slightly tender over her greater trochanter which could be contributing, however I believe the majority of her symptoms to be stemming from her low back. We discussed treatment options for her mild OA which was seen on XR as well as lateral hip pain. She would like to keep it conservative, starting with some therapy and this referral was placed. Steroid injections are an option depending on response. Continue with PT and oral NSAIDS and follow up in 4-6 weeks for reevaluation. All questions answered, Vanesa is pleased with the plan. This note was prepared using voice recognition software and the EMR. There may be inadvertent errors and omissions. Carol Webb APRN 03/09/2022 documented in this encounter Plan of Treatment Upcoming Encounters Date Type Department Care Team (Late st Contact Info) Description 11/18/2024 10:15 EDT Office Visit [address], [facility] [address] [place] [address] Andie Cool, VIRGIE AGNP [address] [place] [phone] documented as of this encounter Results * XR HIP 1 VIEW WITH ORTHOPELVIS RIGHT (03/09/2022 9:41 EDT) Anatomical Region Laterality Modality Lower Extremities Right Computed Radio graphy 03/09/2022 10:3 0 EDT Impressions 03/09/2022 10:30 EDT Minimal bilateral hip and sacroiliac degenerative changes. Narrative 03/09/2022 10:30 EDT XR HIP 1 VIEW WITH ORTHOPELVIS RIGHT ?? Signs and Symptoms/Comments: ??right hip pain Comparison: None. FINDINGS: Bilateral Hips: 2 views of the right hip, and 1 view of the left hip for comparison, were performed. Bones: No acute fracture or malalignment. Degenerative changes: Minimal bilateral hip and sacroiliac degenerative changes. Soft tissues: Unremarkable. Procedure Note Vic Carlson MD - 03/09/2022 XR HIP 1 VIEW WITH ORTHOPELVIS RIGHT Signs and Symptoms/Comments: right hip pain Comparison: None. FINDINGS: Bilateral Hips: 2 views of the right hip, and 1 view of the left hip forcomparison, were performed. Bones: No acute fracture or malalignment. Degenerative changes: Minimal bilateral hip and sacroiliac degenerativechanges. Soft tissues: Unremarkable. IMPRESSION Minimal bilateral hip and sacroiliac degenerative changes. us Carol Webb NP IMG DIAGNOSTIC IMAGING ORDER GARY Final Result documented in this encounter Visit Diagnoses Diagnosis Right hip pain- Primary Pain in joint, pelvic region and thigh documented in this encounter Care Teams Housing Project Manager Relationship Specialty Start Date End Date Tien Garcia MD [address] [place] [phone] PCP - General 05/27/14 04/24/23 documented as of this encounter
--- OUTSIDE RECORDS SUMMARY | 2024-09-15 00:27 | XMS_ITS | Encounter Summary ---
Author Organization [facility] Address [address] [place] [address] Care Team Providers Care Mosaic Technician Name Role Phone Tien Garcia MD Primary Care Provider [phone] Reason for Visit * Reason Comments Hypertension Encounter Details Date Type Department Care Team (Latest Contact Info) Description 06/07/2021 15:45 EDT Office Visit [facility] [address], [address] [place] [address] Tien Garcia MD [address] [facility] [address] [place] [phone] Essential hypertension (Primary Dx); Thoracic radiculopathy Social History Tobacco Use Types [...] Sign Reading Time Taken Comments Blood Pressure 116/84 06/07/2021 1542 EDT Pulse 66 06/07/2021 1542 EDT Temperature - - Respiratory Rate 16 06/07/2021 1542 EDT Oxygen Saturation - - Inhaled Oxygen Concentration - - Weight 64.9 kg (143 lb) 06/07/2021 1542 EDT Height 152.4 cm (5') 06/07/2021 1542 EDT Body Mass Index 27.93 06/07/2021 1542 EDT documented in this encounter Progress Notes * Tien Garcia MD - 06/07/2021 1545 EDT Assessment/Plan: 1. Essential hypertension Her blood pressure is at treatment goals on current medications, including diuretics and CCB's. Transient elevation in blood pressure likely reflected some dietary changes, with superimposed stress. Basic metabolic profile within normal limits. Continue current therapy. 2. Thoracic radiculopathy She has noted persistent pain in the right mid thorax, radiating anteriorly towards the abdomen. This is not responded to multiple attempts at physical therapy. She may be a candidate for intercostalnerve block. But first, I would recommend MRI scanning of the thoracic spine. She is about ready to leave for a trip [place]. She will call us when she returns for scheduling. Subjective: Hypertension HPI: 1. F/u htn; noted a significant elevation in her bp several weeks ago; she called us with her concerns and we suggested she increase her amlodipine. She decided against that; and instead has been taking better care of herself; improving her diet, avoiding salt, stress is an ever present problem. 2. Persistent problems with right-sided thoracic radicular pain. She notes pain to the right of thethoracic spine, radiating anteriorly to below the costal margin. The symptoms have been present nowfor several years, and have not responded to conservative treatment measures to include several courses of physical therapy. Current Outpatient Medications Medication ??? amLODIPine (NORVASC) [...] Cough ??? Losartan Cough Objective: VS: BP 116/84 (BP Cuff Location: Right arm, BP Patient Position: Sitting, BP Cuff Sizes: Adult, regular) Pulse 66 Resp 16 Ht 152.4 cm (60) Wt 64.9 kg (143 lb) BMI 27.93 kg/m?? Body mass index is 27.93 kg/m??. Physical Exam: Physical Exam General appearance: [...] Info) Description 11/18/2024 10:15 EDT Office Visit [facility] Family Medicine [address], [facility] 2 [place], [place] [id number] Andie Cool DNP AGPCNP [address] [place] [address] 2 [place] [phone] documented as of this encounter Visit Diagnoses Diagnosis Essential hypertension- Primary Unspecified essential hypertension Thoracic radiculopathy Thoracic or lumbosacral neuritis or radiculitis, unspecified documented in this encounter Care Teams Mosaic Technician Relationship Specialty Start Date End Date Tien Garcia MD [address] [place] [phone] PCP - General 10/16/14 9/13/23 documented as of this encounter
--- OUTSIDE RECORDS SUMMARY | 2024-09-15 00:27 | XMS_ITS | Encounter Summary ---
Author Organization [facility] Address [address] [place] [address] Care Team Providers Care Regional Economic Liaison Name Role Phone Tien Garcia MD Primary Care Provider [phone] Reason for Visit * Reason Comments Back Pain also BP and GERD Encounter Details Date Type Department Care Team (Late st Contact Info) Description 01/31/2022 10:30 EDT Office Visit [facility] Family Medicine [address], [facility] 2 [place] [address] Mery Walton, [facility] [address] [facility] [address] [place] [phone] Essential hypertension (Primary Dx); Epigastric pain; Chronic right-sided low back pain without sciatica Social History Tobacco Use Types Packs/Day [...] Sign Reading Time Taken Comments Blood Pressure 136/97 01/31/2022 1129 EDT Pulse 89 01/31/2022 1035 EDT Temperature - - Respiratory Rate 20 01/31/2022 1035 EDT Oxygen Saturation 100% 01/31/2022 1035 EDT Inhaled Oxygen Concentration - - Weight 66.8 kg (147 lb 4.8 oz) 01/31/2022 1035 E DT Height 152.4 cm (5') 01/31/2022 1035 EDT Body Mass Index 28.77 01/31/2022 1035 EDT documented in this encounter Ordered Prescriptions Prescription Sig Dispense Quantity Refills Last Filled Start Date End Date omeprazole (PRILOSEC) 20 mg capsule Take 1 capsule by mouth every morning. 30 capsule 2 01/31/2022 2 documented in this encounter Progress Notes * Mery Walton, DNP - 01/31/2022 1030 EDT [facility] Primary Care APSO Assessment & Plan: 1. Essential hypertension 2. Epigastric pain Vanesa endorses several weeks of epigastric pain that radiates to the right shoulder. She denies accompanying nausea, diaphoresis, or shortness of breath. She does have HTN and was out of her medication for three days which she just resumed two days ago. EKG in the office was reviewed with Dr. Garcia and showed normal sinus rhythm with no ischemic changes. Her initial BP was elevated I suspect in part due to having missed several days of medication. She agreed to monitor her blood pressure once a day for the next week and send readings via [facility] to review. She has resumed Amlodipine 5 mg andhydrochlorothiazide 25 mg daily. We will also start a PPI trial to address acid reflux symptoms, and Vanesa was advised to take Omeprazole in the morning 30-60 minutes prior to the first meal of the day. We will f'up in 4-weeks to assess efficacy. ER precautions were reviewed for chest pain accompanied by dizziness, nausea, elevated blood pressure, diaphoresis. - EKG 12-LEAD 3. Chronic right-sided low back pain without sciatica Counseled about options for management at this time. Referral placed to re-start PT. [facility] due to chronicity of symptoms and minimal improvement with PT or chiropractor in the past. Discussed trial of muscle relaxer which patient declines at this time. Encouraged gentle stretching exercises and topical tx w/ Icy/Hot or Arnica. - AMB CONS/FOLLOW UP PHYSICAL THERAPY - OUTSIDE OF NETWORK; Future - AMB CONS/FOLLOW UP ORTHOPEDICS - [facility]; Future Return in about 4 weeks (around 02/28/2022) for F'UP HTN, GERD . Subjective: Chief Complaint(s): Back Pain (also BP and GERD) HPI I have reviewed current problem list and current medications. Vanesa called to schedule a visit today for evaluation of back pain. She reports that she was unable to get her BP meds last week and had to skip the hydrochlorothiazide and Amlodipine for three days. She restarted medications on Saturday. Her blood pressure remains quite elevated. She reports that she has had acid reflux for a few weeks. Does not seem to matter what I eat or what I drink. It is a nagging, daily thing. Has never had acid reflux in the past. Pain/ discomfort radiates to the right shoulder. No nausea or vomiting. No shortness of breath. No dizziness or diaphoresis. No headache. Has tried TUMs, does not seem to help much. Does seem to improve when she drinks water. Family hx of heart disease Mother - triple bypass in Jul, dx w heart disease in her 40s Father - HTN No personal history of tobacco use Also has chronic back pain x 21-years. She has been seen by a chiropractor several times with little improvement. Has also tried PT several times over the years which helps some but pain has never completely resolved. She also fell on October 14 which she thinks exacerbated the pain in the low back and right hip. No bowel or bladder retention or incontinence No LE weakness Objective: Examination: Vitals: BP (!) 136/97 (BP Cuff Location: Left arm, BP Patient Position: Sitting, BP Cuff Sizes: Adult, regular) Pulse 89 Resp 20 Ht 152.4 cm (60) Wt 66.8 kg (147 lb 4.8 oz) SpO2 100% BMI 28.77 kg/m?? Body mass index is 28.77 kg/m??. Physical Exam Constitutional: General: She is not in acute distress. Appearance: Normal appearance. She is not ill-appearing or diaphoretic. Cardiovascular: Rate and Rhythm: Normal rate and regular rhythm. Pulses: Normal pulses. Heart sounds: Normal heart sounds. Pulmonary: Effort: Pulmonary effort is normal. Breath sounds: Normal breath sounds. No wheezing, rhonchi or rales. Musculoskeletal: Cervical back: Normal and normal range of motion. Thoracic back: Normal. Lumbar back: Tenderness (to palpation of paraspinous muscles) present. No swelling, edema or bony tenderness. Decreased range of motion. Positive right straight leg raise test. Negative left straightleg raise test. Skin: General: Skin is warm. Neurological: General: No focal deficit present. Mental Status: She is alert and oriented to person, place, and time. Psychiatric: Mood and Affect: Mood normal. Behavior: Behavior normal. I spent a total of 45 minutes on the date of this encounter meeting with the patient and reviewing documentation/coordinating care as described in the above note. documented in this encounter Plan of Treatment Upcoming Encounters Date Type Department Care Team (Late st Contact Info) Description 11/18/2024 10:15 EDT Office Visit [facility] Family Medicine [address], [facility] 2 [place] [address] Andie Cool DNP AGPCNP [address] [place] [phone] Scheduled Orders Name Type Priority Associated Diagnoses Orde r Schedule EKG 12-LEAD ECG Routine Essential hypertension Ordered: 01/31/2022 documented as of this encounter Visit Diagnoses Diagnosis Essential hypertension- Primary Unspecified essential hypertension Epigastric pain Abdominal pain, epigastric Chronic right-sided low back pain without sciatica documented in this encounter Care Teams Regional Economic Liaison Relationship Specialty Start Date End Date Tien Garcia MD [address] [place] [phone] PCP - General 05/27/14 04/24/23 documented as of this encounter
--- OUTSIDE RECORDS SUMMARY | 2024-09-15 00:27 | XMS_ITS | Encounter Summary ---
Author Organization [facility] Address [address] [place] [address] Care Team Providers Care Embroidery Worker Name Role Phone Tien Garcia MD Primary Care Provider [phone] Reason for Visit * Reason Onset Date Comments Abdominal Pain 03/14/2020 Fatigue 03/14/2020 Nausea 03/14/2020 Shaking 03/14/2020 Requesting Sooner Appointment 03/14/2020 Returning Call 03/14/2020 Encounter Details Date Type Department Care Team (Late st Contact Info) Description 03/14/2020 Telephone [facility] [place] [place] [address], [facility] 2 [place] [address] Tien Garcia MD [address] [place] [address] [address] [place] [phone] Abdominal Pain; Fatigue; Nausea; Shaking; Requesting Sooner Appointment; Returning Call Social History Tobacco Use Types Packs/Day Years [...] Telephone Encounter - Siena Whitfield RN - 03/14/2020 1604 EDT She states last night she had an episode. Woke up with chest pain, pain in jaw on the L side. Was not short of breath, but chest felt heavy. She got up, stretched, did some deep breathing. Was not feeling stressed when she went to bed. Today she is not feeling well still. Tightness in chest going into her back. Today her BP is 171/98pulse 87 (around 12:30) and BP 151/98 ( around 2pm). Also 155/103. Her chest still feels tight right in the center of her chest. She states she does not have acid reflux. Is feeling very shaky, has aHA. Also nauseated. I advised she go to ER to rule out cardiac issue. She verbalized agreement. I asked she call us with update in the AM. FYI to PCP. * Telephone Encounter - Diana Vyas - 03/14/2020 1519 EDT Patient called back, please try again. * Telephone Encounter - Siena Whitfield RN - 03/14/2020 1428 EDT LM to call back. * Telephone Encounter - Diana Vyas - 03/14/2020 1309 EDT Patient reports she has been experiencing night time episodes, she reports chest & jaw aches, stomach ache, nausea, fatigue & shaking, not feeling right she said. This episode started about 0230 on 03/14, BP when she called was taken at 171/98, pulse 87. Temp was good for her /8, normal shesaid. She report she was seen at the ED 2 months ago for this same issue. No nurse available time of call, advise. documented in this encounter Plan of Treatment Upcoming Encounters Date Type Department Care Team (Late st Contact Info) Description 11/18/2024 10:15 EDT Office Visit [facility] Family Medicine [address], [facility] 2 [place] [address] Andie Cool, VIRGIE AGPCNP [address] [place] [phone] documented as of this encounter Visit Diagnoses Not on filedocumented in this encounter Care Teams Embroidery Worker Relationship Specialty Start Date End Date Tien Garcia MD [address] [place] [phone] PCP - General 05/27/14 04/24/23 documented as of this encounter
--- OUTSIDE RECORDS SUMMARY | 2024-09-15 00:27 | XMS_ITS | Encounter Summary ---
Author Organization [facility] Address [address] [place] [address] Care Team Providers Care Alarm Signaler Name Role Phone Tien Garcia MD Primary Care Provider [phone] Reason for Visit * Reason Onset Date Comments Medications Refill 02/26/2022 Encounter Details Date Type Department Care Team (Late st Contact Info) Description 02/26/2022 Refill [facility] [address], [facility] 2 [place] [address] Mery Walton, [address] [place] [phone] Medications Refill Social History Tobacco [...] 1 CAPSULE BY MOUTH EVERY MORNING 90 capsule 1 02/27/2022 documented in this encounter Miscellaneous Notes * Telephone Encounter - Balbina Heller RN - 02/27/2022 1140 EDT ROBERT 01/31/2022 NOV 03/01/2022 Refilled per protocol documented in this encounter Plan of Treatment Upcoming Encounters Date Type Department Care Team (Late st Contact Info) Description 11/18/2024 10:15 EDT Office Visit [facility] Family Medicine [address], [facility] 2 [place] [address] Andie Cool DNP AGPCNP [address] [place] [phone] documented as of this encounter Visit Diagnoses Diagnosis Epigastric pain- Primary Abdominal pain, epigastric documented in this encounter Discontinued Medications Medication Sig Discontinue Reason Start Date End Da te omeprazole (PRILOSEC) 20 mg capsule Take 1 capsule by mouth every morning. 01/31/2022 02/27/2022 documented as of this encounter Care Teams Alarm Signaler Relationship Specialty Start Date End Date Tien Garcia MD [address] [place] [phone] PCP - General 05/27/14 04/24/23 documented as of this encounter
--- OUTSIDE RECORDS SUMMARY | 2024-09-15 00:28 | XMS_ITS | Encounter Summary ---
Author Organization [facility] Address [address] [place] [address] Care Team Providers Care Environmental Engineering Assistant Name Role Phone Tien Garcia MD Primary Care Provider [phone] Reason for Visit * Reason Onset Date Comments Hypertension 07/20/2019 Encounter Details Date Type Department Care Team (Late st Contact Info) Description 07/20/2019 Telephone [facility] - [facility] Family Medicine [address], [facility] 2 [place] [address] Tien Garcia MD [address] [place] [address] [place] [phone] Hypertension Social History Tobacco Use Types Packs/Day Years Used Date Smoking Tobacco: Never Assessed Comments Unknown Sex and Gender Information Value Date Recorded Sex Assigned at Female 08/28/2019 11:27 EST Legal Sex Female 18:27 EST Gender Identity Female 07/30/2019 7:59 EST Sexual Orientation Not on file documented as of this encounter Miscellaneous Notes * Telephone Encounter - Bria Roa RN - 07/20/2019 1319 EST Spoke w/ patient. Relayed message from Dr. Starr. Alexis verbalized understanding * Telephone Encounter - Tien Garcia MD - 07/20/2019 1021 EST Keep 07/31 ov; 07/28 dates already mostly filled. * Telephone Encounter - Bria Roa RN - 07/20/2019 0935 EST Spoke w/ Vanesa. She reports that she still is not feeling well. She endorses the following Sx: dizziness, headache, feeling shaky. She states that I just dont feel good on any of these BP medications. Medication list reconciled. She takes 5mg of Norvasc. * Telephone Encounter - Latrice Batista - 07/20/2019 0924 EST Pt called asking to speak with a nurse, states she does not want to take her BP medicine anymore, pt feels like whatever she takes does not help her, states BP is still high 154/87 this morning. States that is the lowest it has been so far. documented in this encounter Plan of Treatment Upcoming Encounters Date Type Department Care Team (Late st Contact Info) Description 11/18/2024 10:15 EDT Office Visit [facility] Family Medicine [facility] [address], [facility] 2 [place] [address] Andie Cool, DNP AGPCNP [address] [place] [address] 2 [place] [phone] documented as of this encounter Visit Diagnoses Not on filedocumented in this encounter Care Teams Environmental Engineering Assistant Relationship Specialty Start Date End Date Tien Garcia MD [address] [place] [address] 2 [place] [phone] PCP - General 05/27/14 04/24/23 documented as of this encounter
--- OUTSIDE RECORDS SUMMARY | 2024-09-15 00:28 | XMS_ITS | Encounter Summary ---
Author Organization [facility] Address [address] [place] [address] Care Team Providers Care Barrel Rifler Operator Name Role Phone Tien Garcia MD Primary Care Provider Reason for Visit * Reason Onset Date Comments Medication Reaction 06/30/2019 Encounter Details Date Type Department Care Team (Late st Contact Info) Description 06/30/2019 Telephone [facility] [place] [address], [facility] 2 [place] [address] Tien Garcia MD [address] [place] [address] [address] [place] [phone] Medication Reaction Social History Tobacco Use Types Packs/Day Years Used Date Smoking Tobacco: Never Assessed Comments Unknown Sex and Gender Information Value Date Recorded Sex Assigned at Female 08/28/2019 11:27 EST Legal Sex Female 18:27 EST Gender Identity Female 07/30/2019 7:59 EST Sexual Orientation Not on file documented as of this encounter Miscellaneous Notes * Telephone Encounter - Melody Christiansen LPN - 07/01/2019 0858 EST Notified pt of the recommendations from BS. Updated medication list to reflect these changes. Scheduled 1 month f/u OV on 07/31/19. * Telephone Encounter - Tara Green - 07/01/2019 0752 EST Found in front, forwarding to nursing to advise pt on medication * Telephone Encounter - Tien Garcia MD - 06/30/2019 1226 EST It is absolutely possible that she is also coughing to the losartan. Have her stop losartan. Take 2hydrochlorothiazide pills once daily in the morning. Schedule office visit 1 month for follow-up. * Telephone Encounter - Melody Christiansen LPN - 06/30/2019 1133 EST On 06/09, pt was started on Losartan and HCTZ separately for BP as they did not have combo med. Prior to this she was on HCTZ-Lisinopril and had a side effect of the Lisinopril. She is reporting thatsince she originally started on BP medications 7 weeks ago, she has not been able to get a good night's rest and is constantly coughing which is making her sore. She does report having mucous in her throat and after coughing it causes her to sneeze. She is questioning if she is having a reaction tothe Losartan. Tien, liz advise. * Telephone Encounter - Tara Green - 06/30/2019 1117 EST Pt reports she is going on week 7 without getting a good nights sleep, since starting BP medication. Pt is wondering if she is having a reaction to it as her symptoms have got better. All she does iscough and sneeze. documented in this encounter Plan of Treatment Upcoming Encounters Date Type Department Care Team (Late st Contact Info) Description 11/18/2024 10:15 EDT Office Visit [facility] Family Medicine [facility] [address], [facility] 2 [place] [address] Andie Cool DNP AGPCNP [address] [phone] documented as of this encounter Visit Diagnoses Not on filedocumented in this encounter Historical Medications * This list may reflect changes made after this encounter. hydroCHLOROthiazi de (MICROZIDE) 12.5 mg capsuleIndication s:2 tabs = 25mg Take 25 mg by mouth once daily. 06/09/2019 07/31/2019 added in this encounter Care Teams Barrel Rifler Operator Relationship Specialty Start Date End Date Tien Garcia MD [address] [place] [phone] PCP - General 05/27/14 04/24/23 documented as of this encounter
--- OUTSIDE RECORDS SUMMARY | 2024-09-15 00:28 | XMS_ITS | Encounter Summary ---
Author Organization [facility] Address [address] [place] [address] Care Team Providers Care Crossing Gateman Name Role Phone Unavailable Primary Care Provider Unavailabl e Encounter Details Date Type Department Care Team (Late st Contact Info) Description 03/02/2011 Results Only [facility] [phone] Paulette Torres MD [address] [place] [address] Social History Tobacco Use Types Packs/Day Years [...] 11/18/2024 10:15 EDT Office Visit [facility] - [facility] [place] [facility] Family Medicine - [address], [address] [place] [address] Andie Cool, DNP AGPCNP [address] [facility] [address] [place] [address] documented as of this encounter Procedures Procedure Name Priority Date/Time Associated Diagnosis Comments PAP TEST- RESULT ONLY Routine 03/02/2011 0:00 EDT documented in this encounter Results * PAP TEST- RESULT ONLY (03/02/2011 0:00 EDT) Pathology Report: CYTOPATHOLOGY REPORT ? Reports generated via electronic interface contain original data; ? however they are lacking the format of the original report. ? Caution should be taken when reading/interpreti ng unformatted reports. ? Name: ? VANESA BROWER ? Accession #: ? [id number] ? : ? 1975 (Age: 35) ??F ?Collect Date: ? 03/02/2011 ? Location: ? [facility] ? Receive Date: ? 03/05/2011 ? Provider: ?PAULETTE TORRES MD ? Copy to: ? Specimen/Source: ?Pap Test, Cervix/Endocervix, ThinPrep Imaging System ? with manual evaluation ? Last Menstrual Period: ? 02/07/2011 ? SPECIMEN ADEQUACY ? Satisfactory for Evaluation ? - transformation zone component present ? GENERAL CATEGORIZATION ? Negative for Intraepithelial Lesion or Malignancy ? INTERPRETATION ? Fungal organisms present morphologically consistent with Cary species. ? Document reviewed and electronically signed by: ? Omer Stumler, CT(ASCP) ? Report Date: ??03/08/2011 13:38 ? End of Report ? [facility] 03/02/2011 03/05/2011 us Paulette Torres MD PATHOLOGY ORDERABLES Final Resu lt [facility] [address] [place] [address] documented in this encounter Visit Diagnoses Not on filedocumented in this encounter
--- OUTSIDE RECORDS SUMMARY | 2024-09-15 00:28 | XMS_ITS | Encounter Summary ---
Author Organization [facility] Address [address] [place] [address] Care Team Providers Care Hearing Screen Coordinator Name Role Phone Unavailable Primary Care Provider Unavailabl e Encounter Details Date Type Department Care Team (Late st Contact Info) Description 01/01/2008 8:50 EDT Hospital Encounter [facility] conversion [address] [place] [address] Rachel Jauregui MD [address] [facility] [address] [place], [place] [id number] Social History Tobacco Use Types Packs/Day Years Used Date Smoking Tobacco: Former Cigarettes 0.5 22.3 1 987 - 2008 Smokeless Tobacco: Never Alcohol Use Standard Drinks/Week Comments Yes 0 (1 standard drink = 0.6 oz pur e alcohol) occasionally [facility] Utilities Answer Date Recorded In the past 12 months has [employer], gas, oil, or water [employer] threatened to shut off services in your [...] 10:12 EST documented as of this encounter Plan of Treatment Upcoming Encounters Date Type Department Care Team (Late st Contact Info) Description 11/18/2024 10:15 EDT Office Visit [facility] Medicine [facility] [address], [address] [place] [address] Andie Cool, VIRGIE AGPCNP [address] [facility] [place] [address] [place] [address] documented as of this encounter Procedures Procedure Name Priority Date/Time Associated Diagnosis Comments HPV DETECTION, HIGH RISK TYPES Routine 02/23/2009 10:30 EDT CYTOPATHOLOGY Routine 02/23/2009 0:00 EDT documented in this encounter Results * HUMAN PAPILLOMA VIRUS DNA TEST (02/23/2009 10:30 EDT) Specimen Description Cervix, ThinPrep vial [facility] Result Negative for HPV types 16, 18, 31, 33, 35, 39, 45, 51, 52, 56, 58, 59, and 68. [facility] Report Status Final 03/04/2009 [facility] 02/23/2009 10:3 0 EDT 03/01/2009 13:29 EDT us Cassidy Caal NP MICROBIOLOGY - GENERAL ORDERA BLES Final Result [facility] [address] [place] [address] * CYTOPATHOLOGY (02/23/2009 0:00 EDT) Pathology Report: CYTOPATHOLOGY REPORT ? Reports generated via electronic interface contain original data; ? however they are lacking the format of the original report. ? Caution should be taken when reading/interpreti ng unformatted reports. ? Name: ? VANESA BROWER ? Accession #: ? [id number] ? : ? 1975 (Age: 33) ??F ?Collect Date: ? 02/23/2009 ? Location: ? [facility] ? Receive Date: ? 02/24/2009 ? Provider: ?CASSIDY M EMIL BUSINESS INTEGRATION ANALYST ? Copy to: ? Specimen/Source: ?Pap Test, Cervix/Endocervix, ThinPrep Imaging System ? with manual evaluation ? Last Menstrual Period: ? 6/30/09 ? Hormonal/Contracep tive Status: ? Tubal ligation ? Other: ? HPVDX - HPV testing requested regardless of diagnosis on current ThinPrep Pap ?? test. ? SPECIMEN ADEQUACY ? Satisfactory for Evaluation ? - transformation zone component present ? GENERAL CATEGORIZATION ? Negative for Intraepithelial Lesion or Malignancy ? Document reviewed and electronically signed by: ? Kelsea Hollis, CT(ASCP) ? Report Date: ??02/28/2009 13:27 ? End of Report ? [facility] 02/23/2009 02/24/2009 us Cassidy Caal BUSINESS INTEGRATION ANALYST PATHOLOGY ORDERABLES Final Re sult [facility] [address] [place] [address] documented in this encounter Visit Diagnoses Not on filedocumented in this encounter
--- OUTSIDE RECORDS SUMMARY | 2024-09-15 00:28 | XMS_ITS | Encounter Summary ---
Author Organization [facility] Address [address] [place] [address] Care Team Providers Care Civil Cadd Technician Name Role Phone Unavailable Primary Care Provider Unavailabl e Encounter Details Date Type Department Care Team (Late st Contact Info) Description 01/01/2008 Before PRISM Converted Visit (Map) [facility] conversion [address] [place] [address] Rachel Jauregui MD [address] [facility] [address] [place], [place] [phone] Social History Tobacco Use Types Packs/Day Years Used Date Smoking Tobacco: Never Assessed Comments Unknown Sex and Gender Information Value Date Recorded Sex Assigned at Female 08/28/2019 11:27 EST Legal Sex Female 18:27 EST Gender Identity Female 07/30/2019 7:59 EST Sexual Orientation Not on file documented as of this encounter Progress Notes * Rachel Jauregui MD - 05/09/2009 1330 EDT DIVISION OF PLASTIC SURGERY PROGRESS/FOLLOWUP NOTE - 01/01/2008 Vanesa Zavala is a 32-year-old from [place] who came in for evaluation for moles on the face and trunk. The patient has seen Dr. Rivera [facility] a number of years ago. She has had Dr. Rivera remove a couple of moles on her right arm in the past with shave biopsy but they came back. She has not been to a loss prevention analyst since then. Her health is good. She has no known medical problems. She does smoke about a ?? pack a day. Past surgical history was significant for a couple of C-sections and a hernia repair. 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 OBJECTIVE On examination she is pleasant, cooperative and well-appearing. She is 5 feet tall, 106 pounds. Shewas wearing facial makeup today but it easy to examine. She has multiple scattered raised papules on the face and trunk. The ones on the face that concern her the most are the right cheek 4 mm, the left mandibular border 5 mm, right neck 4 mm, right nasolabial fold about 2 mm. All of them are well circumscribed. They are pinkish and raised domed papules. No worrisome pigmentation. No irregular borders and nothing over about 4-5 mm. I examined her back as well. There are too numerous to count scattered papules on the back. Some of them similar to theones on the face, many of them not quite so raised and many of them only about 2 mm in diameter. There is nothing that looks particularly irregular or atypical. ASSESSMENT AND PLAN The patient initially wanted all of her moles removed, which I told herwas really unpractical. She would like to focus on her face for now and I told her that I would remove a maximum of 3-4 and thatthere was not absolute medical necessity for this. The tradeoff would be a scar where the mole was and I cannot predict howwell the scar would fade with time, although mostly they would fade to some extent over time. The patient would like the four previously described moles on the face and neck removed. I told her that this may or may not be covered by insurance and she would be responsible alsofor pathology fees. I made it clear to her that they appear to be benign to me and I have suggestedto her that that she established care with a loss prevention analyst to have her moles followed since she does have multiple lesions. She was given financial information for having them removed under local anesthesia in the office in case the insurance will not cover. I spent about 20 minutes with this patient today. More than half of this time was spent in a counseling capacity. Signed by Rachel Jauregui MD 01/19/2008 09:44 Rachel Jauregui MD - Rachel Jauregui MD A - [facility] Job ID: [id number] Document ID: [id number] cc: documented in this encounter Plan of Treatment Upcoming Encounters Date Type Department Care Team (Late st Contact Info) Description 11/18/2024 10:15 EDT Office Visit [facility] Family Medicine [address], [address] [address] Andie Cool DNP AGPCNP [address] [place] [phone] documented as of this encounter Visit Diagnoses Not on filedocumented in this encounter
--- OUTSIDE RECORDS SUMMARY | 2024-09-15 00:28 | XMS_ITS | Encounter Summary ---
Author Organization [facility] Address [address] [place] [address] Care Team Providers Care Weight Inspector Name Role Phone Tien Garcia MD Primary Care Provider [phone] Encounter Details Date Type Department Care Team (Late st Contact Info) Description 05/14/2019 Results Only [facility] [place] [address] [place], [place] [phone] Tien Garcia MD [address] [facility] [address] [place] [address] Social History Tobacco Use Types Packs/Day Years [...] Visit [facility] Family Medicine [address], [address] [place] [address] Andie Cool, DNP AGPCNP [address] [phone] documented as of this encounter Procedures Procedure Name Priority Date/Time Associated Diagnosis Comments BASIC METABOLIC PANEL (BMP) Routine 05/14/2019 15:10 EDT documented in this encounter Results * (ABNORMAL) BASIC METABOLIC PANEL (BMP) (05/14/2019 15:10 EDT) BUN - [facility] 13 10 - 26 mg/dL [facility]2019 [facility] - [facility] 9.4 8.5 - 10.5 mg/dL 05/14/2019 16:24 [facility] Chloride 100 96 - 110 mmol/L 05/14/2019 16:24 [facility] CO2 Total 25 22 - 32 mEq/L 05/14/2019 16:24 [facility] CREATININE 0.85 0.52 - 1.04 mg/dL 05/14/2019 16:24 [facility] eGFR >60 05/14/2019 16:24 [facility] Comment: Chronic renal impairment is defined as GFR <60 Multiply result by 1.210 for patients. eGFR calculated using the IDMS-traceable MDRD Study Equation. ??(effective 06/14/2014) Anion Gap 12 0 - 18 05/14/2019 16:24 [facility] GLUCOSE - [facility] 116(H) 70 - 100 mg/dL 05/14/2019 16:24 [facility] Potassium 4.0 3.5 - 5.0 mEq/L 05/14/2019 16:24 [facility] Sodium 137 136 - 145 mEq/L 05/14/2019 16:24 [facility] 05/14/2019 15:1 0 EDT 05/14/2019 15:10 EDT Narrative [facility] - 05/14/2019 16:24 EDT Does PT Have a Latex Allergy? NO us Tien Garcia MD CHEMISTRY & BLOOD GAS ORDERABLES Final Result [facility] documented in this encounter Visit Diagnoses Not on filedocumented in this encounter Care Teams Weight Inspector Relationship Specialty Start Date End Date Tien Garcia MD [address] [place] [phone] PCP - General 05/27/14 04/24/23 documented as of this encounter
--- OUTSIDE RECORDS SUMMARY | 2024-09-15 00:28 | XMS_ITS | Encounter Summary ---
Author Organization [facility] Address [address] [place] [address] Care Team Providers Care Orthopaedic Physician Assistant Name Role Phone Unavailable Primary Care Provider Unavailabl e Encounter Details Date Type Department Care Team (Late st Contact Info) Description 03/13/2012 Results Only [facility] [phone] Paulette Torres MD [address] [place] [address] Social History Tobacco Use Types Packs/Day Years [...] 10:15 EDT Office Visit [facility] Family Medicine - [address] [place] [address] Andie Cool, DNP AGPCNP [address] [facility] [address] [place] [address] documented as of this encounter Procedures Procedure Name Priority Date/Time Associated Diagnosis Comments PAP TEST- RESULT ONLY Routine 03/13/2012 0:00 EDT documented in this encounter Results * PAP TEST- RESULT ONLY (03/13/2012 0:00 EDT) Pathology Report: CYTOPATHOLOGY REPORT Reports generated via electronic interface contain original data; however they are lacking the format of the original report. Caution should be taken when reading/interpreti ng unformatted reports. Name: ? VANESA BROWER ? Accession #: ? [id number] ? : ? 1975 (Age: 36) ??F ?Collect Date: ? 03/13/2012 ? Location: ? [facility] ? Receive Date: ? 03/14/2012 ? Provider: PAULETTE TORRES MD Copy to: ? Final Report SPECIMEN ADEQUACY ? Satisfactory for Evaluation - transformation zone component present GENERAL CATEGORIZATION ? Negative for Intraepithelial Lesion or Malignancy ?? Specimen/Source: ??Pap Test, Cervix/Endocervix, ThinPrep Imaging System with manual evaluation Document reviewed and electronically signed by: ? ASHLEY Andrews(ASCP) ? Report ??Date: 03/21/2012 07:58 HPV with Pap Test ? Date Ordered: ? 03/21/2012 ? Status: ?? Signed Out ?Date Complete: ? 03/25/2012 ? By: ??System Interface ? Date Reported: ? 03/25/2012 ? Interpretation RESULT: Negative for HPV. No E6 or E7 mRNA is detected from HPV types 16,18,31,33,35, 39,45,51,52,56,58, 59,66, and 68 by cash on delivery clerk mediated amplification. Comments Document reviewed and electronically signed by: ? System Interface ? Report date: 03/25/2012 By the signature above, the attending physician certifies that he/she has personally conducted a gross and/or microscopic examination of the described specimens and rendered or confirmed the above diagnosis. End of Report [facility] 03/13/2012 03/14/2012 us Paulette Torres MD PATHOLOGY ORDERABLES Final Resu lt [facility] [address] [place] [address] documented in this encounter Visit Diagnoses Not on filedocumented in this encounter
--- OUTSIDE RECORDS SUMMARY | 2024-09-15 00:28 | XMS_ITS | Encounter Summary ---
Author Organization [facility] Address [address] [place] [address] Care Team Providers Care Cottage Master Name Role Phone Tien Garcia MD Primary Care Provider Encounter Details Date Type Department Care Team (Late st Contact Info) Description 04/27/[address] [facility] [place] [address] [place], [place] [phone] Tien Garica MD 246 [facility] [address] [place] [address] Social History Tobacco Use Types [...] Info) Description 11/18/2024 10:15 EDT Office Visit [facility] Family Medicine [address], [address] [place] [address] Andie Cool, VIRGIE AGPCNP [address] [phone] documented as of this encounter Procedures Procedure Name Priority Date/Time Associated Diagnosis Comments URINALYSIS/COMPLETE - CV Routine 04/27/2019 8:58 EDT LIPID PROFILE (INCLUDES CHOLESTEROL, TRIGLYCERIDES, HDL, LDL) Routine 04/27/2019 8:58 EDT BASIC METABOLIC PANEL (BMP) Routine 04/27/2019 8:58 EDT documented in this encounter Results * (ABNORMAL) LIPID PROFILE (INCLUDES CHOLESTEROL, TRIGLYCERIDES, HDL, LDL) (04/27/2019 8:58 EDT) Triglyceride 150 <150 mg/dL 04/27/2019 10:03 [facility] Comment: Adult: Normal: ?<150 mg/dl ? Borderline High: 150-199 mg/dl ? High: ?200-499 mg/dl ? Very High: >fl=940 Cholesterol 214(H) <200 mg/dL 04/27/2019 10:03 [facility] Comment: Acceptable: ??<200 Borderline: ??200-239 High: ?> or = 240 Chol/HDL Ratio 5.4(H) 0 - 4.5 04/27/2019 10:03 [facility] Comment: DESIRABLE RATIO IS LESS THAN 4.1 PATIENTS ARE CONSIDERED AT RISK: WOMEN RATIO >5 MEN RATIO >6 FASTING? - [facility] Yes 9 8:59 [facility] HDL 39(L) 40 - 60 mg/dL 04/27/2019 10:03 [facility] Comment: ?? Reference Range Low: ? < 40 ??mg/dL Normal: ??40-60 mg/dL High: ?>= 60 mg/dL LDL CHOLESTEROL - [facility] 145(H) 60 - 100 mg/dL 04/27/2019 10:03 [facility] Non HDL Cholesterol 175 mg/dl 04/27/2019 10:03 [facility] Comment: Desirable: ?Less than 130 Borderline High: ??130-159 High: ? 160-189 Very High: ?Greater than or equal to 190 04/27/2019 8:58 EDT 04/27/2019 8:[address] [facility] - 04/27/2019 10:03 EDT Does PT Have a Latex Allergy? NO us Tien Garcia MD CHEMISTRY & BLOOD GAS ORDERABLES Final Result [facility] * BASIC METABOLIC PANEL (BMP) (04/27/2019 8:58 EDT) BUN - [facility] 20 10 - 26 mg/dL 04/27/2019 10:03 [facility] CALCIUM - [facility] 9.6 8.5 - 10.5 mg/dL 04/27/2019 10:03 [facility] Chloride 101 96 - 110 mmol/L 04/27/2019 10:03 [facility] CO2 Total 27 22 - 32 mEq/L 04/27/2019 10:03 [facility] CREATININE 0.84 0.52 - 1.04 mg/dL 04/27/2019 10:03 [facility] eGFR >60 04/27/2019 10:03 [facility] Comment: Chronic renal impairment is defined as GFR <60 Multiply result by 1.210 for patients. eGFR calculated using the IDMS-traceable MDRD Study Equation. ??(effective 06/14/2014) Anion Gap 11 0 - 18 04/27/2019 10:03 [facility] GLUCOSE - [facility] 85 70 - 100 mg/dL 04/27/2019 10:03 [facility] Potassium 4.4 3.5 - 5.0 mEq/L 04/27/2019 10:03 [facility] Sodium 139 136 - 145 mEq/L 04/27/2019 10:03 [facility] 04/27/2019 8:58 EDT 04/27/2019 8:[address] [facility] - 04/27/2019 10:03 EDT Does PT Have a Latex Allergy? NO us Tien Garcia MD CHEMISTRY & BLOOD GAS ORDERABLES Final Result [facility] * URINALYSIS/COMPLETE - [facility] (04/27/2019 8:58 EDT) URINE APPEARANCE - [facility] Sl Cloudy CLEAR 04/27/2019 9:35 [facility] URINE BACTERIA - [facility] MOD 04/27/2019 9:53 [facility] URINE BILIRUBIN - DIPSTICK - [facility] 1+ NEGATIVE 04/27/2019 9:35 [facility] Comment: Unable to confirm positive urine bilirubin. If clinical correlation is inconsistent, consider serum bilirubin. URINE BLOOD - [facility] 2+ NEG 04/27/2019 9:35 [facility] URINE COLOR - [facility] Yellow YELLOW 04/27/2019 9:35 [facility] URINE GLUCOSE - [facility] - [facility] Negative NEGATIVE 04/27/2019 9:35 [facility] URINE KETONE - [facility] Negative NEGATIVE 04/27/2019 9:35 [facility] URINE LEUK ESTERASE - [facility] Negative NEG 04/27/2019 9:35 [facility] URINE MUCUS - [facility] MOD 04/27/2019 9:53 [facility] URINE NITRITE - [facility] - [facility] Negative NEG 04/27/2019 9:35 [facility] URINE PH - [facility] 6.5 4.0 - 8.0 9 9:35 [facility] URINE PROTEIN - [facility] - [facility] Negative NEG 04/27/2019 9:35 [facility] URINE RBC - [facility] 3-6 rbc/hpf 04/27/20 19 9:[address] [facility] URINE SPECIFIC GRAVITY - [facility] 1.020 1.001 - 1.035 04/27/2019 9:[address] [facility] URINE SQUAMOUS CELLS - [facility] MANY NEG #/hpf 04/27/2019 9:[address] [facility] URINE UROBILINOGEN - [facility] - [facility] 0.2 0.2 - 1.0 04/27/2019 9:[address] [facility] URINE WBC - [facility] RARE NEG wbc/hpf 019 9:[address] [facility] 04/27/2019 8:58 EDT 04/27/2019 8:[address] [facility] - 04/27/2019 9:53 EDT Does PT Have a Latex Allergy? NO us Tien Garcia MD CHEMISTRY & BLOOD GAS ORDERABLES Final Result [facility] documented in this encounter Visit Diagnoses Not on filedocumented in this encounter Care Teams Cottage Master Relationship Specialty Start Date End Date Tien Garcia MD [address] [place] [phone] PCP - General 05/27/14 04/24/23 documented as of this encounter
--- OUTSIDE RECORDS SUMMARY | 2024-09-15 00:28 | XMS_ITS | Encounter Summary ---
Author Organization [facility] Address [address] [place] [address] Care Team Providers Care Watch Commander Name Role Phone Unavailable Primary Care Provider Unavailabl e Encounter Details Date Type Department Care Team (Latest Contact Info) Description 01/04/2005 13:46 EDT Hospital Encounter [facility] [address] [place] [address] Ian Schmitz MD [facility] [address] [place], [place] [id number] Discharge Disposition: Auto Discharge Social History Tobacco Use Types Packs/Day Years Used Date Smoking Tobacco: Never Assessed Comments Unknown Sex and Gender Information Value Date Recorded Sex Assigned at Female 08/28/2019 11:27 EST Legal Sex Female 18:27 EST Gender Identity Female 07/30/2019 7:59 EST Sexual Orientation Not on file documented as of this encounter Discharge Disposition Disposition Code Departure Means Destination Auto Discharge documented in this encounter Plan of Treatment Upcoming Encounters Date Type Department Care Team (Late st Contact Info) Description 11/18/2024 10:15 EDT Office Visit [facility] Family Medicine [place] [address], [address] [place], [place] [phone] Andie Cool, DNP AGPCNP [address] [phone] documented as of this encounter Procedures Procedure Name Priority Date/Time Associated Diagnosis Comments DETENTION DETAILED Routine 01/16/2005 16:30 EDT documented in this encounter Results * DETENTION DETAILED (01/16/2005 16:30 EDT) Anatomical Region Laterality Modality Other 01/16/2005 16:3 0 EDT Narrative 04/11/2009 11:09 EDT [id number],FAM HX SOULEYMANE SYNDROME Please refer to the separate [facility] report. Procedure Note Alvaro Helm MD - 04/11/2009 [id number],FAM HX SOULEYMANE SYNDROME Please refer to the separate [facility] report. Ian Schmitz MD [facility] DETENTION ORDERABLES Final Resu lt documented in this encounter Visit Diagnoses Not on filedocumented in this encounter
--- OUTSIDE RECORDS SUMMARY | 2024-09-15 00:28 | XMS_ITS | Encounter Summary ---
Author Organization [facility] Address [address] [place] [address] Care Team Providers Care Shoe Clerk Name Role Phone Unavailable Primary Care Provider Unavailabl e Encounter Details Date Type Department Care Team (Late st Contact Info) Description 01/03/2010 Abstract [facility] Plastic, Reconstructive & Cosmetic Surgery - [address], [address] [place] [address] No Pcp, Social History Tobacco Use Types Packs/Day Years [...] Info) Description 11/18/2024 10:15 EDT Office Visit [facility] Family Medicine [facility] [address] [facility], [address] [place] [address] Andie Cool, DNP AGPCNP 246 [facility] [address] [place] [phone] documented as of this encounter Visit Diagnoses Not on filedocumented in this encounter
--- OUTSIDE RECORDS SUMMARY | 2024-09-15 00:28 | XMS_ITS | Encounter Summary ---
Author Organization [facility] Address [address] [place] [address] Care Team Providers Care Escalator Installer Name Role Phone Unavailable Primary Care Provider Unavailabl e Encounter Details Date Type Department Care Team (Late st Contact Info) Description 01/13/2008 Results Only [facility] [place] [facility] [address] [place] [address] Dora Gomez MD [address] [place] [address] [place] [phone] Social History Tobacco Use Types Packs/Day Years [...] Office Visit [facility] Family Medicine [address], [email or web address] [address] [place] [address] Andie Cool, DNP AGPCNP [address] [phone] documented as of this encounter Procedures Procedure Name Priority Date/Time Associated Diagnosis Comments CYTOPATHOLOGY Routine 01/13/2008 0:00 EDT documented in this encounter Results * CYTOPATHOLOGY (01/13/2008 0:00 EDT) Pathology Report: CYTOPATHOLOGY REPORT Reports generated via electronic interface contain original data; however they are lacking the format of the original report. Caution should be taken when reading/interpreti ng unformatted reports. Name: ? VANESA BROWER ? Accession #: ? [id number] : ? 1975 (Age: 32) ??F ?Collect Date: ? 01/13/2008 Location: ? [facility] ? Receive Date: ? 01/14/2008 Provider: ?DORA GOMEZ MD Copy to: ? Specimen/Source: ?ThinPrep Pap Test, Source Not Provided, processed on [employer] ThinPrep Imaging System, with manual evaluation Last Menstrual Period: ? Other: ? HPVA - HPV testing requested if ASC-US on the current ThinPrep Pap test. ? SPECIMEN ADEQUACY ? Satisfactory for Evaluation - transformation zone component present GENERAL CATEGORIZATION ? Negative for Intraepithelial Lesion or Malignancy ? Document reviewed and electronically signed by: ? Mina Lemons, ASHLEY(ASCP) ? Report Date: ??01/15/2008 09:21 End of Report [facility] 01/13/2008 01/14/2008 us Dora Gomez MD PATHOLOGY ORDERABLES Final Resu lt Performing Organization Address City/State/[facility] Co de Phone Number [facility] [address] [place] [address] documented in this encounter Visit Diagnoses Not on filedocumented in this encounter
--- OUTSIDE RECORDS SUMMARY | 2024-09-15 00:28 | XMS_ITS | Encounter Summary ---
Author Organization [facility] Address [address] [place] [address] Care Team Providers Care Boat Buffer Plastic Name Role Phone Unavailable Primary Care Provider Unavailabl e Encounter Details Date Type Department Care Team (Late st Contact Info) Description 03/01/2010 Results Only [facility] [phone] Paulette Torres MD [address] [place] [address] Social History Tobacco Use Types Packs/Day Years [...] Info) Description 11/18/2024 10:15 EDT Office Visit [facility] Family Medicine - [address], [address] [place] [address] Andie Cool, DNP AGPCNP 246 [facility] [address] [place] [phone] documented as of this encounter Procedures Procedure Name Priority Date/Time Associated Diagnosis Comments CYTOPATHOLOGY Routine 03/01/2010 0:00 EDT documented in this encounter Results * CYTOPATHOLOGY (03/01/2010 0:00 EDT) Pathology Report: CYTOPATHOLOGY REPORT ? Reports generated via electronic interface contain original data; ? however they are lacking the format of the original report. ? Caution should be taken when reading/interpreti ng unformatted reports. ? Name: ? VANESA BROWER ? Accession #: ? [id number] ? : ? 1975 (Age: 34) ??F ?Collect Date: ? 03/01/2010 ? Location: ? [facility] ? Receive Date: ? 03/02/2010 ? Provider: ?PAULETTE TORRES MD ? Copy to: ? Specimen/Source: ?Pap Test, Cervix/Endocervix, ThinPrep Imaging System ? with manual evaluation ? Last Menstrual Period: ? Other: ? Additional clinical information: Last pap 07/16/09 neg. ? HPVA - HPV testing requested if ASC-US on the current ThinPrep Pap test. ? SPECIMEN ADEQUACY ? Satisfactory for Evaluation ? - transformation zone component present ? GENERAL CATEGORIZATION ? Negative for Intraepithelial Lesion or Malignancy ? Document reviewed and electronically signed by: ? Ramona Crowley, CT(ASCP)(IAC) ? Report Date: ??03/07/2010 14:42 ? End of Report ? [facility] 03/01/2010 03/02/2010 us Paulette Torres MD PATHOLOGY ORDERABLES Final Resu lt [facility] [address] [place] [address] documented in this encounter Visit Diagnoses Not on filedocumented in this encounter
--- OUTSIDE RECORDS SUMMARY | 2024-09-15 00:28 | XMS_ITS | Encounter Summary ---
Author Organization [facility] Address [address] [place] [address] Care Team Providers Care Abrasive Band Winder Name Role Phone Unavailable Primary Care Provider Unavailabl e Encounter Details Date Type Department Care Team (Late st Contact Info) Description 01/22/2001 15:43 EDT Hospital Encounter [facility] [address] [place] [address] Yulissa Jones MD [address] [place] [phone] Discharge Disposition: Auto Discharge Social History Tobacco [...] 10:15 EDT Office Visit [facility] Medicine [place] [address] [place] [address] Andie Cool, DNP AGPCNP [address] [phone] documented as of this encounter Procedures Procedure Name Priority Date/Time Associated Diagnosis Comments NATP PANEL COMPLETE Routine 01/22/2001 8:38 EDT documented in this encounter Results * NATP PANEL COMPLETE (01/22/2001 8:38 EDT) NATP Panel Complete See supplementary report [facility] 01/22/2001 8:38 EDT 01/23/2001 8:38 EDT us Marie Ochoa MD H[facility]OR[facility] FOR [facility] LOAD Fin al Result [facility] [address] [place] [address] documented in this encounter Visit Diagnoses Not on filedocumented in this encounter
--- OUTSIDE RECORDS SUMMARY | 2024-09-15 00:28 | XMS_ITS | Encounter Summary ---
Author Organization [facility] Address [address] [place] [address] Care Team Providers Care Mathematics Professor Name Role Phone Tien Garcia MD Primary Care Provider [phone] Reason for Visit * Reason Onset Date Comments Hypertension 07/15/2019 high blood press ure/ med change Encounter Details Date Type Department Care Team (Late st Contact Info) Description 07/15/2019 Telephone [facility] Family Medicine [address] [place] [address], [facility] [address] [place] [address] Tien Garcia MD [address] [place] [address] [place] [phone] Hypertension (high blood pressure/ med change) Social History Tobacco Use Types Packs/Day Years [...] Date End Date amLODIPine (NORVASC) 5 mg tabletIndications:E ssential hypertension Take 1 Tab by mouth daily for 30 days. 30 Tab 11 07/15/2019 08/14/2019 documented in this encounter Miscellaneous Notes * Telephone Encounter - Tien Garcia MD - 07/15/2019 1203 EST Noted. * Telephone Encounter - Melody Christiansen LPN - 07/15/2019 1029 EST Notified pt of the information below - she asked if it was necessary to go to the ER. I advised herto do what she thought was best and even though it may be anxiety causing BP to rise it may be a safer option to be evaluated in case of something else going on. TE to BS as FYI. Please close afterwards. * Telephone Encounter - Tien Garcia MD - 07/15/2019 1024 EST OK to send to local ER; I suspect it is her anxiety causing her bp to rise.... * Telephone Encounter - Melody Christiansen LPN - 07/15/2019 1018 EST Spoke to pt and notified her of the medication changes and the information below from BS. She verbalized understanding and wants this medication sent to [facility] in [place] which I updated in her chart. She is wondering what to do today as her BP now is 190/108 and continues to feel shaky and dizzy. Tien please advise on this. * Telephone Encounter - Tien Garcia MD - 07/15/2019 0959 EST Stop hctz; I set up rx for amlodipine but dont know which pharmacy to send it to. I suspect anxietymay be playing a role in symptoms. I dont think she needs to be seen in er or ec; try this med change; she has an ov with me later this month * Telephone Encounter - Bria Roa RN - 07/15/2019 0917 EST Spoke w/ Vanesa. She reports that her BP medication was changed on 07/01 from losartan to hctz. Today pt is having Sx including feeling shaky sometimes and my heart feels a little fluttery. She denies SOB or chest pain/pressure. She stated it feels more like im feeling anxious. This telegraphic typewriter operator advised that she at least go to [facility] evaluation, but that if she continues to feel like her Sx are worsening then she needs to go to the ER. Vanesa also reports BP this am was 177/109. Wondering if she should take a different medication, she feels as if the hctz is not working for her at this time. * Telephone Encounter - Celsa Faulkner - 07/15/2019 0906 EST Pt states that she needs some medication adjustments. Pt's blood pressure is very high. 177/109 this AM. Has been 160/over 100 something for the last few days. Pt has not been feeling well the last few days. Pt's heart feels fluttery. documented in this encounter Plan of Treatment Upcoming Encounters Date Type Department Care Team (Late st Contact Info) Description 11/18/2024 10:15 EDT Office Visit [facility] Family Medicine - [address] [place] [address] Andie Cool DNP AGPCNP 246 [facility] [address] [place] [phone] documented as of this encounter Visit Diagnoses Diagnosis Essential hypertension- Primary Unspecified essential hypertension documented in this encounter Care Teams Mathematics Professor Relationship Specialty Start Date End Date Tien Garcia MD [address] [place] [phone] PCP - General 05/27/14 04/24/23 documented as of this encounter
--- OUTSIDE RECORDS SUMMARY | 2024-09-15 00:28 | XMS_ITS | Encounter Summary ---
Author Organization [facility] Address [address] [place] [address] Care Team Providers Care Curriculum Developer Name Role Phone Tien Garcia MD Primary Care Provider [phone] Encounter Details Date Type Department Care Team (Late st Contact Info) Description 10/02/2016 Results Only [facility] [phone] Paulette Torres MD [address] [place] [address] Social History Tobacco Use Types Packs/Day Years [...] 11/18/2024 10:15 EDT Office Visit [facility] Family Medicine [facility] [address], [address] [place] [address] Andie Cool, DNP AGPCNP 246 [facility] [address] [place] [phone] documented as of this encounter Procedures Procedure Name Priority Date/Time Associated Diagnosis Comments PAP TEST- RESULT ONLY Routine 10/02/2016 0:00 EST documented in this encounter Results * PAP TEST- RESULT ONLY (10/02/2016 0:00 EST) Pathology Report: CYTOPATHOLOGY REPORT Reports generated via electronic interface contain original data; however they are lacking the format of the original report. Caution should be taken when reading/interpreti ng unformatted reports. Name: ? VANESA BROWER ? Accession #: ? [id number] ? : ? 1975 (Age: 40) ??F ?Collect Date: ? 10/02/2016 ? Location: ? [facility] ? Receive Date: ? 10/03/2016 ? Provider: PAULETTE TORRES MD Copy to: ? Final Report SPECIMEN ADEQUACY ? Satisfactory for Evaluation - transformation zone component present GENERAL CATEGORIZATION ? Negative for Intraepithelial Lesion or Malignancy ?? Infection History: Neg for HPV Other: Additional clinical information: 03/2012 Neg/Neg low risk pap HX Specimen/Source: ??Pap Test, Cervix, ThinPrep Imaging System with manual evaluation Document reviewed and electronically signed by: ? GISELLA Bell(ASCP) ? Report ??Date: 10/08/2016 10:25 HPV with Pap Test ? Date Ordered: ? 10/08/2016 ? Status: ?? Signed Out ?Date Complete: ? 10/09/2016 ? By: ??System Interface ? Date Reported: ? 10/09/2016 ? Interpretation RESULT: Negative for HPV. No E6 or E7 mRNA is detected from HPV types 16,18,31,33,35, 39,45,51,52,56,58, 59,66, and 68 by clinical instructor mediated amplification. Comments Document reviewed and electronically signed by: ? System Interface ? Report date: 10/09/2016 By the signature above, the attending physician certifies that he/she has personally conducted a gross and/or microscopic examination of the described specimens and rendered or confirmed the above diagnosis. End of Report [facility] 10/02/2016 10/03/2016 us Paulette Torres MD PATHOLOGY ORDERABLES Final Resu lt Performing Organization Address City/State/[facility] Co de Phone Number [facility] [address] [place] [address] documented in this encounter Visit Diagnoses Not on filedocumented in this encounter Care Teams Curriculum Developer Relationship Specialty Start Date End Date Tien Garcia MD [address] [place] [phone] PCP - General 05/27/14 04/24/23 documented as of this encounter
--- OUTSIDE RECORDS SUMMARY | 2024-09-15 00:28 | XMS_ITS | Encounter Summary ---
Author Organization [facility] Address [address] [place] [address] Care Team Providers Care Powdered Sugar Pulverizer Operator Name Role Phone Tien Garcia MD Primary Care Provider [phone] Encounter Details Date Type Department Care Team (Late st Contact Info) Description 10/16/2018 Results Only [facility] [phone] Ney Hawkins MD [address] [place] [address] [phone] Social History Tobacco Use Types Packs/Day Years [...] Visit [facility] [address], [facility] [address] [place] [address] Andie Cool, DNP AGPCNP [address] [facility] [address] [place] [phone] documented as of this encounter Procedures Procedure Name Priority Date/Time Associated Diagnosis Comments PAP TEST- RESULT ONLY Routine 10/16/2018 0:00 EST documented in this encounter Results * PAP TEST- RESULT ONLY (10/16/2018 0:00 EST) Pathology Report: CYTOPATHOLOGY REPORT Reports generated via electronic interface contain original data; however they are lacking the format of the original report. Caution should be taken when reading/interpreti ng unformatted reports. Name: ? VANESA BROWER ? Accession #: ? [id number] ? : ? 1975 (Age: 42) ??F ?Collect Date: ? 10/16/2018 ? Location: ? [facility] ? Receive Date: ? 10/17/2018 ? Provider: NEY HAWKINS MD Copy to: TIEN GARCIA MD ? Final Report SPECIMEN ADEQUACY ? Satisfactory for Evaluation - transformation zone component present GENERAL CATEGORIZATION ? Negative for Intraepithelial Lesion or Malignancy ?? Last Menstrual Period: 10/01/18 Specimen/Source: ??Pap Test, Cervix, ThinPrep Imaging System with manual evaluation Document reviewed and electronically signed by: ? ASHLEY Roe(ASCP) ? Report ??Date: 10/20/2018 10:21 HPV with Pap Test ? Date Ordered: ? 10/20/2018 ? Status: ?? Signed Out ?Date Complete: ? 10/21/2018 ? By: ??System Interface ? Date Reported: ? 10/21/2018 ? Interpretation RESULT: Negative for HPV. No E6 or E7 mRNA is detected from HPV types 16,18,31,33,35, 39,45,51,52,56,58, 59,66, and 68 by camera engineer mediated amplification. Comments Document reviewed and electronically signed by: ? System Interface ? Report date: 10/21/2018 By the signature above, the attending physician certifies that he/she has personally conducted a gross and/or microscopic examination of the described specimens and rendered or confirmed the above diagnosis. End of Report [facility] 10/16/2018 10/17/2018 us Ney Hawkins MD PATHOLOGY ORDERABLES Final Resul t [facility] [address] [place] [address] documented in this encounter Visit Diagnoses Not on filedocumented in this encounter Care Teams Powdered Sugar Pulverizer Operator Relationship Specialty Start Date End Date Tien Garcia MD [address] [place] [phone] PCP - General 05/27/14 04/24/23 documented as of this encounter
--- OUTSIDE RECORDS SUMMARY | 2024-09-15 00:28 | XMS_ITS | Encounter Summary ---
Author Organization [facility] Address [address] [place] [address] Care Team Providers Care Automatic Teller Machine Servicer Name Role Phone Unavailable Primary Care Provider Unavailabl e Encounter Details Date Type Department Care Team (Latest Contact Info) Description 05/20/2014 14:49 EDT - 05/20/2014 23:59 EDT Hospital Encounter [facility] [address] [place] [address] Unknown, Provider, Discharge Disposition: Home or Self Care Social [...] Code Departure Means Destination Home or Self [facility] documented in this encounter Plan of Treatment Upcoming Encounters Date Type Department Care Team (Late st Contact Info) Description 11/18/2024 10:15 EDT Office Visit [facility] [address] [place] [address] Andie Cool, DNP AGPCNP [address] [facility] [address] [place] [address] documented as of this encounter Visit Diagnoses Not on filedocumented in this encounter
--- OUTSIDE RECORDS SUMMARY | 2024-09-15 00:28 | XMS_ITS | Encounter Summary ---
Author Organization [facility] Address [address] [place] [address] Care Team Providers Care Wheat Shipper Name Role Phone Tien Garcia MD Primary Care Provider [phone] Encounter Details Date Type Department Care Team (Late st Contact Info) Description 05/25/2019 Historical Results Only [facility] [place] [address] [place] [address] Tien Garcia MD [address] [facility] [address] [place] [address] Social History Tobacco Use Types [...] Info) Description 11/18/2024 10:15 EDT Office Visit [facility] [address], [address] [place] [address] Andie Cool, VIRGIE AGPCNP [address] [phone] documented as of this encounter Procedures Procedure Name Priority Date/Time Associated Diagnosis Comments BACTERIAL CULTURE, URINE Routine 05/25/2019 13:26 EDT documented in this encounter Results * BACTERIAL CULTURE, URINE (05/25/2019 13:26 EDT) ES[facility]IACHIA [facility]I - [facility] ESCHERICHIA COLI 05/27/2019 7:46 EDT [facility] CitrateConcentration >100,000 CFU/ML 05/12 7:46 EDT [facility] 05/25/2019 13:2 6 EDT 05/25/2019 15:57 EDT Comment:VOID Narrative Organism Antibiotic Method Susceptibility Escherichia coli Ampicillin Sulbactam GRAM NEGAT WILLIAM SUSCEPTIBILITY - [facility] >=32: Resistant Escherichia coli Ampicillin GRAM NEGATIVE SUSCEPTIBILITY - [facility] >=32: Resistant Escherichia coli Amoxicillin Clavulan ic acid GRAM NEGATIVE SUSCEPTIBILITY - [facility] 16: Intermediate Escherichia coli Ceftriaxone GRAM NEGATIVE SUSCEPTIBILITY - [facility] <=1: Susceptible Escherichia coli Cefazolin GRAM NEGATIVE SUSCEPTIBILITY - [facility] 16: Intermediate Escherichia coli Ciprofloxacin GRAM NEGATIVE SUSCEPTIBILITY - [facility] <=0.25: Susceptible Escherichia coli Cefepime GRAM NEGATIVE SUSCEPTIBILITY - [facility] <=1: Susceptible Escherichia coli Ertapenem GRAM NEGATIVE SUSCEPTIBILITY - [facility] <=0.5: Susceptible Escherichia coli Nitrofurantoin GRAM NEGATIVE SUSCEPTIBILITY - [facility] <=16: Susceptible Escherichia coli Gentamicin GRAM NEGATIVE SUSCEPTIBILITY - [facility] <=1: Susceptible Escherichia coli Levofloxacin GRAM NEGATIVE SUSCEPTIBILITY - [facility] <=0.12: Susceptible Escherichia coli Piperacillin Tazobactam GRAM NE GATIVE SUSCEPTIBILITY - [facility] <=4: Susceptible Escherichia coli Trimethoprim-Sulfame tho xazole GRAM NEGATIVE SUSCEPTIBILITY - [facility] <=20: Susceptible Escherichia coli Tobramycin GRAM NEGATIVE SUSCEPTIBILITY - [facility] <=1: Susceptible Comment:F/U HTN us Tien Garcia MD MICROBIOLOGY - GENERAL ORDERABLE S Edited Result - Final [facility] documented in this encounter Visit Diagnoses Not on filedocumented in this encounter Care Teams Wheat Shipper Relationship Specialty Start Date End Date Tien Garcia MD [address] [place] [phone] PCP - General 05/27/14 04/24/23 documented as of this encounter
--- NOTE | 2024-09-15 12:00 | DI.MAMMO_ITS ---
Exam(s) MAMMO SCREENING EXAM: MAMMO SCREENING CLINICAL HISTORY: screening TECHNIQUE: Mammograms were interpreted according to the usual protocol including computer analysis w [employer] CAD system, tomosynthesis and C-view imaging. COMPARISON: 2017 through 2023 FINDINGS: The breasts are composed of heterogeneously dense fibroglandular densities, Breast Density category C . No suspicious masses or suspicious microcalcifications are seen. No skin thickening or abnormal axillary lymph nodes are seen. There has been no significant change from prior exams. IMPRESSION: BI-RADS Category 1, Negative mammogram. Yearly screening mammography is recommended. Breast Density Category C, heterogeneously Dense. The mammogram demonstrates the patient's breast tissue is dense. Dense breast tissue is very common a nd is not abnormal but dense breast tissue can make it harder to find cancer on a mammogram. Also, de nse breast tissue may increase breast cancer risk. This information about the result of the mammogram report was provided to the patient to raise their awareness. Use this report when you speak with the patient about their risks for breast cancer, which includes their family history. At that time, you may recommend additional screening tests (Ultrasound or MRI) as they might be useful based on their r isk. A negative radiographic report should not delay biopsy if a dominant or clinically suspicious mass is present. Up to ten percent of cancers are not identified on mammography. A negative report may reinforce clinical impression. Adenosis and dense breasts may obscure an underlying neoplasm. False positive reports average 6 to 10%.
== END 2024-09-15 00:43 ==
LOC: DI 00:24
PROVIDERS: PCP Family Medicine; Visit Provider Obstetrics & Gynecology
DX: Z12.31 Encounter for screening mammogram for malignant neoplasm of breast (principal); R92.333 Mammographic heterogeneous density, bilateral breasts
CPT/HCPCS: 77063; 77067

== ENCOUNTER 2024-09-15 11:04 | Outpatient (REF) | payer OTHER, SELFPAY ==
--- NOTE | 2024-09-15 10:30 | ENDOMET_PTH ---
PATIENT: Vanesa Zavala LOC: [facility] [place] U#:[id number] AGE/SX: 48/F ROOM: RE09/15/[address]: Taya Lara DO : 1975 BED: DIS: 09/15/2024 SPEC #: [id number] RECD: 09/15/24 12:57 STATUS: DEEP REQ #: [id number] TALYA: 09/15/24 10:[address]: Taya Lara DEPT: Surgical Specimen RECD BY: Dilia Alston ENTERED: 09/15/24 12:58 SP TYPE: Endomet OTHR DR: Tien Garcia Tissues: 1 - ENDOMETRIUM BX/MARILYNN Procedures: GROSS AND MICRO LEVEL 4 Comments: [id number]
== END 2024-09-15 11:05 | disposition home or self-care (01) ==
LOC: LBN 11:04
PROVIDERS: PCP Family Medicine; Visit Provider Obstetrics & Gynecology
DX: N85.01 Benign endometrial hyperplasia (principal); D25.9 Leiomyoma of uterus, unspecified; N93.9 Abnormal uterine and vaginal bleeding, unspecified
CPT/HCPCS: 88305

== ENCOUNTER 2024-11-21 19:04 | Outpatient (REF) | payer OTHER, SELFPAY ==
[2024-11-21 17:09] LABS: Bacteria Few HPF (Negative); C & S Indicated? C&S Done As Ordered; Crystals Negative HPF (Negative); Epithelial Cells Moderate HPF (Negative); Mucus Negative (Negative); RBC Negative HPF (0-2)
== END 2024-11-21 19:05 | disposition home or self-care (01) ==
LOC: LBN 19:04
PROVIDERS: PCP Family Medicine; Visit Provider Physician Assistant Medical
DX: R35.0 Frequency of micturition (principal); R82.89 Other abnormal findings on cytological and histological examination of urine; B96.29 Other Escherichia coli [E. coli] as the cause of diseases classified elsewhere
CPT/HCPCS: 87077; 81015; 87086; 87186

== ENCOUNTER 2025-03-30 19:33 | Outpatient (REF) | payer OTHER, SELFPAY ==
[2025-03-30 16:10] LABS: WBC 20-50 HPF (0-5)
== END 2025-03-30 19:34 | disposition home or self-care (01) ==
LOC: LBN 19:33
PROVIDERS: PCP Family Medicine; Visit Provider Physician Assistant Medical
DX: R30.0 Dysuria (principal)
CPT/HCPCS: 87077; 81015; 87086; 87186